=== PATIENT | female | born 1950 | race Caucasian/White ===

== ENCOUNTER → 2018-03-17 15:16 | Outpatient (CLI) | payer MEDICARE, OTHER, SELFPAY ==
--- NOTE | 2018-03-17 15:25 | CT_ITS ---
STUDY: CT BRAIN WITHOUT CONTRAST REASON FOR EXAM: Female, 67 years old. Headache. RADIATION DOSAGE (If Supplied By Facility): CTDIvol = ( 44.99 ) mGy, DLP = ( 762.36 ) mGycm TECHNIQUE: Transaxial CT imaging of the brain was performed without administration of intravenous contrast material. Individualized dose optimization techniques were used for this CT. COMPARISON: None. FINDINGS: Normal soft tissue structures. Normal calvarium. Normal size ventricles and extra-axial spaces for the patient's age. Normal white matter tracts of the cerebral hemispheres. Normal basal ganglia and thalami. Normal brainstem. Normal cerebellum. There is no intracranial hemorrhage. There are no findings of an acute ischemic infarction. Paranasal sinuses show complete opacification of the sphenoid sinuses. CT/Brain/Head without Contrast IMPRESSION: Normal unenhanced CT scan of the brain. Electronically Signed: Lex Royal MD at 15:46 EST , Service support ,
--- OUTSIDE RECORDS SUMMARY | 2018-05-03 21:48 | XMS RPT_ITS ---
:1950 Author Organization OHIP Care Team Providers Name Role Phone HARRIS LÓPEZ () Referring Unavailable HARRIS LÓPEZ) Attending Unavailable HARRIS LÓPEZ) Referring Unavailable PODLOGARMINERVA) Attending Unavailable PODLOGAR, MINERVA (AVTAR) Referring Unavailable OLDER, MARLINE (AVTAR) Attending Unavailable OLDER, MARLINE (FELT HANGER) Referring Unavailable Older, Marline FELT HANGER Attending Unavailable Older, Marline FELT HANGER Referring Unavailable Primay Care Physicia, No Primary Care Unavailable Janett Lowe YOUTH COUNSELOR-C Consulting Unavailable Rohith Vela Attending Unavailable Rohith Vela Referring Unavailable Primay Care Physicia, No Primary Care Unavailable PROBLEMS PROBLEMS DATE TYPE CONDITION / CODE ATTENDING STATUS SOURCE 03/17/2018 Active Ocular pain, right NA Active [facility] eye / H57.11(ICD-10) [facility] [place] Rep[facility] 03/17/2018 Active Unspecified ptosis NA Active [facility] of right eyelid / [facility] [place] H02.401(ICD-10) Repository 03/17/2018 Active Headache / NA Active [facility] R51(ICD-10) [facility] [place] [facility] 02/07/2018 Active Encounter for NA Active [facility] screening mammogram [facility] [place] for malignant Repository neoplasm of breast / Z12.31(ICD-10) 10/07/2015 Active Iron deficiency NA Active [facility] anemia, unspecified [facility] [place] / D50.9(ICD-10) Repository 08/08/2005 Active Postprocedural NA Active [facility] hypothyroidism / [facility] [place] E89.0(ICD-10) Repository 01/15/2018 Active Other halfway NA Active [facility] (current) drug [facility] [place] therapy / Repository Z79.899(ICD-10) 08/08/2005 Active Essential (primary) NA Active [facility] hypertension / [facility] I10(ICD-10) Repository 06/08/2017 Active Other abnormal NA Active [facility] findings in urine / [facility] [place] R82.99(ICD-10) Repository 06/08/2017 Active Unspecified abnormal NA Active [facility] findings in urine / [facility] [place] R82.90(ICD-10) Repository PROCEDURES PROCEDURES No Procedure Records FoundRESULTS RESULTS OPERATIVE REPORT Observed: 04/29/2018 Status: F Source: [place] 2:01 PM [facility] REPOSITORY [facility] Medical Records Department [address] [place] [address] Operative Report 04/29/18 0827 MR#: [id number] Acct: [id number] Name: LINSEY BOBO Rep #: [id number] : 1950 67 From: Rohith Vela MD PCP: Care Physician, No Primary Status: REG [facility] [place] Location: [place] [address] Problem List (1) Chronic pansinusitis Status: Chronic Report of Operation Date of Procedure: 04/29/18 Pre-Operative Diagnosis: 1. chronic pansinusitis Post-Operative Diagnosis: 1. chronic pansinusitis Surgery/Procedure Performed:: 1. endoscopic maxillary antrostomy with tissue removal, right and left. 2. endoscopic total ethmoidectomy with sphenoidotomy and tissue removal, right and left Type of Anesthesia:: General Description of Procedure: on the day of the procedure, after appropriate informed consent was obtained, the patient was brought to the operating room and placed in supine position on the operating table. she was placed under general endotracheal anesthesia; the endotracheal tube was secured, the eyes were lubricated. the image guidance system was set up, registered and accuracy confirmed. the bilateral nasal cavities were decongested with oxymetazoline soaked pledgets. the superior attachment of the middle turbinate and uncinate process were injected with lidocaine/epinephrine. the left nasal cavity was examined with the endoscope. a maxillary antrostomy and uncinectomy were performed with a gavin elevator and blakesley. contents were evacuated. a back biter was used to widen the antrostomy. the ethmoid bulla was entered bluntly using the suction and a combination of a curette and an upgoing blakesley were used to perform a total ethmoidectomy. this was taken superiorly to the skull base and laterally to the lamina. a stankewicz maneuver was performed and no laminar defect was noted. the natural sphenoid os was located and widened using a jamila cut. contents were evacuated. the anterior/inferior portion of the middle turbinate was removed with turbinate scizzors and cauterized. the area was irrigated, pledgets were replaced, and hemostasis was achieved. the right nasal cavity was examined with the endoscope. a maxillary antrostomy and uncinectomy were performed with a gavin elevator and blakesley. contents were evacuated. a back biter was used to widen the antrostomy. the ethmoid bulla was entered bluntly using the suction and a combination of a curette and an upgoing blakesley were used to perform a total ethmoidectomy. this was taken superiorly to the skull base and laterally to the lamina. a stankewicz maneuver was performed and no laminar defect was noted. the natural sphenoid os was located and widened using a jamila cut. polyps were noted in this area and a large amount of fungal elements were filling the sphenoid cavity; contents were evacuated. the anterior/inferior portion of the middle turbinate was removed with turbinate scizzors and cauterized. the area was irrigated, pledgets were replaced, and hemostasis was achieved. the patient was extubated uneventfully and transferred to the PACU in stable condition. 04/29/18 1401 <Electronically signed by Rohith Vela MD> Date Rohith Vela MD CC: No Primary Care Physician; Harris Vela MD Signed CBC-COMPLETE BLOOD CNT Collected: 04/29/2018 Status: F Source: [place] NO DIFF 1:50 PM [facility] REPOSITORY Order Comment: Reason for Laboratory Test PRE-OP TYPE CODE TESTS RESULT OUT OF RANGE REFERENCE UNITS LAB L100.1000 4.4-11.0 K/mm3 Normal WBC 6.6 LAB L100.1200 4.2-5.4 M/mm3 Normal RBC 4.31 LAB L100.1300 12.0-15.0 g/dl Normal HGB 13.1 LAB L100.1400 37-47 % Normal HCT 40.8 LAB L100.1500 81-99 fL Normal MCV 94.7 LAB L100.1600 27.0-32.0 pg Normal MCH 30.4 LAB L100.1700 32-36 g/gl Normal MCHC 32.1 LAB L100.1810 11.6-14.6 % Normal RDW CV 14.5 LAB L100.1820 35.1-43.9 fl High RDW SD 48.5 LAB L100.1900 150-450 K/mm3 Normal PLT 255 LAB L100.2000 6.2-12.0 fl Normal MPV 10.1 Performed By: #### L100.0500 #### [facility] [address] [place], [place], [address] PROTHROMBIN TIME W/INR Collected: 04/29/2018 Status: F Source: [place] 1:50 PM [facility] REPOSITORY Order Comment: Reason for Laboratory Test PRE-OP TYPE CODE TESTS RESULT OUT OF RANGE REFERENCE UNITS LAB L300.4150 11.7-14.9 SECONDS Normal PROTIME 13.0 LAB L300.4200 Normal INR 1.0 Performed By: #### L300.3900, L300.4310 #### [facility] [address] [place], [place], [address] PARTIAL THROMBOPLAST Collected: 04/29/2018 Status: F Source: [place] TIME 1:50 PM [facility] REPOSITORY Order Comment: Reason for Laboratory Test PRE-OP TYPE CODE TESTS RESULT OUT OF RANGE REFERENCE UNITS LAB L300.4310 24.1-36.2 Seconds Normal PTT 32.0 Performed By: #### L300.3900, L300.4310 #### [facility] [address] [place], [place], [address] BASIC METABOLIC Collected: 04/29/2018 Status: F Source: [place] PROFILE (BMP) 1:50 PM [facility] REPOSITORY Order Comment: Send Results To: PRE-OP Reason for Laboratory Test PRE-OP TYPE CODE TESTS RESULT OUT OF RANGE REFERENCE UNITS LAB L501.0100 74-106 mg/dL Normal GLU 85 Result Comment: Please note revised GLUCOSE reference range effective 2017. LAB L501.1000 7-18 mg/dL High BUN 20 LAB L501.1100 0.55-1.02 mg/dL Normal CREAT,SERUM 0.78 Result Comment: The validity of the calculated GFR AND GFRAA in patients over 70 years has not been determined. Clinical correlation is essential. LAB L501.1110 >60 mL/min Normal EST GFR 78 Result Comment: Non- GFR Calc LAB L501.1115 >60 mL/min Normal EST GFR - AA 94 Result Comment: GFR Calc LAB L501.1300 10-20 RATIO High BUN/CRE 25.6 LAB L501.2200 8.5-10.1 mg/dL CA Normal 9.4 LAB L501.5300 136-145 mmol/L NA Normal 140 LAB L501.5600 3.5-5.1 mmol/L K Normal 4.1 LAB L501.5900 98-107 mmol/L CL Normal 104 LAB L501.6100 21.0-32.0 mmol/L Normal CO2 29.0 LAB L501.6200 5-15 Normal GAP 7 Performed By: #### L500.2500, L501.9520 #### [facility] [address] [place], [address] THYROID STIM HORMONE Collected: 04/29/2018 Status: F Source: [place] (TSH) 1:50 PM [facility] REPOSITORY Order Comment: Send Results To: PRE-OP Reason for Laboratory Test PRE-OP TYPE CODE TESTS RESULT OUT OF RANGE REFERENCE UNITS LAB L501.9520 0.358-3.74 uIU/mL Normal TSH 1.59 Performed By: #### L500.2500, L501.9520 #### [facility] [address] [place], [place], [address] DISCHARGE INSTRUCTION Observed: 04/29/2018 Status: F Source: [place] 8:27 AM [facility] REPOSITORY [facility] Medical Records Department [address] [place] [address] Instructions for Home/Discharge Instructions 04/29/18825 MR#: [id number] Acct: [id number] Name: LINSEY BOBO Rep #: [id number] : 1950 67 From: Rohith Vela MD PCP: Care Physician, No Primary Status: [place] [facility] You will use the following diet at home:: No restrictions Your food should be the consistency of: Regular Discharge Activity: Return to Normal Activity Call your doctor if your incision/area has: Increased Pain/ Swelling Additional Dressing/Incision Instructions:: irrigate nose with saline 5 times/day until seen in clinic Allergies/Adverse Reactions: Allergies No Known Allergies Allergy (Verified 04/22/18 09:07) Medications to take at Discharge Esomeprazole Mag Trihydrate [Nexium] 40 mg PO QODAY 11/10/15 Ferrous Sulfate 325 mg PO DAILY@0800 11/10/15 Levothyroxine Sodium [Levoxyl] 88 mcg PO DAILY 11/10/15 Lisinopril [Zestril] 10 mg PO DAILY 04/22/18 Naproxen [Naprosyn] 500 mg PO BID 04/22/18 Simvastatin [Zocor] 40 mg PO QHS 04/22/18 Acetaminophen/Codeine #3 [Tylenol#3] 1 tab PO Q6H PRN PRN #15 tab 04/29/18 The following prescriptions were given: Acetaminophen/Codeine #3 [Tylenol#3] 1 tab PO Q6H PRN PRN #15 tab PRN Reason: Pain Orders to be completed after discharge: 12 Lead EKG [CVS] Time Frame: 04/23/18, Facility: [facility], Location: Cardiovascular Services Primary Care Physician: Care Physician,No Primary [Primary Care Provider] - Test Results: Test results from this visit will be discussed in further detail at your follow-up appointment, if applicable. Please Follow Up With: Rohith Vela MD When: 1 week 04/29/18826 <Electronically signed by Rohith Vela MD> Date Rohith Vela MD CC: No Primary Care Physician Signed 12 LEAD ELECTROCARDIOGRAM Observed: 04/24/2018 Status: F Source: [place] 4:02 PM [facility] REPOSITORY [facility] Cardiovascular Services [address] [place] [address] 12 Lead EKG 04/23/18 1214 MR#: [id number] Acct: [id number] Name: TAD BOBOBETH Enoch Rep #: [id number] : 1950 67 From: Bart Iverson MD Attending Dr: Harris Vela MD Status: PRE SDC Ordering Dr: Rohith Vela MD Date: 04/23/18 Location: [facility] Sex: F C Admitted: Test Reason : PRE-OP Blood Pressure : / mmHG Vent. Rate : 076 BPM Atrial Rate : 076 BPM P-R Int : 150 ms QRS Dur : 080 ms QT Int : 390 ms P-R-T Axes : 049 032 047 degrees QTc Int : 438 ms Normal sinus rhythm Normal ECG Confirmed by ZAYRA PAEZ, BART ([id number]), acquisitions editor KRISSY ANTHONY ([id number]) on 04/24/2018 4:02:06 PM Referred By: John Vela Confirmed By:BART IVERSON MD 04/24/18 1602 Date Bart Iverson MD CC: No Primary Care Physician; Harris Vela MD Signed BRAIN/HEAD WITHOUT Observed: 03/17/2018 Status: F Source: [place] CONTRAST 3:25 PM [facility] REPOSITORY [facility] Imaging Services [address] [place] [address] Brain/Head without Contrast MR#: [id number] Acct: [id number] Name: LINSEY BOBO Rep #: [id number] : 1950 F 67 From: Lex Royal MD PCP: Care Physician, No Primary Status: REG CLI Study: Brain/Head without Contrast Date of Exam: 03/17/18 Exam# [id number] Ordering Dr: Marline Pena ADDENDUM by Preston Elam MD on 03/18/18 at 1048 ADDENDUM This is an addendum report. 03/18/18 1048 Date cc: No Primary Care Physician; Mathew Lemos MD; Marline Pena * Signed ADDENDUM by Preston Elam MD on 03/18/[address]/Brain/Head without Contrast IMPRESSION: Opacification of the right sphenoid sinus. Electronically Signed: Preston Elam MD at 10:48 EST Tel [phone], Service support , 03/18/18 1055 Date cc: No Primary Care Physician; Mathew Lemos MD; Marline Pena * Signed STUDY: CT BRAIN WITHOUT CONTRAST REASON FOR EXAM: Female, 67 years old. Headache. RADIATION DOSAGE (If Supplied By Facility): CTDIvol = ( 44.99 ) mGy, DLP = ( 762.36 ) mGycm TECHNIQUE: Transaxial CT imaging of the brain was performed without administration of intravenous contrast material. Individualized dose optimization techniques were used for this CT. COMPARISON: None. FINDINGS: Normal soft tissue structures. Normal calvarium. Normal size ventricles and extra-axial spaces for the patient's age. Normal white matter tracts of the cerebral hemispheres. Normal basal ganglia and thalami. Normal brainstem. Normal cerebellum. There is no intracranial hemorrhage. There are no findings of an acute ischemic infarction. Paranasal sinuses show complete opacification of the sphenoid sinuses. CT/Brain/Head without Contrast IMPRESSION: Normal unenhanced CT scan of the brain. Electronically Signed: Lex Royal MD at 15:46 EST , Service support , CC: No Primary Care Physician; Mathew Lemos MD; Marline Pnea Currency Machine Operator: Signed CBC AND DIFFERENTIAL Collected: 03/17/2018 Status: F Source: [place] 2:47 PM [facility] REPOSITORY TYPE CODE TESTS RESULT OUT OF REFERENCE UNITS RANGE LAB WBC 3.70-11.00 k/uL WBC 8.13 LAB RBC 3.90-5.20 m/uL RBC 4.44 LAB HGB 11.5-15.5 g/dL Hemoglobin 13.0 LAB HCT 36.0-46.0 % Hematocrit 41.9 LAB MCV 80.0-100.0 fL MCV 94.4 LAB MCH 26.0-34.0 pG MCH 29.3 LAB MCHC 30.5-36.0 g/dL MCHC 31.0 LAB RDWCV 11.5-15.0 % RDW-CV 14.4 LAB PLTCT 150-400 k/uL Platelet Count 259 LAB MPV 9.0-12.7 fL MPV 10.8 LAB ANEUT % Neut% 71.3 LAB AANEUT 1.45-7.50 k/uL Abs Neut 5.77 LAB ALYMP % Lymph% 17.2 LAB AALYMP 1.00-4.00 k/uL Abs Lymph 1.40 LAB AMONO % Craig% 8.0 LAB AAMONO <0.87 k/uL Abs Craig 0.65 LAB AEOS % Eosin% 2.3 LAB AAEOS <0.46 k/uL Abs Eosin 0.19 LAB ABASO % Baso% 1.2 LAB AABASO <0.11 k/uL Abs Baso 0.10 LAB AUNRBC 0 /100 WBC NRBCs 0.0 LAB ABNRBC <0.01 k/uL Absolute nRBC <0.01 LAB DTYP DTYPE Auto Diff Performed By: #### CBCDIF, WSR, CRP #### [facility] [address] [place] [id number] SED RATE WESTERGREN Collected: 03/17/2018 Status: F Source: [place] 2:47 PM [facility] REPOSITORY TYPE CODE TESTS RESULT OUT OF REFERENCE UNITS RANGE LAB WSR 0-20 mm/hr Sed Rate Westergren 12 Performed By: #### CBCDIF, WSR, CRP #### [facility] [address] [place] [address] C-REACTIVE PROTEIN Collected: 03/17/2018 Status: F Source: [place] 2:47 PM [facility] REPOSITORY TYPE CODE TESTS RESULT OUT OF REFERENCE UNITS RANGE LAB CRP <0.9 mg/dL C-Reactive 0.1 Protein Performed By: #### CBCDIF, WSR, CRP #### [facility] [address] [place], [place] [address] PROGRESS Observed: 03/17/2018 Status: COMPLETED Source: [place] 2:02 PM [facility] REPOSITORY HNO ID: [id number] Author: Marline (Avtar) Older Service: (none) Author Type: Nurse Practitioner Type: Progress Notes Filed: 03/17/2018 2:42 PM Note Text: CC Patient presents with: Headache: (right) temporal headaches x 1 month HPI Linsey Bobo is a 67 year old year old female who presents with complaint of headache(s) for 1 month. Intensity: 6/10 on 0-10 scale, Location: right muslim and right eye, Frequency: daily, occurring only in the late afternoon/evening, Character: aching, Duration: usually last a few hours Triggers: The patient is not aware of any specific triggers. Recent history of head injury or trauma, migraines, significant caffeine intake or excessive alcohol intake: No Associated symptoms: since headache have started she has had foggy thinking, worsening of chronic ptosis of the right eyelid and red eyes. Denies: nausea, vomiting, photophobia, phonophobia, neck stiffness, inability to move head freely or touch chin to neck, sinus congestion, toothache or other dental problem, tongue or jaw pain, facial pain when leaning over and scalp pain with combing hair. No recent URI's or illnesses No headache history History of hypertension, does not check blood pressures at home Denies: numbness, weakness, slurred speech, visual changes, dizziness, clumsiness, difficulty with gait and change in level of consciousness. Treatments: resting in quiet dark room, minor analgesics- Tylenol and warn compress with no relief. REVIEW OF SYSTEMS Respiratory: no cough, no wheezing, no shortness of breath Cardiovascular: no chest pain, no chest pressure, no palpitations and no swelling Neurologic: no syncope, no seizures, no numbness or tingling of hands, no numbness or tingling of feet, no muscle weakness, no tremor, no falling, no difficulty walking, no slurred speech PAST MEDICAL HISTORY Diagnosis Date - Acute gastritis without mention of hemorrhage - Diverticulosis of colon (without mention of hemorrhage) - Dysphagia, unspecified(787.20) - Esophagitis, unspecified - Essential hypertension, benign - Goiter, unspecified thyroidectomy - Hypothyroidism - Lesion of plantar nerve 'sullivans toe' - Malaise and fatigue - Meniscus tear right - Osteoarthrosis, unspecified whether generalized or localized, other specified sites - Other and unspecified hyperlipidemia - Other B-complex deficiencies - Other emphysema (HCC) - Sciatica seeing Dr. Babb, pain mgmt PAST SURGICAL HISTORY Procedure Laterality Date - COLONOSCOP W/ OR W/O [facility] SPEC 09/07/05 Diverticulosis - COLONOSCOP W/ OR W/O [facility] SPEC 10/07/09 Sigmoid diverticulosis/extensive - COLONOSCOP W/ OR W/O [facility] SPEC 11-10-15 repeat in 10 years - DANDC, DIAG AND/OR THERAPEUTIC Dilation AND curettage - EGD W/O [facility] SPECIMEN W/BX 01/19/09 - EGD W/O [facility] SPECIMEN W/BX 11-10-15 - LIGATE FALLOPIAN TUBE Tubal ligation - PAST SURGICAL HISTORY OF bone spur removal from left foot - THYROIDECTOMY 1998 - TMJ ARTHROSCOPY DISCECTOMY ALLERGIES Epinephrine; James [Other]; Perfumes MEDICATIONS levothyroxine (SYNTHROID) 88 mcg tablet Take 1 tablet by mouth once daily. simvastatin (ZOCOR) 40 mg tablet Take 1 tablet by mouth daily at bedtime. lisinopril (ZESTRIL, PRINIVIL) 10 mg tablet Take 1 tablet by mouth once daily. naproxen (NAPROSYN) 500 mg tablet Take 1 tablet by mouth twice daily. ferrous sulfate 325 mg (65 mg iron) tablet Take 1 tablet by mouth daily with breakfast. esomeprazole (NEXIUM) 40 mg capsule Take 1 capsule by mouth every other day acetaminophen(TYLENOL EXTRA STRENGTH 500 MG TAB) as necessary FAMILY HISTORY Problem Relation Age of Onset - Coronary Artery Disease Mother - Coronary Artery Disease Father - Hypertension Mother - Osteoporosis Sister Social History Substance Use Topics - Smoking status: Never Smoker - Smokeless tobacco: Never Used - Alcohol use No PHYSICAL EXAM BP 132/68 Pulse 89 Temp 37.1 ?C (98.8 ?F) (Temporal Artery) Resp 16 Wt 88.2 kg (194 lb 6.4 oz) SpO2 96% BMI 31.86 kg/m? General Appearance: well appearing, in no acute distress, alert Pysch: affect is anxious Skin: Skin color, texture, turgor normal for age; No rashes or lesions Head: Normocephalic, atraumatic. No temporal artery tenderness, pulsations or bruits Eyes: PERRLA, EOM's intact and painless, sclera white, non-injected, conjunctival erythema bilateral eyes, right eyelid ptosis Neck: No bruits, Neck supple, No adenopathy, cervical or paraspinal tenderness Oropharynx: lips normal without lesions, tongue midline and normal, soft palate, uvula, and tonsils normal Lungs: lungs clear to auscultation. No wheezing, rhonchi, rales Heart: RRR without murmur, gallop, or rubs. No ectopy Neurological: Negative findings: speech normal, mental status intact, cranial nerves 2-12 intact, gait, including heel, toe, and tandem walking normal, muscle strength normal, reflexes normal and symmetric ASSESSMENT/PLAN: 1. Right sided temporal headache - ICD9: 784.0, ICD10: R51 (primary diagnosis) New onset headache in age >50, right eye ptosis and pain; imaging indicated: - CT BRAIN WO IVCON Lab work-up with: - SED RATE WESTERGREN - C-REACTIVE PROTEIN (CRP) - CBC + DIFF Needs ophthalmology evaluation [place]. Called [facility] and scheduled patient for 03/18 at 8:30 AM Discussed above with PCP, he is agreeable Follow-up and further treatment pending results of work-up 2. Acute pain in right eye - ICD9: 379.91, ICD10: H57.11 As above - CT BRAIN WO IVCON - SED RATE WESTERGREN - C-REACTIVE PROTEIN (CRP) - CBC + DIFF 3. Ptosis of right eyelid - ICD9: 374.30, ICD10: H02.401 As above - CT BRAIN WO IVCON - SED RATE WESTERGREN - C-REACTIVE PROTEIN (CRP) - CBC + DIFF Prescription instructions reviewed with patient as applicable. Potential red flag symptoms discussed with the patient. Reviewed appropriate action plan to take if red flag symptoms occur. Patient agreeable to treatment plan. Marline Pena APRN.CNP CNOV Observed: 03/17/2018 Status: COMPLETED Source: [place] 2:00 PM [facility] REPOSITORY Office Visit (INTMWS) LINSEY BOBO ([id number]) 1950 F Date Time Provider Department 03/17/18 2:00 PM MARLINE PENA (AVTAR) INTMWS During your visit today, we recorded the following information about you: Temperature Pulse Respiration Blood pressure 98.8 degrees 89/minute 16/minute 132/68 Weight 88.2 kg Marline Pena APRN.CNP 03/17/2018 2:42 PM Signed CC Patient presents with: Headache: (right) temporal headaches x 1 month HPI Linsey Bobo is a 67 year old year old female who presents with complaint of headache(s) for 1 month. Intensity: 6/10 on 0-10 scale, Location: right muslim and right eye, Frequency: daily, occurring only in the late afternoon/evening, Character: aching, Duration: usually last a few hours Triggers: The patient is not aware of any specific triggers. Recent history of head injury or trauma, migraines, significant caffeine intake or excessive alcohol intake: No Associated symptoms: since headache have started she has had foggy thinking, worsening of chronic ptosis of the right eyelid and red eyes. Denies: nausea, vomiting, photophobia, phonophobia, neck stiffness, inability to move head freely or touch chin to neck, sinus congestion, toothache or other dental problem, tongue or jaw pain, facial pain when leaning over and scalp pain with combing hair. No recent URI's or illnesses No headache history History of hypertension, does not check blood pressures at home Denies: numbness, weakness, slurred speech, visual changes, dizziness, clumsiness, difficulty with gait and change in level of consciousness. Treatments: resting in quiet dark room, minor analgesics- Tylenol and warn compress with no relief. REVIEW OF SYSTEMS Respiratory: no cough, no wheezing, no shortness of breath Cardiovascular: no chest pain, no chest pressure, no palpitations and no swelling Neurologic: no syncope, no seizures, no numbness or tingling of hands, no numbness or tingling of feet, no muscle weakness, no tremor, no falling, no difficulty walking, no slurred speech PAST MEDICAL HISTORY Diagnosis Date - Acute gastritis without mention of hemorrhage - Diverticulosis of colon (without mention of hemorrhage) - Dysphagia, unspecified(787.20) - Esophagitis, unspecified - Essential hypertension, benign - Goiter, unspecified thyroidectomy - Hypothyroidism - Lesion of plantar nerve 'sullivans toe' - Malaise and fatigue - Meniscus tear right - Osteoarthrosis, unspecified whether generalized or localized, other specified sites - Other and unspecified hyperlipidemia - Other B-complex deficiencies - Other emphysema (HCC) - Sciatica seeing Dr. Babb, pain mgmt PAST SURGICAL HISTORY Procedure Laterality Date - COLONOSCOP W/ OR W/O [facility] SPEC 09/07/05 Diverticulosis - COLONOSCOP W/ OR W/O [facility]RS SPEC 10/07/09 Sigmoid diverticulosis/extensive - COLONOSCOP W/ OR W/O [facility] SPEC 11-10-15 repeat in 10 years - DANDC, DIAG AND/OR THERAPEUTIC Dilation AND curettage - EGD W/O [facility] SPECIMEN W/BX 01/19/09 - EGD W/O [facility] SPECIMEN W/BX 11-10-15 - LIGATE FALLOPIAN TUBE Tubal ligation - PAST SURGICAL HISTORY OF bone spur removal from left foot - THYROIDECTOMY 1998 - TMJ ARTHROSCOPY DISCECTOMY ALLERGIES Epinephrine; James [Other]; Perfumes MEDICATIONS levothyroxine (SYNTHROID) 88 mcg tablet Take 1 tablet by mouth once daily. simvastatin (ZOCOR) 40 mg tablet Take 1 tablet by mouth daily at bedtime. lisinopril (ZESTRIL, PRINIVIL) 10 mg tablet Take 1 tablet by mouth once daily. naproxen (NAPROSYN) 500 mg tablet Take 1 tablet by mouth twice daily. ferrous sulfate 325 mg (65 mg iron) tablet Take 1 tablet by mouth daily with breakfast. esomeprazole (NEXIUM) 40 mg capsule Take 1 capsule by mouth every other day acetaminophen(TYLENOL EXTRA STRENGTH 500 MG TAB) as necessary FAMILY HISTORY Problem Relation Age of Onset - Coronary Artery Disease Mother - Coronary Artery Disease Father - Hypertension Mother - Osteoporosis Sister Social History Substance Use Topics - Smoking status: Never Smoker - Smokeless tobacco: Never Used - Alcohol use No PHYSICAL EXAM BP 132/68 Pulse 89 Temp 37.1 ?C (98.8 ?F) (Temporal Artery) Resp 16 Wt 88.2 kg (194 lb 6.4 oz) SpO2 96% BMI 31.86 kg/m? General Appearance: well appearing, in no acute distress, alert Pysch: affect is anxious Skin: Skin color, texture, turgor normal for age; No rashes or lesions Head: Normocephalic, atraumatic. No temporal artery tenderness, pulsations or bruits Eyes: PERRLA, EOM's intact and painless, sclera white, non-injected, conjunctival erythema bilateral eyes, right eyelid ptosis Neck: No bruits, Neck supple, No adenopathy, cervical or paraspinal tenderness Oropharynx: lips normal without lesions, tongue midline and normal, soft palate, uvula, and tonsils normal Lungs: lungs clear to auscultation. No wheezing, rhonchi, rales Heart: RRR without murmur, gallop, or rubs. No ectopy Neurological: Negative findings: speech normal, mental status intact, cranial nerves 2-12 intact, gait, including heel, toe, and tandem walking normal, muscle strength normal, reflexes normal and symmetric ASSESSMENT/PLAN: 1. Right sided temporal headache - ICD9: 784.0, ICD10: R51 (primary diagnosis) New onset headache in age >50, right eye ptosis and pain; imaging indicated: - CT BRAIN WO IVCON Lab work-up with: - SED RATE WESTERGREN - C-REACTIVE PROTEIN (CRP) - CBC + DIFF Needs ophthalmology evaluation [place]. Called [facility] and scheduled patient for 03/18 at 8:30 AM Discussed above with PCP, he is agreeable Follow-up and further treatment pending results of work-up 2. Acute pain in right eye - ICD9: 379.91, ICD10: H57.11 As above - CT BRAIN WO IVCON - SED RATE WESTERGREN - C-REACTIVE PROTEIN (CRP) - CBC + DIFF 3. Ptosis of right eyelid - ICD9: 374.30, ICD10: H02.401 As above - CT BRAIN WO IVCON - SED RATE WESTERGREN - C-REACTIVE PROTEIN (CRP) - CBC + DIFF Prescription instructions reviewed with patient as applicable. Potential red flag symptoms discussed with the patient. Reviewed appropriate action plan to take if red flag symptoms occur. Patient agreeable to treatment plan. TRAVIS Ramirez APRN.CNP 03/17/2018 2:29 PM Addendum Appointment at [facility] 03/18 at 8:30 AM Referring Provider: SELF [[id number]] Allergies As of Date: 03/17/2018 Noted Allergy Reaction EPINEPHRINE 12/31/2007 Comments: rapid heartbeat james [Other] 08/08/2005 PERFUMES 08/08/2005 Comments: floral perfumes Date Reviewed: 03/17/2018 Reviewed by: Shaniqua Espinoza Technical Services Coordinator - Fully Assessed Reason for Visit: Headache [52] Cmt: (right) temporal headaches x 1 month Primary Visit Diagnosis:Right sided temporal headache [R51] Other Visit Diagnoses:Acute pain in right eye [H57.11] Ptosis of right eyelid [H02.401] Order(s):CT BRAIN WO IVCON [6504235] Order #: [id number] FUTURE SED RATE WESTERGREN [SQWSR] Order #: [id number] FUTURE C-REACTIVE PROTEIN (CRP) [SQCRP] Order #: [id number] FUTURE CBC + DIFF [SQCBCDIF] Order #: [id number] FUTURE Prescriptions as of 03/17/2018 Sig: LEVOTHYROXINE 88 MCG TABLET Take 1 tablet by mouth once d* SIMVASTATIN 40 MG TABLET Take 1 tablet by mouth daily * LISINOPRIL 10 MG TABLET Take 1 tablet by mouth once d* NAPROXEN 500 MG TABLET Take 1 tablet by mouth twice * FERROUS SULFATE 325 MG (65 MG* Take 1 tablet by mouth daily * ESOMEPRAZOLE MAGNESIUM 40 MG * Take 1 capsule by mouth every* TYLENOL EXTRA STRENGTH 500 MG* as necessary Problem List As Of Date 03/17/2018 Noted Resolved HYPERTENSION BENIGN [I10] INVALID FOR* HYPOTHYROIDISM POST SURGICAL [E89.0] INVALID FOR* Other hyperlipidemia [E78.49] INVALID FOR* OSTEOARTHRITIS GENERALIZED( Multiple Sites) [M1*INVALID FOR* PLANTAR NERVE LESION [G57.60] INVALID FOR* SCREEN (SEE ALSO ADMISSION) CANCER - COLON [Z*INVALID FOR* DIVERTICULOSIS COLON - NO HEMORRHAGE [K57.30] INVALID FOR* GOITER NOS [E04.9] More... Dysphagia, Unspecified [R13.10] INVALID FOR* Rectal Bleeding [K62.5] INVALID FOR* Diverticulitis of Colon [K57.32] INVALID FOR* Exostosis of unspecified site [M89.8X9] INVALID FOR* Iron deficiency anemia [D50.9] INVALID FOR* Other instructions from your clinician: Appointment at [facility] 03/18 at 8:30 AM Encounter Status:Closed by MARLINE PENA CNP on 03/17/18 CNCO Observed: 02/07/2018 Status: COMPLETED Source: [place] 2:51 PM [facility] REPOSITORY HNO ID: [id number] Author: Mammography Coordinator Service: (none) Author Type: Physician Type: Letter Filed: 02/10/2018 11:33 PM Note Text: February 07, 2018 PID: [id number] Linsey Bobo [address] [place] [address] Dear Ms. Bobo, We are pleased to inform you that the results of your recent breast imaging exam on 02/07/2018 are normal. Your mammogram demonstrates that you have dense breast tissue, which could hide abnormalities. Dense breast tissue, in and of itself, is a relatively common condition. Therefore, this information is not provided to cause undue concern; rather, it is to raise your awareness and promote discussion with your health care provider regarding the presence of dense breast tissue in addition to other risk factors. Early detection of cancer is very important. We also understand recommendations regarding breast cancer screening are controversial. Please discuss with your primary care provider which strategy is best for you and whether a mammogram is right for you. Your imaging studies and report will be kept on file at [facility] as part of your permanent medical record and are available for your continuing care. Thank you for allowing us to help in meeting your health care needs. Sincerely, Dr. Lao Interpreting Radiologist [facility] (Normal over 40) [facility] SCREENING Observed: 02/07/2018 Status: F Source: [place] 2:25 PM [facility] REPOSITORY * * *Final Report* * * DATE OF EXAM: Feb 07 2018 2:25PM WRW [id number] - [facility] SCREENING / PROCEDURE REASON: Screening for breast cancer * * * * Physician Interpretation * * * * RESULT: #[id number] - [facility] SCREENING BILATERAL DIGITAL SCREENING MAMMOGRAM WITH CAD: 02/07/2018 HISTORY: Screening Mammogram - patient reports NO breast symptoms /priors available for comparison. RESULT: TECHNIQUE: The study was acquired using full field digital technology and interpreted from soft copy. Current study was also evaluated with a Computer Aided Detection (CAD). Comparison is made to exams dated: 11/16/2016 mammogram - [facility], 09/16/2015 mammogram - [facility], 05/30/2012 mammogram, 06/26/2013 mammogram, and 08/26/2014 mammogram - [facility]. The tissue of both breasts is heterogeneously dense. This may lower the sensitivity of mammography. No significant masses, calcifications, or other findings are seen in either breast. There has been no significant interval change. IMPRESSION: NEGATIVE There is no mammographic evidence of malignancy. A 1 year screening mammogram is recommended. aH Lao M.D. pt/penrad:02/07/2018 14:51:34 Supervisor Photocomposition: Kanika BEJARANO(Hermann)(Monica), [facility] letter sent: Normal over 40 Mammogram BI-RADS: 1 Negative Multiple national specialty organizations have released breast cancer screening guidelines for women at average risk for developing breast cancer - guidelines that are based on both evidence and opinion, yet differ on when to start and how often to screen for breast cancer. With representation from Breast Imaging, Internal Medicine, Women's Health, Family Medicine, and Medical/Surgical Oncology, the [facility] has carefully reviewed the data and reached the following consensus: 1) All women should engage in shared decision-making with their providers to decide when to start and how often to screen; 2) All women should have the opportunity to start screening mammography at age 40; 3) For women ages 45-55, we recommend annual screening mammograms; 4) For women ages 55 and over, we support both the transition from an annual to a biennial interval if this aligns more with patient's values and preferences, or continuation with annual screening; 5) All women should discuss with their providers when to stop screening mammograms. Currency Machine Operator: Sherman Transcribe Date/Time: Feb 07 2018 1:48P Dictated by: HA LAO MD This examination was interpreted and the report reviewed and electronically signed by: HA LAO MD on Feb 07 2018 2:51PM EST [id number] PROGRESS Observed: 02/07/2018 Status: COMPLETED Source: [place] 1:47 PM [facility] [place] REPOSITORY HNO ID: [id number] Author: Shaniqua Bejarano Service: (none) Author Type: (none) Type: Progress Notes Filed: 02/07/2018 1:47 PM Note Text: Radiology Service Progress Note PATIENT NAME: Linsey Bobo DATE OF SERVICE: February 07, 2018 TIME: 1:47 PM PATIENT IDENTITY VERIFICATION COMPLETED USING TWO (2) METHODS: Patient confirmed name verbally and Date of . PATIENT GENDER DATA: Female. status: : No status: NO. PATIENT RELEVANT IMPLANT DATA REVIEWED: Not Applicable RADIOLOGY DEPARTMENT: [facility] DATA: Not applicable SIGNED BY: Shaniqua Bejarano February 07, 2018 1:47 PM PROGRESS Observed: 01/20/2018 Status: COMPLETED Source: [place] 1:01 PM [facility] [place] REPOSITORY HNO ID: [id number] Author: Minreva Frausto) Podlogar Service: (none) Author Type: Nurse Practitioner Type: Progress Notes Filed: 01/20/2018 3:16 PM Note Text: 01/20/2018 Patient presents with: Refill Request Imm/Inj: Flu Vaccine SUBJECTIVE: This is a 67 year old that is here today for Above Complaints. No concerns today. HTN: Patient is compliant with meds Yes Monitors bp at home: No. Denies side effects: Yes. Chest pain: No. Dyspnea: No. Edema: No. Palpitations: No. Syncope: No. Headache: No. Dizziness: No. HYPERLIPIDEMIA: Patient is taking medications: Yes. Patient is watching diet: Yes. Patient denies myalgias: Yes. Patient denies gi upset: Yes HYPOTHRYROIDISM: Taking daily as prescribed. GERD: buys Nexium OTC- takes every other day which helps control symptoms. Anemia: stopped taking iron a while back. Denies hematochezia, melena, and hematuria. PAST MEDICAL HISTORY Diagnosis Date - Acute gastritis without mention of hemorrhage - Diverticulosis of colon (without mention of hemorrhage) - Dysphagia, unspecified(787.20) - Esophagitis, unspecified - Essential hypertension, benign - Goiter, unspecified thyroidectomy - Hypothyroidism - Lesion of plantar nerve 'sullivans toe' - Malaise and fatigue - Meniscus tear right - Osteoarthrosis, unspecified whether generalized or localized, other specified sites - Other and unspecified hyperlipidemia - Other B-complex deficiencies - Other emphysema (HCC) - Sciatica seeing Dr. Babb, pain mgmt ALLERGIES Epinephrine; James [Other]; Perfumes MEDICATIONS Current Outpatient Prescriptions: levothyroxine (SYNTHROID) 88 mcg tablet Take 1 tablet by mouth once daily. simvastatin (ZOCOR) 40 mg tablet TAKE ONE TABLET BY MOUTH AT BEDTIME lisinopril (ZESTRIL, PRINIVIL) 10 mg tablet Take 1 tablet by mouth once daily. naproxen (NAPROSYN) 500 mg tablet TAKE ONE TABLET BY MOUTH TWICE DAILY ferrous sulfate 325 mg (65 mg iron) tablet Take 1 tablet by mouth daily with breakfast. acetaminophen(TYLENOL EXTRA STRENGTH 500 MG TAB) as necessary esomeprazole (NEXIUM) 40 mg capsule Take 1 capsule by mouth every other day No current facility-administered medications for this visit. Medications and allergies reviewed by this provider. 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 OBJECTIVE: BP 124/62 (BP Site: Left Arm, BP Position: Sitting, BP Cuff Size: Large Adult) Pulse 68 Temp 36.6 ?C (97.9 ?F) Resp 18 Wt 86.7 kg (191 lb 1.9 oz) BMI 31.32 kg/m? . Vital signs reviewed by this provider. APPEARANCE Well appearing, alert, in no acute distress, well-hydrated, well nourished. NECK Supple, no adenopathy; ,no bruits HEART RRR with normal S1 and S2, no murmurs, no gallops, no JVD appreciated LUNG clear to auscultation. No wheezes, rhonchi, or rales ABDOMEN bowel sounds normoactive, no bruits, soft, non-tender, non-distended, no tenderness to palpation EXTREMITIES Extremities normal, No deformities, No skin discoloration, No edema and Normal pulses bilaterally. SKIN Skin color, texture, turgor normal, no suspicious rashes or lesions to exposed skin Component Latest Ref Rng AND Units 01/15/2018 Protein, Total 6.3 - 8.0 g/dL 6.6 Albumin 3.9 - 4.9 g/dL 4.2 Calcium 8.5 - 10.2 mg/dL 9.5 Bilirubin, Total 0.2 - 1.3 mg/dL 0.4 Alkaline Phosphatase 34 - 123 U/L 77 AST 13 - 35 U/L 23 Glucose 74 - 99 mg/dL 80 BUN 7 - 21 mg/dL 24 (H) Creatinine 0.58 - 0.96 mg/dL 0.79 Sodium 136 - 144 mmol/L 142 Potassium 3.7 - 5.1 mmol/L 4.0 Chloride 97 - 105 mmol/L 103 CO2 22 - 30 mmol/L 26 Anion Gap 9 - 18 mmol/L 13 ALT 7 - 38 U/L 10 eGFR- >60 eGFR-All Other Races . >60 Cholesterol, Total <200 mg/dL 188 Triglyceride <150 mg/dL 67 HDL Cholesterol >39 mg/dL 56 LDL Cholesterol <100 mg/dL 119 (H) Non HDL Cholesterol <130 mg/dL 132 (H) Fasting Time hrs 12 VLDL Cholesterol <30 mg/dL 13 TC:HDL Ratio <5.10 3.36 LDL:HDL Ratio <2.54 2.13 Iron 41 - 186 ug/dL 57 TIBC 232 - 386 ug/dL 399 (H) Transferrin Saturation 15 - 57 % 14 (L) TSH 0.400 - 5.500 uU/mL 1.370 Ferritin 14.7 - 205.1 ng/mL 24.9 ASSESSMENT/PLAN: 1. HYPERTENSION BENIGN - ICD9: 401.1, ICD10: I10 (primary diagnosis) - good control - Continue current medication(s) - Encouraged dietary sodium restriction/DASH diet - Recommended regular aerobic exercise. - Recommend home blood pressure monitoring, to bring results in on next visit - Recheck in 1 year, sooner should new symptoms or problems arise. - Goal of BP <130/80 - Recommended no refined sugar, low refined starch, healthy oil intake (olive oil), healthy protein (fish) along the lines of the Mediterranean diet. - LISINOPRIL 10 MG TABLET 2. History of anemia - ICD9: V12.3, ICD10: Z86.2 - recent blood work reviewed with patient - discussed restarting medication- patient agreeable - FERROUS SULFATE 325 MG (65 MG IRON) TABLET 3. Other hyperlipidemia - ICD9: 272.4, ICD10: E78.49 - good control - Continue current medication. - Encouraged following a low fat, low cholesterol diet. - Follow up in 1 year. - Encouraged following a low carbohydrate, healthy oil intake diet. - SIMVASTATIN 40 MG TABLET 4. HYPOTHYROIDISM POST SURGICAL - ICD9: 244.0, ICD10: E89.0 - Instructed patient on importance of taking on an empty stomach either first thing in the morning or at bedtime. - continue current dose of Synthroid 0.088 mg - LEVOTHYROXINE 88 MCG TABLET 5. Need for vaccination - ICD9: V05.9, ICD10: Z23 - INFLUENZA SEASONAL HIGH DOSE AGE 65+ 6. Screening for breast cancer - ICD9: V76.10, ICD10: Z12.31 - CROW SCREENING 7. Screening for cervical cancer - ICD9: V76.2, ICD10: Z12.4 - referral to Women's health Minerva Irwin APRN.FELT HANGER Prescription instructions reviewed with patient as applicable. Patient advised if symptoms do not improve or if symptoms worsen sooner, to contact their primary care physician. Potential red flag symptoms discussed with the patient. Reviewed appropriate action plan to take if red flag symptoms occur. Patient agreeable to treatment plan. CNOV Observed: 01/20/2018 Status: COMPLETED Source: [place] 1:00 PM [facility] REPOSITORY Office Visit (FAMPWS) LINSEY BOBO ([id number]) 1950 F Date Time Provider Department 01/20/18 1:00 PM MINERVA IRWIN ([facility] During your visit today, we recorded the following information about you: Temperature Pulse Respiration Blood pressure 97.9 degrees 68/minute 18/minute 124/62 Weight 86.7 kg Jeanette Muñoz LPN, [place] 01/20/2018 3:16 PM Signed 67 year old female here for INACTIVATED INFLUENZA VACCINE. 5538-5394 Season Patient is identified by name and date of : Yes [] CONTRAINDICATIONS color enhanced section Age less than 6 months? No Allergy to eggs, chicken, chicken feathers, or chicken dander? No Allergy to thimerosal (a preservative) or formaldehyde, gelatin? No History of severe reaction to any vaccine component or a previous dose of influenza vaccination? No History of Guillain-[place] Syndrome within 6 weeks after a previous influenza vaccine? No Patient is not moderately or severely ill? No Current temperature greater or equal to 100.4F? No History of Bone Marrow Transplant prior 6 months or solid organ transplant in the past 3 months ? No History of fainting after a prior injection or medical procedure? No- ? If patient has fainted in the past, the CDC recommends sitting or lying down for 15 minutes after the vaccination. [] VERIFICATION color enhanced section Was the answer Yes for any of the above contraindications? No contraindications present. Acceptable to proceed with vaccine. Patient/guardian agrees the above answers are true to the best of their knowledge? Yes Flu vaccine information sheet given? Yes See immunization activity in [facility] for details of immunizations adminstered today. Patient age: [age] year old For The 3421-5223 Flu Season 6-35 months old: Fluzone 0.25 ml - IM (Preservative Free) 3 years of age: Fluzone 0.5 ml - IM (Preservative Free) 3 years and older: Fluzone 0.5 ml- IM-(with Preservatives) 65+ years old: 2-49 years old Fluzone High-Dose 0.5 ml - IM (Preservative Free) FLUMIST- intranasal REMEMBER: If patient is less than 9 years of age and this is the first vaccine of Influenza to be received in any flu season, they should receive a second dose in one months time. Minerva Irwin APRN.FELT HANGER 01/20/2018 3:16 PM Signed 01/20/2018 Patient presents with: Refill Request Imm/Inj: Flu Vaccine SUBJECTIVE: This is a 67 year old that is here today for Above Complaints. No concerns today. HTN: Patient is compliant with meds Yes Monitors bp at home: No. Denies side effects: Yes. Chest pain: No. Dyspnea: No. Edema: No. Palpitations: No. Syncope: No. Headache: No. Dizziness: No. HYPERLIPIDEMIA: Patient is taking medications: Yes. Patient is watching diet: Yes. Patient denies myalgias: Yes. Patient denies gi upset: Yes HYPOTHRYROIDISM: Taking daily as prescribed. GERD: buys Nexium OTC- takes every other day which helps control symptoms. Anemia: stopped taking iron a while back. Denies hematochezia, melena, and hematuria. PAST MEDICAL HISTORY Diagnosis Date - Acute gastritis without mention of hemorrhage - Diverticulosis of colon (without mention of hemorrhage) - Dysphagia, unspecified(787.20) - Esophagitis, unspecified - Essential hypertension, benign - Goiter, unspecified thyroidectomy - Hypothyroidism - Lesion of plantar nerve 'sullivans toe' - Malaise and fatigue - Meniscus tear right - Osteoarthrosis, unspecified whether generalized or localized, other specified sites - Other and unspecified hyperlipidemia - Other B-complex deficiencies - Other emphysema (HCC) - Sciatica seeing Dr. Babb, pain mgmt ALLERGIES Epinephrine; James [Other]; Perfumes MEDICATIONS Current Outpatient Prescriptions: levothyroxine (SYNTHROID) 88 mcg tablet Take 1 tablet by mouth once daily. simvastatin (ZOCOR) 40 mg tablet TAKE ONE TABLET BY MOUTH AT BEDTIME lisinopril (ZESTRIL, PRINIVIL) 10 mg tablet Take 1 tablet by mouth once daily. naproxen (NAPROSYN) 500 mg tablet TAKE ONE TABLET BY MOUTH TWICE DAILY ferrous sulfate 325 mg (65 mg iron) tablet Take 1 tablet by mouth daily with breakfast. acetaminophen(TYLENOL EXTRA STRENGTH 500 MG TAB) as necessary esomeprazole (NEXIUM) 40 mg capsule Take 1 capsule by mouth every other day No current facility-administered medications for this visit. Medications and allergies reviewed by this provider. 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 OBJECTIVE: BP 124/62 (BP Site: Left Arm, BP Position: Sitting, BP Cuff Size: Large Adult) Pulse 68 Temp 36.6 ?C (97.9 ?F) Resp 18 Wt 86.7 kg (191 lb 1.9 oz) BMI 31.32 kg/m? . Vital signs reviewed by this provider. APPEARANCE Well appearing, alert, in no acute distress, well- hydrated, well nourished. NECK Supple, no adenopathy; ,no bruits HEART RRR with normal S1 and S2, no murmurs, no gallops, no JVD appreciated LUNG clear to auscultation. No wheezes, rhonchi, or rales ABDOMEN bowel sounds normoactive, no bruits, soft, non-tender, non-distended, no tenderness to palpation EXTREMITIES Extremities normal, No deformities, No skin discoloration, No edema and Normal pulses bilaterally. SKIN Skin color, texture, turgor normal, no suspicious rashes or lesions to exposed skin Component Latest Ref Rng AND Units 01/15/2018 Protein, Total 6.3 - 8.0 g/dL 6.6 Albumin 3.9 - 4.9 g/dL 4.2 Calcium 8.5 - 10.2 mg/dL 9.5 Bilirubin, Total 0.2 - 1.3 mg/dL 0.4 Alkaline Phosphatase 34 - 123 U/L 77 AST 13 - 35 U/L 23 Glucose 74 - 99 mg/dL 80 BUN 7 - 21 mg/dL 24 (H) Creatinine 0.58 - 0.96 mg/dL 0.79 Sodium 136 - 144 mmol/L 142 Potassium 3.7 - 5.1 mmol/L 4.0 Chloride 97 - 105 mmol/L 103 CO2 22 - 30 mmol/L 26 Anion Gap 9 - 18 mmol/L 13 ALT 7 - 38 U/L 10 eGFR- >60 eGFR-All Other Races . >60 Cholesterol, Total <200 mg/dL 188 Triglyceride <150 mg/dL 67 HDL Cholesterol >39 mg/dL 56 LDL Cholesterol <100 mg/dL 119 (H) Non HDL Cholesterol <130 mg/dL 132 (H) Fasting Time hrs 12 VLDL Cholesterol <30 mg/dL 13 TC:HDL Ratio <5.10 3.36 LDL:HDL Ratio <2.54 2.13 Iron 41 - 186 ug/dL 57 TIBC 232 - 386 ug/dL 399 (H) Transferrin Saturation 15 - 57 % 14 (L) TSH 0.400 - 5.500 uU/mL 1.370 Ferritin 14.7 - 205.1 ng/mL 24.9 ASSESSMENT/PLAN: 1. HYPERTENSION BENIGN - ICD9: 401.1, ICD10: I10 (primary diagnosis) - good control - Continue current medication(s) - Encouraged dietary sodium restriction/DASH diet - Recommended regular aerobic exercise. - Recommend home blood pressure monitoring, to bring results in on next visit - Recheck in 1 year, sooner should new symptoms or problems arise. - Goal of BP <130/80 - Recommended no refined sugar, low refined starch, healthy oil intake (olive oil), healthy protein (fish) along the lines of the Mediterranean diet. - LISINOPRIL 10 MG TABLET 2. History of anemia - ICD9: V12.3, ICD10: Z86.2 - recent blood work reviewed with patient - discussed restarting medication- patient agreeable - FERROUS SULFATE 325 MG (65 MG IRON) TABLET 3. Other hyperlipidemia - ICD9: 272.4, ICD10: E78.49 - good control - Continue current medication. - Encouraged following a low fat, low cholesterol diet. - Follow up in 1 year. - Encouraged following a low carbohydrate, healthy oil intake diet. - SIMVASTATIN 40 MG TABLET 4. HYPOTHYROIDISM POST SURGICAL - ICD9: 244.0, ICD10: E89.0 - Instructed patient on importance of taking on an empty stomach either first thing in the morning or at bedtime. - continue current dose of Synthroid 0.088 mg - LEVOTHYROXINE 88 MCG TABLET 5. Need for vaccination - ICD9: V05.9, ICD10: Z23 - INFLUENZA SEASONAL HIGH DOSE AGE 65+ 6. Screening for breast cancer - ICD9: V76.10, ICD10: Z12.31 - CROW SCREENING 7. Screening for cervical cancer - ICD9: V76.2, ICD10: Z12.4 - referral to [facility], [facility] Prescription instructions reviewed with patient as applicable. Patient advised if symptoms do not improve or if symptoms worsen sooner, to contact their primary care physician. Potential red flag symptoms discussed with the patient. Reviewed appropriate action plan to take if red flag symptoms occur. Patient agreeable to treatment plan. Referring Provider: SELF [200] Allergies As of Date: 01/20/2018 Noted Allergy Reaction EPINEPHRINE 12/31/2007 Comments: rapid heartbeat james [Other] 08/08/2005 PERFUMES 08/08/2005 Comments: floral perfumes Date Reviewed: 01/20/2018 Reviewed by: Jeanette Anderson (Sales Route Driver Helper) HANNAH Muñoz - Fully Assessed Reason for Visit: Refill Request [94] Imm/Inj [58] Cmt: Flu Vaccine Reason For Visit History Recorded Primary Visit Diagnosis:HYPERTENSION BENIGN [I10] Other Visit Diagnoses:History of anemia [Z86.2] Other hyperlipidemia [E78.49] HYPOTHYROIDISM POST SURGICAL [E89.0] Need for vaccination [Z23] Screening for breast cancer [Z12.31] Screening for cervical cancer [Z12.4] Order(s):INFLUENZA SEASONAL HIGH DOSE AGE 65+ [[id number]] Order #: [id number] CROW SCREENING [[id number]] Order #: [id number] FUTURE levothyroxine (SYNTHROID) 88 mcg tabletTake 1 tablet by mouth once daily.Disp: 90 tabletRfl: 1 simvastatin (ZOCOR) 40 mg tabletTake 1 tablet by mouth daily at bedtime.Disp: 90 tabletRfl: 1 lisinopril (ZESTRIL, PRINIVIL) 10 mg tabletTake 1 tablet by mouth once daily.Disp: 90 tabletRfl: 1 naproxen (NAPROSYN) 500 mg tabletTake 1 tablet by mouth twice daily.Disp: 180 tabletRfl: 1 ferrous sulfate 325 mg (65 mg iron) tabletTake 1 tablet by mouth daily with breakfast.Disp: 30 tabletRfl: 5 CONSULT TO [facility] [[id number]] Order #: [id number]: 1 Prescriptions as of 01/20/2018 Sig: LEVOTHYROXINE 88 MCG TABLET Take 1 tablet by mouth once d* SIMVASTATIN 40 MG TABLET Take 1 tablet by mouth daily * LISINOPRIL 10 MG TABLET Take 1 tablet by mouth once d* NAPROXEN 500 MG TABLET Take 1 tablet by mouth twice * FERROUS SULFATE 325 MG (65 MG* Take 1 tablet by mouth daily * TYLENOL EXTRA STRENGTH 500 MG* as necessary ESOMEPRAZOLE MAGNESIUM 40 MG * Take 1 capsule by mouth every* Problem List As Of Date 01/20/2018 Noted Resolved HYPERTENSION BENIGN [I10] INVALID FOR* HYPOTHYROIDISM POST SURGICAL [E89.0] INVALID FOR* Other hyperlipidemia [E78.49] INVALID FOR* OSTEOARTHRITIS GENERALIZED( Multiple Sites) [M1*INVALID FOR* PLANTAR NERVE LESION [G57.60] INVALID FOR* SCREEN (SEE ALSO ADMISSION) CANCER - COLON [Z*INVALID FOR* DIVERTICULOSIS COLON - NO HEMORRHAGE [K57.30] INVALID FOR* GOITER NOS [E04.9] More... Dysphagia, Unspecified [R13.10] INVALID FOR* Rectal Bleeding [K62.5] INVALID FOR* Diverticulitis of Colon [K57.32] INVALID FOR* Exostosis of unspecified site [M89.8X9] INVALID FOR* Iron deficiency anemia [D50.9] INVALID FOR* Prescriptions ordered this encounter Disp Refills Start End LEVOTHYROXINE 88 MCG TABLET 90 t* 1 01/20/2018 Route: ORAL Sig: Take 1 tablet by mouth once daily. SIMVASTATIN 40 MG TABLET 90 t* 1 01/20/2018 Route: ORAL Sig: Take 1 tablet by mouth daily at bedtime. LISINOPRIL 10 MG TABLET 90 t* 1 01/20/2018 Route: ORAL Sig: Take 1 tablet by mouth once daily. NAPROXEN 500 MG TABLET 180 * 1 01/20/2018 Route: ORAL Sig: Take 1 tablet by mouth twice daily. FERROUS SULFATE 325 MG (65 MG IRON) * 30 t* 5 01/20/2018 Route: ORAL Sig: Take 1 tablet by mouth daily with breakfast. Medications Discontinued During This Encounter levothyroxine (SYNTHROID) 88 mcg tab* 90 t* 1 10/22/2017 01/20/2018 Route: ORAL Sig: Take 1 tablet by mouth once daily. Disc: Reason for discontinue is not on file. simvastatin (ZOCOR) 40 mg tablet 90 t* 1 10/21/2017 01/20/2018 Cmt: This prescription was filled on 10/20/2017. Any refills authorized will be placed on file. Sig: TAKE ONE TABLET BY MOUTH AT BEDTIME Disc: Reason for discontinue is not on file. lisinopril (ZESTRIL, PRINIVIL) 10 mg* 90 t* 1 10/21/2017 01/20/2018 Cmt: This prescription was filled on 10/20/2017. Any refills authorized will be placed on file. Route: ORAL Sig: Take 1 tablet by mouth once daily. Disc: Reason for discontinue is not on file. naproxen (NAPROSYN) 500 mg tablet 180 * 1 10/21/2017 01/20/2018 Cmt: This prescription was filled on 10/20/2017. Any refills authorized will be placed on file. Sig: TAKE ONE TABLET BY MOUTH TWICE DAILY Disc: Reason for discontinue is not on file. ferrous sulfate 325 mg (65 mg iron) * 30 t* 5 02/24/2016 01/20/2018 Class: Med Update Route: ORAL Sig: Take 1 tablet by mouth daily with breakfast. Disc: Reason for discontinue is not on file. Follow-up and Disposition History Recorded Encounter Status:Closed by MINERVA IRWIN CNP on 01/20/18 PROGRESS Observed: 01/20/2018 Status: COMPLETED Source: [place] 12:56 PM [facility] [place] REPOSITORY HNO ID: [id number] Author: Jeanette Anderson (Hannah) HANNAH Muñoz Service: (none) Author Type: LICENSED NURSE Type: Progress Notes Filed: 01/20/2018 3:16 PM Note Text: 67 year old female here for INACTIVATED INFLUENZA VACCINE. [id number] Season Patient is identified by name and date of : Yes [] CONTRAINDICATIONS color enhanced section Age less than 6 months? No Allergy to eggs, chicken, chicken feathers, or chicken dander? No Allergy to thimerosal (a preservative) or formaldehyde, gelatin? No History of severe reaction to any vaccine component or a previous dose of influenza vaccination? No History of Guillain-[place] Syndrome within 6 weeks after a previous influenza vaccine? No Patient is not moderately or severely ill? No Current temperature greater or equal to 100.4F? No History of Bone Marrow Transplant prior 6 months or solid organ transplant in the past 3 months ? No History of fainting after a prior injection or medical procedure? No- ? If patient has fainted in the past, the CDC recommends sitting or lying down for 15 minutes after the vaccination. [] VERIFICATION color enhanced section Was the answer Yes for any of the above contraindications? No contraindications present. Acceptable to proceed with vaccine. Patient/guardian agrees the above answers are true to the best of their knowledge? Yes Flu vaccine information sheet given? Yes See immunization activity in [facility] for details of immunizations adminstered today. Patient age: [age] year old For The 6051-5661 Flu Season 6-35 months old: Fluzone 0.25 ml - IM (Preservative Free) 3 years of age: Fluzone 0.5 ml - IM (Preservative Free) 3 years and older: Fluzone 0.5 ml- IM-(with Preservatives) 65+ years old: 2-49 years old Fluzone High-Dose 0.5 ml - IM (Preservative Free) FLUMIST- intranasal REMEMBER: If patient is less than 9 years of age and this is the first vaccine of Influenza to be received in any flu season, they should receive a second dose in one months time. LIPID PANEL, BASIC Collected: 01/15/2018 Status: F Source: [place] 8:05 AM [facility] REPOS[facility]ORY TYPE CODE TESTS RESULT OUT OF REFERENCE UNITS RANGE LAB CHOL <200 mg/dL Cholesterol 188 Result Comment: <200 mg/dL, Desirable 200-239 mg/dL, Borderline high >239 mg/dL, High LAB TRIGLY <150 mg/dL Triglyceride 67 Result Comment: <150 mg/dL, Normal 150-199 mg/dL, Borderline high 200-499 mg/dL, High >499 mg/dL, Very high LAB HDL >39 mg/dL HDL-Cholesterol 56 Result Comment: 40-59 mg/dL, Acceptable >59 mg/dL, High: Negative risk factor for coronary heart disease <40 mg/dL, Low: Positive risk factor for coronary heart disease LAB LDL <100 mg/dL LDL-Cholesterol High 119 Result Comment: <100 mg/dL, Optimal 100-129 mg/dL, Near optimal/above optimal 130-159 mg/dL, Borderline high 160-189 mg/dL, High >189 mg/dL, Very high Secondary prevention optimal LDL Cholesterol levels are recommended to be < 70 mg/dL LAB NONHDL <130 mg/dL Non HDL High Cholesterol 132 Result Comment: <130 mg/dL, Optimal 130-159 mg/dL, Near optimal/above optimal 160-189 mg/dL, Borderline high 190-219 mg/dL, High >219 mg/dL, Very high Secondary prevention optimal non HDL Cholesterol levels are recommended to be < 100 mg/dL LAB FT hrs Fasting Time 12 LAB VLDL <30 mg/dL VLDL Cholesterol 13 LAB TCHDL <5.10 TC:HDL Ratio 3.36 LAB LDLHDL <2.54 LDL:HDL Ratio 2.13 Result Comment: Reference: 1. National Cholesterol Education Program ATP III Guideline At-A-Glance Quick Desk Reference: National Heart, Lung, and Blood [place]. National Institutes of Health. 2001: NIH Publication No. 01-3305. 2. An International Atherosclerosis Society position paper: global recommendations for the management of dyslipidemia: executive summary, Atherosclerosis. 2014: 232(2):410-413. Performed By: #### LIPB #### [facility] [address] [address] IRON AND TIBC Collected: 01/15/2018 Status: F Source: [place] 8:05 AM [facility] REPOSITORY TYPE CODE TESTS RESULT OUT OF REFERENCE UNITS RANGE LAB IRN 41-186 ug/dL Iron 57 LAB TIBC 232-386 ug/dL TIBC High 399 LAB SAT 15-57 % Low Transferrin Saturatn 14 Performed By: #### IRON, CMP, TSH, FERR #### [facility] [address] [id number] COMP METABOLIC PANEL Collected: 01/15/2018 Status: F Source: [place] 8:05 AM [facility] REPOSITORY TYPE CODE TESTS RESULT OUT OF REFERENCE UNITS RANGE LAB TP 6.3-8.0 g/dL Protein, Total 6.6 LAB ALB 3.9-4.9 g/dL Albumin 4.2 LAB CA 8.5-10.2 mg/dL Calcium, Total 9.5 LAB TBIL 0.2-1.3 mg/dL Bilirubin, Total 0.4 LAB ALKP 34-123 U/L Alkaline Phosphatase 77 LAB AST 13-35 U/L AST 23 LAB GLU 74-99 mg/dL Glucose 80 Result Comment: The British Diabetes Association (ADA) provides guidance for cutoff values for fasting glucose and random glucose. The ADA defines fasting as no caloric intake for at least 8 hours. Fas ting plasma glucose results between 100 to 125 mg/dL indicate increased risk for diabetes (prediabetes). Fasting plasma glucose results greater than or equal to 126 mg/dL meet the criteria for diagnosis of diabetes. In the absence of unequivocal hyperglycemia, results should be confirmed by repeat testing. In a patient with classic symptoms of hyperglycemia or hyperglycemic crisis, random plasma glucose results greater than or equal to 200 mg/dL meet the criteria for diagnosis of diabetes. Reference: Standards of Medical Care in Diabetes 2016, British Diabetes Association. Diabetes Care. 2016.39(Suppl 1). LAB BUN 7-21 mg/dL BUN High 24 LAB CRET 0.58-0.96 mg/dL Creatinine 0.79 LAB NA 136-144 mmol/L Sodium 142 LAB K 3.7-5.1 mmol/L Potassium 4.0 LAB CL 97-105 mmol/L Chloride 103 LAB CO2 22-30 mmol/L CO2 26 LAB AGAP 9-18 mmol/L Anion Gap 13 LAB ALT 7-38 U/L ALT 10 LAB GFRAA eGFR- Amer. >60 LAB GFRNAA . eGFR-All Other Races >60 Result Comment: eGFR (Estimated GFR) Units of measure: mL/min/1.73 meters squared eGFR is derived from the reexpressed MDRD Study equation using the following parameters: serum creatinine, age, gender and race. The creatinine assay has been calibrated to be traceable to IDMS. An eGFR <60 mL/min/1.73m2 for >3 months is consistent with chronic kidney disease. Refer to KDOQI guidelines for clinical interpretation. In patients with unstable renal function, e.g. those with acute kidney injury, the eGFR may not accurately reflect actual GFR. Performed By: #### IRON, CMP, TSH, FERR #### [facility] [address] [place], [place] [address] TSH Collected: 01/15/2018 Status: F Source: [place] 8:05 AM [facility] REPOSITORY TYPE CODE TESTS RESULT OUT OF RANGE REFERENCE UNITS LAB TSH 0.400-5.500 uU/mL TSH 1.370 Performed By: #### IRON, CMP, TSH, FERR #### [facility] [address] [place], [place] [address] FERRITIN Collected: 01/15/2018 Status: F Source: [place] 8:05 AM [facility] REPOSITORY TYPE CODE TESTS RESULT OUT OF REFERENCE UNITS RANGE LAB FERR 14.7-205.1 ng/mL Ferritin 24.9 Performed By: #### IRON, CMP, TSH, FERR #### [facility] [address] [place], [place] [address] CNOV Observed: 06/28/2017 Status: COMPLETED Source: [place] 1:20 PM [facility] REPOSITORY Office Visit (FAMPWS) LINSEY BOBO ([id number]) 1950 F Date Time Provider Department 06/28/17 1:20 PM HARRIS L[facility]PEZ) [facility] During your visit today, we recorded the following information about you: Pulse Respiration Blood pressure Weight 76/minute 12/minute 118/76 88.9 kg Harris López MD 06/28/2017 1:37 PM Signed Chief Complaint Patient presents with: medication check up HPI Linseylilibeth Bobo is a 66 year old female who presents here today for routine check up. Last non acute visit more than a year ago and needed refills on medications. Without complaint today. Taking medications for HTN, HLP, hypothyroidism as prescribed without side effects. Denies concerning symptoms. Needs refills today. Following up with Dr. Babb regarding history of sciatica and has received epidural injection in the last couple of months. Doing well without pain today. Up to date on HM. Reviewed recent blood work which was benign. Past medical history, appointments, medications, allergies reviewed. Previous Medical History PAST MEDICAL HISTORY Diagnosis Date - Acute gastritis without mention of hemorrhage - Diverticulosis of colon (without mention of hemorrhage) - Dysphagia, unspecified(787.20) - Esophagitis, unspecified - Essential hypertension, benign - Goiter, unspecified thyroidectomy - Hypothyroidism - Lesion of plantar nerve 'sullivans toe' - Malaise and fatigue - Meniscus tear right - Osteoarthrosis, unspecified whether generalized or localized, other specified sites - Other and unspecified hyperlipidemia - Other B-complex deficiencies - Other emphysema (HCC) - Sciatica seeing Dr. Babb, pain mgmt Previous Surgical History PAST SURGICAL HISTORY Procedure Laterality Date - COLONOSCOP W/ OR W/O [facility] SPEC 09/07/05 Diverticulosis - COLONOSCOP W/ OR W/O [facility] SPEC 10/07/09 Sigmoid diverticulosis/extensive - COLONOSCOP W/ OR W/O [facility] SPEC 11-10-15 repeat in 10 years - DANDamp;C, DIAG AND/OR THERAPEUTIC Dilation ANDamp; curettage - EGD W/O [facility] SPECIMEN W/BX 01/19/09 - EGD W/O [facility] SPECIMEN W/BX 11-10-15 - LIGATE FALLOPIAN TUBE Tubal ligation - PAST SURGICAL HISTORY OF bone spur removal from left foot - THYROIDECTOMY 1998 - TMJ ARTHROSCOPY DISCECTOMY Family History FAMILY HISTORY Problem Relation Age of Onset - Coronary Artery Disease Mother - Coronary Artery Disease Father - Hypertension Mother - Osteoporosis Sister Patient Allergies ALLERGIES Allergen Reactions - Epinephrine rapid heartbeat - Perfumes floral perfumes - James [Other] Current Medications Current Outpatient Prescriptions on File Prior to Visit: simvastatin (ZOCOR) 40 mg tablet Take 1 tablet by mouth daily at bedtime. lisinopril (ZESTRIL, PRINIVIL) 10 mg tablet Take 1 tablet by mouth once daily. naproxen (NAPROSYN) 500 mg tablet Take 1 tablet by mouth twice daily. levothyroxine (SYNTHROID) 88 mcg tablet Take 1 tablet by mouth once daily. ferrous sulfate 325 mg (65 mg iron) tablet Take 1 tablet by mouth daily with breakfast. esomeprazole (NEXIUM) 40 mg capsule Take 1 capsule by mouth every other day acetaminophen(TYLENOL EXTRA STRENGTH 500 MG TAB) as necessary No current facility-administered medications on file prior to visit. 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 Skin: Skin color, texture, turgor normal, no suspicious rashes or lesions. Ears: External ears normal, canals clear. Lungs: Lungs clear to auscultation. No wheezing, rhonchi, rales. Heart: RRR without murmur, gallop, or rubs. No ectopy. Abdomen: Normal abdominal exam, Abdomen soft, non-tender. Bowel sounds normal. No masses, organomegaly. Extremities: No deformities, edema, skin discoloration, clubbing or cyanosis. Good capillary refill. . Health Maintenance List INFLUENZA(1) due on 12/07/2016 MAMMOGRAM due on 11/16/2017 DIABETES SCREEN due on 06/08/2020 LIPID SCREEN due on 09/16/2020 TETANUS due on 04/12/2021 COLORECTAL CANCER SCREENING,SEE MODIFIER due on 11/09/2025 BONE DENSITY Completed ADULT PREVNAR-13 Completed HEPATITIS C SCREENING Completed PNEUMOVAX AGE 65 AND OVER WITH 5YR LOOKBACK Completed Data reviewed Component Latest Ref Rng ANDamp; Units 01/26/2017 06/08/2017 Protein, Total 6.3 - 8.0 g/dL 6.9 7.3 Albumin 3.9 - 4.9 g/dL 4.0 4.1 Calcium 8.5 - 10.2 mg/dL 9.1 9.2 Bilirubin, Total 0.2 - 1.3 mg/dL 0.4 0.5 Alkaline Phosphatase 32 - 117 U/L 69 77 AST 13 - 35 U/L 18 17 Glucose 74 - 99 mg/dL 92 77 BUN 7 - 21 mg/dL 25 (H) 24 (H) Creatinine 0.58 - 0.96 mg/dL 0.74 0.79 Sodium 136 - 144 mmol/L 142 141 Potassium 3.7 - 5.1 mmol/L 4.2 3.9 Chloride 97 - 105 mmol/L 105 101 CO2 22 - 30 mmol/L 26 26 Anion Gap 9 - 18 mmol/L 11 14 ALT 7 - 38 U/L 17 12 eGFR- ANDgt;60 ANDgt;60 eGFR-All Other Races . ANDgt;60 ANDgt;60 WBC 3.70 - 11.00 k/uL 6.58 RBC 3.90 - 5.20 m/uL 4.32 Hemoglobin 11.5 - 15.5 g/dL 13.1 Hematocrit 36.0 - 46.0 % 42.8 MCV 80.0 - 100.0 fL 99.1 MCH 26.0 - 34.0 pG 30.3 MCHC 30.5 - 36.0 g/dL 30.6 RDW-CV 11.5 - 15.0 % 13.2 Platelet Count 150 - 400 k/uL 242 MPV 9.0 - 12.7 fL 10.8 Absolute nRBC ANDlt;0.01 k/uL ANDlt;0.01 TSH 0.400 - 5.500 uU/mL 1.010 ASSESSMENT/PLAN: 1. HYPERTENSION BENIGN - ICD9: 401.1, ICD10: I10 (primary diagnosis) - good control - Continue current medication(s) - Encouraged dietary sodium restriction/DASH diet - Recommended regular aerobic exercise. - Reviewed risks of HTN and principles of treatment - Goal of BP ANDlt;140/90 - COMP METABOLIC PANEL 2. HYPOTHYROIDISM POST SURGICAL - ICD9: 244.0, ICD10: E89.0 - Instructed patient on importance of taking on an empty stomach either first thing in the morning or at bedtime. - continue current dose of Synthroid 0.088 mg - LEVOTHYROXINE 88 MCG TABLET - TSH BLD 3. Other hyperlipidemia - ICD9: 272.4, ICD10: E78.4 - to be determined upon return of lab results - Continue current medication. - Encouraged following a low fat, low cholesterol diet. - Discussed the benefits of regular aerobic exercise and weight loss. 4. Iron deficiency anemia, unspecified iron deficiency anemia type - ICD9: 280.9, ICD10: D50.9 Normal CBC. Will recheck Iron studies in 6 months. 5. OSTEOARTHRITIS GENERALIZED( Multiple Sites) - ICD9: 715.09, ICD10: M15.9 Controlled. Continue NSAIDs and follow up with pain management for sciatica. Harris López MD Referring Provider: SELF [200] Allergies As of Date: 06/28/2017 Noted Allergy Reaction EPINEPHRINE 12/31/2007 Comments: rapid heartbeat PERFUMES 08/08/2005 Comments: floral perfumes james [Other] 08/08/2005 Date Reviewed: 06/28/2017 Reviewed by: Royal Jean Ma - Fully Assessed Reason for Visit: medication check up [Other] Primary Visit Diagnosis:HYPERTENSION BENIGN [I10] Other Visit Diagnoses:HYPOTHYROIDISM POST SURGICAL [E89.0] Other hyperlipidemia [E78.4] Iron deficiency anemia, unspecified iron deficiency anemia type [D50.9] OSTEOARTHRITIS GENERALIZED( Multiple Sites) [M15.9] Order(s):levothyroxine (SYNTHROID) 88 mcg tabletTake 1 tablet by mouth once daily.Disp: 90 tabletRfl: 1 COMP METABOLIC PANEL [SQCMP] Order #: [id number] FUTURE TSH BLD [SQTSH] Order #: [id number] FUTURE simvastatin (ZOCOR) 40 mg tabletTake 1 tablet by mouth daily at bedtime.Disp: 90 tabletRfl: 1 lisinopril (ZESTRIL, PRINIVIL) 10 mg tabletTake 1 tablet by mouth once daily.Disp: 90 tabletRfl: 1 naproxen (NAPROSYN) 500 mg tabletTake 1 tablet by mouth twice daily.Disp: 180 tabletRfl: 1 IRON + TIBC [SQIRON] Order #: [id number] FUTURE FERRITIN BLD [SQFERR] Order #: [id number] FUTURE Prescriptions as of 06/28/2017 Sig: LEVOTHYROXINE 88 MCG TABLET Take 1 tablet by mouth once d* SIMVASTATIN 40 MG TABLET Take 1 tablet by mouth daily * LISINOPRIL 10 MG TABLET Take 1 tablet by mouth once d* NAPROXEN 500 MG TABLET Take 1 tablet by mouth twice * FERROUS SULFATE 325 MG (65 MG* Take 1 tablet by mouth daily * ESOMEPRAZOLE MAGNESIUM 40 MG * Take 1 capsule by mouth every* TYLENOL EXTRA STRENGTH 500 MG* as necessary Problem List As Of Date 06/28/2017 Noted Resolved HYPERTENSION BENIGN [I10] INVALID FOR* HYPOTHYROIDISM POST SURGICAL [E89.0] INVALID FOR* Other hyperlipidemia [E78.4] INVALID FOR* OSTEOARTHRITIS GENERALIZED( Multiple Sites) [M1*INVALID FOR* PLANTAR NERVE LESION [G57.60] INVALID FOR* SCREEN (SEE ALSO ADMISSION) CANCER - COLON [Z*INVALID FOR* DIVERTICULOSIS COLON - NO HEMORRHAGE [K57.30] INVALID FOR* GOITER NOS [E04.9] More... Dysphagia, Unspecified [R13.10] INVALID FOR* Rectal Bleeding [K62.5] INVALID FOR* Diverticulitis of Colon [K57.32] INVALID FOR* Exostosis of unspecified site [M89.8X9] INVALID FOR* Iron deficiency anemia [D50.9] INVALID FOR* Prescriptions ordered this encounter Disp Refills Start End SIMVASTATIN 40 MG TABLET 30 t* 5 06/28/2017 06/28/2017 Route: ORAL Sig: Take 1 tablet by mouth daily at bedtime. LISINOPRIL 10 MG TABLET 30 t* 5 06/28/2017 06/28/2017 Route: ORAL Sig: Take 1 tablet by mouth once daily. NAPROXEN 500 MG TABLET 60 t* 5 06/28/2017 06/28/2017 Route: ORAL Sig: Take 1 tablet by mouth twice daily. LEVOTHYROXINE 88 MCG TABLET 90 t* 1 06/28/2017 Route: ORAL Sig: Take 1 tablet by mouth once daily. SIMVASTATIN 40 MG TABLET 90 t* 1 06/28/2017 Route: ORAL Sig: Take 1 tablet by mouth daily at bedtime. LISINOPRIL 10 MG TABLET 90 t* 06/28/2017 Route: ORAL Sig: Take 1 tablet by mouth once daily. NAPROXEN 500 MG TABLET 180 * 1 06/28/2017 Route: ORAL Sig: Take 1 tablet by mouth twice daily. Medications Discontinued During This Encounter simvastatin (ZOCOR) 40 mg tablet 30 t* 0 04/24/2017 06/28/2017 Cmt: This prescription was filled on 04/24/2017. Any refills authorized will be placed on file. Sig: Take 1 tablet by mouth daily at bedtime. Disc: Reason for discontinue is not on file. lisinopril (ZESTRIL, PRINIVIL) 10 mg* 30 t* 0 04/24/2017 06/28/2017 Cmt: This prescription was filled on 04/24/2017. Any refills authorized will be placed on file. Sig: Take 1 tablet by mouth once daily. Disc: Reason for discontinue is not on file. naproxen (NAPROSYN) 500 mg tablet 60 t* 0 04/24/2017 06/28/2017 Cmt: This prescription was filled on 04/24/2017. Any refills authorized will be placed on file. Sig: Take 1 tablet by mouth twice daily. Disc: Reason for discontinue is not on file. levothyroxine (SYNTHROID) 88 mcg tab* 90 t* 1 04/24/2017 06/28/2017 Cmt: This prescription was filled on 01/23/2017. Any refills authorized will be placed on file. Route: ORAL Sig: Take 1 tablet by mouth once daily. Disc: Reason for discontinue is not on file. simvastatin (ZOCOR) 40 mg tablet 30 t* 5 06/28/2017 06/28/2017 Route: ORAL Sig: Take 1 tablet by mouth daily at bedtime. Disc: Reason for discontinue is not on file. lisinopril (ZESTRIL, PRINIVIL) 10 mg* 30 t* 5 06/28/2017 06/28/2017 Route: ORAL Sig: Take 1 tablet by mouth once daily. Disc: Reason for discontinue is not on file. naproxen (NAPROSYN) 500 mg tablet 60 t* 5 06/28/2017 06/28/2017 Route: ORAL Sig: Take 1 tablet by mouth twice daily. Disc: Reason for discontinue is not on file. Disposition: Return in about 1 year (around 06/28/2018). Follow-up and Disposition History Recorded Encounter Status:Closed by HARRIS LÓPEZ MD on 06/28/17 PROGRESS Observed: 06/28/2017 Status: COMPLETED Source: [place] 1:11 PM [facility] REPOSITORY HNO ID: [id number] Author: Harris Haywood) Rene Service: (none) Author Type: Physician Type: Progress Notes Filed: 06/28/2017 1:37 PM Note Text: Chief Complaint Patient presents with: medication check up HPI Linsey Bobo is a 66 year old female who presents here today for routine check up. Last non acute visit more than a year ago and needed refills on medications. Without complaint today. Taking medications for HTN, HLP, hypothyroidism as prescribed without side effects. Denies concerning symptoms. Needs refills today. Following up with Dr. Babb regarding history of sciatica and has received epidural injection in the last couple of months. Doing well without pain today. Up to date on . Reviewed recent blood work which was benign. Past medical history, appointments, medications, allergies reviewed. Previous Medical History PAST MEDICAL HISTORY Diagnosis Date - Acute gastritis without mention of hemorrhage - Diverticulosis of colon (without mention of hemorrhage) - Dysphagia, unspecified(787.20) - Esophagitis, unspecified - Essential hypertension, benign - Goiter, unspecified thyroidectomy - Hypothyroidism - Lesion of plantar nerve 'sullivans toe' - Malaise and fatigue - Meniscus tear right - Osteoarthrosis, unspecified whether generalized or localized, other specified sites - Other and unspecified hyperlipidemia - Other B-complex deficiencies - Other emphysema (HCC) - Sciatica seeing Dr. Babb, pain mgmt Previous Surgical History PAST SURGICAL HISTORY Procedure Laterality Date - COLONOSCOP W/ OR W/O [facility] SPEC 09/07/05 Diverticulosis - COLONOSCOP W/ OR W/O [facility] SPEC 10/07/09 Sigmoid diverticulosis/extensive - COLONOSCOP W/ OR W/O [facility] SPEC 11-10-15 repeat in 10 years - DANDC, DIAG AND/OR THERAPEUTIC Dilation AND curettage - EGD W/O [facility] SPECIMEN W/BX 01/19/09 - EGD W/O [facility] SPECIMEN W/BX 11-10-15 - LIGATE FALLOPIAN TUBE Tubal ligation - PAST SURGICAL HISTORY OF bone spur removal from left foot - THYROIDECTOMY 1998 - TMJ ARTHROSCOPY DISCECTOMY Family History FAMILY HISTORY Problem Relation Age of Onset - Coronary Artery Disease Mother - Coronary Artery Disease Father - Hypertension Mother - Osteoporosis Sister Patient Allergies ALLERGIES Allergen Reactions - Epinephrine rapid heartbeat - Perfumes floral perfumes - James [Other] Current Medications Current Outpatient Prescriptions on File Prior to Visit: simvastatin (ZOCOR) 40 mg tablet Take 1 tablet by mouth daily at bedtime. lisinopril (ZESTRIL, PRINIVIL) 10 mg tablet Take 1 tablet by mouth once daily. naproxen (NAPROSYN) 500 mg tablet Take 1 tablet by mouth twice daily. levothyroxine (SYNTHROID) 88 mcg tablet Take 1 tablet by mouth once daily. ferrous sulfate 325 mg (65 mg iron) tablet Take 1 tablet by mouth daily with breakfast. esomeprazole (NEXIUM) 40 mg capsule Take 1 capsule by mouth every other day acetaminophen(TYLENOL EXTRA STRENGTH 500 MG TAB) as necessary No current facility-administered medications on file prior to visit. 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 Skin: Skin color, texture, turgor normal, no suspicious rashes or lesions. Ears: External ears normal, canals clear. Lungs: Lungs clear to auscultation. No wheezing, rhonchi, rales. Heart: RRR without murmur, gallop, or rubs. No ectopy. Abdomen: Normal abdominal exam, Abdomen soft, non-tender. Bowel sounds normal. No masses, organomegaly. Extremities: No deformities, edema, skin discoloration, clubbing or cyanosis. Good capillary refill. . Health Maintenance List INFLUENZA(1) due on 12/07/2016 MAMMOGRAM due on 11/16/2017 DIABETES SCREEN due on 06/08/2020 LIPID SCREEN due on 09/16/2020 TETANUS due on 04/12/2021 COLORECTAL CANCER SCREENING,SEE MODIFIER due on 11/09/2025 BONE DENSITY Completed ADULT PREVNAR-13 Completed HEPATITIS C SCREENING Completed PNEUMOVAX AGE 65 AND OVER WITH 5YR LOOKBACK Completed Data reviewed Component Latest Ref Rng AND Units 01/26/2017 06/08/2017 Protein, Total 6.3 - 8.0 g/dL 6.9 7.3 Albumin 3.9 - 4.9 g/dL 4.0 4.1 Calcium 8.5 - 10.2 mg/dL 9.1 9.2 Bilirubin, Total 0.2 - 1.3 mg/dL 0.4 0.5 Alkaline Phosphatase 32 - 117 U/L 69 77 AST 13 - 35 U/L 18 17 Glucose 74 - 99 mg/dL 92 77 BUN 7 - 21 mg/dL 25 (H) 24 (H) Creatinine 0.58 - 0.96 mg/dL 0.74 0.79 Sodium 136 - 144 mmol/L 142 141 Potassium 3.7 - 5.1 mmol/L 4.2 3.9 Chloride 97 - 105 mmol/L 105 101 CO2 22 - 30 mmol/L 26 26 Anion Gap 9 - 18 mmol/L 11 14 ALT 7 - 38 U/L 17 12 eGFR- >60 >60 eGFR-All Other Races . >60 >60 WBC 3.70 - 11.00 k/uL 6.58 RBC 3.90 - 5.20 m/uL 4.32 Hemoglobin 11.5 - 15.5 g/dL 13.1 Hematocrit 36.0 - 46.0 % 42.8 MCV 80.0 - 100.0 fL 99.1 MCH 26.0 - 34.0 pG 30.3 MCHC 30.5 - 36.0 g/dL 30.6 RDW-CV 11.5 - 15.0 % 13.2 Platelet Count 150 - 400 k/uL 242 MPV 9.0 - 12.7 fL 10.8 Absolute nRBC <0.01 k/uL <0.01 TSH 0.400 - 5.500 uU/mL 1.010 ASSESSMENT/PLAN: 1. HYPERTENSION BENIGN - ICD9: 401.1, ICD10: I10 (primary diagnosis) - good control - Continue current medication(s) - Encouraged dietary sodium restriction/DASH diet - Recommended regular aerobic exercise. - Reviewed risks of HTN and principles of treatment - Goal of BP <140/90 - COMP METABOLIC PANEL 2. HYPOTHYROIDISM POST SURGICAL - ICD9: 244.0, ICD10: E89.0 - Instructed patient on importance of taking on an empty stomach either first thing in the morning or at bedtime. - continue current dose of Synthroid 0.088 mg - LEVOTHYROXINE 88 MCG TABLET - TSH BLD 3. Other hyperlipidemia - ICD9: 272.4, ICD10: E78.4 - to be determined upon return of lab results - Continue current medication. - Encouraged following a low fat, low cholesterol diet. - Discussed the benefits of regular aerobic exercise and weight loss. 4. Iron deficiency anemia, unspecified iron deficiency anemia type - ICD9: 280.9, ICD10: D50.9 Normal CBC. Will recheck Iron studies in 6 months. 5. OSTEOARTHRITIS GENERALIZED( Multiple Sites) - ICD9: 715.09, ICD10: M15.9 Controlled. Continue NSAIDs and follow up with pain management for sciatica. Harris López MD [facility] Observed: 06/11/2017 Status: COMPLETED Source: [place] 12:00 AM [facility] REPOSITORY Patient Outreach (FAMPST) LINSEY BOBO ([id number]) 1950 F Date Time Provider Department 06/11/17 HARRIS LÓPEZ) GAGE During your visit today, we recorded the following information about you: Allergies As of Date: 06/11/2017 Noted Allergy Reaction EPINEPHRINE 12/31/2007 Comments: rapid heartbeat james [Other] 08/08/2005 PERFUMES 08/08/2005 Comments: floral perfumes Date Reviewed: 11/01/2016 Reviewed by: Harris López - Fully Assessed Visit Diagnosis:Medication management [Z79.899] Order(s):LIPID PANEL BASIC [SQLIPB] Order #: [id number] FUTURE Prescriptions as of 06/11/2017 Sig: X SIMVASTATIN 40 MG TABLET Take 1 tablet by mouth daily * X LISINOPRIL 10 MG TABLET Take 1 tablet by mouth once d* X NAPROXEN 500 MG TABLET Take 1 tablet by mouth twice * X LEVOTHYROXINE 88 MCG TABLET Take 1 tablet by mouth once d* FERROUS SULFATE 325 MG (65 MG* Take 1 tablet by mouth daily * ESOMEPRAZOLE MAGNESIUM 40 MG * Take 1 capsule by mouth every* TYLENOL EXTRA STRENGTH 500 MG* as necessary Problem List As Of Date 06/11/2017 Noted Resolved HYPERTENSION BENIGN [I10] INVALID FOR* HYPOTHYROIDISM POST SURGICAL [E89.0] INVALID FOR* HYPERLIPIDEMIA [E78.5] INVALID FOR* OSTEOARTHRITIS GENERALIZED( Multiple Sites) [M1*INVALID FOR* PLANTAR NERVE LESION [G57.60] INVALID FOR* SCREEN (SEE ALSO ADMISSION) CANCER - COLON [Z*INVALID FOR* DIVERTICULOSIS COLON - NO HEMORRHAGE [K57.30] INVALID FOR* GOITER NOS [E04.9] More... Dysphagia, Unspecified [R13.10] INVALID FOR* Rectal Bleeding [K62.5] INVALID FOR* Diverticulitis of Colon [K57.32] INVALID FOR* Exostosis of unspecified site [M89.8X9] INVALID FOR* Iron deficiency anemia [D50.9] INVALID FOR* Encounter Status:Closed by TURN8, PRODUSER on 01/17/18 Observed: 06/08/2017 Status: F Source: [place] URINE CULTURE 10:33 AM [facility] REPOSITORY Sp. Request/Comment: - Specimen received in preservative Culture Result - No growth (<1,000 CFU/ml) Performed By: #### URCUL #### [facility] [address] [place], [place] [address] URINALYSIS WITH Collected: 06/08/2017 Status: F Source: [place] MICROSCOPIC 10:32 AM [facility] REPOSITORY TYPE CODE TESTS RESULT OUT OF RANGE REFERENCE UNITS LAB UCOL Yellow Color Yellow LAB [facility] Clear Clarity Abnormal Cloudy Alert LAB UGLUC Negative mg/dL Glucose, Urine Negative LAB UBIL Negative Bilirubin, Urine Negative LAB UKET Negative Ketones, Urine Negative LAB USPG 1.005-1.030 Specific [place], Ur 1.016 LAB UHGB Negative Hemoglobin/Blood, Negative Ur LAB UPH 4.5-8.0 pH 5.0 LAB UPROT Negative mg/dL Protein, Urine Negative LAB UUROB Normal Urobilinogen Normal LAB UNITR Negative Nitrites Negative LAB ULKEST Negative Leukest Negative LAB UCOM Comments SEE COMMENT Result Comment: N/A LAB UMCOM Urine SEE Nik Comment COMMENT Result Comment: N/A LAB UWBC 0-5 /HPF WBC 0-5 LAB URBC 0-3 /HPF RBC 0-3 LAB UEPI /HPF Epithelial SEE Cells COMMENT Result Comment: Few Squamous Epithelial Cells Performed By: #### UAWMIC #### [facility] [address] [place], [place] [address] CBC Collected: 06/08/2017 Status: F Source: [place] 9:56 AM [facility] REPOSITORY TYPE CODE TESTS RESULT OUT OF REFERENCE UNITS RANGE LAB WBC 3.70-11.00 k/uL WBC 6.58 LAB RBC 3.90-5.20 m/uL RBC 4.32 LAB HGB 11.5-15.5 g/dL Hemoglobin 13.1 LAB HCT 36.0-46.0 % Hematocrit 42.8 LAB MCV 80.0-100.0 fL MCV 99.1 LAB MCH 26.0-34.0 pG MCH 30.3 LAB MCHC 30.5-36.0 g/dL MCHC 30.6 LAB RDWCV 11.5-15.0 % RDW-CV 13.2 LAB PLTCT 150-400 k/uL Platelet Count 242 LAB MPV 9.0-12.7 fL MPV 10.8 LAB ABSNUC <0.01 k/uL Absolute nRBC <0.01 Performed By: #### CBC, CMP #### [address] [place], [place] [address] COMP METABOLIC PANEL Collected: 06/08/2017 Status: F Source: [place] 9:56 AM [facility] REPOSITORY TYPE CODE TESTS RESULT OUT OF REFERENCE UNITS RANGE LAB TP 6.3-8.0 g/dL Protein, Total 7.3 LAB ALB 3.9-4.9 g/dL Albumin 4.1 LAB CA 8.5-10.2 mg/dL Calcium, Total 9.2 LAB TBIL 0.2-1.3 mg/dL Bilirubin, Total 0.5 LAB ALKP 32-117 U/L Alkaline Phosphatase 77 LAB AST 13-35 U/L AST 17 LAB GLU 74-99 mg/dL Glucose 77 Result Comment: The [place] Diabetes Association (ADA) provides guidance for cutoff values for fasting glucose and random glucose. The ADA defines fasting as no caloric intake for at least 8 hours. Fas ting plasma glucose results between 100 to 125 mg/dL indicate increased risk for diabetes (prediabetes). Fasting plasma glucose results greater than or equal to 126 mg/dL meet the criteria for diagnosis of diabetes. In the absence of unequivocal hyperglycemia, results should be confirmed by repeat testing. In a patient with classic symptoms of hyperglycemia or hyperglycemic crisis, random plasma glucose results greater than or equal to 200 mg/dL meet the criteria for diagnosis of diabetes. Reference: Standards of Medical Care in Diabetes 2016, British Diabetes Association. Diabetes Care. 2016.39(Suppl 1). LAB BUN 7-21 mg/dL BUN High 24 LAB CRET 0.58-0.96 mg/dL Creatinine 0.79 LAB NA 136-144 mmol/L Sodium 141 LAB K 3.7-5.1 mmol/L Potassium 3.9 LAB CL 97-105 mmol/L Chloride 101 LAB CO2 22-30 mmol/L CO2 26 LAB AGAP 9-18 mmol/L Anion Gap 14 LAB ALT 7-38 U/L ALT 12 LAB GFRAA eGFR- Amer. >60 LAB GFRNAA . eGFR-All Other Races >60 Result Comment: eGFR (Estimated GFR) Units of measure: mL/min/1.73 meters squared eGFR is derived from the reexpressed MDRD Study equation using the following parameters: serum creatinine, age, gender and race. The creatinine assay has been calibrated to be traceable to IDMS. An eGFR <60 mL/min/1.73m2 for >3 months is consistent with chronic kidney disease. Refer to KDOQI guidelines for clinical interpretation. In patients with unstable renal function, e.g. those with acute kidney injury, the eGFR may not accurately reflect actual GFR. Performed By: #### CBC, CMP #### [facility] [address] [phone] ALLERGIES ALLERGIES DATE TYPE / CODE NAME / CODE REACTION SEVERITY SOURCE 04/22/2018 Drug No Known Unknown [place] Allergy/[id number]( Allergies/M36348 [facility] 0388(RXNORM) Hospital Repository 12/31/2007 DRUG EPINEPHRINE [place] INGREDI/303089737( [facility] SNOM[facility]) [place] Repository 08/08/2005 Environ/536682030( PERFUMES [place] SN[facility]) [facility] [place] Repository 08/08/2005 Miscellaneous OTHER [place] Allergy/079667161( [facility] SNOMED [facility]) [place] Repository ENCOUNTERS ENCOUNTERS ADMIT/DISCHARGE ACCOUNT ADMITTING ENCOUNTER LOCATION SOURCE NUMBER CLASS 04/29/2018/04/29/[id number] ing:SDCRoom: Repository AC01 03/17/2018 [id number] [facility] ing:CT Repository 03/17/2018/03/17/20 [id number] Ambulatory [address] Repository 03/17/2018/03/18/20 [id number] Ambulatory [address] Repository 02/07/2018/02/08/20 [id number] Ambulatory [address] Repository 01/20/2018/01/22/20 [id number] Ambulatory [address] Repository 01/15/2018/01/16/20 [id number] Ambulatory [address] Repository 06/28/2017/07/02/19 [id number] Ambulatory [address] Repository 06/08/2017/06/09/19 [id number] Ambulatory [address] Repository PAYERS PAYERS ENCOUNTER GUARANTOR PAYER SUBSCRIBER SOURCE 04/29/2018 LINSEY A Primary LINSEY [id number] JAYESH Insurance:MEDICARE SMITHDOB: [facility] [place] [place] PART A [facility] [id number] [address]Wrt: (330) Number: Repository [phone] (HP) [id number] Date:2018-03-19 04/29/2018 Secondary LINSEY A Hiro [facility] Number: [id number] [id number] Repository Date:6168-21-[address], [place] [address]QZ: 04/29/2018 Tertiary NOT GIVENUNK [place] Insurance:SELF PAY [facility] Number: Effective Repository Date:2018-03-19 03/17/2018 LINSEY A Primary LINSEY A Hiro [id number] JAYESH Insurance:MEDICARE [facility]ITHDOB[facility] [place] [facility] [id number] [address]Yha: (330) Number: Repository [phone] () [id number] Date:2018-03-17 03/17/2018 Secondary LINSEY A [place] Insurance:AARPPolicy SMITHDOB: [facility] Number: [id number] [id number] Repository Date:2830-24-11[address], [place] [address]TH: 03/17/2018 Tertiary NOT GIVENUNK Hiro Insurance:SELF PAY [facility] Number: Effective Repository Date:2018-03-17
== END ==
PROVIDERS: Referring Provider Nurse Practitioner; Visit Provider Nurse Practitioner
DX: H02.401 Unspecified ptosis of right eyelid (principal); H57.11 Ocular pain, right eye; R51 Headache
CPT/HCPCS: 70450

== ENCOUNTER 2018-04-29 07:09 | Day surgery (SDC) | payer MEDICARE, OTHER, SELFPAY ==
--- NOTE | 2018-04-23 12:06 | EKG12_ITS ---
Test Reason : PRE-OP Blood Pressure : / mmHG Vent. Rate : 076 BPM Atrial Rate : 076 BPM P-R Int : 150 ms QRS Dur : 080 ms QT Int : 390 ms P-R-T Axes : 049 032 047 degrees QTc Int : 438 ms Normal sinus rhythm Normal ECG Confirmed by ZAYRA PAEZ, GAIL ([id number]), editor magazine KRISSY ANTHONY ([id number]) on 04/24/2018 4:02:06 PM Referred By: John Vela Confirmed By:GAIL IVERSON MD
[2018-04-23 12:34] LABS: Hematocrit 40.8 % (37-47); Hemoglobin 13.1 g/dl (12.0-15.0); Mean Corp Hgb Conc 32.1 g/gl (32-36); Mean Corpuscular Hgb 30.4 pg (27.0-32.0); Mean Corpuscular Volume 94.7 fL (81-99); Mean Platelet Vol. 10.1 fl (6.2-12.0); Platelet Count 255 K/mm3 (150-450); RBC Distribution Width CV 14.5 % (11.6-14.6); RBC Distribution Width SD 48.5 fl (35.1-43.9); Red Blood Count 4.31 M/mm3 (4.2-5.4); White Blood Count 6.6 K/mm3 (4.4-11.0)
[2018-04-23 12:37] LABS: Scan Indicated on CBC? Y/N NO
[2018-04-23 13:05] LABS: Anion Gap 7 (5-15); BUN 20 mg/dL (7-18); BUN/Creat Ratio 25.6 RATIO (10-20); Calcium,Total 9.4 mg/dL (8.5-10.1); Chloride 104 mmol/L (98-107); Creatinine, Serum 0.78 mg/dL (0.55-1.02); EST Glomerular Filtration Rate 78 mL/min (>60); Est Glom Filt Rate - Afr Amer 94 mL/min (>60); Glucose 85 mg/dL (74-106); Potassium 4.1 mmol/L (3.5-5.1); Sodium Level 140 mmol/L (136-145); Thyroid Stim Hormone (TSH) 1.59 uIU/mL (0.358-3.74)
[2018-04-29] VITALS (14 sets, daily range): BP systolic 107–125; BP diastolic 54–77; PULSE 55–89; RESP 14–18; TEMP 36.2–37.2; O2SAT 92–100; BMI 31.8
--- NOTE | 2018-04-29 | ETH_PTH ---
PATIENT: MOISÉS MCKEON LOC: [facility] [place] U#:[id number] AGE/SX: 67/F ROOM: RE04/29/[address]: Dr. Nick Vela MD : [id number] BED: DIS: 04/29/2018 SPEC #: [id number] RECD: 04/29/18 14:36 STATUS: LAURA REMignon #: [id number] ERICKA: 04/29/18 00:[address]: Nick Vela DEPT: SURGICAL PATHOLOGY RECD BY: Alexandro Mcdonald ENTERED: 04/29/18 14:36 SP TYPE: ETH TISS OTHR DR: Erika Primary Care Phys Tissues: A - Ethmoid sinus, NOS B - Ethmoid sinus, NOS Procedures: Decalcification bone/plaque Surgery Specimen Level III HEADER OPERATION: Functional endoscopic sinus surgery, Navigation PRE-OP DIAGNOSIS: Chronic sinusitis TISSUE SUBMITTED: A - Contents right ethmoid and maxillary sinus, B - Contents left ethmoid and maxillary sinus MICROSCOPIC DIAGNOSIS A. Right ethmoid and maxillary sinus contents, excision: Consistent with chronic sinusitis. Fragments of bone with no pathologic change. B. Left ethmoid and maxillary sinus contents, excision: Consistent with chronic sinusitis. Fragments of bone with no pathologic change. AM:madisyn 05/02/18 MICROSCOPIC DESCRIPTION Slides are reviewed. GROSS DESCRIPTION A - Received in fixative is one container labeled with the patient's name and designated contents right ethmoid and maxillary sinus. The specimen consists of multiple irregular and foamy fragments of red-slater soft tissue that in aggregate measure 8 x 4.5 x 2 cm. Also present in the specimen is a portion of what appears to be a turbinate measuring 3.5 x 2 x 1 cm. Metal Pourer portions are submitted in one cassette after decalcification. B - Received in fixative is one container labeled with the patient's name and designated contents left ethmoid and maxillary sinus. The specimen consists of multiple irregular fragments of pink-slater soft tissue with portions of grossly presumed turbinates that in aggregate measure 2.5 x 2 x 0.2 cm. The specimen is totally submitted in one cassette after decalcification. / AM:madisyn 04/29/18 TC:3 CPT: 26623 x2, 28090 x2
--- NOTE | 2018-04-29 08:27 | DCINST_ITS ---
You will use the following diet at home:: No restrictions Your food should be the consistency of: Regular Discharge Activity: Return to Normal Activity Call your doctor if your incision/area has: Increased Pain/ Swelling Additional Dressing/Incision Instructions:: irrigate nose with saline 5 times/day until seen in clinic Allergies/Adverse Reactions: Allergies No Known Allergies Allergy (Verified 04/22/18 09:07) Medications to take at Discharge Esomeprazole Mag Trihydrate [Nexium] 40 mg PO QODAY 11/10/15 Ferrous Sulfate 325 mg PO DAILY@0800 11/10/15 Levothyroxine Sodium [Levoxyl] 88 mcg PO DAILY 11/10/15 Lisinopril [Zestril] 10 mg PO DAILY 04/22/18 Naproxen [Naprosyn] 500 mg PO BID 04/22/18 Simvastatin [Zocor] 40 mg PO QHS 04/22/18 Acetaminophen/Codeine #3 [Tylenol#3] 1 tab PO Q6H PRN PRN #15 tab 04/29/18 The following prescriptions were given: Acetaminophen/Codeine #3 [Tylenol#3] 1 tab PO Q6H PRN PRN #15 tab PRN Reason: Pain Orders to be completed after discharge: 12 Lead EKG [CVS] Time Frame: 04/23/18, Facility: [facility], Location: Cardiovascular Services Primary Care Physician: Care Physician,No Primary [Primary Care Provider] - Test Results: Test results from this visit will be discussed in further detail at your follow- up appointment, if applicable. Please Follow Up With: Rohith Vela MD When: 1 week
--- NOTE | 2018-04-29 08:27 | PCM.OPRPT ---
Problem List (1) Chronic pansinusitis Status: Chronic Report of Operation Date of Procedure: 04/29/18 Pre-Operative Diagnosis: 1. chronic pansinusitis Post-Operative Diagnosis: 1. chronic pansinusitis Surgery/Procedure Performed:: 1. endoscopic maxillary antrostomy with tissue removal, right and left. 2. endoscopic total ethmoidectomy with sphenoidotomy and tissue removal, right and left Type of Anesthesia:: General Description of Procedure: on the day of the procedure, after appropriate informed consent was obtained, the patient was brought to the operating room and placed in supine position on the operating table. she was placed under general endotracheal anesthesia; the endotracheal tube was secured, the eyes were lubricated. the image guidance system was set up, registered and accuracy confirmed. the bilateral nasal cavities were decongested with oxymetazoline soaked pledgets. the superior attachment of the middle turbinate and uncinate process were injected with lidocaine/epinephrine. the left nasal cavity was examined with the endoscope. a maxillary antrostomy and uncinectomy were performed with a gavin elevator and blakesley. contents were evacuated. a back biter was used to widen the antrostomy. the ethmoid bulla was entered bluntly using the suction and a combination of a curette and an upgoing blakesley were used to perform a total ethmoidectomy. this was taken superiorly to the skull base and laterally to the lamina. a stankewicz maneuver was performed and no laminar defect was noted. the natural sphenoid os was located and widened using a jamila cut. contents were evacuated. the anterior/inferior portion of the middle turbinate was removed with turbinate scizzors and cauterized. the area was irrigated, pledgets were replaced, and hemostasis was achieved. the right nasal cavity was examined with the endoscope. a maxillary antrostomy and uncinectomy were performed with a gavin elevator and blakesley. contents were evacuated. a back biter was used to widen the antrostomy. the ethmoid bulla was entered bluntly using the suction and a combination of a curette and an upgoing blakesley were used to perform a total ethmoidectomy. this was taken superiorly to the skull base and laterally to the lamina. a stankewicz maneuver was performed and no laminar defect was noted. the natural sphenoid os was located and widened using a jmaila cut. polyps were noted in this area and a large amount of fungal elements were filling the sphenoid cavity; contents were evacuated. the anterior/inferior portion of the middle turbinate was removed with turbinate scizzors and cauterized. the area was irrigated, pledgets were replaced, and hemostasis was achieved. the patient was extubated uneventfully and transferred to the PACU in stable condition.
--- NOTE | 2018-04-29 08:39 | OP.PCM_ITS ---
Problem List (1) Chronic pansinusitis Status: Chronic Report of Operation Date of Procedure: 04/29/18 Pre-Operative Diagnosis: 1. chronic pansinusitis Post-Operative Diagnosis: 1. chronic pansinusitis Surgery/Procedure Performed:: 1. endoscopic maxillary antrostomy with tissue removal, right and left. 2. endoscopic total ethmoidectomy with sphenoidotomy and tissue removal, right and left Type of Anesthesia:: General Description of Procedure: on the day of the procedure, after appropriate informed consent was obtained, the patient was brought to the operating room and placed in supine position on the operating table. she was placed under general endotracheal anesthesia; the endotracheal tube was secured, the eyes were lubricated. the image guidance sys tem was set up, registered and accuracy confirmed. the bilateral nasal cavities were decongested with oxymetazoline soaked pledgets. the superior attachment of the middle turbinate and uncinate process were injected with lidocaine/epinephrine. the left nasal cavity was examined with the endoscope. a maxillary antrostomy and uncinectomy were performed with a gavin elevator and blakesley. contents were evacuated. a back biter was used to widen the antrostomy. the ethmoid bulla was entered bluntly using the suction and a combination of a curette and an upgoing blakesley were used to perform a total ethmoidectomy. this was taken superiorly to the skull base and laterally to the lamina. a stankewicz maneuver was performed and no laminar defect was noted. the natural sphenoid os was located and widened using a jamila cut. contents were evacuated. the anterior/inferior portion of the middle turbinate was removed with turbinate scizzors and cauterized. the area was irrigated, pledgets were replaced, and hemostasis was achieved. the right nasal cavity was examined with the endoscope. a maxillary antrostomy and uncinectomy were performed with a gavin elevator and blakesley. contents were evacuated. a back biter was used to widen the antrostomy. the ethmoid bulla was entered bluntly using the suction and a combination of a curette and an upgoing blakesley were used to perform a total ethmoidectomy. this was taken superiorly to the skull base and laterally to the lamina. a stankewicz maneuver was performed and no laminar defect was noted. the natural sphenoid os was located and widened using a jamila cut. polyps were noted in this area and a large amount of fungal elements were filling the sphenoid cavity; contents were evacuated. the anterior/inferior portion of the middle turbinate was removed with turbinate scizzors and cauterized. the area was irrigated, pledgets were replaced, and hemostasis was achieved. the patient was extubated uneventfully and transferred to the PACU in stable condition.
[2018-04-29] MEDS: Oxymetazoline 0.05% 1 SPRAY SPRAY.BTL 15 SPRAY (10:18)
[2018-04-29] MEDS: Ipratropium/Albuterol Sulfate 3 ML AMPUL.NEB INHALATION (12:01)
--- OUTSIDE RECORDS SUMMARY | 2018-07-01 07:24 | XMS RPT_ITS ---
:1950 Author Organization OHIP Care Team Providers Name Role Phone MARLINE PENA (AVTAR) Referring Unavailable MARLINE PENA (AVTAR) Attending Unavailable PODLOGARMINERVA) Referring Unavailable PODLOGARMINERVA) Attending Unavailable HARRIS LÓPEZ) Referring Unavailable HARRIS LÓPEZ) Attending Unavailable HARRIS LÓPEZ) Referring Unavailable Marline Pena CNP Attending Unavailable Marline Pena CNP Referring Unavailable Primay Care Physicia, No Primary Care Unavailable Janett Lowe OIL PIPE INSPECTOR HELPER-C Consulting Unavailable Rohith Vela Attending Unavailable Rohith Vela Referring Unavailable Primay Care Physicia, No Primary Care Unavailable PROBLEMS PROBLEMS DATE TYPE CONDITION / CODE ATTENDING STATUS SOURCE 03/17/2018 Active Ocular pain, right NA Active [facility] eye / H57.11(ICD-10) [facility] [place] Repository 03/17/2018 Active Unspecified ptosis NA Active [facility] of right eyelid / [facility] [place] H02.401(ICD-10) Repository 03/17/2018 Active Headache / NA Active [facility] R51(ICD-10) [facility] [place] Rep[facility] 02/07/2018 Active Encounter for NA Active [facility] screening mammogram [facility] [place] for malignant Repository neoplasm of breast / Z12.31(ICD-10) 10/07/2015 Active Iron deficiency NA Active [facility] anemia, unspecified [facility] [place] / D50.9(ICD-10) Repository 08/08/2005 Active Essential (primary) NA Active [facility] hypertension / [facility] I10(ICD-10) Repository 08/08/2005 Active Postprocedural NA Active [facility] hypothyroidism / [facility] E89.0(ICD-10) Repository 01/15/2018 Active 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 [facility] (current) drug [facility] [place] therapy / Repository Z79.899(ICD-10) 06/08/2017 Active Other abnormal NA Active [facility] findings in urine / [facility] [place] R82.99(ICD-10) Repository 06/08/2017 Active Unspecified abnormal NA Active [facility] findings in urine / [facility] [place] R82.90(ICD-10) Repository PROCEDURES PROCEDURES No Procedure Records FoundRESULTS RESULTS OPERATIVE REPORT Observed: 04/29/2018 Status: F Source: [place] 2:01 PM [facility] Medical Records Department [address] [place] [address] Operative Report 04/29/18 0827 MR#: [id number] Acct: [id number] Name: LINSEY BOBO Rep #: [id number] : 1950 67 From: Rohith Vela MD PCP: Care Physician, No Primary Status: REG [facility] Y Location: [place] [address] Problem List (1) Chronic pansinusitis Status: Chronic [...] F Source: H[place] NO DIFF 1:50 PM [facility] Order Comment: Reason for Laboratory Test [...] MPV 10.1 Performed By: #### L100.0500 #### [facility] [address] [place], [place], [address] PROTHROMBIN TIME W/INR Collected: 04/29/2018 Status: F Source: HIR[place] 1:50 PM [facility] Order Comment: Reason for Laboratory Test PRE-OP TYPE CODE TESTS RESULT OUT OF RANGE REFERENCE UNITS LAB L300.4150 11.7-14.9 SECONDS Normal PROTIME 13.0 LAB L300.4200 Normal INR 1.0 Performed By: #### L300.3900, L300.4310 #### [facility] [address] [place], [place], [address] PARTIAL THROMBOPLAST Collected: 04/29/2018 Status: F Source: HIRO TIME 1:50 PM [facility] Order Comment: Reason for Laboratory Test PRE-OP TYPE CODE TESTS RESULT OUT OF RANGE REFERENCE UNITS LAB L300.4310 24.1-36.2 Seconds Normal PTT 32.0 Performed By: #### L300.3900, L300.4310 #### [facility] [address] [place], [place], [address] BASIC METABOLIC Collected: 04/29/2018 Status: F Source: [place] PROFILE (BMP) 1:50 PM [facility] Order Comment: Send Results To: PRE-OP [...] 7 Performed By: #### L500.2500, L501.9520 #### [facility] [address] [place], [address] THYROID STIM HORMONE Collected: 04/29/2018 Status: F Source: HIRO (TSH) 1:50 PM [facility] Order Comment: Send Results To: PRE-OP Reason for Laboratory Test PRE-OP TYPE CODE TESTS RESULT OUT OF RANGE REFERENCE UNITS LAB L501.9520 0.358-3.74 uIU/mL Normal TSH 1.59 Performed By: #### L500.2500, L501.9520 #### [facility] [address] [place], [place], [address] DISCHARGE INSTRUCTION Observed: 04/29/2018 Status: F Source: [place] 8:27 AM [facility] Medical Records Department [address] [place] [address] Instructions for Home/Discharge Instructions 04/29/18825 MR#: [id number] Acct: [id number] Name: LINSEY BOBO Rep #: [id number] : 1950 67 From: Rohith Vela MD PCP: Care Physician, No Primary Status: REG [facility] You will use the following diet at [...] Lead EKG [CVS] Time Frame: 04/23/18, Facility: [facility], Location: Cardiovascular Services Primary Care Physician: Care Physician,No Primary [Primary Care Provider] - Test Results: Test results from this visit will be discussed in further detail at your follow-up appointment, if applicable. Please Follow Up With: Rohith Vela MD When: 1 week 04/29/18826 <Electronically signed by Rohith Vela MD> Date Rohith Vela MD CC: No Primary Care Physician Signed ETHMOID TISSUE Observed: 04/29/2018 Status: F Source: HIRO 12:00 AM [facility] Patient: LINSEY BOBO : 1950 (67/F) Acct Num: [id number] Phys: Dane PAEZ,Harris Unit Num: [id number] Loc: [facility] Specimen: [id number] Received: 04/29/186 Spec Type: ETH TISS TISSUES 1 TISSUES: A. Ethmoid sinus, NOS B. Ethmoid sinus, NOS GROSS DESCRIPTION A - Received in fixative is one container labeled with the patient's name and designated contents right ethmoid and maxillary sinus. The specimen consists of multiple irregular and foamy fragments of red-slater soft tissue that in aggregate measure 8 x 4.5 x 2 cm. Also present in the specimen is a portion of what appears to be a turbinate measuring 3.5 x 2 x 1 cm. Winemaker portions are submitted in one cassette after decalcification. B - Received in fixative is one container labeled with the patient's name and designated contents left ethmoid and maxillary sinus. The specimen consists of multiple irregular fragments of pink-slater soft tissue with portions of grossly presumed turbinates that in aggregate measure 2.5 x 2 x 0.2 cm. The specimen is totally submitted in one cassette after decalcification. / AM:madisyn 04/29/18 TC:3 CPT: 07874 x2, 10798 x2 HEADER OPERATION: Functional endoscopic sinus surgery, Navigation PRE-OP DIAGNOSIS: Chronic sinusitis TISSUE SUBMITTED: A - Contents right ethmoid and maxillary sinus, B - Contents left ethmoid and maxillary sinus MICROSCOPIC DESCRIPTION Slides are reviewed. MICROSCOPIC DIAGNOSIS A. Right ethmoid and maxillary sinus contents, excision: Consistent with chronic sinusitis. Fragments of bone with no pathologic change. B. Left ethmoid and maxillary sinus contents, excision: Consistent with chronic sinusitis. Fragments of bone with no pathologic change. AM:madisyn 05/02/18 Signed Joe England, DO 05/02/18 <signature on file> Performed By: #### PETH #### [facility] [address] [place], [address] 12 LEAD ELECTROCARDIOGRAM Observed: 04/24/2018 Status: F Source: HIRO 4:02 PM [facility] Cardiovascular Services [address] [address] 12 Lead EKG 04/23/18 1214 MR#: [id number] Acct: [id number] Name: LINSEY BOBO Rep #: [id number] : 1950 67 From: Bart Iverson MD Attending Dr: Harris Vela MD Status: PRE SDC Ordering Dr: Rohith Vela MD Date: 04/23/18 Location: [facility] Sex: F C Admitted: Test Reason : PRE-OP Blood Pressure : / mmHG Vent. Rate : 076 BPM Atrial Rate : 076 BPM P-R Int : 150 ms QRS Dur : 080 ms QT Int : 390 ms P-R-T Axes : 049 032 047 degrees QTc Int : 438 ms Normal sinus rhythm Normal ECG Confirmed by ZAYRA PAEZ, BART ([id number]), editor book KRISSY ANTHONY ([id number]) on 04/24/2018 4:02:06 PM Referred By: John Vela Confirmed By:BART IVERSON MD 04/24/18 1602 Date Bart Iverson MD CC: No Primary Care Physician; Harris Vela MD Signed BRAIN/HEAD WITHOUT Observed: 03/17/2018 Status: F Source: HIRO CONTRAST 3:25 PM [facility] Imaging Services [address] [place] [address] Brain/Head without Contrast MR#: [id number] Acct: [id number] Name: LINSEY BOBO Rep #: [id number] : 1950 F 67 From: Lex Royal MD PCP: Care Physician, No Primary Status: REG CLI Study: Brain/Head without Contrast Date of Exam: 03/17/18 Exam# [id number] Ordering Dr: Marline Pena OIL PIPE INSPECTOR HELPER-C ADDENDUM by Preston Elam MD on 03/18/18 at 1048 ADDENDUM This is an addendum report. 03/18/18 1048 Date cc: No Primary Care Physician; Mathew Lemos MD; Marline Pena * Signed ADDENDUM by Preston Elam MD on 03/18/[address]/Brain/Head without Contrast IMPRESSION: Opacification of the right sphenoid sinus. Electronically Signed: Preston Elam MD at 10:48 EST Tel [phone], Service support , 03/18/18 1055 Date cc: [...] Primary Care Physician; Mathew Lemos MD; Marline NOVA Older Copper Plater: Signed CBC AND DIFFERENTIAL Collected: 03/17/2018 Status: F Source: [place] 2:47 PM [facility] REPOSITORY TYPE CODE TESTS [...] k/uL Abs Lymph 1.40 LAB AMONO % Kane% 8.0 LAB AAMONO <0.87 k/uL Abs Kane 0.65 LAB AEOS % Eosin% 2.3 LAB AAEOS <0.46 k/uL Abs Eosin 0.19 LAB ABASO % Baso% 1.2 LAB AABASO <0.11 k/uL Abs Baso 0.10 LAB AUNRBC 0 /100 WBC NRBCs 0.0 LAB ABNRBC <0.01 k/uL Absolute nRBC <0.01 LAB DTYP DTYPE Auto Diff Performed By: #### CBCDIF, WSR, CRP #### [facility] [address] [place] [address] SED RATE WESTERGREN Collected: 03/17/2018 Status: F Source: [place] 2:47 PM [facility] REPOSITORY TYPE CODE TESTS RESULT OUT OF REFERENCE UNITS RANGE LAB WSR 0-20 mm/hr Sed Rate Westergren 12 Performed By: #### CBCDIF, WSR, CRP #### [place] [address] C-REACTIVE PROTEIN Collected: 03/17/2018 Status: F Source: [place] 2:47 PM [facility] REPOSITORY TYPE CODE TESTS RESULT OUT OF REFERENCE UNITS RANGE LAB CRP <0.9 mg/dL C-Reactive 0.1 Protein Performed By: #### CBCDIF, WSR, CRP #### [place] [address] PROGRESS Observed: 03/17/2018 Status: COMPLETED Source: [place] 2:02 PM [facility] REPOSITORY HNO ID: [id number] Author: Marline (Avtar) Older Service: (none) Author Type: Nurse Practitioner Type: Progress Notes Filed: 03/17/2018 2:42 PM Note Text: CC Patient presents with: Headache: (right) temporal headaches x 1 month HPI Linsey Bobo is a 67 year old year old female who presents with complaint of headache(s) for 1 month. Intensity: 6/10 on 0-10 scale, Location: right worship and right eye, Frequency: daily, occurring only [...] Laterality Date - COLONOSCOP W/ OR W/O [facility] SPEC 09/07/05 Diverticulosis - COLONOSCOP W/ OR W/O [facility] SPEC 10/07/09 Sigmoid diverticulosis/extensive - COLONOSCOP W/ OR W/O [facility] SPEC 11-10-15 repeat in 10 years - DANDC, DIAG AND/OR THERAPEUTIC Dilation AND curettage - EGD W/O [facility] SPECIMEN W/BX 01/19/09 - EGD W/O [facility] SPECIMEN W/BX 11-10-15 - LIGATE FALLOPIAN TUBE [...] + DIFF Needs ophthalmology evaluation [place]. Called [facility] and scheduled patient for 03/18 at 8:30 [...] APRN.CNP CNOV Observed: 03/17/2018 Status: COMPLETED Source: [place] 2:00 PM [facility] REPOSITORY Office Visit (INTMWS) LINSEY BOBO ([id number]) 1950 F Date Time Provider Department 03/17/18 [...] Intensity: 6/10 on 0-10 scale, Location: right worship and right eye, Frequency: daily, occurring only [...] Laterality Date - COLONOSCOP W/ OR W/O [facility] SPEC 09/07/05 Diverticulosis - COLONOSCOP W/ OR W/O [facility] SPEC 10/07/09 Sigmoid diverticulosis/extensive - COLONOSCOP W/ OR W/O [facility] SPEC 11-10-15 repeat in 10 years - DANDC, DIAG AND/OR THERAPEUTIC Dilation AND curettage - EGD W/O [facility] SPECIMEN W/BX 01/19/09 - EGD W/O [facility] SPECIMEN W/BX 11-10-15 - LIGATE FALLOPIAN TUBE [...] + DIFF Needs ophthalmology evaluation [place]. Called [facility] and scheduled patient for 03/18 at 8:30 [...] 03/17/2018 2:29 PM Addendum Appointment at [facility] 03/18 at 8:30 AM Referring Provider: SELF [200] Allergies As of Date: 03/17/2018 Noted Allergy Reaction EPINEPHRINE 12/31/2007 Comments: rapid heartbeat james [Other] 08/08/2005 PERFUMES 08/08/2005 Comments: floral perfumes Date Reviewed: 03/17/2018 Reviewed by: Shaniqua Espinoza Cma - Fully Assessed Reason for Visit: Headache [52] Cmt: (right) temporal headaches x 1 month Primary Visit Diagnosis:Right sided temporal headache [R51] Other Visit Diagnoses:Acute pain in right eye [H57.11] Ptosis of right eyelid [H02.401] Order(s):CT BRAIN WO IVCON [[id number]] Order #: [id number] FUTURE SED RATE WESTERGREN [SQWSR] Order #: [id number] FUTURE C-REACTIVE PROTEIN (CRP) [SQCRP] Order #: [id number] FUTURE CBC + DIFF [SQCBCDIF] Order #: [id number] FUTURE Prescriptions as of 03/17/2018 Sig: LEVOTHYROXINE [...] instructions from your clinician: Appointment at [facility] 03/18 at 8:30 AM Encounter Status:Closed by MARLINE PENA CNP on 03/17/18 CNCO Observed: 02/07/2018 Status: COMPLETED Source: [place] 2:51 PM [facility] REPOSITORY HN ID: [id number] Author: Mammography Coordinator Service: (none) Author Type: Physician Type: Letter Filed: 02/10/2018 11:33 PM Note Text: February 07, 2018 PID: [id number] Linsey Bobo [address] [place] [address] Dear Ms. Bobo, We are pleased to [...] report will be kept on file at [facility] as part of your permanent medical record and are available for your continuing care. Thank you for allowing us to help in meeting your health care needs. Sincerely, Dr. Lao Interpreting Radiologist [facility] (Normal over 40) [facility] SCREENING Observed: 02/07/2018 Status: F Source: [place] 2:25 PM [facility] REPOSITORY * * *Final Report* * * DATE OF EXAM: Feb 07 2018 2:25PM WRW 0581 - [facility] SCREENING / PROCEDURE REASON: Screening for breast cancer * * * * Physician Interpretation * * * * RESULT: #[id number] - [facility] SCREENING BILATERAL DIGITAL SCREENING MAMMOGRAM WITH CAD: 02/07/2018 HISTORY: Screening Mammogram - patient reports NO breast symptoms /priors available for comparison. RESULT: TECHNIQUE: The study was acquired using full field digital technology and interpreted from soft copy. Current study was also evaluated with a Computer Aided Detection (CAD). Comparison is made to exams dated: 11/16/2016 mammogram - [facility], 09/16/2015 mammogram - [facility], 05/30/2012 mammogram, 06/26/2013 mammogram, and 08/26/2014 mammogram - [facility]. The tissue of both breasts is heterogeneously dense. This may lower the sensitivity of mammography. No significant masses, calcifications, or other findings are seen in either breast. There has been no significant interval change. IMPRESSION: NEGATIVE There is no mammographic evidence of malignancy. A 1 year screening mammogram is recommended. Ha Lao M.D. pt/penrad:02/07/2018 14:51:34 Insurance Manager: Kanika BEJARANO(Hermann)(Monica), [facility] letter sent: Normal over 40 Mammogram BI-RADS: [...] Health, Family Medicine, and Medical/Surgical Oncology, the [facility] has carefully reviewed the data and [...] their providers when to stop screening mammograms. Copper Plater: Sherman Transcribe Date/Time: Feb 07 2018 1:48P Dictated by: HA LAO MD This examination was interpreted and the report reviewed and electronically signed by: HA LAO MD on Feb 07 2018 2:51PM EST [id number] PROGRESS Observed: 02/07/2018 Status: COMPLETED Source: [place] 1:47 PM [facility] REPOSITORY HNO ID: [id number] Author: Shaniqua Bejarano Service: (none) Author Type: [...] IMPLANT DATA REVIEWED: Not Applicable RADIOLOGY DEPARTMENT: [facility] PERIPHERAL IV DATA: Not applicable SIGNED BY: Shaniqua Bejarano February 07, 2018 1:47 PM PROGRESS Observed: 01/20/2018 Status: COMPLETED Source: [place] 1:01 PM [facility] RE[facility]ITORY HNO ID: [id number] Author: Minerva Frausto) Podlogar Service: (none) Author Type: Nurse [...] children: 2 Occupational History Occupation Employer Comment [email or web address]* Social History Main Topics Smoking status: Never [...] SELF EXAMS Yes 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 Patient advised if symptoms do not improve or if symptoms worsen sooner, to contact their primary care physician. Potential red flag symptoms discussed with the patient. Reviewed appropriate action plan to take if red flag symptoms occur. Patient agreeable to treatment plan. CNOV Observed: 01/20/2018 Status: COMPLETED Source: [place] 1:00 PM [facility] REPOSITORY Office Visit (FAMPWS) LINSEY BOBO ([id number]) 1950 F Date Time Provider Department 01/20/18 1:00 PM MINERVA IRWIN (INFORMATION LEAD) [facility] During your visit today, we recorded the following information about you: Temperature Pulse Respiration Blood pressure 97.9 degrees 68/minute 18/minute 124/62 Weight 86.7 kg Jeanette Muñoz LPN, HANNAH 01/20/2018 3:16 PM Signed 67 year old female here for INACTIVATED INFLUENZA VACCINE. 1443-9012 Season Patient is identified by name and date of : Yes [] CONTRAINDICATIONS color enhanced section Age less than 6 months? No Allergy to eggs, chicken, chicken feathers, or chicken dander? No Allergy to thimerosal (a preservative) or formaldehyde, gelatin? No History of severe reaction to any vaccine component or a previous dose of influenza vaccination? No History of Guillain-Keew[place] Syndrome within 6 weeks after a previous [...] sheet given? Yes See immunization activity in [facility] for details of immunizations adminstered today. Patient age: [age] year old For The 1418-9754 Flu Season 6-35 months old: Fluzone 0.25 [...] dose in one months time. 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] Need for vaccination [Z23] Screening for breast cancer [Z12.31] Screening for cervical cancer [Z12.4] Order(s):INFLUENZA SEASONAL HIGH DOSE AGE 65+ [09740DCS] Order #: [id number] [facility] SCREENING [[id number]] Order #: [id number] FUTURE levothyroxine (SYNTHROID) 88 mcg tabletTake 1 [...] breakfast.Disp: 30 tabletRfl: 5 [facility]SULT TO [facility] [[id number]] Order #: [id number]: 1 Prescriptions as of 01/20/2018 Sig: LEVOTHYROXINE [...] 01/20/18 PROGRESS Observed: 01/20/2018 Status: COMPLETED Source: [place] 12:56 PM [facility] REPOSITORY O ID: [id number] Author: Jeanette Anderson (Hannah) HANNAH Muñoz Service: (none) Author Type: LICENSED NURSE Type: Progress Notes Filed: 01/20/2018 3:16 PM Note Text: 67 year old female here for INACTIVATED INFLUENZA VACCINE. 8516-7884 Season Patient is identified by name and date of : Yes [] CONTRAINDICATIONS color enhanced section Age less than 6 months? No Allergy to eggs, chicken, chicken feathers, or chicken dander? No Allergy to thimerosal (a preservative) or formaldehyde, gelatin? No History of severe reaction to any vaccine component or a previous dose of influenza vaccination? No History of Guillain-Keewatin Syndrome within 6 weeks after a previous [...] sheet given? Yes See immunization activity in [facility] for details of immunizations adminstered today. Patient age: [age] year old For The 0635-7690 Flu Season 6-35 months old: Fluzone 0.25 [...] PANEL, BASIC Collected: 01/15/2018 Status: F Source: [place] 8:05 AM [facility] REPOSITORY TYPE CODE TESTS [...] Desk Reference: National Heart, Lung, and Blood [place]. National Institutes of Health. 2001: NIH Publication No. 01-3305. 2. An International Atherosclerosis Society position paper: global recommendations for the management of dyslipidemia: executive summary, Atherosclerosis. 2014: 232(2):410-413. Performed By: #### LIPB #### [facility] [address] [place] [address] IRON AND TIBC Collected: 01/15/2018 Status: F Source: [place] 8:05 AM [facility] REPOSITORY TYPE CODE TESTS RESULT OUT OF REFERENCE UNITS RANGE LAB IRN 41-186 ug/dL Iron 57 LAB TIBC 232-386 ug/dL TIBC High 399 LAB SAT 15-57 % Low Transferrin Saturatn 14 Performed By: #### IRON, CMP, TSH, FERR #### [facility] [address] [place], [place] [address] COMP METABOLIC PANEL Collected: 01/15/2018 Status: F Source: [place] 8:05 AM [facility] REPOSITORY TYPE CODE TESTS RESULT OUT OF REFERENCE UNITS RANGE LAB TP 6.3-8.0 g/dL Protein, Total 6.6 LAB ALB 3.9-4.9 g/dL Albumin 4.2 LAB CA 8.5-10.2 mg/dL Calcium, Total 9.5 LAB TBIL 0.2-1.3 mg/dL Bilirubin, Total 0.4 LAB ALKP 34-123 U/L Alkaline Phosphatase 77 LAB AST 13-35 U/L AST 23 LAB GLU 74-99 mg/dL Glucose 80 Result Comment: The [place] Diabetes Association (ADA) provides guidance for cutoff [...] of Medical Care in Diabetes 2016, [place] [employer] Association. Diabetes Care. 2016.39(Suppl 1). LAB [...] By: #### IRON, CMP, TSH, FERR #### [facility] [address] [place], [place] [address] TSH Collected: 01/15/2018 Status: F Source: E[place] 8:05 AM [facility] REPOSITORY TYPE CODE TESTS RESULT OUT OF RANGE REFERENCE UNITS LAB TSH 0.400-5.500 uU/mL TSH 1.370 Performed By: #### IRON, CMP, TSH, FERR #### [facility] [address] [id number] FERRITIN Collected: 01/15/2018 Status: F Source: [place] 8:05 AM [facility] REPOSITORY TYPE CODE TESTS RESULT OUT OF REFERENCE UNITS RANGE LAB FERR 14.7-205.1 ng/mL Ferritin 24.9 Performed By: #### IRON, CMP, TSH, FERR #### [facility] [address] [address] CNOV Observed: 06/28/2017 Status: COMPLETED Source: [place] 1:20 PM [facility] REPOSITORY Office Visit (FAMPWS) LINSEY BOBO ([id number]) 1950 F Date Time Provider Department 06/28/17 1:20 PM HARRIS LÓPEZ) FAIZAWS During your visit today, we recorded the [...] Laterality Date - COLONOSCOP W/ OR W/O [facility] SPEC 09/07/05 Diverticulosis - COLONOSCOP W/ OR W/O [facility] SPEC 10/07/09 Sigmoid diverticulosis/extensive - COLONOSCOP W/ OR W/O [facility] SPEC 11-10-15 repeat in 10 years - DANDamp;C, DIAG AND/OR THERAPEUTIC Dilation ANDamp; curettage - EGD W/O [facility] [facility] SPE[facility] W/BX 01/19/09 - EGD W/O [facility] SPECIMEN W/BX 11-10-15 - LIGATE [place] TUBE [...] children: 2 Occupational History 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* Social History Main Topics Smoking status: [...] SELF EXAMS Yes 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[email or web address], 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 SIMVASTATIN 40 MG TABLET 90 t* 06/28/2017 Route: ORAL Sig: Take 1 tablet by mouth daily at bedtime. LISINOPRIL 10 MG TABLET 90 t* 1 06/28/2017 Route: [...] 06/28/17 PROGRESS Observed: 06/28/2017 Status: COMPLETED Source: [place] [address]:11 PM [facility] REPOSITORY HNO ID: [id number] Author: Harris Haywood) Rene Service: (none) Author [...] Laterality Date - COLONOSCOP W/ OR W/O [facility] SPEC 09/07/05 Diverticulosis - COLONOSCOP W/ OR W/O [facility] SPEC 10/07/09 Sigmoid diverticulosis/extensive - COLONOSCOP W/ OR W/O [facility] SPEC 11-10-15 repeat in 10 years - DANDC, DIAG AND/OR THERAPEUTIC Dilation AND curettage - EGD W/O [facility] SPECIMEN W/BX 01/19/09 - EGD W/O [facility] SPECIMEN W/BX 11-10-15 - LIGATE [place] TUBE [...] children: 2 Occupational History Occupation Employer Comment [email or web address]* Social History Main Topics Smoking status: Never [...] SELF EXAMS Yes 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 Harris L[facility]pez MD [facility] Observed: 06/11/2017 Status: COMPLETED Source: [place] 12:00 AM [facility] REPOSITORY Patient Outreach (FAMPST) LINSEY BOBO ([id number]) 1950 F Date Time Provider Department 06/11/17 HARRIS LÓPEZ) FAMPST During your visit today, we recorded the following information about you: Allergies As of Date: 06/11/2017 Noted Allergy Reaction EPINEPHRINE 12/31/2007 Comments: rapid heartbeat james [Other] 08/08/2005 PERFUMES 08/08/2005 Comments: floral perfumes Date Reviewed: 11/01/2016 Reviewed by: Harris Haywood) Rene - Fully Assessed Visit Diagnosis:Medication management [Z79.899] Order(s):LIPID PANEL BASIC [SQLIPB] Order #: [id number] FUTURE Prescriptions as of 06/11/2017 Sig: X [...] anemia [D50.9] INVALID FOR* Encounter Status:Closed by MeetDoctor, PRODUSER on 01/17/18 Observed: 06/08/2017 Status: F Source: [place] URINE CULTURE 10:33 AM [facility] REPOSITORY Sp. Request/Comment: - Specimen received in preservative Culture Result - No growth (<1,000 CFU/ml) Performed By: #### URCUL #### [facility] [address] [place], [place] [address] URINALYSIS WITH Collected: 06/08/2017 Status: F Source: [place] MICROSCOPIC 10:32 AM [facility] REPOSITORY TYPE CODE TESTS RESULT OUT OF RANGE REFERENCE UNITS LAB UCOL Yellow Color Yellow LAB [facility] Clear Clarity Abnormal Cloudy Alert LAB UGLUC Negative mg/dL Glucose, Urine Negative LAB UBIL Negative Bilirubin, Urine Negative LAB UKET Negative Ketones, Urine Negative LAB [facility] 1.005-1.030 Specific [place], Ur 1.016 LAB UHGB Negative Hemoglobin/Blood, Negative [...] Epithelial Cells Performed By: #### UAWMIC #### [facility] [address], [place] [address] CBC Collected: 06/08/2017 Status: F Source: [place] 9:56 AM [facility] REPOSITORY TYPE CODE TESTS RESULT OUT [...] <0.01 Performed By: #### CBC, CMP #### [facility] [address], [place] [address] COMP METABOLIC PANEL Collected: 06/08/2017 Status: F Source: [place] 9:56 AM [facility] REPOSITORY TYPE CODE TESTS RESULT OUT OF REFERENCE UNITS RANGE LAB TP 6.3-8.0 g/dL Protein, Total 7.3 LAB ALB 3.9-4.9 g/dL Albumin 4.1 LAB CA 8.5-10.2 mg/dL Calcium, Total 9.2 LAB TBIL 0.2-1.3 mg/dL Bilirubin, Total 0.5 LAB ALKP 32-117 U/L Alkaline Phosphatase 77 LAB AST 13-35 U/L AST 17 LAB GLU 74-99 mg/dL Glucose 77 Result Comment: The [place] Diabetes [employer] (ADA) provides guidance for cutoff [...] of Medical Care in Diabetes 2016, [place] [employer]. Diabetes Care. 2016.39(Suppl 1). LAB [...] GFR. Performed By: #### CBC, CMP #### [facility] [address] [place] [address] ALLERGIES ALLERGIES DATE TYPE / CODE NAME / CODE REACTION SEVERITY SOURCE 04/22/2018 Drug No Known Unknown [place] Allergy/[id number]( Allergies/[id number] [facility] 0388(RXNORM) Hospital Repository 12/31/2007 DRUG EPINEPHRINE [place] INGREDI/[id number]( [facility] SNOMED [facility]) [place] Repository 08/08/2005 Miscellaneous OTHER [place] Allergy/[id number]( [facility] SNOM[facility]) [place] Repository 08/08/2005 Environ/[id number]( PERFUMES [place] SNOMED CT) [facility] Repository ENCOUNTERS ENCOUNTERS ADMIT/DISCHARGE ACCOUNT ADMITTING ENCOUNTER LOCATION SOURCE NUMBER CLASS 04/29/2018/04/29/[id number] ing:SDCRoom: Repository AC01 03/17/2018 [id number] [facility] ing:CT Repository 03/17/2018/03/17/20 [id number] Ambulatory [address] [place] Repository 03/17/2018/03/18/20 [id number] Ambulatory [address] Repository 02/07/2018/02/08/20 [id number] Ambulatory [address] Repository 01/20/2018/01/22/20 [id number] Ambulatory [address] [place] Repository 01/15/2018/01/16/20 [id number] Ambulatory [address] Repository 06/28/2017/07/02/19 [id number] Ambulatory [address] [place] Repository 06/08/2017/06/09/19 [id number] Ambulatory [address] Repository PAYERS PAYERS ENCOUNTER GUARANTOR PAYER SUBSCRIBER SOURCE 04/29/2018 LISNEY Kend[place] Primary LINSEY [id number] Insurance:[place]ICARE [place] PART A [facility] [id number] [address]Nox: (330) Number: Repository [phone] () [id number] Date:2018-03-19 04/29/2018 Secondary LINSEY A [place] Insurance:[facility] [place]: Community Number: [id number] [id number] Repository Date:[id number], [place] [address]KN: 04/29/2018 Tertiary NOT GIVENUNK [place] Insurance:SELF PAY [facility] Number: Effective Repository Date:2018-03-19 03/17/2018 LINSEY A Primary LINSEY A [place] [id number] JAYESH Insurance:MEDICARE SMITHDOB: [facility] [place] [place] PART A [facility] [id number] [facility] [address]Nyt: [phone]) Number: Repository [phone] () [id number] Date:2018-03-17 03/17/2018 Secondary LINSEY A [place] [facility] [place]: Community Number: [id number] Hospital [id number] Repository Date:[id number], [place] [address]JH: 03/17/2018 Tertiary NOT GIVENUNK Hiro Insurance:SELF PAY [facility] Number: Effective Repository Date:2018-03-17
== END 2018-04-29 14:35 | disposition home or self-care (01) ==
LOC: SDC 07:10 → AC 07:10
PROVIDERS: Anesthesiology; Referring Provider Otolaryngology; Visit Provider Otolaryngology
PROC: (CPT 31259; principal; 2018-04-29 08:45)
DX: J32.4 Chronic pansinusitis (principal); K21.9 Gastro-esophageal reflux disease without esophagitis; I10 Essential (primary) hypertension; Z79.899 Other long term (current) drug therapy; R23.3 Spontaneous ecchymoses; M79.605 Pain in left leg; M79.604 Pain in right leg
CPT/HCPCS: 00160; 31259; 31267; 36415; 80048; 84443; 85027; 85610; 85730; 88304; 88305; 88311; 93005; 94640; J7120; A4216; J2405

== ENCOUNTER → 2018-08-27 | Outpatient (CLI) | payer MEDICARE, OTHER, SELFPAY ==
[2018-04-29 07:46] VITALS: BMI 31.8
== END | disposition home or self-care (01) ==
LOC: LABSPEC 15:40
PROVIDERS: Referring Provider Otolaryngology; Visit Provider Otolaryngology
DX: J32.9 Chronic sinusitis, unspecified (principal)
CPT/HCPCS: 87070; 87205

== ENCOUNTER 2018-10-24 08:52 | Emergency (ER) | payer MEDICARE, OTHER, SELFPAY ==
[2018-04-29 07:46] VITALS: BMI 31.8
[2018-10-24 08:53] VITALS: BP 138/80; PULSE 101; RESP 18; TEMP 36.8; O2SAT 96; BMI 30.2
--- NOTE | 2018-10-24 09:09 | CT_ITS ---
STUDY: CT ABDOMEN AND PELVIS WITH CONTRAST REASON FOR EXAM: Female, 67 years old. Blood in the stool. Lower abdominal pain. Hypertension. RADIATION DOSAGE (If Supplied By Facility): CTDIvol = ( 15.70 ) mGy, DLP = ( 954.72 ) mGycm TECHNIQUE: Transaxial images were obtained from the dome of the diaphragm to the symphysis pubis with oral contrast. 100mL IV/Oral Isovue 300 was administered. Sagittal and coronal images were reconstructed. Individualized dose optimization techniques were used for this CT. COMPARISON: None. FINDINGS: Linear scar in the posterior medial segment of the The visualized portions of the heart are within normal limits. There is decreased attenuation of the liver consistent with steatosis. Scattered small cysts within the liver. Normal gallbladder and extrahepatic biliary system. Normal spleen. Normal pancreas. Normal bilateral adrenal glands. Bilateral multiple nonobstructive intrarenal calculi the largest measuring approximately 3 mm. Bilateral parapelvic cysts more prominent in the left kidney. Incidental note is made of a retroaortic left renal vein. There is a moderate-sized hiatal hernia. Normal small intestine. There is evidence of bowel wall thickening and mild increased markings in the surrounding peritoneal fat from the distal half of the transverse colon down to the rectum. There is also evidence of diffuse sigmoid diverticulosis. The appendix is visualized and appears normal. There is diffuse atherosclerotic calcification of the abdominal aorta, without a demonstrated aneurysm. Normal inferior vena cava. Normal retroperitoneum. Normal urinary bladder. Normal abdominal wall. There are diffuse degenerative changes of the visualized lumbar spine. CT/Abdomen/Pelvis WITH Contrast IMPRESSION: Colitis as described. Multiple small hepatic cysts. Moderate sized hiatal hernia. Sigmoid diverticulosis. Multiple nonobstructive intrarenal calculi and bilateral parapelvic cysts more prominent on the left side. Electronically Signed: Preston Elam, at 11:09 EDT , Service support ,
--- NOTE | 2018-10-24 09:10 | ED.DCSUM_ITS ---
History of Present Illness Chief Complaint: GI Bleed Detail of Chief Complaint: Blood in stool Informant: Patient Onset: Yesterday Context: Gradual Onset Current Severity: Mild Maximum Severity: Mild Narrative: Patient reports frequent bowel movements last evening this started a solid stool and went to diarrhea. She was having lower abdominal cramping, sweating. Pat ient states last night before bed she noted a small amount of blood in her stool. She had one episode last night that was similar and some blood this morning. Today she reports only mild pain in the suprapubic region. Patient has had diverticulitis in the past with frequent presentation. She does not remember when her last colonoscopy was performed. She denies fever or chills. She denies any prior abdominal surgeries. - Past Medical History (1) Diverticulosis Status: Chronic (2) Hypothyroid Status: Chronic (3) Hypertension Status: Chronic (4) High cholesterol Status: Chronic (5) GERD (gastroesophageal reflux disease) Status: Chronic Past Medical History - Allergies and Home Meds Allergies/Adverse Reactions: Allergies No Known Allergies Allergy (Verified 10/24/18 08:55) Primary Care Physician: Rohith López MD [Primary Care Provider] - Prior records reviewed: Yes Past Medical History: - - Reviewed Smoking Status: Never smoker Review of Systems All systems negative except as indicated General: Denies: Chills, Fever Eyes: Denies: Visual changes - left, Visual changes - right ENT: Denies: Bilateral ear pain Cardiovascular: Denies: Chest pain, Palpitations Respiratory: Denies: Dyspnea, Cough Gastrointestinal: Reports: Abdominal pain, Hematochezia. Denies: Nausea, Vomiting, Diarrhea, Constipation Genitourinary: Denies: Dysuria, Hematuria Musculoskeletal: Denies: Myalgias, Arthralgias Neurological: Denies: Headache Endocrine: Denies: Polyuria, Polydipsia Hematologic: Denies: Easy bruising, Easy bleeding Allergy: Denies: Uticaria Physical Exam Vital Signs/Narrative: Vital Signs Temp Pulse Resp BP Pulse Ox 10/24/18 08:53 98.2 F 101 H 18 138/80 H 96 General: Well nourished, Well developed Head: Normocephalic ENT: Moist mucous membranes Cardiovascular: Regular rate, Regular rhythm Respiratory: No distress, CTA bilaterally Abdomen: Soft, Tender - Animal tenderness in the suprapubic region.. Negative for: Guarding, Rebound tenderness Back: Nontender Extremities: Nontender, No edema Skin: Normal color, No rash Neurological: Alert, Oriented x3 Psychological: Normal affect Diagnostic/Tx/Re-eval Impressions Abdomen/Pelvis CT 10/24/18 09:09 IMPRESSION: Colitis as described. Multiple small hepatic cysts. Moderate sized hiatal hernia. Sigmoid diverticulosis. Multiple nonobstructive intrarenal calculi and bilateral parapelvic cysts more prominent on the left side. Electronically Signed: Preston Ramosfrida, at 11:09 EDT , Service support , 10/24/18 09:09 Abdomen/Pelvis WITH Contrast [CT] Stat Laboratory Results 10/24/18 10/24/18 10/24/18 09:20 09:20 09:20 WBC 9.8 RBC 4.81 Hgb 14.8 Hct 44.0 MCV 91.5 MCH 30.8 MCHC 33.6 RDW Std Deviation 44.0 H RDW Coeff of Keith 13.1 Plt Count 219 MPV 10.1 Immature Gran % (Auto) 0.300 Neut % (Auto) 76.1 H Lymph % (Auto) 14.1 L Surry % (Auto) 7.3 Eos % (Auto) 1.6 Baso % (Auto) 0.6 Absolute Neuts (auto) 7.5 Absolute Lymphs (auto) 1.38 Absolute Nucleated RBC 0.00 Nucleated RBC % 0 PT 13.3 INR 1.0 APTT 30.7 Sodium 139 Potassium 3.4 L Chloride 109 H Carbon Dioxide 25.0 Anion Gap 5 BUN 22 H Creatinine 0.79 Estim Creat Clear Calc 47.78 Est GFR (MDRD) Af Amer 92 Est GFR (MDRD) Non-Af 76 BUN/Creatinine Ratio 27.7 H Glucose 99 Calcium 9.1 Urine Color Urine Clarity Urine pH Ur Specific [place] Urine Protein Urine Glucose (UA) Urine Ketones Urine Occult Blood Urine Nitrite Urine Bilirubin Urine Urobilinogen Ur Leukocyte Esterase Urine RBC Urine WBC Ur Squamous Epith Cells Urine Bacteria Urine Mucus 10/24/18 10:20 WBC RBC Hgb Hct MCV MCH MCHC RDW Std Deviation RDW Coeff of Keith Plt Count MPV Immature Gran % (Auto) Neut % (Auto) Lymph % (Auto) Sur[place] % (Auto) Eos % (Auto) Baso % (Auto) Absolute Neuts (auto) Absolute Lymphs (auto) Absolute Nucleated RBC Nucleated RBC % PT INR APTT Sodium Potassium Chloride Carbon Dioxide Anion Gap BUN Creatinine Estim Creat Clear Calc Est GFR (MDRD) Af Amer Est GFR (MDRD) Non-Af BUN/Creatinine Ratio Glucose Calcium Urine Color Yellow Urine Clarity Sl. Cloudy Urine pH 6.0 Ur Specific [place] 1.015 Urine Protein 15 H Urine Glucose (UA) Normal Urine Ketones Negative Urine Occult Blood 250 H Urine Nitrite Negative Urine Bilirubin Negative Urine Urobilinogen Normal Ur Leukocyte Esterase 100 H Urine RBC 5-10 SEEN Urine WBC 5-10 SEEN Ur Squamous Epith Cells 5-10 SEEN Urine Bacteria 2+ Urine Mucus 1+ - Medical Decision Making Patient was given IV fluids in the emergency room. On repeat evaluation she is resting comfortably. Test results were discussed with her including CT findings of colitis as well as renal stones. She does have some hematuria as well. Patient be treated with a course of Cipro and Flagyl, first doses given here. If symptoms worsen she is to return to the emergency room immediately. She voices understanding and agreement. Disposition: Discharge ED Disposition - Plan for ED Patient: Disposition: Home or Assisted Living Diagnosis: Colitis Instructions: Bacterial Gastroenteritis Prescriptions: Ciprofloxacin [Cipro] 500 mg PO BID #14 tablet metroNIDAZOLE [Flagyl] 500 mg PO Q6H #40 tablet Referrals: Rohith López MD [Primary Care Provider] - 1 Week
[2018-10-24] MEDS: 0.9% Normal Saline 1,000 ML 150 ML IV (09:26)
[2018-10-24 09:29] LABS: Absolute Lymphocyte Count 1.38 X10^3/uL (0.83-4.51); Absolute Neutrophil Count 7.5 X10^3/uL (2.0-7.7); Basophil# 0.06 X10^3/uL; Basophil% 0.6 % (0-1); Eosinophil# 0.16 X10^3/uL; Eosinophils% 1.6 % (0-5); Hemoglobin 14.8 g/dL (12.0-15.0); Lymphocyte # 1.38 X10^3/ul (4.0); Lymphocyte % 14.1 % (19-41); Mean Corp Hgb Conc 33.6 g/dL (32-36); Mean Corpuscular Hgb 30.8 pg (27.0-32.0); Mean Corpuscular Volume 91.5 fL (81-99); Mean Platelet Vol. 10.1 fl (6.2-12.0); Monocyte# 0.72 X10^3/uL; Monocyte% 7.3 % (0-10); NRBC Flagged by Analyzer 0 % (0-5); Neutrophil # 7.45 X10^3/uL (2.7-7.7); Neutrophil % 76.1 % (47-70); Platelet Count 219 K/mm3 (150-450); RBC Distribution Width CV 13.1 % (11.6-14.6); Red Blood Count 4.81 M/mm3 (4.2-5.4); White Blood Count 9.8 K/mm3 (4.4-11.0)
[2018-10-24 09:39] LABS: Partial Thromboplast Time 30.7 Seconds (24.1-36.2); Prothrombin Time (Protime)PT. 13.3 SECONDS (11.7-14.9)
[2018-10-24 09:41] LABS: Anion Gap 5 (5-15); BUN 22 mg/dL (7-18); BUN/Creat Ratio 27.7 RATIO (10-20); Calcium,Total 9.1 mg/dL (8.5-10.1); Chloride 109 mmol/L (98-107); Creatinine, Serum 0.79 mg/dL (0.55-1.02); EST Glomerular Filtration Rate 76 mL/min (>60); Est Glom Filt Rate - Afr Amer 92 mL/min (>60); Estimated Creatinine Clearance 47.78 ml/min; Glucose 99 mg/dL (74-106); Potassium 3.4 mmol/L (3.5-5.1); Sodium Level 139 mmol/L (136-145)
[2018-10-24 10:00] VITALS: BP 151/70; PULSE 66; RESP 18; TEMP 36.5; O2SAT 100
[2018-10-24 10:32] LABS: Color, Urine Yellow (Yellow); Glucose, Dipstick Normal (Normal); Ketone-Dipstick Negative (Negative); Leukocyte Esterase-Dipstick 100 /ul (Negative); Nitrite-Dipstick Negative (Negative); Occult Blood-Urine 250 /ul (Negative); Protein-Dipstick 15 mg/dl (Negative); Specific Gravity, Urine 1.015 (1.002-1.030); Urine Bilirubin Dipstick Negative (Negative); Urine Clarity Sl. Cloudy (Clear); Urine Urobilinogen Normal (Normal)
[2018-10-24 10:38] LABS: Bacteria 2+ /hpf (None Seen); Mucous, Urine 1+ /hpf (<or=2+); Red Blood Cells-Urine 5-10 SEEN /hpf (0-5); Squamous Epithelial Cells - UA 5-10 SEEN /hpf (5-10); White Blood Cells 5-10 SEEN /hpf (0-5)
[2018-10-24 11:39] VITALS: BP 149/68; PULSE 71; RESP 16; TEMP 36.5; O2SAT 95
[2018-10-24] MEDS: Ciprofloxacin 500 MG Tablet PO (12:02)
[2018-10-24] MEDS: metroNIDAZOLE 500 MG Tablet PO (12:02)
== END 2018-10-24 12:13 | disposition home or self-care (01) ==
PROVIDERS: Emergency Provider Emergency Medicine; Family Provider Family Medicine; PCP Family Medicine
DX: K52.9 Noninfective gastroenteritis and colitis, unspecified (principal); K76.89 Other specified diseases of liver; K44.9 Diaphragmatic hernia without obstruction or gangrene; N20.0 Calculus of kidney; K57.30 Diverticulosis of large intestine without perforation or abscess without bleeding; E03.9 Hypothyroidism, unspecified; I10 Essential (primary) hypertension; E78.00 Pure hypercholesterolemia, unspecified; K21.9 Gastro-esophageal reflux disease without esophagitis; Z87.19 Personal history of other diseases of the digestive system; Z79.899 Other long term (current) drug therapy
CPT/HCPCS: 74177; 80048; 81001; 85025; 85610; 85730; 96360; 96361; 99284; J7030; Q9967; A4216

== ENCOUNTER 2018-11-10 11:57 | Inpatient (IN) | payer MEDICARE, OTHER, SELFPAY ==
[2018-11-10] VITALS (9 sets, daily range): BP systolic 119–144; BP diastolic 63–72; PULSE 91–128; RESP 16–18; TEMP 36.9–37.1; O2SAT 95–97; BMI 29.9; BMI 30.5; BMI 30.6
--- NOTE | 2018-11-10 13:20 | CT_ITS ---
STUDY: CT ABDOMEN AND PELVIS WITH CONTRAST REASON FOR EXAM: Female, 67 years old. History of colitis. Abdominal pain and elevated white cell count. RADIATION DOSAGE (If Supplied By Facility): CTDIvol = ( 14.15 ) mGy, DLP = ( 958.68 ) mGycm TECHNIQUE: Transaxial images were obtained from the dome of the diaphragm to the symphysis pubis with oral contrast. 100 IV/Oral Isovue 300 was administered. Sagittal and coronal images were reconstructed. Individualized dose optimization techniques were used for this CT. COMPARISON: Comparison is made with prior study dated October 24, 2018. FINDINGS: Once again, a linear scar is seen in the medial aspect of the left lower lobe. The visualized portions of the heart are within normal limits. Stable small hepatic cysts. Normal gallbladder and extrahepatic biliary system. Normal spleen. Normal pancreas. Normal bilateral adrenal glands. Stable bilateral nonobstructive intrarenal calculi. Bilateral parapelvic cysts worse on the left side. There is a moderate hiatal hernia. Normal small intestine. Mild degree of residual circumferential thickening of the left hemicolon is seen. The right hemicolon as improved as compared to prior study. Once again, there is evidence of diffuse sigmoid diverticular disease. The appendix is visualized and appears normal. There is diffuse atherosclerotic calcification of the abdominal aorta, without a demonstrated aneurysm. Normal inferior vena cava. Normal retroperitoneum. Normal urinary bladder. Normal abdominal wall. There are diffuse degenerative changes of the visualized lumbar spine. CT/Abdomen/Pelvis WITH Contrast IMPRESSION: Residual colitis of the left hemicolon. The right hemicolon has improved with the intimal residual changes present. The remainder of the examination is unchanged. Electronically Signed: Preston Elam, at 15:40 EDT , Service support ,
[2018-11-10 13:33] LABS: Absolute Lymphocyte Count 0.78 X10^3/uL (0.83-4.51); Basophil# 0.07 X10^3/uL; Basophil% 0.4 % (0-1); Eosinophil# 0.07 X10^3/uL; Eosinophils% 0.4 % (0-5); Hematocrit 44.1 % (37-47); Lymphocyte # 0.78 X10^3/ul (4.0); Mean Corpuscular Hgb 30.9 pg (27.0-32.0); Mean Corpuscular Volume 90.7 fL (81-99); Mean Platelet Vol. 10.8 fl (6.2-12.0); Monocyte# 1.24 X10^3/uL; Monocyte% 6.4 % (0-10); NRBC Flagged by Analyzer 0 % (0-5); Neutrophil # 17.01 X10^3/uL (2.7-7.7); Neutrophil % 88.1 % (47-70); POSITIVE MORPHOLOGY YES; Platelet Count 226 K/mm3 (150-450); RBC Distribution Width CV 13.9 % (11.6-14.6); RBC Distribution Width SD 46.3 fl (35.1-43.9); Red Blood Count 4.86 M/mm3 (4.2-5.4); White Blood Count 19.3 K/mm3 (4.4-11.0)
[2018-11-10 13:37] LABS: Differential Indicated SCAN CRITERIA MET
[2018-11-10 13:44] LABS: Mucous, Urine 0 SEEN /hpf (<or=2+); Red Blood Cells-Urine 0 SEEN /hpf (0-5)
[2018-11-10 13:51] LABS: Color, Urine Yellow (Yellow); Glucose, Dipstick Normal (Normal); Ketone-Dipstick 50 mg/dl (Negative); Leukocyte Esterase-Dipstick 500 /ul (Negative); Nitrite-Dipstick Negative (Negative); Occult Blood-Urine 10 /ul (Negative); Protein-Dipstick Negative (Negative); Urine Bilirubin Dipstick Negative (Negative); Urine Clarity Clear (Clear); Urine Urobilinogen Normal (Normal); Urine pH 6.5 (5.0 - 8.0)
[2018-11-10] MEDS: 0.9% Normal Saline 1,000 ML 1000 ML IV (13:51)
[2018-11-10 13:52] LABS: AST(SGOT) 15 U/L (15-37); Alanine Aminotransfer ALT/SGPT 18 U/L (13-56); Albumin, Serum 3.5 g/dL (3.2-5.0); Alkaline Phosphatase 87 U/L (45-117); Anion Gap 10 (5-15); BUN 13 mg/dL (7-18); BUN/Creat Ratio 17.7 RATIO (10-20); Calcium,Total 8.8 mg/dL (8.5-10.1); Chloride 105 mmol/L (98-107); Creatinine, Serum 0.73 mg/dL (0.55-1.02); EST Glomerular Filtration Rate 83 mL/min (>60); Est Glom Filt Rate - Afr Amer 101 mL/min (>60); Estimated Creatinine Clearance 47.78 ml/min; Globulin 3.8 g/dL (2.2-4.2); Glucose 125 mg/dL (74-106); Lipase 67 U/L (73-393); Potassium 3.5 mmol/L (3.5-5.1); Protein, Total 7.3 g/dL (6.4-8.2); Sodium Level 139 mmol/L (136-145)
[2018-11-10 13:53] LABS: Bacteria 1+ /hpf (None Seen); Squamous Epithelial Cells - UA 0-5 SEEN /hpf (5-10); White Blood Cells 0-5 SEEN /hpf (0-5)
[2018-11-10 14:05] LABS: Lactic Acid 0.9 mmol/L (0.4-2.0)
[2018-11-10 14:16] LABS: Differential Comment S
[2018-11-10 14:18] LABS: Platelet Estimate ADEQUATE (ADEQ)
[2018-11-10 14:19] LABS: Anisocytosis RARE; Red Cell Morphology N CHROM NORMAL (NORM C&C)
[2018-11-10] MEDS: 0.9% Normal Saline 1,000 ML 125 ML IV (14:59)
--- NOTE | 2018-11-10 15:09 | ED.VISSUMM ---
- ER Visit Summary Date of Service: 11/10/18 Chief Complaint: Diarrhea History of Present Illness: The patient is a 67 F resents emerged part with diarrhea. She was seen in emergency department on 719 and diagnosed with colitis. Reviewed that CT shows apparent transverse and descending colitis. She took Cipro and Flagyl for 10 days and her symptoms improved. She had a couple days a small formed stools but the diarrhea came back at the end of last week over the weekend. States her mouth feels dry. She denies any fevers. She notes continued pain. Last night she had 2 hours of shaking. Noted history of diverticulosis. Physical Examination: Afebrile vital signs are stable heart rate noted at 120 in triage she is in the 90s on my examination. Gen: Well-nourished well-developed Head: Normocephalic atraumatic Eyes: Perrl EOMI ENT: TMs clear no rhinorrhea moist mucous membranes Neck: Supple no lymphadenopathy no JVD nontender CVS: Regular rate rhythm no murmurs normal S1-S2 Respiratory: No distress clear to auscultation bilaterally chest nontender Abdomen: Soft patient's abdomen is diffusely tender to palpation except for the right upper quadrant. Region. Nondistended normal bowel sounds no masses Back: Nontender Extremity: Nontender no edema Skin: Normal color no rash Neuro: alert orientated ?3 CN II-XII intact normal strength sensation reflexes gait cerebellar Psych: Normal affect normal mood Test Results: Count elevated 19.3. Normal lactic acid. Normal chemistries. EKG demonstrated sinus rhythm at a rate of 90. This note was obtained. Enteric pathogen panel was ordered. C. difficile returned positive. CT the abdomen pelvis was obtained which shows some residual colitis of the left hemicolon. Emergency Department Course and Treatment: She received IV fluids. Plan will be admission for further hydration and antibiotic therapy. Impression: 1. C. difficile colitis 2. Sepsis This note was generated with [employer] dictation software. It may contain incorrect words, spelling, and punctuation that were not noted in review of the chart prior to signing ED Disposition - Plan for ED Patient: Referrals: Rohith López MD [Primary Care Provider] -
--- NOTE | 2018-11-10 15:25 | ED.RN ---
LAB CALL WITH POSITIVE C DIFF RESULT. VERBALLY REPORTED TO DR. ENGLISH AND SAMMY GAMEZ.
--- NOTE | 2018-11-10 16:09 | HP.PCM_ITS ---
Problem List (1) Chronic pansinusitis Status: Chronic (2) Diverticulosis Status: Chronic (3) Hypothyroid Status: Chronic (4) Hypertension Status: Chronic (5) High cholesterol Status: Chronic (6) GERD (gastroesophageal reflux disease) Status: Chronic History of Present Illness Date of Admission: 11/10/18 Chief Complaint: Diarrhea. The patient is a 67 year old F who presents to the emergency room due to intractable diarrhea x3 days. Patient was recently seen in the emergency room 10/24/2018 where she was treated for colitis and discharged on Cipro and Flagyl. She states her diarrhea improved with antibiotic treatment. However, 3 days ago she developed increased diarrhea, she reports episodes of diarrhea approximately every 45 minutes and associated abdominal cramping and chills. She denies nausea, vomiting. She denies history of C. difficile. Denies blood in stool. She has a past medical history of hypothyroidism status post thyroidectomy secondary to goiter, hypertension, hyperlipidemia, GERD. Past Medical History Past Medical History (Chronic Problems): Chronic Problems Chronic pansinusitis (Chronic) Diverticulosis (Chronic) Hypothyroid (Chronic) Hypertension (Chronic) High cholesterol (Chronic) GERD (gastroesophageal reflux disease) (Chronic) Allergies No Known Allergies Allergy (Verified 11/10/18 11:57) Home Medications: Ambulatory Orders Medication Instructions Recorded Ferrous Sulfate 325 mg PO DAILY@0800 11/10/15 Levothyroxine Sodium [Levoxyl] 88 mcg PO DAILY 11/10/15 Lisinopril [Zestril] 10 mg PO DAILY 04/22/18 Naproxen [Naprosyn] 500 mg PO BID 04/22/18 Simvastatin [Zocor] 40 mg PO QHS 04/22/18 Acetaminophen/Codeine #3 1 tab PO Q6H PRN PRN #15 tab 04/29/18 [Tylenol#3] Ciprofloxacin [Cipro] 500 mg PO BID #14 tab 10/24/18 Omeprazole 40 mg PO DAILY 10/24/18 metroNIDAZOLE [Flagyl] 500 mg PO Q6H #40 tab 10/24/18 Surgical History: - - Multiple sinus surgeries, eye surgery, foot surgery, thyroidectomy. 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 Paternal History Items: Heart Disease - secondary to [place]. Review of Systems Constitutional: Reports: Chills. Denies: Fever HEENT: Denies: Head Aches, Sinus Congestion, Sinus Drainage Cardiovascular: Denies: Chest Pain, Palpitations Respiratory: Denies: Cough, Shortness of breath at rest, Sputum production Gastrointestinal: Reports: Diarrhea, - - Abdominal tenderness, cramping. Denies: Nausea, Vomiting Genitourinary: Denies: Dysuria Musculoskeletal: Denies: Joint Pain, Joint Tenderness Skin: Denies: Rash, Wounds Neurological: Denies: Numbness, Tingling, Focal weakness Psychiatric: Denies: Anxiety, Depression, Homicidal Ideations, Suicidal Ideations Hematologic/ Lymphatic: Denies: Easy Bruising, Easy Bleeding VTE Information - Inpt Only VTE Present on Admission: No VTE Mechan Device Prophylaxis: None VTE Pharm Prophylaxis ordered?: Yes - Physical Exam General: Alert, Oriented x3, Cooperative HEENT: Atraumatic, PERRLA, EOMI, Normocephalic Neck: Supple, No JVD, Negative Carotid Bruits Lungs: Clear to auscultation, Normal air movement Cardiovascular: Regular rate, Regular Rhythm, Normal S1, Normal S2, No murmurs Abdomen: Bowel Sounds Present, Soft, Non-Distended, Tender - Left lower quadrant Extremities: No clubbing, No cyanosis, No edema, Capillary Refill Less than 3 Seconds Skin: No rashes, No breakdown Musculoskeletal: No Tenderness to Palpation of Joints or Extremities Neurological: Cranial nerves II-XII grossly intact, Neuro grossly intact Psych/Mental Status: Normal Affect, Appropriate Vital Signs Temp Pulse Resp BP Pulse Ox 98.7 F 91 18 129/71 H 97 11/10/18 12:07 11/10/18 16:08 11/10/18 16:08 11/10/18 16:08 11/10/18 16:08 Oxygen Delivery Method Room Air Weight: 180 lb Body Mass Index (BMI) 29.9 Microbiology Past 72 Hours 11/10/18 13:43 C. difficile DNA Amplification - Final Stool Toxigenic C. difficile DNA Laboratory Tests Past 24 Hrs 11/10/18 11/10/18 11/10/18 12:10 12:10 12:10 WBC 19.3 H RBC 4.86 Hgb 15.0 Hct 44.1 MCV 90.7 MCH 30.9 MCHC 34.0 RDW Std Deviation 46.3 H RDW Coeff of Keith 13.9 Plt Count 226 MPV 10.8 Immature Gran % (Auto) 0.700 Neut % (Auto) 88.1 H Lymph % (Auto) 4.0 L [place] % (Auto) 6.4 Eos % (Auto) 0.4 Baso % (Auto) 0.4 Absolute Neuts (auto) 17.0 H Absolute Lymphs (auto) 0.78 L Nucleated RBC % 0 Differential Comment S Platelet Estimate ADEQUATE RBC Morphology N CHROM Anisocytosis RARE Sodium 139 Potassium 3.5 Chloride 105 Carbon Dioxide 24.0 Anion Gap 10 BUN 13 Creatinine 0.73 Estim Creat Clear Calc 47.78 Est GFR (MDRD) Af Amer 101 Est GFR (MDRD) Non-Af 83 BUN/Creatinine Ratio 17.7 Glucose 125 H Lactic Acid 0.9 Calcium 8.8 Total Bilirubin 1.10 H Direct Bilirubin 0.20 AST 15 ALT 18 Alkaline Phosphatase 87 Total Protein 7.3 Albumin 3.5 Globulin 3.8 Lipase 67 L Urine Color Urine Clarity Urine pH Ur Specific [place] Urine Protein Urine Glucose (UA) Urine Ketones Urine Occult Blood Urine Nitrite Urine Bilirubin Urine Urobilinogen Ur Leukocyte Esterase Urine RBC Urine WBC Ur Squamous Epith Cells Urine Bacteria Urine Mucus 11/10/18 13:43 WBC RBC Hgb Hct MCV MCH MCHC RDW Std Deviation RDW Coeff of Keith Plt Count MPV Immature Gran % (Auto) Neut % (Auto) Lymph % (Auto) [place] % (Auto) Eos % (Auto) Baso % (Auto) Absolute Neuts (auto) Absolute Lymphs (auto) Nucleated RBC % Differential Comment Platelet Estimate RBC Morphology Anisocytosis Sodium Potassium Chloride Carbon Dioxide Anion Gap BUN Creatinine Estim Creat Clear Calc Est GFR (MDRD) Af Amer Est GFR (MDRD) Non-Af BUN/Creatinine Ratio Glucose Lactic Acid Calcium Total Bilirubin Direct Bilirubin AST ALT Alkaline Phosphatase Total Protein Albumin Globulin Lipase Urine Color Yellow Urine Clarity Clear Urine pH 6.5 Ur Specific [place] 1.010 Urine Protein Negative Urine Glucose (UA) Normal Urine Ketones 50 H Urine Occult Blood 10 H Urine Nitrite Negative Urine Bilirubin Negative Urine Urobilinogen Normal Ur Leukocyte Esterase 500 H Urine RBC 0 SEEN Urine WBC 0-5 SEEN Ur Squamous Epith Cells 0-5 SEEN Urine Bacteria 1+ Urine Mucus 0 SEEN Assessment/Plan 1. Acute sepsis secondary to acute C. difficile colitis-CT of abdomen on admission shows residual colitis of the left hemicolon. IV fluids. Oral vancomycin 125mg QID. Contact precautions. PRN pain regimen. PRN antiemetics. 2. Hypertension-stable, continue home lisinopril regimen. 3. Hyperlipidemia-continue statin regimen. 4. Hypothyroidism secondary to thyroidectomy as a result of goiter-continue home Synthroid regimen. 5. Obesity-encouraged diet lifestyle modifications. 6. History of chronic pansinusitis-recent sinus surgery with Dr. Patel. 7. GERD-continue PPI. DVT prophylaxis- Lovenox sc This patient was seen by FELISHA Pimentel under the supervision of Dr. Holguin.
[2018-11-10] MEDS: 0.9% Normal Saline 1,000 ML 175 ML IV ×2 (18:35→23:16)
[2018-11-10] MEDS: Menthol/Lanolin/Calamine/Znox 113 GM Tube 1 APPLIC TOPICAL (19:50)
[2018-11-10] MEDS: Acetaminophen 325 MG Tablet 650 MG PO (23:04)
[2018-11-11 03:00] VITALS: BP 118/54; PULSE 83; RESP 18; TEMP 36.8; O2SAT 94
[2018-11-11] MEDS: 0.9% Normal Saline 1,000 ML 175 ML IV ×3 (05:13→19:35)
[2018-11-11 05:52] LABS: Absolute Lymphocyte Count 1.07 X10^3/uL (0.83-4.51); Absolute Neutrophil Count 9.4 X10^3/uL (2.0-7.7); Basophil# 0.05 X10^3/uL; Basophil% 0.4 % (0-1); Eosinophil# 0.12 X10^3/uL; Hematocrit 39.6 % (37-47); Hemoglobin 12.9 g/dL (12.0-15.0); Lymphocyte # 1.07 X10^3/ul (4.0); Lymphocyte % 9.3 % (19-41); Mean Corp Hgb Conc 32.6 g/dL (32-36); Mean Corpuscular Hgb 30.7 pg (27.0-32.0); Mean Corpuscular Volume 94.3 fL (81-99); Mean Platelet Vol. 10.6 fl (6.2-12.0); Monocyte# 0.86 X10^3/uL; Monocyte% 7.5 % (0-10); NRBC Flagged by Analyzer 0 % (0-5); Neutrophil # 9.36 X10^3/uL (2.7-7.7); Neutrophil % 81.3 % (47-70); Platelet Count 182 K/mm3 (150-450); RBC Distribution Width CV 14.3 % (11.6-14.6); RBC Distribution Width SD 49.1 fl (35.1-43.9); White Blood Count 11.5 K/mm3 (4.4-11.0)
[2018-11-11 06:14] LABS: Anion Gap 7 (5-15); BUN 8 mg/dL (7-18); BUN/Creat Ratio 13.6 RATIO (10-20); Calcium,Total 8.2 mg/dL (8.5-10.1); Chloride 112 mmol/L (98-107); Creatinine, Serum 0.59 mg/dL (0.55-1.02); EST Glomerular Filtration Rate 108 mL/min (>60); Est Glom Filt Rate - Afr Amer 130 mL/min (>60); Estimated Creatinine Clearance 47.78 ml/min; Glucose 91 mg/dL (74-106); Potassium 2.9 mmol/L (3.5-5.1); Sodium Level 145 mmol/L (136-145)
[2018-11-11] MEDS: Levothyroxine 88 MCG Tablet PO (06:32)
--- NOTE | 2018-11-11 07:25 | PN_ITS ---
Vitals/I&O's: Vital Signs Temp Pulse Resp BP Pulse Ox 98.3 F 83 18 118/54 L 94 11/11/18 03:00 11/11/18 03:00 11/11/18 03:00 11/11/18 03:00 11/11/18 03:00 Oxygen Delivery Method Room Air Weight: 83.3 kg Body Mass Index (BMI) 30.5 Intake and Output for Last 24 Hours 11/09/18 11/10/18 11/11/18 23:59 23:59 23:59 Intake Total 1130 / 1130 326 / 326 Balance 1130 / 1130 326 / 326 Microbiology Past 72 Hours 11/10/18 13:43 Stool Enteric Bacteriology - Preliminary 11/10/18 13:43 Stool C. difficile DNA Amplification - Final Toxigenic C. difficile DNA Laboratory Results 11/10/18 12:10: WBC 19.3 H, RBC 4.86, Hgb 15.0, Hct 44.1, MCV 90.7, MCH 30.9, MCHC 34.0, RDW Std Deviation 46.3 H, RDW Coeff of Keith 13.9, Plt Count 226, MPV 10.8, Immature Gran % (Auto) 0.700, Neut % (Auto) 88.1 H, Lymph % (Auto) 4.0 L, [place] % (Auto) 6.4, Eos % (Auto) 0.4, Baso % (Auto) 0.4, Absolute Neuts (auto) 17.0 H, Absolute Lymphs (auto) 0.78 L, Nucleated RBC % 0, Differential Comment S, Platelet Estimate ADEQUATE, RBC Morphology N CHROM, Anisocytosis RARE 11/10/18 12:10: Sodium 139, Potassium 3.5, Chloride 105, Carbon Dioxide 24.0, Anion Gap 10, BUN 13, Creatinine 0.73, Estim Creat Clear Calc 47.78, Est GFR (MDRD) Af Amer 101, Est GFR (MDRD) Non-Af 83, BUN/Creatinine Ratio 17.7, Glucose 125 H, Calcium 8.8, Total Bilirubin 1.10 H, Direct Bilirubin 0.20, AST 15, ALT 18, Alkaline Phosphatase 87, Total Protein 7.3, Albumin 3.5, Globulin 3.8, Lipase 67 L 11/10/18 12:10: Lactic Acid 0.9 11/10/18 13:43: Urine Color Yellow, Urine Clarity Clear, Urine pH 6.5, Ur Specific [place] 1.010, Urine Protein Negative, Urine Glucose (UA) Normal, Urine Ketones 50 H, Urine Occult Blood 10 H, Urine Nitrite Negative, Urine Bilirubin Negative, Urine Urobilinogen Normal, Ur Leukocyte Esterase 500 H, Urine RBC 0 SEEN, Urine WBC 0-5 SEEN, Ur Squamous Epith Cells 0-5 SEEN, Urine Bacteria 1+, Urine Mucus 0 SEEN 11/11/18 05:22: Sodium 145, Potassium 2.9 L, Chloride 112 H, Carbon Dioxide 26.0, Anion Gap 7, BUN 8, Creatinine 0.59, Estim Creat Clear Calc 47.78, Est GFR (MDRD) Af Amer 130, Est GFR (MDRD) Non-Af 108, BUN/Creatinine Ratio 13.6, Glucose 91, Calcium 8.2 L 11/11/18 05:22: WBC 11.5 H, RBC 4.20, Hgb 12.9, Hct 39.6, MCV 94.3, MCH 30.7, MCHC 32.6, RDW Std Deviation 49.1 H, RDW Coeff of Keith 14.3, Plt Count 182, MPV 10.6, Immature Gran % (Auto) 0.500, Neut % (Auto) 81.3 H, Lymph % (Auto) 9.3 L, [place] % (Auto) 7.5, Eos % (Auto) 1.0, Baso % (Auto) 0.4, Absolute Neuts (auto) 9.4 H, Absolute Lymphs (auto) 1.07, Nucleated RBC % 0 Current Medications Acetaminophen (Tylenol) 650 mg PO Q6H PRN PRN PRN Reason: Mild Pain (1-3)/Temp > 100.7 F Last Admin: 11/10/18 23:04 Dose: 650 mg Documented by: Calamine/Phenol (Calmoseptine Ointment) 1 applic TOPICAL TID PRN; Protocol PRN Reason: Diaper Rash Last Admin: 11/10/18 19:50 Dose: 1 applicatio Documented by: Enoxaparin Sodium (Lovenox) 40 mg SC DAILY@1000 ANI Sodium Chloride () 1,000 mls @ 175 mls/hr IV .[id number] ANI Last Admin: 11/11/18 05:13 Dose: 175 mls/hr Documented by: Sodium Chloride () 250 mls @ 15 mls/hr IV .[id number] PRN PRN Reason: SALINE FLUSH Potassium Chloride () 10 meq in 100 mls @ 100 mls/hr IV BOLUS Q1H [facility] Stop: 11/11/18 11:29 Levothyroxine Sodium (Synthroid) 88 mcg PO DAILY@0600 [facility] Last Admin: 11/11/18 06:32 Dose: 88 mcg Documented by: Lisinopril (Zestril) 10 mg PO DAILY ANI Pantoprazole Sodium (Protonix) 40 mg PO DAILY ANI Potassium Chloride (K-Dur) 40 meq PO X1 ONE Stop: 11/11/18 07:24 Sodium Chloride () 10 - 40 ml IV UD PRN PRN Reason: SALINE FLUSH Vancomycin HCl () 125 mg PO Q6 [facility] Last Admin: 11/11/18 06:33 Dose: 125 mg Documented by: Medical Necessity - Tobacco Use Smoking Status: Never smoker Tobacco Use: Non-smoker
[2018-11-11 08:19] LABS: Magnesium 1.8 mg/dL (1.6-2.6)
[2018-11-11] MEDS: Pantoprazole Sodium 40 MG Tablet PO (08:26)
[2018-11-11] MEDS: Lisinopril 10 MG Tablet PO (08:26)
[2018-11-11 08:28] VITALS: BP 113/65; PULSE 73; RESP 18; TEMP 36.7; O2SAT 96
[2018-11-11] MEDS: Potassium Chloride 10mEq/100mL 10 MEQ/100 ML IV.SOLN. 100 MEQ IV BOLUS ×4 (08:42→11:53)
--- NOTE | 2018-11-11 10:35 | CASEMGMT ---
RN CM Face to Face with patient for initial transition planning/care coordination assessment. RN CM introduced self and role at [facility]. Patient lying in bed, alert and oriented. Patient willing to participate in assessment and is able to answer all questions appropriately. Care providers, pharmacy, and demographics verified. Patient wishes to discharge home, denies need for home health at this time. Patient states she has no further needs or concerns at this time. CM to follow for discharge planning needs that may arise. PCP: Rene Specialists: LIVAN Patel [facility] Benefit: yes Living Will/HPOA: Yes, Daughter Lizett Smith LNOK: daughter Living Arrangements: Patient lives alone in a first floor apartment with no steps to enter the home. Patient is independent at home. Transportation: self/daughter DME/HHC: Patient states that she has grab bars in the bathroom. Patient denies further DME or HHC. Disposition Plan: Patient to discharge home with family support and follow-up plans in place. Armida CHAVARRIA, RN, CM
--- NOTE | 2018-11-11 11:34 | PN_ITS ---
<Lois Hassan - Last Filed: 11/11/18 11:37> Subjective: Patient seen and examined. Continues to have frequent diarrhea. She reports diarrhea every 30 to 45 minutes. Denies other associated symptoms. - Physical Exam General: Alert, Oriented x3, Cooperative HEENT: Atraumatic, PERRLA, EOMI, Normocephalic Neck: Supple, No JVD, Negative Carotid Bruits Lungs: Clear to auscultation, Normal air movement Cardiovascular: Regular rate, Regular Rhythm, Normal S1, Normal S2, No murmurs Abdomen: Bowel Sounds Present, Soft, Non-Distended, Tender - Left lower quadrant Extremities: No clubbing, No cyanosis, No edema, Capillary Refill Less than 3 Seconds Skin: No rashes, No breakdown Musculoskeletal: No Tenderness to Palpation of Joints or Extremities Neurological: Cranial nerves II-XII grossly intact, Neuro grossly intact Psych/Mental Status: Normal Affect, Appropriate Vital Signs Temp Pulse Resp BP Pulse Ox 98.0 F 73 18 113/65 96 11/11/18 08:28 11/11/18 08:28 11/11/18 08:28 11/11/18 08:28 11/11/18 08:28 Oxygen Delivery Method Room Air Weight: 183 lb 10.321 oz Body Mass Index (BMI) 30.5 Intake and Output for Last 24 Hours 11/09/18 11/10/18 11/11/18 23:59 23:59 23:59 Intake Total 1130 / 1130 326 / 326 Balance 1130 / 1130 326 / 326 Microbiology Past 72 Hours 11/10/18 13:43 Enteric Bacteriology - Final Stool 11/10/18 13:43 C. difficile DNA Amplification - Final Stool Toxigenic C. difficile DNA Laboratory Tests Past 24 Hrs 11/10/18 11/10/18 11/10/18 12:10 12:10 12:10 WBC 19.3 H RBC 4.86 Hgb 15.0 Hct 44.1 MCV 90.7 MCH 30.9 MCHC 34.0 RDW Std Deviation 46.3 H RDW Coeff of Keith 13.9 Plt Count 226 MPV 10.8 Immature Gran % (Auto) 0.700 Neut % (Auto) 88.1 H Lymph % (Auto) 4.0 L [place] % (Auto) 6.4 Eos % (Auto) 0.4 Baso % (Auto) 0.4 Absolute Neuts (auto) 17.0 H Absolute Lymphs (auto) 0.78 L Nucleated RBC % 0 Differential Comment S Platelet Estimate ADEQUATE RBC Morphology N CHROM Anisocytosis RARE Sodium 139 Potassium 3.5 Chloride 105 Carbon Dioxide 24.0 Anion Gap 10 BUN 13 Creatinine 0.73 Estim Creat Clear Calc 47.78 Est GFR (MDRD) Af Amer 101 Est GFR (MDRD) Non-Af 83 BUN/Creatinine Ratio 17.7 Glucose 125 H Lactic Acid 0.9 Calcium 8.8 Magnesium Total Bilirubin 1.10 H Direct Bilirubin 0.20 AST 15 ALT 18 Alkaline Phosphatase 87 Total Protein 7.3 Albumin 3.5 Globulin 3.8 Lipase 67 L Urine Color Urine Clarity Urine pH Ur Specific [place] Urine Protein Urine Glucose (UA) Urine Ketones Urine Occult Blood Urine Nitrite Urine Bilirubin Urine Urobilinogen Ur Leukocyte Esterase Urine RBC Urine WBC Ur Squamous Epith Cells Urine Bacteria Urine Mucus 11/10/18 11/11/18 11/11/18 13:43 05:10 05:22 WBC RBC Hgb Hct MCV MCH MCHC RDW Std Deviation RDW Coeff of Keith Plt Count MPV Immature Gran % (Auto) Neut % (Auto) Lymph % (Auto) [place] % (Auto) Eos % (Auto) Baso % (Auto) Absolute Neuts (auto) Absolute Lymphs (auto) Nucleated RBC % Differential Comment Platelet Estimate RBC Morphology Anisocytosis Sodium 145 Potassium 2.9 L Chloride 112 H Carbon Dioxide 26.0 Anion Gap 7 BUN 8 Creatinine 0.59 Estim Creat Clear Calc 47.78 Est GFR (MDRD) Af Amer 130 Est GFR (MDRD) Non-Af 108 BUN/Creatinine Ratio 13.6 Glucose 91 Lactic Acid Calcium 8.2 L Magnesium 1.8 Total Bilirubin Direct Bilirubin AST ALT Alkaline Phosphatase Total Protein Albumin Globulin Lipase Urine Color Yellow Urine Clarity Clear Urine pH 6.5 Ur Specific [place] 1.010 Urine Protein Negative Urine Glucose (UA) Normal Urine Ketones 50 H Urine Occult Blood 10 H Urine Nitrite Negative Urine Bilirubin Negative Urine Urobilinogen Normal Ur Leukocyte Esterase 500 H Urine RBC 0 SEEN Urine WBC 0-5 SEEN Ur Squamous Epith Cells 0-5 SEEN Urine Bacteria 1+ Urine Mucus 0 SEEN 11/11/18 05:22 WBC 11.5 H RBC 4.20 Hgb 12.9 Hct 39.6 MCV 94.3 MCH 30.7 MCHC 32.6 RDW Std Deviation 49.1 H RDW Coeff of Keith 14.3 Plt Count 182 MPV 10.6 Immature Gran % (Auto) 0.500 Neut % (Auto) 81.3 H Lymph % (Auto) 9.3 L [place] % (Auto) 7.5 Eos % (Auto) 1.0 Baso % (Auto) 0.4 Absolute Neuts (auto) 9.4 H Absolute Lymphs (auto) 1.07 Nucleated RBC % 0 Differential Comment Platelet Estimate RBC Morphology Anisocytosis Sodium Potassium Chloride Carbon Dioxide Anion Gap BUN Creatinine Estim Creat Clear Calc Est GFR (MDRD) Af Amer Est GFR (MDRD) Non-Af BUN/Creatinine Ratio Glucose Lactic Acid Calcium Magnesium Total Bilirubin Direct Bilirubin AST ALT Alkaline Phosphatase Total Protein Albumin Globulin Lipase Urine Color Urine Clarity Urine pH Ur Specific [place] Urine Protein Urine Glucose (UA) Urine Ketones Urine Occult Blood Urine Nitrite Urine Bilirubin Urine Urobilinogen Ur Leukocyte Esterase Urine RBC Urine WBC Ur Squamous Epith Cells Urine Bacteria Urine Mucus Medical Necessity - Tobacco Use Smoking Status: Never smoker Tobacco Use: Non-smoker Assessment/Plan 1. Acute sepsis secondary to acute C. difficile colitis-CT of abdomen on admission shows residual colitis of the left hemicolon. IV fluids. Oral vancomycin 125mg QID. Contact precautions. PRN pain regimen. PRN antiemetics. 2. Hypertension-stable, continue home lisinopril regimen. 3. Hyperlipidemia-continue statin regimen. 4. Hypothyroidism secondary to thyroidectomy as a result of goiter-continue home Synthroid regimen. 5. Obesity-encouraged diet lifestyle modifications. 6. History of chronic pansinusitis-recent sinus surgery with Dr. Patel. 7. GERD-continue PPI. 8. Hypokalemia-secondary to diarrhea has resolved #1. Replace per protocol. Trend BMP. DVT prophylaxis- Lovenox sc This patient was seen by FELISHA Pimentel under the supervision of Dr. Kapoor. <Trina Kapoor - Last Filed: 11/11/18 13:49> - Physical Exam Vital Signs Temp Pulse Resp BP Pulse Ox 98.0 F 73 18 113/65 96 11/11/18 08:28 11/11/18 08:28 11/11/18 08:28 11/11/18 08:28 11/11/18 08:28 Oxygen Delivery Method Room Air Weight: 83.3 kg Body Mass Index (BMI) 30.5 Intake and Output for Last 24 Hours 11/09/18 11/10/18 11/11/18 23:59 23:59 23:59 Intake Total 1130 / 1130 1330 / 1330 Balance 1130 / 1130 1330 / 1330 Microbiology Past 72 Hours 11/10/18 13:43 Enteric Bacteriology - Final Stool 11/10/18 13:43 C. difficile DNA Amplification - Final Stool Toxigenic C. difficile DNA Laboratory Tests Past 24 Hrs 11/10/18 11/10/18 11/10/18 12:10 12:10 12:10 WBC RBC Hgb Hct MCV MCH MCHC RDW Std Deviation RDW Coeff of Keith Plt Count MPV Immature Gran % (Auto) Neut % (Auto) Lymph % (Auto) [place] % (Auto) Eos % (Auto) Baso % (Auto) Absolute Neuts (auto) Absolute Lymphs (auto) Nucleated RBC % Differential Comment S Platelet Estimate ADEQUATE RBC Morphology N CHROM Anisocytosis RARE Sodium 139 Potassium 3.5 Chloride 105 Carbon Dioxide 24.0 Anion Gap 10 BUN 13 Creatinine 0.73 Estim Creat Clear Calc 47.78 Est GFR (MDRD) Af Amer 101 Est GFR (MDRD) Non-Af 83 BUN/Creatinine Ratio 17.7 Glucose 125 H Lactic Acid 0.9 Calcium 8.8 Magnesium Total Bilirubin 1.10 H Direct Bilirubin 0.20 AST 15 ALT 18 Alkaline Phosphatase 87 Total Protein 7.3 Albumin 3.5 Globulin 3.8 Lipase 67 L Urine Color Urine Clarity Urine pH Ur Specific [place] Urine Protein Urine Glucose (UA) Urine Ketones Urine Occult Blood Urine Nitrite Urine Bilirubin Urine Urobilinogen Ur Leukocyte Esterase Urine RBC Urine WBC Ur Squamous Epith Cells Urine Bacteria Urine Mucus 11/10/18 11/11/18 11/11/18 13:43 05:10 05:22 WBC RBC Hgb Hct MCV MCH MCHC RDW Std Deviation RDW Coeff of Keith Plt Count MPV Immature Gran % (Auto) Neut % (Auto) Lymph % (Auto) [place] % (Auto) Eos % (Auto) Baso % (Auto) Absolute Neuts (auto) Absolute Lymphs (auto) Nucleated RBC % Differential Comment Platelet Estimate RBC Morphology Anisocytosis Sodium 145 Potassium 2.9 L Chloride 112 H Carbon Dioxide 26.0 Anion Gap 7 BUN 8 Creatinine 0.59 Estim Creat Clear Calc 47.78 Est GFR (MDRD) Af Amer 130 Est GFR (MDRD) Non-Af 108 BUN/Creatinine Ratio 13.6 Glucose 91 Lactic Acid Calcium 8.2 L Magnesium 1.8 Total Bilirubin Direct Bilirubin AST ALT Alkaline Phosphatase Total Protein Albumin Globulin Lipase Urine Color Yellow Urine Clarity Clear Urine pH 6.5 Ur Specific [place] 1.010 Urine Protein Negative Urine Glucose (UA) Normal Urine Ketones 50 H Urine Occult Blood 10 H Urine Nitrite Negative Urine Bilirubin Negative Urine Urobilinogen Normal Ur Leukocyte Esterase 500 H Urine RBC 0 SEEN Urine WBC 0-5 SEEN Ur Squamous Epith Cells 0-5 SEEN Urine Bacteria 1+ Urine Mucus 0 SEEN 11/11/18 05:22 WBC 11.5 H RBC 4.20 Hgb 12.9 Hct 39.6 MCV 94.3 MCH 30.7 MCHC 32.6 RDW Std Deviation 49.1 H RDW Coeff of Keith 14.3 Plt Count 182 MPV 10.6 Immature Gran % (Auto) 0.500 Neut % (Auto) 81.3 H Lymph % (Auto) 9.3 L [place] % (Auto) 7.5 Eos % (Auto) 1.0 Baso % (Auto) 0.4 Absolute Neuts (auto) 9.4 H Absolute Lymphs (auto) 1.07 Nucleated RBC % 0 Differential Comment Platelet Estimate RBC Morphology Anisocytosis Sodium Potassium Chloride Carbon Dioxide Anion Gap BUN Creatinine Estim Creat Clear Calc Est GFR (MDRD) Af Amer Est GFR (MDRD) Non-Af BUN/Creatinine Ratio Glucose Lactic Acid Calcium Magnesium Total Bilirubin Direct Bilirubin AST ALT Alkaline Phosphatase Total Protein Albumin Globulin Lipase Urine Color Urine Clarity Urine pH Ur Specific [place] Urine Protein Urine Glucose (UA) Urine Ketones Urine Occult Blood Urine Nitrite Urine Bilirubin Urine Urobilinogen Ur Leukocyte Esterase Urine RBC Urine WBC Ur Squamous Epith Cells Urine Bacteria Urine Mucus Assessment/Plan This patient was seen in conjunction with Lois Hassan NP. I have independently interviewed and examined the patient and reviewed pertinent historical, laboratory, and other data. Please refer to her note for patient's presentation, findings, and recommendations. Patient was seen and examined. She feels much improved. She has had about 6 bowel movements today. Denies any fever or chills or dizziness or palpitations No acute events overnight. Vitals were reviewed -stable Physical Exam: Gen: Comfortable, not pale, not jaundiced, alert oriented x3 CVS:HS I +II, regular, no murmurs RESP: CTA GI: BS present and normal, nontender, no palpable organs EXT:No edema ASSESSMENT: 1. Sepsis secondary to Acute C. diff 2. Severe hypokalemia, hypomagnesemia 3. Hypertension 4. Hyperlipidemia 5. Hypothyroidism 6. Obesity 7. GERD Meds reviewed Plan: Replace potassium, magnesium Recheck in am Continue vancomycin po Strict stool charting Code Visit Inpatient E&M: 29900 Subs Hosp L2
[2018-11-11 14:28] VITALS: BP 135/72; PULSE 87; RESP 18; TEMP 36.9; O2SAT 95
[2018-11-11 15:54] LABS: Anion Gap 3 (5-15); BUN 8 mg/dL (7-18); BUN/Creat Ratio 13.2 RATIO (10-20); Calcium,Total 8.1 mg/dL (8.5-10.1); Chloride 112 mmol/L (98-107); EST Glomerular Filtration Rate 104 mL/min (>60); Est Glom Filt Rate - Afr Amer 126 mL/min (>60); Estimated Creatinine Clearance 47.78 ml/min; Glucose 153 mg/dL (74-106); Potassium 3.4 mmol/L (3.5-5.1); Sodium Level 140 mmol/L (136-145)
--- NOTE | 2018-11-11 16:11 | CHAPLAIN ---
Type of Pastoral Visit _x__ Initial Visit ___ Follow-up Visit ___ On-call Visit ___ General Patient Visit ___ Spiritual Assessment ___ Family Conference ___ Bereavement ___ Rapid Response ___ Code Blue ___ Other (describe below) Pastoral Care Referral From _x__ Patient ___ Family ___ Nurse ___ Physician ___ Licensed Investment Sales Assistant ___ Seed Yeast Operator ___ Other (describe below) Sacrament/Intervention _x__ Active listening ___ Anointing ___ Yarsanism ___ Bereavement ___ Communion ___ Tracy exploration ___ _x__ Life review ___ Prayer ___ Reconciliation ___ Sacrament of Sick _x__ Supportive presence ___ Wedding ___ Other (describe below) Pastoral Comments
[2018-11-11 19:40] VITALS: BP 134/65; PULSE 84; RESP 17; TEMP 37.1; O2SAT 96
[2018-11-12] MEDS: 0.9% Normal Saline 1,000 ML 175 ML IV (01:46)
[2018-11-12 01:53] VITALS: BP 127/61; PULSE 77; RESP 18; TEMP 36.8; O2SAT 96
[2018-11-12] MEDS: Levothyroxine 88 MCG Tablet PO (05:51)
[2018-11-12 05:59] LABS: Absolute Lymphocyte Count 0.93 X10^3/uL (0.83-4.51); Absolute Neutrophil Count 6.1 X10^3/uL (2.0-7.7); Basophil# 0.04 X10^3/uL; Basophil% 0.5 % (0-1); Eosinophil# 0.14 X10^3/uL; Eosinophils% 1.7 % (0-5); Hematocrit 36.4 % (37-47); Hemoglobin 11.9 g/dL (12.0-15.0); Lymphocyte # 0.93 X10^3/ul (4.0); Lymphocyte % 11.4 % (19-41); Mean Corp Hgb Conc 32.7 g/dL (32-36); Mean Corpuscular Hgb 30.7 pg (27.0-32.0); Mean Corpuscular Volume 94.1 fL (81-99); Mean Platelet Vol. 10.8 fl (6.2-12.0); Monocyte# 0.93 X10^3/uL; Monocyte% 11.4 % (0-10); NRBC Flagged by Analyzer 0 % (0-5); Neutrophil # 6.06 X10^3/uL (2.7-7.7); Neutrophil % 74.3 % (47-70); Platelet Count 166 K/mm3 (150-450); RBC Distribution Width CV 14.3 % (11.6-14.6); RBC Distribution Width SD 48.9 fl (35.1-43.9); Red Blood Count 3.87 M/mm3 (4.2-5.4); White Blood Count 8.2 K/mm3 (4.4-11.0)
[2018-11-12 06:27] LABS: ALB/GLOB Ratio 0.7 RATIO (0.9-2.4); AST(SGOT) 27 U/L (15-37); Alanine Aminotransfer ALT/SGPT 28 U/L (13-56); Albumin, Serum 2.3 g/dL (3.2-5.0); Alkaline Phosphatase 66 U/L (45-117); Anion Gap 6 (5-15); BUN 5 mg/dL (7-18); BUN/Creat Ratio 9.8 RATIO (10-20); Calcium,Total 8.1 mg/dL (8.5-10.1); Chloride 114 mmol/L (98-107); Creatinine, Serum 0.51 mg/dL (0.55-1.02); EST Glomerular Filtration Rate 127 mL/min (>60); Est Glom Filt Rate - Afr Amer 154 mL/min (>60); Estimated Creatinine Clearance 47.78 ml/min; Globulin 3.1 g/dL (2.2-4.2); Glucose 80 mg/dL (74-106); Potassium 3.3 mmol/L (3.5-5.1); Protein, Total 5.4 g/dL (6.4-8.2); Sodium Level 145 mmol/L (136-145)
[2018-11-12 08:08] VITALS: BP 117/60; PULSE 70; RESP 18; TEMP 36.6; O2SAT 98
[2018-11-12] MEDS: 0.9% Normal Saline 1,000 ML 75 ML IV (08:10)
[2018-11-12] MEDS: Pantoprazole Sodium 40 MG Tablet PO (08:11)
[2018-11-12] MEDS: Lisinopril 10 MG Tablet PO (08:11)
--- NOTE | 2018-11-12 12:27 | PCM.PROGNOTE ---
<Lois Hassan - Last Filed: 11/12/18 12:29> Subjective: Patient seen and examined. Continues to have frequent diarrhea. Denies abdominal cramping, nausea or other associated symptoms. - Physical Exam General: Alert, Oriented x3, Cooperative HEENT: Atraumatic, PERRLA, EOMI, Normocephalic Neck: Supple, No JVD, Negative Carotid Bruits Lungs: Clear to auscultation, Normal air movement Cardiovascular: Regular rate, Regular Rhythm, Normal S1, Normal S2, No murmurs Abdomen: Bowel Sounds Present, Soft, Non Tender, Non-Distended Extremities: No clubbing, No cyanosis, No edema, Capillary Refill Less than 3 Seconds Skin: No rashes, No breakdown Musculoskeletal: No Tenderness to Palpation of Joints or Extremities Neurological: Cranial nerves II-XII grossly intact, Neuro grossly intact Psych/Mental Status: Normal Affect, Appropriate Vital Signs Temp Pulse Resp BP Pulse Ox 97.9 F 70 18 117/60 98 11/12/18 08:08 11/12/18 08:08 11/12/18 08:08 11/12/18 08:08 11/12/18 08:08 Oxygen Delivery Method Room Air Weight: 183 lb 10.321 oz Body Mass Index (BMI) 30.5 Intake and Output for Last 24 Hours 11/10/18 11/11/18 11/12/18 23:59 23:59 23:59 Intake Total 1130 / 1130 3802 / 3802 2655 / 2655 Balance 1130 / 1130 3802 / 3802 2655 / 2655 Microbiology Past 72 Hours 11/10/18 13:43 Enteric Bacteriology - Final Stool 11/10/18 13:43 C. difficile DNA Amplification - Final Stool Toxigenic C. difficile DNA Laboratory Tests Past 24 Hrs 11/11/18 11/12/18 11/12/18 15:00 05:14 05:14 WBC 8.2 RBC 3.87 L Hgb 11.9 L Hct 36.4 L MCV 94.1 MCH 30.7 MCHC 32.7 RDW Std Deviation 48.9 H RDW Coeff of Keith 14.3 Plt Count 166 MPV 10.8 Immature Gran % (Auto) 0.700 Neut % (Auto) 74.3 H Lymph % (Auto) 11.4 L Stanton % (Auto) 11.4 H Eos % (Auto) 1.7 Baso % (Auto) 0.5 Absolute Neuts (auto) 6.1 Absolute Lymphs (auto) 0.93 Nucleated RBC % 0 Sodium 140 145 Potassium 3.4 L 3.3 L Chloride 112 H 114 H Carbon Dioxide 25.0 25.0 Anion Gap 3 L 6 BUN 8 5 L Creatinine 0.60 0.51 L Estim Creat Clear Calc 47.78 47.78 Est GFR (MDRD) Af Amer 126 154 Est GFR (MDRD) Non-Af 104 127 BUN/Creatinine Ratio 13.2 9.8 L Glucose 153 H 80 Calcium 8.1 L 8.1 L Magnesium Total Bilirubin 0.50 AST 27 ALT 28 Alkaline Phosphatase 66 Total Protein 5.4 L Albumin 2.3 L Globulin 3.1 Albumin/Globulin Ratio 0.7 L 11/12/18 05:14 WBC RBC Hgb Hct MCV MCH MCHC RDW Std Deviation RDW Coeff of Keith Plt Count MPV Immature Gran % (Auto) Neut % (Auto) Lymph % (Auto) Stanton % (Auto) Eos % (Auto) Baso % (Auto) Absolute Neuts (auto) Absolute Lymphs (auto) Nucleated RBC % Sodium Potassium Chloride Carbon Dioxide Anion Gap BUN Creatinine Estim Creat Clear Calc Est GFR (MDRD) Af Amer Est GFR (MDRD) Non-Af BUN/Creatinine Ratio Glucose Calcium Magnesium 2.0 Total Bilirubin AST ALT Alkaline Phosphatase Total Protein Albumin Globulin Albumin/Globulin Ratio Medical Necessity - Tobacco Use Smoking Status: Never smoker Tobacco Use: Non-smoker Assessment/Plan 1. Acute sepsis secondary to acute C. difficile colitis-CT of abdomen on admission shows residual colitis of the left hemicolon. IV fluids. Oral vancomycin 125mg QID. Contact precautions. PRN pain regimen. PRN antiemetics. Plan DC home tomorrow if diarrhea slows overnight. 2. Hypertension-stable, continue home lisinopril regimen. 3. Hyperlipidemia-continue statin regimen. 4. Hypothyroidism secondary to thyroidectomy as a result of goiter-continue home Synthroid regimen. 5. Obesity-encouraged diet lifestyle modifications. 6. History of chronic pansinusitis-recent sinus surgery with Dr. Patel. 7. GERD-continue PPI. 8. Hypokalemia-secondary to diarrhea as a result of #1. Replace per protocol. Trend BMP. DVT prophylaxis- Lovenox sc This patient was seen by FELISHA Pimentel under the supervision of Dr. Kapoor. <Trina Kapoor - Last Filed: 11/12/18 14:01> - Physical Exam Vital Signs Temp Pulse Resp BP Pulse Ox 97.9 F 70 18 117/60 98 11/12/18 08:08 11/12/18 08:08 11/12/18 08:08 11/12/18 08:08 11/12/18 08:08 Oxygen Delivery Method Room Air Weight: 83.3 kg Body Mass Index (BMI) 30.5 Intake and Output for Last 24 Hours 11/10/18 11/11/18 11/12/18 23:59 23:59 23:59 Intake Total 1130 / 1130 3802 / 3802 2655 / 2655 Balance 1130 / 1130 3802 / 3802 2655 / 2655 Microbiology Past 72 Hours 11/10/18 13:43 Enteric Bacteriology - Final Stool 11/10/18 13:43 C. difficile DNA Amplification - Final Stool Toxigenic C. difficile DNA Laboratory Tests Past 24 Hrs 11/11/18 11/12/18 11/12/18 15:00 05:14 05:14 WBC 8.2 RBC 3.87 L Hgb 11.9 L Hct 36.4 L MCV 94.1 MCH 30.7 MCHC 32.7 RDW Std Deviation 48.9 H RDW Coeff of Keith 14.3 Plt Count 166 MPV 10.8 Immature Gran % (Auto) 0.700 Neut % (Auto) 74.3 H Lymph % (Auto) 11.4 L Stanton % (Auto) 11.4 H Eos % (Auto) 1.7 Baso % (Auto) 0.5 Absolute Neuts (auto) 6.1 Absolute Lymphs (auto) 0.93 Nucleated RBC % 0 Sodium 140 145 Potassium 3.4 L 3.3 L Chloride 112 H 114 H Carbon Dioxide 25.0 25.0 Anion Gap 3 L 6 BUN 8 5 L Creatinine 0.60 0.51 L Estim Creat Clear Calc 47.78 47.78 Est GFR (MDRD) Af Amer 126 154 Est GFR (MDRD) Non-Af 104 127 BUN/Creatinine Ratio 13.2 9.8 L Glucose 153 H 80 Calcium 8.1 L 8.1 L Magnesium Total Bilirubin 0.50 AST 27 ALT 28 Alkaline Phosphatase 66 Total Protein 5.4 L Albumin 2.3 L Globulin 3.1 Albumin/Globulin Ratio 0.7 L 11/12/18 05:14 WBC RBC Hgb Hct MCV MCH MCHC RDW Std Deviation RDW Coeff of Keith Plt Count MPV Immature Gran % (Auto) Neut % (Auto) Lymph % (Auto) Stanton % (Auto) Eos % (Auto) Baso % (Auto) Absolute Neuts (auto) Absolute Lymphs (auto) Nucleated RBC % Sodium Potassium Chloride Carbon Dioxide Anion Gap BUN Creatinine Estim Creat Clear Calc Est GFR (MDRD) Af Amer Est GFR (MDRD) Non-Af BUN/Creatinine Ratio Glucose Calcium Magnesium 2.0 Total Bilirubin AST ALT Alkaline Phosphatase Total Protein Albumin Globulin Albumin/Globulin Ratio Assessment/Plan This patient was seen in conjunction with Lois Hassan NP. I have independently interviewed and examined the patient and reviewed pertinent historical, laboratory, and other data. Please refer to her note for patient's presentation, findings, and recommendations. Patient was seen and examined. She feels much improved. Had 8 bowel movements overnight, stools were very liquid. No abdominal discomfort. Denies any fever or chills or dizziness or palpitations. No acute events overnight. Vitals were reviewed -stable Physical Exam: Gen: Comfortable, not pale, not jaundiced, alert oriented x3 CVS:HS I +II, regular, no murmurs RESP: CTA GI: BS present and normal, nontender, no palpable organs EXT:No edema ASSESSMENT: 1. Sepsis secondary to Acute C. diff 2. Severe hypokalemia 3. Hypertension 4. Hyperlipidemia 5. Hypothyroidism 6. Obesity 7. GERD Meds reviewed Plan: Replace potassium, recheck in am Stop IV fluids Continue vancomycin po Encourage patient to hydrate herself. Possible DC in a.m. if improved Code Visit Inpatient E&M: 90644 Subs Hosp L2
[2018-11-12 14:20] VITALS: BP 120/68; PULSE 73; RESP 18; TEMP 36.7; O2SAT 98
[2018-11-12 20:19] VITALS: BP 133/79; PULSE 69; RESP 16; TEMP 36.6; O2SAT 96
[2018-11-13 00:22] VITALS: BP 132/67; PULSE 69; RESP 14; TEMP 36.6; O2SAT 96
[2018-11-13 05:52] LABS: Anion Gap 6 (5-15); BUN 4 mg/dL (7-18); BUN/Creat Ratio 8.4 RATIO (10-20); Calcium,Total 8.3 mg/dL (8.5-10.1); Chloride 112 mmol/L (98-107); Creatinine, Serum 0.48 mg/dL (0.55-1.02); EST Glomerular Filtration Rate 138 mL/min (>60); Est Glom Filt Rate - Afr Amer 167 mL/min (>60); Estimated Creatinine Clearance 47.78 ml/min; Glucose 81 mg/dL (74-106); Potassium 3.4 mmol/L (3.5-5.1); Sodium Level 143 mmol/L (136-145)
[2018-11-13] MEDS: Levothyroxine 88 MCG Tablet PO (06:01)
[2018-11-13 06:04] VITALS: BP 116/65; PULSE 65; RESP 16; TEMP 36.6; O2SAT 97
--- NOTE | 2018-11-13 08:51 | DCINST_ITS ---
- Discharge Diagnoses Reason(s) for Visit for Discharge Instructions: Diarrhea You will use the following diet at home:: Cardiac Your food should be the consistency of: Regular - start gradually with liquid diet and build up consistency of food in the next couple of days. Your liquids should be the consistency of: Regular/Thin Discharge Activity: Return to Normal Activity Weight Bearing Status: Weight bearing as tolerated Additional Instructions: Take note of changes to your medications. Your omeprazole has been held until you are infection resolves. Your naproxen has also been held. Continue to hydrate yourself. You need to follow-up with your primary care doctor within 1 week for repeat blood work to check on your kidneys and potassium levels. Allergies/Adverse Reactions: Allergies No Known Allergies Allergy (Verified 11/10/18 11:57) Medications to take at Discharge Ferrous Sulfate 325 mg PO DAILY@0800 11/10/15 Lisinopril [Zestril] 10 mg PO DAILY 04/22/18 Simvastatin [Zocor] 40 mg PO QHS 04/22/18 Levothyroxine Sodium [Synthroid] 88 mcg PO DAILY 11/10/18 Lactobacillus Acidophilus [Acidophilus] 1 tab PO 4X/DAY #60 tab 11/13/18 Vancomcyin 125mg/5mL PO Liquid 125 mg PO Q6 #30 po.syringe 11/13/18 The following prescriptions were given: Lactobacillus Acidophilus [Acidophilus] 1 tab PO 4X/DAY #60 tab Transmission Status: Pending to [facility] Vancomcyin 125mg/5mL PO Liquid 125 mg PO Q6 #30 po.syringe Transmission Status: Pending to [facility]NA [facility] Primary Care Physician: Rohith López MD [Primary Care Provider] - Please follow up with your Primary Care Physician in: within 1 week Test Results: Test results from this visit will be discussed in further detail at your follow- up appointment, if applicable. Proposed Discharge Date: 11/13/18
--- NOTE | 2018-11-13 08:55 | DS.PCM_ITS ---
Discharge Date and Diagnosis Date of Admission: 11/10/18 Date of Discharge: 11/13/18 - Primary Discharge Diagnosis Sepsis secondary to Acute C. diff colitis Hypokalemia Hypomagnesemia - Secondary Discharge Diagnosis Chronic Problems Chronic pansinusitis (Chronic) Diverticulosis (Chronic) Hypothyroid (Chronic) Hypertension (Chronic) High cholesterol (Chronic) GERD (gastroesophageal reflux disease) (Chronic) Hospital Course and Treatment Imaging Results: Clinical Impression(s) from Imaging Studies Abdomen/Pelvis CT 11/10/18 13:20 IMPRESSION: Residual colitis of the left hemicolon. The right hemicolon has improved with the intimal residual changes present. The remainder of the examination is unchanged. Electronically Signed: Preston Elam, at 15:40 EDT , Service support , None Operations: None Procedures: None Summary of Care Provided: The patient is a 67 year old F who was recently diagnosed with colitis of the transverse and descending colon, completed 10 days of Cipro and Flagyl comes in with 3-day history of diarrhea. She denied any fevers or has abdominal discomfort with the diarrhea. Her stool testing was positive for acute C. difficile. Enteric panel was negative. She was managed on p.o. vancomycin, IV fluids. Her white cell count improved the next day. She had electrolyte imbalances during her stay with low potassium and magnesium and this was replaced patient. She continued to gradually improve and was eventually discharged. Lots of education was given to her regarding post discharge management of C. difficile at home. Subjective: On the day of discharge, patient was seen and examined. Objective: Physical Exam General: Alert, Oriented x3, Cooperative HEENT: Atraumatic, PERRLA, EOMI, Normocephalic Neck: Supple, No JVD, Negative Carotid Bruits Lungs: Clear to auscultation, Normal air movement Cardiovascular: Regular rate, Regular Rhythm, Normal S1, Normal S2, No murmurs Abdomen: Bowel Sounds Present, Soft, Non Tender, Non-Distended Extremities: No clubbing, No cyanosis, No edema, Capillary Refill Less than 3 Seconds Skin: No rashes, No breakdown Musculoskeletal: No Tenderness to Palpation of Joints or Extremities Neurological: Cranial nerves II-XII grossly intact, Neuro grossly intact Psych/Mental Status: Normal Affect, Appropriate - Physical Exam Vital Signs Temp Pulse Resp BP Pulse Ox 98 F 65 16 116/65 97 11/13/18 06:04 11/13/18 06:04 11/13/18 06:04 11/13/18 06:04 11/13/18 06:04 Oxygen Delivery Method Room Air Weight: 83.3 kg Body Mass Index (BMI) 30.5 Intake and Output for Last 24 Hours 11/11/18 11/12/18 11/13/18 23:59 23:59 23:59 Intake Total 3802 / 3802 3900 / 3900 200 / 200 Balance 3802 / 3802 3900 / 3900 200 / 200 Microbiology Past 72 Hours 11/10/18 13:43 Enteric Bacteriology - Final Stool 11/10/18 13:43 C. difficile DNA Amplification - Final Stool Toxigenic C. difficile DNA Laboratory Tests Past 24 Hrs 11/13/18 05:18 Sodium 143 Potassium 3.4 L Chloride 112 H Carbon Dioxide 25.0 Anion Gap 6 BUN 4 L Creatinine 0.48 L Estim Creat Clear Calc 47.78 Est GFR (MDRD) Af Amer 167 Est GFR (MDRD) Non-Af 138 BUN/Creatinine Ratio 8.4 L Glucose 81 Calcium 8.3 L Discharge Diet: Low fat/ Low Cholesterol, 2000 mg Sodium Diet Discharge Activity: Return to Normal Activity Weight Bearing Status: Weight bearing as tolerated Home Medications: Medications to take at Discharge Ferrous Sulfate 325 mg PO DAILY@0800 11/10/15 Lisinopril [Zestril] 10 mg PO DAILY 04/22/18 Simvastatin [Zocor] 40 mg PO QHS 04/22/18 Levothyroxine Sodium [Synthroid] 88 mcg PO DAILY 11/10/18 Lactobacillus Acidophilus [Acidophilus] 1 tab PO 4X/DAY #60 tab 11/13/18 Potassium Chloride [Klor-Con M20] 20 meq PO BID 7 Days #14 tab.er.prt 11/13/18 Vancomcyin 125mg/5mL PO Liquid 125 mg PO Q6 #30 po.syringe 11/13/18 Following Prescrptions Were Given to Patient: Lactobacillus Acidophilus [Acidophilus] 1 tab PO 4X/DAY #60 tab Transmission Status: Received by [facility] Potassium Chloride [Klor-Con M20] 20 meq PO BID 7 Days #14 tab.er.prt Transmission Status: Received by ANNA MARTINEZ RD Vancomcyin 125mg/5mL PO Liquid 125 mg PO Q6 #30 po.syringe Transmission Status: Received by ANNA MARTINEZ RD Primary Care Physician: Rohith López MD [Primary Care Provider] - Please follow up with your Primary Care Physician in: within 1 week Disposition: Home Minutes spent on discharge:: 40 Patient Condition:: Stable Medical Necessity - Tobacco Use Smoking Status: Never smoker Tobacco Use: Non-smoker Meaningful Use Info Meaningful Use Diagnoses (Choose all that apply): None applicable Code Visit Inpatient E&M: 68188 Disch Hosp
[2018-11-13 11:20] VITALS: BP 148/81; PULSE 74; RESP 18; TEMP 36.7; O2SAT 96
[2018-11-13] MEDS: Pantoprazole Sodium 40 MG Tablet PO (11:20)
[2018-11-13] MEDS: Lisinopril 10 MG Tablet PO (11:20)
== END 2018-11-13 11:43 | disposition home or self-care (01) | DRG 872 ==
LOC: ED 13:07 → MS3 17:21
PROVIDERS: Nurse Practitioner Family; Admitting Provider Internal Medicine; Emergency Provider Emergency Medicine; Family Provider Family Medicine; PCP Family Medicine; Visit Provider Internal Medicine
DX: A41.89 Other specified sepsis (principal); A04.72 Enterocolitis due to Clostridium difficile, not specified as recurrent; I10 Essential (primary) hypertension; E78.5 Hyperlipidemia, unspecified; E89.0 Postprocedural hypothyroidism; E66.9 Obesity, unspecified; K21.9 Gastro-esophageal reflux disease without esophagitis; Z68.30 Body mass index [BMI] 30.0-30.9, adult; E87.6 Hypokalemia; E83.42 Hypomagnesemia; K57.90 Diverticulosis of intestine, part unspecified, without perforation or abscess without bleeding
CPT/HCPCS: 36415; 74177; 80048; 80053; 80076; 81001; 83605; 83690; 83735; 85025; 87493; 87506; 97802; 99284; J7030; Q9967

== ENCOUNTER 2019-01-13 13:29 | Day surgery (SDC) | payer MEDICARE, OTHER, SELFPAY ==
[2018-11-10 16:51] VITALS: BMI 30.5
[2018-12-31 11:30] LABS: Mean Corp Hgb Conc 31.8 g/dL (32-36); Mean Corpuscular Hgb 30.1 pg (27.0-32.0); Mean Corpuscular Volume 94.6 fL (81-99); Mean Platelet Vol. 9.8 fl (6.2-12.0); Platelet Count 284 K/mm3 (150-450); RBC Distribution Width CV 14.3 % (11.6-14.6); RBC Distribution Width SD 49.6 fl (35.1-43.9); Red Blood Count 4.65 M/mm3 (4.2-5.4); White Blood Count 6.8 K/mm3 (4.4-11.0)
[2018-12-31 11:59] LABS: Anion Gap 6 (5-15); BUN 16 mg/dL (7-18); BUN/Creat Ratio 21.1 RATIO (10-20); Calcium,Total 9.2 mg/dL (8.5-10.1); Chloride 106 mmol/L (98-107); Creatinine, Serum 0.76 mg/dL (0.55-1.02); EST Glomerular Filtration Rate 80 mL/min (>60); Est Glom Filt Rate - Afr Amer 97 mL/min (>60); Glucose 91 mg/dL (74-106); Potassium 3.9 mmol/L (3.5-5.1); Sodium Level 141 mmol/L (136-145)
[2019-01-01 05:06] LABS: Immunoglobulin A 228 mg/dL (87-352); Immunoglobulin G 1114 mg/dL (700-1600)
[2019-01-01 15:05] LABS: Immunoglobulin M 71 mg/dL (26-217)
[2019-01-13] VITALS (7 sets, daily range): BP systolic 128–143; BP diastolic 63–74; PULSE 64–91; RESP 14–16; TEMP 36.6–36.8; O2SAT 93–99; BMI 29.5
[2019-01-13] MEDS: Lactated Ringers 1,000 ML 100 ML IV (14:48)
--- NOTE | 2019-01-13 15:15 | ETH_PTH ---
PATIENT: MOISÉS MCKEON LOC: [facility] [place] U#:[id number] AGE/SX: 68/F ROOM: RE01/13/[address]: Dr. Nick Vela MD : 1950 BED: DIS: 01/13/2019 SPEC #: [id number] RECD: 01/14/19 08:07 STATUS: LAURA NITA #: [id number] ERICKA: 01/13/19 15:[address]: Nick Vela DEPT: SURGICAL PATHOLOGY RECD BY: Homer Vidal ENTERED: 01/14/19 09:28 SP TYPE: ETH TISS OTHR DR: Dr. Rohith López MD Tissues: A - Ethmoid sinus, NOS B - Ethmoid sinus, NOS Procedures: PAS Fungus (control) Special Stain Group I Surgery Specimen Level IV HEADER OPERATION: Functional endoscopic sinus surgery PRE-OP DIAGNOSIS: Recurrent sinusitis TISSUE SUBMITTED: A. Right sinus contents, B. Left sinus contents MICROSCOPIC DIAGNOSIS A. Right sinus contents: Scant fragments of benign respiratory mucosal tissue. Special stain for fungi is positive for a few fungal organisms (septate hyphae, consistent with aspergillus species); matched control is appropriate. B. Left sinus contents: Scant fragments of benign respiratory mucosal tissue. A few bacterial colonies including actinomyces. Special stain for fungi is positive for numerous fungal organisms (septate hyphae, consistent with aspergillus species ); matched control is appropriate. See comment. BRUCE:madisyn 01/15/19 COMMENT B. The specimen predominantly consists of blood clots and fungal organisms and scant fragments of mucosal tissue. Please make reference to previous specimen ([id number]) right ethmoid and maxillary sinus contents and left ethmoid and maxillary sinus contents with diagnosis of consistent with chronic sinusitis. Case has been reviewed in consultation with Dr. England who concurs with the above diagnosis. IDC:AM MICROSCOPIC DESCRIPTION Slides are reviewed. GROSS DESCRIPTION A - Received in fixative is one container labeled with the patient's name and designated right sinus contents. The specimen consists of a scant amount of soft tissue. The entire specimen is submitted for cell block preparation. B - Received in fixative is one container labeled with the patient's name and designated left sinus contents. The specimen consists of multiple fragments of hemorrhagic soft tissue mixed with mucoid tissue that in aggregate measure 5 x 2.5 x 0.2 cm. The entire specimen is submitted in two cassettes. / SJ:rg 01/14/19 TC:3 CPT: 39843 x2, 01020 x2
--- NOTE | 2019-01-13 15:37 | DCINST_ITS ---
You will use the following diet at home:: No restrictions Your food should be the consistency of: Regular Discharge Activity: Return to Normal Activity Call your doctor if your incision/area has: Increased Pain/ Swelling Allergies/Adverse Reactions: Allergies No Known Allergies Allergy (Verified 01/13/19 14:04) Medications to take at Discharge Ferrous Sulfate 325 mg PO DAILY@0800 11/10/15 Lisinopril [Zestril] 10 mg PO DAILY 04/22/18 Simvastatin [Zocor] 40 mg PO QHS 04/22/18 Levothyroxine Sodium [Synthroid] 88 mcg PO DAILY 11/10/18 Omeprazole 40 mg PO DAILY 01/08/19 Vancomycin [Vancocin] 125 mg PO DAILY 01/08/19 Primary Care Physician: Rohith López MD [Primary Care Provider] - Test Results: Test results from this visit will be discussed in further detail at your follow- up appointment, if applicable. Please Follow Up With: Rohith Vela MD When: 1 week
--- NOTE | 2019-01-13 16:00 | PCM.OPRPT ---
Problem List (1) Other chronic sinusitis Status: Chronic Report of Operation Date of Procedure: 01/13/19 Pre-Operative Diagnosis: 1. other chronic sinusitis Post-Operative Diagnosis: 1. other chronic sinusitis Surgery/Procedure Performed:: 1. endoscopic total ethmoidectomy with sphenoidotomy with removal of contents, right and left. 2. endoscopic frontal sinus exploration with removal of contents, right and left. 3. CT guided image navigation Type of Anesthesia:: General Description of Procedure: on the day of the procedure, after appropriate informed consent was obtained, the patient was brought to the operating room and placed in supine position on the operating table. she was placed under general endotracheal anesthesia. the endotracheal tube was secured, the eyes were lubricated. the bilateral nasal cavities were decongested with oxymetazoline soaked pledgets. the CT image guidance navigation was set up using facial recognition. a zero degree endoscope was used to evaluate the left nasal cavity. this had been previously operated on. the acclarent balloon sinuplasty system was advanced lateral to the middle turbinate superior attachment and frontal transillumination was seen. the balloon was advanced and inflated to 12 mandi. a frontal sinus seeker was used and contents were evacuated. a total ethmoidectomy was performed with a combination of a blakesley and the microdebrider. this was taken superiorly to the skull base and laterally to the lamina. a stankewicz maneuver was performed and no laminar defect was noted. the natural sphenoid os was widened and contents were evacuated. a zero degree endoscope was used to evaluate the left nasal cavity. this had been previously operated on. the acclarent balloon sinuplasty system was advanced lateral to the middle turbinate superior attachment and frontal transillumination was seen. the balloon was advanced and inflated to 12 mandi. a frontal sinus seeker was used and contents were evacuated. a total ethmoidectomy was performed with a combination of a blakesley and the microdebrider. this was taken superiorly to the skull base and laterally to the lamina. a stankewicz maneuver was performed and no laminar defect was noted. the previously operated on sphenoid os was significantly widedned to >1cm. significant time was spent clearing her fungal elements out of her sphenoid with the suction and gently with a freer. after a large amount of fungal elements were removed, the sphenoid cavity had copious mucopus, and her sphenoid disease had expanded into her clivus. this was suctioned with an olive tip and a 30 degree scope. however, care was taken not to violate the posterior wall of the sphenoid. hemostasis was achieved with suction cautery. kathleen powder was used bilaterally the patient was awoken from anesthesia and transported to the PACU in stable condition.
[2019-01-13] MEDS: Oxymetazoline 0.05% 1 SPRAY SPRAY.BTL 15 SPRAY (16:17)
[2019-01-13] MEDS: Acetaminophen 325 MG Tablet 650 MG PO (18:24)
[2019-01-13 18:50] LABS: M R Staph aureus DNA By PCR Negative (Negative); Probe Check PASS; Staph aureus DNA By PCR NEGATIVE (Negative)
== END 2019-01-13 19:20 | disposition home or self-care (01) ==
LOC: SDC 13:30 → AC 13:30
PROVIDERS: Anesthesiology; Family Provider Family Medicine; PCP Family Medicine; Referring Provider Otolaryngology; Visit Provider Otolaryngology
PROC: (CPT 31253; principal; 2019-01-13 15:00)
DX: J32.8 Other chronic sinusitis (principal); J32.4 Chronic pansinusitis; I10 Essential (primary) hypertension; K44.9 Diaphragmatic hernia without obstruction or gangrene; K21.9 Gastro-esophageal reflux disease without esophagitis; D64.9 Anemia, unspecified; E06.9 Thyroiditis, unspecified; E78.00 Pure hypercholesterolemia, unspecified; Z78.0 Asymptomatic menopausal state; Z87.19 Personal history of other diseases of the digestive system; Z79.899 Other long term (current) drug therapy
CPT/HCPCS: 31253; 31259; 36415; 80048; 82784; 84443; 85027; 87070; 87075; 87076; 87077; 87186; 87205; 87640; 88305; 88312; 93005; J7120; J2405

== ENCOUNTER → 2019-11-18 06:21 | Outpatient (CLI) | payer MEDICARE, OTHER, SELFPAY ==
[2019-01-13 14:06] VITALS: BMI 29.5
--- NOTE | 2019-11-18 13:08 | STRESSREP_ITS ---
Stress Test Report Date: 11-18-2019 Procedure: Exercise tolerance test/imaging study Indications: Chest pain Consent: Per the patient Procedure: The patient exercised on a Ronald protocol for 4 minutes and 45 seconds completing Stage I and 1 minute and 45 seconds of Stage II achieving a peak heart rate of 155 bpm (103 % predicted maximal heart rate) with a peak blood pressure 158/64 mmHg and a peak MET capacity of 6 METs. The baseline ECG demonstrated sinus rhythm. The peak exercise ECG demonstrated no obvious ECG changes. There was a rare PVC during exercise and recovery. The functional capacity was considered decreased. There was no complaint of chest discomfort during exercise or recovery. The examination was discontinued secondary to dyspnea and leg discomfort. Impression: 1. Technically adequate (percent predicted maximal heart rate greater than 85%) exercise tolerance test 2. Peak exercise ECG with no obvious ECG changes 3. There was a rare PVC during exercise and recovery 4. Nuclear images pending Myocardial perfusion imaging study: Technique: The patient was injected with 11.1 mCi of technetium 99m Cardiolite and s ubsequently rest SPECT Cardiolite nuclear imaging was obtained in the horizontal long, vertical long, and short axis views. The patient exercised on a Ronald protocol for 4 minutes and 45 seconds completing Stage I and 1 minute and 45 seconds of Stage II achieving a peak heart rate of 155 bpm (103 % predicted maximal heart rate) with a peak blood pressure 158/64 mmHg and a peak MET capacity of 6 METs. The patient was injected with 33.5 mCi of technetium 99m Cardiolite and subsequently stress SPECT Cardiolite nuclear imaging was obtained in the horizontal long, vertical long, and short axis views. A gated Cardiolite study at peak stress was obtained. Interpretation: Rest and stress SPECT Cardiolite nuclear imaging status post realignment, normalization, and attenuation correction, demonstrates a small area of subtle diminished tracer uptake near the apical segments at both rest and stress without significant change. There is end systolic thickening and brightening. The gated Cardiolite study demonstrates myocardial thickening and inward wall motion. The reported LVEF is 71 %. Impression: 1. Rest and stress SPECT Cardiolite nuclear imaging demonstrate card perfusion changes appearing compatible defects of physiologic apical thinning with no myocardial perfusion changes considered diagnostic for associated stress-induced myocardial ischemia. 2. The gated Cardiolite study reports an LVEF of 71 %. This note was generated with [employer] software. It may contain incorrect words, spelling, and punctuation that were not noted in checking the note before signing.
== END ==
PROVIDERS: PCP Family Medicine; Referring Provider Family Medicine; Visit Provider Family Medicine
DX: R07.89 Other chest pain (principal)
CPT/HCPCS: 78452; 93017; A9500; A4216

== ENCOUNTER → 2020-01-18 08:21 | Outpatient (CLI) | payer MEDICARE, OTHER, SELFPAY ==
[2019-01-13 14:06] VITALS: BMI 29.5
--- NOTE | 2020-01-18 08:33 | RAD_ITS ---
STUDY: X-RAY - ESOPHAGUS (BARIUM SWALLOW) WITH FLUOROSCOPY REASON FOR EXAM: Female, 69 years old. Difficulty swallowing, has trouble with big meals, hx of thyroidectomy TECHNIQUE: 45 view(s) of the esophagus were obtained following swallowing of barium. FLUOROSCOPY TIME (if supplied): (0:48) minutes/seconds COMPARISON: None. FINDINGS: There is no demonstrated esophageal foreign body. There is evidence of tertiary contractions of the distal esophagus. There is a large sliding hiatal hernia without gastroesophageal reflux. The patient ingested a 12 mm tablet of barium. The tablet is trapped at the gastroesophageal junction. Incidental note is made of a small diverticulum along the medial aspect of the second portion of the duodenum. There is atherosclerotic calcification of the aortic arch with tortuosity of the descending aorta. Evidence of prior thyroidectomy There are diffuse degenerative changes of the visualized thoracic spine. RAD/Esophagus Dual Contrast IMPRESSION: Large sliding hiatal hernia without gastroesophageal reflux. The ingested 12 mm tablet of barium is trapped at the gastroesophageal junction. Electronically Signed: Preston Elam, at 8:39 EDT , Service support ,
== END ==
PROVIDERS: PCP Family Medicine; Referring Provider Otolaryngology; Visit Provider Otolaryngology
DX: R13.10 Dysphagia, unspecified (principal)
CPT/HCPCS: 74221

== ENCOUNTER 2020-03-08 06:46 | Day surgery (SDC) | payer MEDICARE, OTHER, SELFPAY ==
[2020-02-05 14:40] VITALS: BMI 29.9
[2020-03-08 07:10] VITALS: BP 120/70; PULSE 84; RESP 18; TEMP 36.7; O2SAT 99; BMI 28.9
[2020-03-08] MEDS: Lactated Ringers 1,000 ML 70 ML IV (07:17)
--- NOTE | 2020-03-08 07:34 | PCM.HP.BLA ---
Problem List (1) Hiatal hernia Status: Acute (2) GERD (gastroesophageal reflux disease) Status: Chronic Qualifiers: History and Physical Date of Admission: 03/08/20 Intake Visit Reasons: LARGE HIATAL HERNIA Chief Complaint: Large Hiatal Hernia Cinder Snapper Required: No Is patient in pain?: No Allergies No Known Allergies Allergy (Verified 02/05/20 14:41) Medications Ferrous Sulfate 325 mg PO DAILY@0800 11/10/15 [History Confirmed 02/05/20] Lisinopril [Zestril] 10 mg PO DAILY 04/22/18 [History Confirmed 02/05/20] Simvastatin [Zocor] 40 mg PO QHS 04/22/18 [History Confirmed 02/05/20] levothyroxine 88 mcg tablet 75 mcg PO DAILY tab 02/05/20 [History Confirmed 02/05/20] naproxen 500 mg tablet 500 mg PO BID 02/05/20 [History Confirmed 02/05/20] [facility] Medical History (Updated 02/05/20 @ 15:[address] Chang La MD) Hiatal hernia (Acute) Chronic pansinusitis (Chronic) Diverticulosis (Chronic) Hypothyroid (Chronic) Hypertension (Chronic) High cholesterol (Chronic) GERD (gastroesophageal reflux disease) (Chronic) Other chronic sinusitis (Chronic) Anemia (Acute) Arthritis (Acute) Hiatal hernia (Acute) History of back problems (Acute) Surgical History (Updated 02/05/20 @ 14:40 by Lilia Crowell) History of back surgery (Acute) History of foot surgery (Acute) History of sinus surgery (Acute) History of thyroidectomy (Acute) Social History (Updated 02/05/20 @ 15:[address] Chang La MD) Smoking Status: Never smoker alcohol intake: never substance use type: does not use HPI HPI HPI: MOISÉS MCKEON, is a 69 F who presents to the office today for surgical consultation regarding difficulties with swallowing and intermittent chest discomfort and a large hiatal hernia. The patient is referred by Dr. Nick Vela and a written copy of my surgical consult and recommendations will return to him. Her primary care physician is Dr. Nick López. This is a 69-year-old female. I have assisted her with a combined upper and lower endoscopy November 11, 2015. At that time she had a moderately large hiatal hernia. There is no evidence for any upper or lower gastrointestinal blood loss. She was being evaluated for anemia at that time. She had extensive descending and sigmoid colon diverticulosis. No polyps. Next screening colonoscopy was recommended to be in 10 years. Because of her current symptoms and evaluation she had a barium swallow done at the [facility] on January 18, 2020. This now shows a large hiatal hernia with GE reflux and the barium tablet trapped at the GE junction. It is said to be a sliding hiatal hernia pending on my review I am questioning whether this is a paraesophageal hiatal hernia. Because of the chest discomfort she has had a cardiac stress test done on November 18, 2019. Ejection fraction at 71% with no ischemia. She also previously had a abdominal pelvic CT scan done November 10, 2018. At that time she had C. difficile colitis. The images showed residual colitis of the left hemicolon. The right hemicolon had improved. She also states that recently she has had 2 sinus procedures done by Dr. Gtz. She claims that she has had fungal involvement. She states that she will still require ongoing care. Her diet is changed. She states that she now changes to grazing eating much smaller meals. Some she has a sensation of something getting stuck at globus sensation. She occasionally will have chest discomfort where she tries to rub her chest to make it better. HPI HPI HPI: MOISÉS MCKEON, is a 69 F who presents to the office today for ROS General General: No weight change, appetite, fatigue, colon cancer, breast cancer or weakness HEENT HEENT: Yes difficulty swallowing; no eye injury, eye surgery, swollen glands or hoarseness Endo Endocrine: Yes thyroid disease; no diabetes mellitus, thyroid cancer, Hair loss, heat intolerance or cold intolerance Skin Skin: No rash or changing moles Breast Breast: No left breast lump, right breast lump, nipple discharge, breast pain, abnormal mammogram, abnormal US or breast enlargement Musc Musculoskeletal: Yes back problems and arthritis; no rheumatoid arthritis, gout or joint pain Cardio Cardiovascular: Yes high blood pressure; no murmur, pacemaker, heart disease, atrial fibrillation, heart attack, heart stent, palpitations, shortness of breat with exertion or chest pain Psych Psychiatric: Yes anxiety; no depression or hearing voices Resp Respiratory: No shortness of breath, No sleep apnea, No cough, No COPD, No asthma, No emphysema, No wheezing Gastro Gastrointestinal: Yes abdominal pain, Yes nausea or vomiting, Yes diarrhea, Yes constipation, No blood in stool, Yes acid reflux, Yes hemorrhoids, No ulcers, No gallbladder problem, Yes black,tarry stools [place] Hematologic: No blood thinners, No blood disorders, No bleeding, Yes anemia, No blood clots Neuro Neurologic: No system reviewed and no additional complaints, except as docu, No as per HPI, No abnormal walking, No abnormal hearing, No abnormal movements, No abnormal speech, No behavioral changes, No burning sensations, No confusion, No seizure-like activity, No unsteadiness, No dizziness, No localized weakness, No frequent falls, No headache(s), No lack of coordination, No loss of vision, No memory loss, No numbness, No other visual disturbances, No radiating pain, No restless legs, No sensory deficit, No fainting, No tingling, No tremor(s), No weakness, No other Exam Const General: cooperative, healthy appearing, comfortable, no acute distress Nutritional Appearance: overweight Orientation: awake [facility] Head: normal to inspection Chest Chest palpation & inspection: normal inspection of the chest Breast Palpation: No nipple discharge Resp Effort & Inspection: normal respiratory effort Auscultation: clear to auscultation bilaterally Cardio Rate: regular rate Rhythm: regular rhythm Heart Sounds: no murmurs GI Palpation: soft, no hepatosplenomegaly Auscultation: normal bowel sounds Musc Cervical Spine: normal cervical lordosis Neuro Cognition: normal cognition Extrem General: no calf tenderness Psych Affect: normal affect Assessment & Plan Problems 1. Gastroesophageal reflux disease, unspecified whether esophagitis present K21.9 2. Hiatal hernia K44.9 Plan Large symptomatic hiatal hernia. There is some suggestion that this is a sliding hiatal hernia however I suspect that this may be a paraesophageal hiatal hernia. She is now symptomatic. She is 1 year since her sinus surgery and appears to be stable although there was fungal infection at that time. She is stable from her previous episodes of C. difficile colitis. We have contacted Dr. Vela''s office and have been given approval to proceed with the esophageal manometry. He is aware that this is a nasogastric entry. We will also proceed with esophagogastroduodenoscopy with very careful inspection of the esophagus measuring length and taking biopsies of appropriate. We will then have the patient return to the office and discuss treatment options and possible laparoscopic repair. I very much appreciate the kind opportunity of continuing to be able to assist with her surgical care. Daughter is employed at [employer] Copy: Dr. Nick Vela and Dr. Nick La M.D., F.A.C.S. The patient returns today now for a planned upper endoscopy. I did a previous upper endoscopy on her November 2015 that was also associated with a colonoscopy. Her current problems are difficulty swallowing. On January 18, 2020 a barium swallow had a barium tablet get caught. She has known reflux. It is also anticipated that manometry will be obtained as well. She has had an opportunity to ask and have questions answered. We will proceed with monitored anesthesia care. Chang La M.D., F.A.C.S. Procedure Criteria Procedure Type: Elective COVID Risk Discussion: The surgeon/proceduralist and patient have discussed in detail the risk of exposure to and/or potential harm posed by the COVID-19 virus with having a surgery/procedure at this time versus the risk of delaying the surgery/procedure. It is not possible to know either the risk of delaying the surgery or procedure or chance of getting an infection with perfect accuracy, but a joint decision was made between the patient and the surgeon/proceduralist to proceed at this time with the scheduled surgery/procedure as indicated on the consent form.
--- NOTE | 2020-03-08 08:00 | EGD_PTH ---
PATIENT: MOISÉS MCKEON LOC: EN U#:[id number] AGE/SX: 69/F ROOM: RE03/08/[address]: Dr. Chang La MD : 1950 BED: DIS: 03/08/2020 SPEC #: [id number] RECD: 03/08/20 11:23 STATUS: LAURA NITA #: [id number] ERICKA: 03/08/20 08:[address]: Chang La DEPT: SURGICAL PATHOLOGY RECD BY: Kaitlin Antonio ENTERED: 03/08/20 12:10 SP TYPE: EGD BIOPSY OT DR: Dr. Rohith López MD Tissues: A - Gastric mucous membrane B - Gastric mucous membrane Procedures: Special Stain Group II Surgery Specimen Level IV Alcian Blue/PAS (control) HEADER OPERATION[place] [place] DIAGNOSIS: Hiatal hernia, GERD TISSUE SUBMITTED: A - Antral biopsy for H. pylori and pathology, B - EG junction biopsy MICROSCOPIC DIAGNOSIS A. Antral biopsy: Mild to moderate gastritis. See microscopic description and comment. B. EG junction, biopsy: Fragments of gastroesophageal mucosa with moderate chronic inflammation. Intestinal metaplasia (goblet cell metaplasia) is not identified. See comment. SJ:madisyn 03/09/20 COMMENT A. The results of immunohistochemistry for Helicobacter pylori will be reported separately ([id number]). B. Alcian blue/PAS stain with matched control is used in the evaluation of the specimen. MICROSCOPIC DESCRIPTION Slides are reviewed. A. The specimen shows fragments of gastric mucosa with chronic inflammatory cell infiltrates in the lamina propria consisting of lymphocytes and plasma cells, consistent with mild to moderate chronic gastritis. GROSS DESCRIPTION A - Received in fixative is one container labeled with the patient's name and designated antral biopsy. The specimen consists of one irregular fragment of light slater soft tissue that measures 0.6 x 0.2 x 0.1 cm. The specimen is totally submitted in one cassette. B - Received in fixative is one container labeled with the patient's name and designated EG junction. The specimen consists of two irregular fragments of light slater soft tissue that in aggregate measure 0.3 x 0.3 x 0.1 cm. The specimen is totally submitted in one cassette. / SJ:madisyn 03/08/20 TC:5 CPT: 99059 x2, 96611
--- NOTE | 2020-03-08 08:00 | IMM_PTH ---
PATIENT: MOISÉS MCKEON LOC: EN U#:[id number] AGE/SX: 69/F ROOM: RE03/08/[address]: Dr. Chang La MD : 1950 BED: DIS: 03/08/2020 SPEC #: [id number] RECD: 03/08/20 13:34 STATUS: LAURA MOYA #: [id number] ERICKA: 03/08/20 08:[address]: Chang La DEPT: IMMUNOHISTOCHEMISTRY RECD BY: Maria R Gifford ENTERED: 03/08/20 13:34 SP TYPE: IMMUNO OTHR DR: Dr. Rohith López MD Tissues: A - Stomach, NOS Procedures: H Pylori (initial) PHYSICIAN & INSTITUTION [place] [id number] SPECIMEN INFORMATION: Tissue Source: A - Antral biopsy Clinical Info: Hiatal hernia; GERD Specimen Number: [id number] CPT code: 80570 METHODOLOGY: Deparaffinized sections of prefer/formalin-fixed tissue or PAP/DQ stained slides are incubated with monoclonal/polyclonal antibodies/oligonucleotide probes. Localization is made via biotin free immunoperoxidase method. Appropriate controls are performed and reacted as expected. Results on target cell population are indicated in the following table: RESULTS: ANTIBODY / CLONE RESULT Block A H Pylori (polyclonal) negative These tests were developed and their performance characteristics determined by [facility]. They may not have been cleared or approved by the U.S. Food and Drug Administration. The FDA has determined that such clearance or approval is not necessary. INTERPRETATION: A. Antral biopsy: Negative for Helicobacter pylori organisms. SJ:madisyn 03/09/20
[2020-03-08 08:30] VITALS: BP 108/54; BP 120/80; PULSE 80; RESP 14; TEMP 36.9; O2SAT 96
--- NOTE | 2020-03-08 08:30 | OP.EGD_ITS ---
Patient Name: Linsey Bobo Procedure Date: 03/08/2020 8:10 AM Date of : 1950 Age: 69 Procedure: Upper GI endoscopy Indications: Dysphagia Providers: Chang La MD Referring MD: Rohith López Medicines: See the Anesthesia note for documentation of the administered medications Complications: No immediate complications. Procedure: Pre-Anesthesia Assessment: - Prior to the procedure, a History and Physical was performed, and patient medications and allergies were reviewed. The patient's tolerance of previous anesthesia was also reviewed. The risks and benefits of the procedure and the sedation options and risks were discussed with the patient. All questions were answered, and informed consent was obtained. Prior Anticoagulants: The patient has taken no previous anticoagulant or antiplatelet agents. ASA Grade Assessment: II - A patient with mild systemic disease. After reviewing the risks and benefits, the patient was deemed in satisfactory condition to undergo the procedure. After obtaining informed consent, the endoscope was passed under direct vision. Throughout the procedure, the patient's blood pressure, pulse, and oxygen saturations were monitored continuously. The Endoscope was introduced through the mouth, and advanced to the second part of duodenum. The upper GI endoscopy was accomplished without difficulty. The patient tolerated the procedure well. Scope In: 8:20:41 AM Scope Out: 8:24:05 AM Total Procedure Duration Time 0 hours 3 minutes 24 seconds Findings: Esophagitis with no bleeding was found 35 cm from the incisors. Biopsies were taken with a cold forceps for histology. The Z-line was variable and was found 35 cm from the incisors. A large hiatal hernia was present. Diffuse mildly erythematous mucosa without bleeding was found in the gastric antrum. Biopsies were taken with a cold forceps for histology. The examined duodenum was normal. Impression: - Reflux esophagitis. Biopsied. - Z-line variable, 35 cm from the incisors. - Large hiatal hernia. - Erythematous mucosa in the antrum. Biopsied. - Normal examined duodenum. Recommendation: - Await pathology results. - Discharge patient to home. - Resume previous diet. - Continue present medications. - Return to my office in 1 week. Large sliding hiatal hernia, no restriction seen. Mild reflux. Manometry pending Procedure Code(s): --- Professional --- 96162, Esophagogastroduodenoscopy, flexible, transoral; with biopsy, single or multiple Diagnosis Code(s): --- Professional --- K21.0, Gastro-esophageal reflux disease with esophagitis K22.8, Other specified diseases of esophagus K44.9, Diaphragmatic hernia without obstruction or gangrene K31.89, Other diseases of stomach and duodenum R13.10, Dysphagia, unspecified CPT copyright 2017 [employer]. All rights reserved. The codes documented in this report are preliminary and upon anatomic pathology manager review may be revised to meet current compliance requirements. Chang La MD 03/08/2020 8:29:52 AM This report has been signed electronically. Number of Addenda: 0 Note Initiated On: 03/08/2020 8:10 AM
--- NOTE | 2020-03-08 08:30 | OP.CCLET_ITS ---
03/08/2020 Rohith López Re : Upper GI endoscopy procedure for Linsey Bobo Yohanar Rene This procedure was performed on Sunday, March 08, 2020. My impressions and recommendations are as follows: Impressions : - Reflux esophagitis. Biopsied. - Z-line variable, 35 cm from the incisors. - Large hiatal hernia. - Erythematous mucosa in the antrum. Biopsied. - Normal examined duodenum. Recommendations : - Await pathology results. - Discharge patient to home. - Resume previous diet. - Continue present medications. - Return to my office in 1 week. Large sliding hiatal hernia, no restriction seen. Mild reflux. Manometry pending My findings are described in the full procedure note, which is enclosed. If I can be of further assistance, please feel free to contact me at Doctor phone number(s): Work: . Sincerely, Chang La MD 03/08/2020 8:29:52 AM This report has been signed electronically.
[2020-03-08 08:35] VITALS: BP 110/65; BP 120/80; PULSE 84; RESP 14; O2SAT 97
[2020-03-08 08:40] VITALS: BP 101/63; BP 120/80; PULSE 71; RESP 14; O2SAT 96
[2020-03-08 08:45] VITALS: BP 102/68; BP 120/80; PULSE 72; RESP 14; TEMP 36.4; O2SAT 98
[2020-03-08 09:33] VITALS: BP 120/80
== END 2020-03-08 09:34 | disposition home or self-care (01) ==
LOC: EN 06:47 → AC 07:54
PROVIDERS: PCP Family Medicine; Referring Provider Family Medicine; Visit Provider Surgery
PROC: 0DJ08ZZ Inspection of Upper Intestinal Tract, Via Natural or Artificial Opening Endoscopic (ICD-10-PCS; CPT 43235; principal; 2020-03-08 07:55)
DX: R13.10 Dysphagia, unspecified (principal); Z20.828 Contact with and (suspected) exposure to other viral communicable diseases; K44.9 Diaphragmatic hernia without obstruction or gangrene; K21.00 Gastro-esophageal reflux disease with esophagitis, without bleeding; E03.9 Hypothyroidism, unspecified; M19.90 Unspecified osteoarthritis, unspecified site; I10 Essential (primary) hypertension; E78.00 Pure hypercholesterolemia, unspecified; Z79.899 Other long term (current) drug therapy; K22.8 Other specified diseases of esophagus
CPT/HCPCS: 43239; 87426; 88305; 88313; 88342; C9803; J7120; J2405

== ENCOUNTER 2020-03-10 07:17 | Day surgery (SDC) | payer MEDICARE, OTHER, SELFPAY ==
[2020-02-05 14:40] VITALS: BMI 29.9
[2020-03-10] MEDS: Lidocaine Jelly 2% 20 ML Syringe (URO-JET) 20 APPLIC (07:35)
[2020-03-10 07:42] VITALS: BP 133/73; PULSE 80; RESP 16; TEMP 36.8; O2SAT 100
== END 2020-03-10 08:00 | disposition home or self-care (01) ==
LOC: EN 07:18 → AC 07:18
PROVIDERS: Surgery; PCP Family Medicine; Referring Provider Family Medicine; Visit Provider Surgery
PROC: F00ZJWZ Instrumental Swallowing and Oral Function Assessment using Swallowing Equipment (ICD-10-PCS; CPT 43235; principal; 2020-03-10 07:25)
DX: K21.9 Gastro-esophageal reflux disease without esophagitis (principal)
CPT/HCPCS: 91010

== ENCOUNTER → 2020-07-25 15:36 | Outpatient (CLI) | payer MEDICARE, OTHER, SELFPAY ==
[2020-06-22 14:22] VITALS: BMI 28.8
[2020-07-25 17:20] LABS: Anion Gap 5 (5-15); BUN 25 mg/dL (7-18); Calcium,Total 9.3 mg/dL (8.5-10.1); Chloride 105 mmol/L (98-107); Creatinine, Serum 0.74 mg/dL (0.55-1.02); EST Glomerular Filtration Rate 83 mL/min (>60); Est Glom Filt Rate - Afr Amer 100 mL/min (>60); Glucose 92 mg/dL (74-106); Potassium 3.9 mmol/L (3.5-5.1); Sodium Level 139 mmol/L (136-145); Uric Acid 4.6 mg/dL (2.6-6.0)
[2020-07-25 17:58] LABS: Bacteria 0 SEEN /hpf (None Seen); Mucous, Urine 0 SEEN /hpf (<or=2+); Red Blood Cells-Urine 0 SEEN /hpf (0-5)
[2020-07-25 18:54] LABS: Color, Urine Yellow (Yellow); Glucose, Dipstick Normal (Normal); Ketone-Dipstick Negative (Negative); Leukocyte Esterase-Dipstick 25 /ul (Negative); Nitrite-Dipstick Negative (Negative); Occult Blood-Urine 25 /ul (Negative); Protein-Dipstick Negative (Negative); Urine Bilirubin Dipstick Negative (Negative); Urine Clarity Sl. Cloudy (Clear); Urine Urobilinogen Normal (Normal)
[2020-07-25 19:52] LABS: Squamous Epithelial Cells - UA 5-10 SEEN /hpf (5-10); White Blood Cells 0-5 SEEN /hpf (0-5)
[2020-07-26 08:28] LABS: PTHIN 62.5 pg/mL (18.4-80.1)
== END ==
PROVIDERS: PCP Family Medicine; Referring Provider Nurse Practitioner Adult Health; Visit Provider Nurse Practitioner Adult Health
DX: N20.0 Calculus of kidney (principal); R31.9 Hematuria, unspecified
CPT/HCPCS: 36415; 80048; 81001; 83970; 84550

== ENCOUNTER 2020-08-01 10:15 | Observation (INO) | payer MEDICARE, OTHER, SELFPAY ==
[2020-06-22 14:22] VITALS: BMI 28.8
--- NOTE | 2020-07-27 13:37 | EKG12_ITS ---
Test Reason : PRE OP Blood Pressure : / mmHG Vent. Rate : 083 BPM Atrial Rate : 083 BPM P-R Int : 158 ms QRS Dur : 082 ms QT Int : 384 ms P-R-T Axes : 015 -03 043 degrees QTc Int : 451 ms Normal sinus rhythm Poor R- wave progression Confirmed by ZAYRA PAEZ, GAIL ([id number]), market editor KYLEE CHAMPION ([id number]) on 07/28/2020 9:27:10 AM Referred By: Chang La Confirmed By:GAIL IVERSON MD
[2020-07-27 14:44] LABS: Hematocrit 38.9 % (37-47); Hemoglobin 12.2 g/dL (12.0-15.0); Mean Corp Hgb Conc 31.4 g/dL (32-36); Mean Corpuscular Hgb 30.4 pg (27.0-32.0); Mean Platelet Vol. 10.1 fl (6.2-12.0); Platelet Count 252 K/mm3 (150-450); RBC Distribution Width CV 14.3 % (11.6-14.6); RBC Distribution Width SD 51.5 fl (35.1-43.9); Red Blood Count 4.01 M/mm3 (4.2-5.4); White Blood Count 6.6 K/mm3 (4.4-11.0)
[2020-07-27 14:53] LABS: Prothrombin Time (Protime)PT. 12.9 SECONDS (11.7-14.9)
[2020-07-27 14:54] LABS: Partial Thromboplast Time 30.9 Seconds (24.1-36.2)
[2020-07-27 15:12] LABS: Thyroid Stim Hormone (TSH) 1.61 uIU/mL (0.358-3.74)
[2020-08-01] VITALS (12 sets, daily range): BP systolic 97–139; BP diastolic 56–79; PULSE 66–89; RESP 16–20; TEMP 36.1–37.1; O2SAT 94–100; BMI 29.9
--- NOTE | 2020-08-01 | HERN_PTH ---
PATIENT: MOISÉS MCKEON LOC: MS3 U#:[id number] AGE/SX: 69/F ROOM: MS314 RE08/01/[address]: Dr. Chang La MD : 1950 BED: 1 DIS: 08/02/2020 SPEC #: [id number] RECD: 08/01/20 10:44 STATUS: LAURA MOYA #: [id number] ERICKA: 08/01/20 00:[address]: Chang La DEPT: SURGICAL PATHOLOGY RECD BY: Alexandro Mcdonald ENTERED: 08/01/20 10:44 SP TYPE: Hernia OTHR DR: Dr. Rohith López MD Tissues: HERNIA Procedures: Surgery Specimen Level II HEADER OPERATION: Laparoscopic repair of hiatal hernia with laparoscopic [place] PRE-OP DIAGNOSIS: Hiatal hernia, GERD, esophagitis TISSUE SUBMITTED: Hiatal hernia sac MICROSCOPIC DIAGNOSIS Hiatal hernia sac: A piece of adipose tissue, clinically hiatal hernia sac. Two benign lymph nodes with reactive changes. BRUCE:madisyn 08/02/2020 MICROSCOPIC DESCRIPTION Slides are reviewed. GROSS DESCRIPTION Received in fixative is one container labeled with the patient's name and designated hiatal hernia. The specimen consists of an irregular piece of adipose tissue measuring 12 x 4 x 1 cm. Hand Cutter Apprentice sections are submitted in one cassette. / BRUCE:madisyn 08/01/20 TC:5 [facility]: [id number]
--- NOTE | 2020-08-01 06:11 | HP.PCM_ITS ---
Problem List (1) Hiatal hernia Status: Acute (2) GERD (gastroesophageal reflux disease) Status: Chronic Qualifiers: History and Physical Date of Admission: 08/01/20 Intake Visit Reasons: Re-discuss hiatal hernia surgery Chief Complaint: discuss lap efrain Online Marketing Director Required: No Is patient in pain?: No Allergies No Known Allergies Allergy (Verified 06/22/20 14:29) Medications Ferrous Sulfate 325 mg PO DAILY@0800 11/10/15 [History Confirmed 06/22/20] Lisinopril [Zestril] 10 mg PO DAILY 04/22/18 [History Confirmed 06/22/20] Simvastatin [Zocor] 40 mg PO QHS 04/22/18 [History Confirmed 06/22/20] levothyroxine 88 mcg tablet 75 mcg PO DAILY tab 02/05/20 [History Confirmed 06/22/20] naproxen 500 mg tablet 500 mg PO BID 02/05/20 [History Confirmed 06/22/20] famotidine 20 mg tablet 20 mg PO BID 03/17/20 [History Confirmed 06/22/20] Is last menstrual period known: No Post menopausal: Yes Patient : No [facility] Medical History Hiatal hernia (Acute) Chronic pansinusitis (Chronic) Diverticulosis (Chronic) Hypothyroid (Chronic) Hypertension (Chronic) High cholesterol (Chronic) GERD (gastroesophageal reflux disease) (Chronic) Other chronic sinusitis (Chronic) Anemia (Acute) Arthritis (Acute) Hiatal hernia (Acute) History of back problems (Acute) Surgical History (Updated 06/22/20 @ 14:29 by Mariaelena Jimenez) History of back surgery (Acute) History of esophagogastroduodenoscopy (EGD) (Acute ~2020) History of extraction of renal calculus (Acute ~03/2020) History of foot surgery (Acute) History of sinus surgery (Acute) History of thyroidectomy (Acute) Social History (Updated 06/22/20 @ 15:[address] Chang La MD) Smoking Status: Never smoker alcohol intake: never substance use type: does not use HPI HPI: MOISÉS MCKEON, is a 69 F who presents to the office today for surgical consultation regarding difficulties with swallowing and intermittent chest disco mfort and a large hiatal hernia. The patient is referred by Dr. Nick Vela and a written copy of my surgical consult and recommendations will return to him. Her primary care physician is Dr. Nick López. This is a 69-year-old female. I have assisted her with a combined upper and lower endoscopy November 11, 2015. At that time she had a moderately large hiatal hernia. There is no evidence for any upper or lower gastrointestinal blood loss. She was being evaluated for anemia at that time. She had extensive descending and sigmoid colon diverticulosis. No polyps. Next screening colonoscopy was recommended to be in 10 years. Because of her current symptoms and evaluation she had a barium swallow done at the [facility] on January 18, 2020. This now shows a large hiatal hernia with GE reflux and the barium tablet trapped at the GE junction. It is said to be a sliding hiatal hernia pending on my review I am questioning whether this is a paraesophageal hiatal hernia. Because of the chest discomfort she has had a cardiac stress test done on November 18, 2019. Ejection fraction at 71% with no ischemia. She also previously had a abdominal pelvic CT scan done November 10, 2018. At that time she had C. difficile colitis. The images showed residual colitis of the left hemicolon. The right hemicolon had improved. She also states that recently she has had 2 sinus procedures done by Dr. Gtz. She claims that she has had fungal involvement. She states that she will still require ongoing care. Her diet is changed. She states that she now changes to grazing eating much smaller meals. Some she has a sensation of something getting stuck at globus sensation. She occasionally will have chest discomfort where she tries to rub her chest to make it better. My previous notes reflect the following symptoms. She has problems swallowing meat particularly beef and pork. She feels like it gets hung up in her proximal esophagus and she has to wiggle and move to get it to go 1. She also separately has retrosternal discomfort. Since her manometry from her midsternum distally to the xiphoid is been uncomfortable for her. It is of note that she has previously been on Nexium and then more recently omeprazole but she stopped both those medications. She states that incidentally her abdominal discomfort and abnormal softer stools have resolved for the most part. She states that she eats mostly by grazing very small meals. Since her previous office visit she was placed on famotidine. Interestingly this has helped her significantly. She has been able to eat slightly more food. She still notes intermittent discomfort and swallowing problems. On March 08, 2020 we did a esophagogastroduodenoscopy with biopsy showing a large hiatal hernia and reflux esophagitis. Z-line was at 35 cm. We went over the results of the upper endoscopy demonstrating the gastritis H. pylori negative and the reflux esophagitis. The manometric study essentially normal. She had had a barium swallow as well. [facility] Imaging Services [address] [place] [address] Esophagus Dual Contrast MR#: [id number] Name: MOISÉS MCKEON ANNRep #:[id number] : [id number] From: Preston Elam MD PCP:Dr. Rohith López MD Status:REG CLI Study:Esophagus Dual Contrast Date of Exam:01/18/20 Exam#[id number] Ordering Dr: Rohith Vela MD STUDY: X-RAY - ESOPHAGUS (BARIUM SWALLOW) WITH FLUOROSCOPY REASON FOR EXAM: Female, 69 years old. Difficulty swallowing, has trouble with big meals, hx of thyroidectomy TECHNIQUE: 45 view(s) of the esophagus were obtained following swallowing of barium. FLUOROSCOPY TIME (if supplied): (0:48) minutes/seconds COMPARISON: None. FINDINGS: There is no demonstrated esophageal foreign body. There is evidence of tertiary contractions of the distal esophagus. There is a large sliding hiatal hernia without gastroesophageal reflux. The patient ingested a 12 mm tablet of barium. The tablet is trapped at the gastroesophageal junction. Incidental note is made of a small diverticulum along the medial aspect of the second portion of the duodenum. There is atherosclerotic calcification of the aortic arch with tortuosity of the descending aorta. Evidence of prior thyroidectomy There are diffuse degenerative changes of the visualized thoracic spine. RAD/Esophagus Dual Contrast IMPRESSION: Large sliding hiatal hernia without gastroesophageal reflux. The ingested 12 mm tablet of barium is trapped at the gastroesophageal junction. Electronically Signed: Preston Elam, at 8:39 EDT , Service support , HPI HPI HPI: MOISÉS MCKEON, is a 69 F who presents to the office today for ROS General General: No weight change, appetite, fatigue, colon cancer, breast cancer or weakness HEENT HEENT: Yes difficulty swallowing; no eye injury, eye surgery, swollen glands or hoarseness Endo Endocrine: Yes thyroid disease; no diabetes mellitus, thyroid cancer, Hair loss, heat intolerance or cold intolerance Skin Skin: No rash or changing moles Breast Breast: No left breast lump, right breast lump, nipple discharge, breast pain, abnormal mammogram, abnormal US or breast enlargement Musc Musculoskeletal: Yes back problems and arthritis; no rheumatoid arthritis, gout or joint pain Cardio Cardiovascular: Yes high blood pressure; no murmur, pacemaker, heart disease, atrial fibrillation, heart attack, heart stent, palpitations, shortness of breat with exertion or chest pain Psych Psychiatric: Yes anxiety; no depression or hearing voices Resp Respiratory: No shortness of breath, No sleep apnea, No cough, No COPD, No asthma, No emphysema, No wheezing Gastro Gastrointestinal: Yes abdominal pain, Yes nausea or vomiting, Yes diarrhea, Yes constipation, No blood in stool, Yes acid reflux, Yes hemorrhoids, No ulcers, No gallbladder problem, Yes black,tarry stools [place]man Hematologic: No blood thinners, No blood disorders, No bleeding, Yes anemia, No blood clots Neuro Neurologic: No system reviewed and no additional complaints, except as docu, No as per HPI, No abnormal walking, No abnormal hearing, No abnormal movements, No abnormal speech, No behavioral changes, No burning sensations, No confusion, No seizure-like activity, No unsteadiness, No dizziness, No localized weakness, No frequent falls, No headache(s), No lack of coordination, No loss of vision, No memory loss, No numbness, No other visual disturbances, No radiating pain, No restless legs, No sensory deficit, No fainting, No tingling, No tremor(s), No weakness, No other Exam Const General: cooperative, healthy appearing, comfortable, no acute distress Nutritional Appearance: average body habitus Orientation: alert, awake HENNH Head: normal to inspection Eyes General: appearance normal, both eyes and all related structures Neck Neck: normal visual inspection Chest Breast Palpation: No nipple discharge Resp Effort & Inspection: normal respiratory effort Auscultation: clear to auscultation bilaterally Cardio Rate: regular rate Rhythm: regular rhythm Heart Sounds: no murmurs GI Palpation: soft, no hepatosplenomegaly Musc Cervical Spine: normal cervical lordosis Neuro General: alert, awake Extrem General: no calf tenderness Psych Affect: normal affect Assessment & Plan Problems 1. Hiatal hernia K44.9 2. Gastroesophageal reflux disease with esophagitis without hemorrhage K21.00 Plan 69-year-old female. She has been worked up for a sizable hiatal hernia with reflux esophagitis. Esophageal manometry suggests adequate esophageal motility. I did recommend to her consideration for laparoscopic repair. Due to the COVID-19 pandemic this has been postponed. She presents back now interesting enough improved with famotidine apparently more so than previous proton pump inhibitors. She has had a previous cardiac stress test on November 18, 2019 with an ejection fraction of 71% with no ischemia. She had a previous abdominal pelvic CT scan done November 10, 2018 at which time she had C. difficile colitis of the left hemicolon. The right hemicolon had improved at that time. She has had 2 sinus operations performed by Dr. Patel but that was now over a year ago. Within the past month or so she had kidney stone surgery done at [facility]. Apparently she has multiple residual stones but does not require intervention at this time according to the patient. I propose for her a laparoscopic repair of hiatal hernia. I do propose for her consideration of a laparoscopic toupee. Based upon her essentially normal manometry I would anticipate at least a 270 degree wrap. She has had an opportunity to ask and have questions answered. No guarantees of success have been offered. She is aware of the technique, benefit, risk, alternatives. We will schedule and proceed at her discretion. She is having the second COVID- 19 vaccination next week. We will delay that until mid July to proceed. Copy: Dr. Nick La M.D., F.A.C.S. Coding Level of Care Code Off vis,est,level 2 Diagnoses Hiatal hernia K44.9 Gastroesophageal reflux disease with esophagitis without hemorrhage K21.00 ??Esophagitis presence: with esophagitis ??Esophagitis bleeding: without hemorrhage I have re-examined the patient. There are no clinical changes since date of exam. Procedure Criteria Procedure Type: Elective COVID Risk Discussion: The surgeon/proceduralist and patient have discussed in detail the risk of exposure to and/or potential harm posed by the COVID-19 virus with having a surgery/procedure at this time versus the risk of delaying the surgery/procedure. It is not possible to know either the risk of delaying the surgery or procedure or chance of getting an infection with perfect accuracy, but a joint decision was made between the patient and the surgeon/proceduralist to proceed at this time with the scheduled surgery/procedure as indicated on the consent form.
--- NOTE | 2020-08-01 06:14 | DCINST_ITS ---
Discharge Diet: - - See specific dietary instructions provided with [facility] surgical postoperative instructions Discharge Activity: May Shower Lifting Restrictions: 10 pounds Allergies/Adverse Reactions: Allergies No Known Allergies Allergy (Verified 07/26/20 15:30) Medications to take at Discharge Ferrous Sulfate 325 mg PO DAILY@0800 11/10/15 Lisinopril [Zestril] 10 mg PO DAILY 04/22/18 Simvastatin [Zocor] 40 mg PO QHS 04/22/18 levothyroxine 88 mcg tablet 75 mcg PO DAILY tab 02/05/20 naproxen 500 mg tablet 500 mg PO BID 02/05/20 famotidine 20 mg tablet 20 mg PO BID 03/17/20 Primary Care Physician: Rohith López MD [Primary Care Provider] - Test Results: Test results from this visit will be discussed in further detail at your follow- up appointment, if applicable. Please Follow Up With: Chang La MD - [phone] When: Call to make an appointment to be seen in about 10 days.
[2020-08-01] MEDS: Lactated Ringers 1,000 ML 100 ML IV ×4 (06:57→10:45)
[2020-08-01] MEDS: Cefazolin 2 GM in 0.9% Normal Saline 100 ML IV (07:17)
[2020-08-01] MEDS: Bupivacaine Mpf 0.5% 30 ML VIAL (07:40)
--- NOTE | 2020-08-01 10:04 | OP.PCM_ITS ---
Problem List (1) Hiatal hernia Status: Acute (2) GERD (gastroesophageal reflux disease) Status: Chronic Qualifiers: Report of Operation Date of Procedure: 08/01/20 Pre-Operative Diagnosis: Large hiatal hernia with gastroesophageal reflux disease Post-Operative Diagnosis: Same Surgery/Procedure Performed:: Laparoscopic paraesophageal hiatal herniorrhaphy with laparoscopic toupet procedure. Esophagogastroduodenoscopy Description of Surgical Findings:: Timeout and informed consent was obtained. 69-year-old female was taken the operating place upon the table underwent general endotracheal intubation and anesthesia. Ancef 2 g were given intravenously preoperatively. The patient was then placed in a low lithotomy position. The abdomen was sterilely prepped and draped. Ioban draping was used. Careful buttock roll with rolled blanket was performed. The patient was placed in a slight reverse Trendelenburg position. Superior right mid abdomen above the umbilical area 5 mm Visiport technology was used to gain access to the abdomen. This was done cleanly. The abdomen was insufflated with CO2 to a pressure of 10 mmHg pressure. 10 mm trocar was placed in the left upper quadrant and 2 more 5 mm ports in the lateral left upper quadrant. A Ruth retractor was placed in the epigastric area and help s ecure the left lobe of the liver. A very large hiatal hernia encountered with the fundus of the stomach rotated in position. The stomach was rotated back down into the abdomen and the epiphrenic ligament and hernia sac identified. The hernia sac was incised to allow for the combo dioxide to assist with the dissection. The entire anterior portion of the hernia sac was released from the diaphragmatic crura. I then transected the short gastrics with harmonic scalpel. Was able to cleanly see flattened out and adherent stomach on the left and this was carefully freed. Then tediously I was able to dissect well into the mediastinum at the least 8 cm circumferentially. The vagus nerve was identified and protected with the esophagus. 1/2 inch Carlos drain was eventually placed around the esophagus to assist with positioning and dissection. Absolutely wonderful mobilization of the esophagus was achieved. This allowed for the EG junction of the well below the diaphragmatic level. Cru ra were nicely visualized. Using pledgeted 0 Ethibond sutures in a simple fashion I approximated the crura. 5 sutures were required. 45 mm bougie was inserted demonstrating good sizing of the diaphragmatic repair. The fundus of the stomach was then wrapped around posteriorly and was secured to the diaphragm with a 0 Ethibond suture. Now a toupet seizure was performed suturing the wrap portion of the stomach to the 10 o'clock position of the esophagus into the epiphrenic ligament and the wrap portion of the stomach: One 2-0 Ethibond suture. In a running fashion I then approximated the wrap portion of the stomach to the 10 o'clock position of the anterior lateral wall of the esophagus. 2 cm in length was performed. In a similar fashion that I tested the fundus portion of the stomach and then again secured that to the esophagus and to the epiphrenic ligament. Excellent positioning was achieved. The stomach was then secured to the 2 o'clock position of the esophagus using a running 2-0 Ethibond. This was performed for 2 cm in length. I was very pleased with the good release of the esophagus and good positioning of the wrap. It is of note that the hernia sac was resected Performing the partial wrap. I released that from the anterior wall of the stomach/esophagus using harmonic scalpel. Great care was taken not to injure either of those 2 hollow structures. The hernia sac and and placed in a retrieval bag was exited through the 10 mm port site. Hemostasis was nicely intact. Now I placed a flexible gastroscope inserted in the esophageal inlet advanced it back down to about 38 cm at the EG junction. I was able to advance it through without undue tension advanced through the pylorus reinspected the duodenum not remarkable the antrum of the stomach also was unremarkable there was some mucosal irritation in the fundus and cardia of the stomach stomach now in correct position. The graft portion of the fundoplication could be identified internally. Photographs were obtained. Now the extra fluid was aspirated free there was no air leak. The 10 mm port site was closed with a [id number] needle of 0 Vicryl using a GraNee needle. The Ruth retractor was removed. Pneumoperitoneum was deflated through an antiviral port. Trochars removed. Skin edges approximated with 4 Monocryl subdermal stitches. Steri-Strips Telfa OpSite dressings applied. Throughout the procedure 0.5% Marcaine was used as a local anesthetic and skin sites were preanesthetized. I performed a mini tap block left subcostal with the Marcaine under laparoscopic visualization. Sponge and instrument and needle counts reported the surgery were correct. Blood loss minimal. Specimens hernia sac. Drains none. The patient was taken to the recovery area in satisfactory edition without apparent complication Chang La M.D., F.A.C.S. Type of Anesthesia:: General Anesthesiologist: Hector Huerta
[2020-08-01] MEDS: Lactated Ringers 1,000 ML 30 ML IV (10:47)
[2020-08-01] MEDS: Acetaminophen 325 MG Tablet 650 MG PO (14:40)
--- NOTE | 2020-08-01 14:58 | OP.EGD_ITS ---
Patient Name: Linsey Bobo Procedure Date: 08/01/2020 9:30 AM Date of : 1950 Age: 69 Procedure: Upper GI endoscopy Indications: Reflux esophagitis Providers: Chang La MD Medicines: See the Anesthesia note for documentation of the administered medications Complications: No immediate complications. Procedure: Pre-Anesthesia Assessment: - Prior to the procedure, a History and Physical was performed, and patient medications and allergies were reviewed. The patient's tolerance of previous anesthesia was also reviewed. The risks and benefits of the procedure and the sedation options and risks were discussed with the patient. All questions were answered, and informed consent was obtained. Prior Anticoagulants: The patient has taken no previous anticoagulant or antiplatelet agents. ASA Grade Assessment: II - A patient with mild systemic disease. After reviewing the risks and benefits, the patient was deemed in satisfactory condition to undergo the procedure. After obtaining informed consent, the endoscope was passed under direct vision. Throughout the procedure, the patient's blood pressure, pulse, and oxygen saturations were monitored continuously. The Endoscope was introduced through the mouth, and advanced to the second part of duodenum. The upper GI endoscopy was accomplished without difficulty. The patient tolerated the procedure well. Scope In: 9:48:54 AM Scope Out: 9:54:26 AM Total Procedure Duration Time 0 hours 5 minutes 32 seconds Findings: The examined esophagus was normal. Evidence of a Toupet fundoplication was found in the gastric fundus. The wrap appeared intact. The examined duodenum was normal. Impression: - Normal esophagus. - A Toupet fundoplication was found. The wrap appears intact. - Normal examined duodenum. - No specimens collected. Recommendation: - Observe patient in same day observation unit for ongoing care. - Clear liquid diet. - Return to my office in 10 days. - Continue present medications. Procedure Code(s): --- Professional --- 16157, Esophagogastroduodenoscopy, flexible, transoral; diagnostic, including collection of specimen(s) by brushing or washing, when performed (separate procedure) Diagnosis Code(s): --- Professional --- Z98.890, Other specified postprocedural states K21.0, Gastro-esophageal reflux disease with esophagitis CPT copyright 2017 [employer]. All rights reserved. The codes documented in this report are preliminary and upon salesperson wigs review may be revised to meet current compliance requirements. Chang La MD 08/01/2020 10:15:18 AM This report has been signed electronically. Number of Addenda: 0 Note Initiated On: 08/01/2020 9:30 AM
[2020-08-01] MEDS: Atorvastatin Calcium 20 MG Tablet PO (21:09)
[2020-08-01] MEDS: Naproxen 500 MG Tablet PO (21:09)
[2020-08-01] MEDS: Famotidine 20 MG Tablet PO (21:09)
[2020-08-02 00:13] VITALS: BP 136/61; PULSE 72; RESP 18; TEMP 36.9; O2SAT 97
[2020-08-02] MEDS: Acetaminophen 325 MG Tablet 650 MG PO (00:23)
[2020-08-02] MEDS: HYDROcodone Bitartrate/Apap 5/325 Tablet PO ×2 (00:33→05:10)
[2020-08-02] MEDS: Enoxaparin 40 MG/0.4 ML Syringe SC (05:10)
[2020-08-02] MEDS: Levothyroxine 75 MCG Tablet PO (05:10)
[2020-08-02 08:05] VITALS: BP 121/60; PULSE 72; RESP 18; TEMP 36.4; O2SAT 96
--- NOTE | 2020-08-02 09:18 | PN.SURG_ITS ---
Subjective Subjective: Patient evaluated resting comfortably in bed. She noted shoulder pain earlier this morning, however she did take a narcotic medication which helped take away her shoulder pain. She denies nausea, vomiting. She has to lerated a clear liquid diet. She notes LUQ discomfort with exertion. She is urinating well. Objective Data Objective Data Vital Signs: Vital Signs Temp Pulse Resp BP Pulse Ox 97.6 F L 72 18 121/60 H 96 08/02/20 08:05 08/02/20 08:05 08/02/20 08:05 08/02/20 08:05 08/02/20 08:05 Oxygen Delivery Method Room Air Weight: 180 lb 5.41 oz Body Mass Index (BMI) 29.9 Intake & Output: Intake and Output for Last 24 Hours 07/31/20 08/01/20 08/02/20 23:59 23:59 23:59 Intake Total 1881.67 / 1881.67 Output Total 350 / 350 Balance 1531.67 / 1531.67 Lab / Micro Data Result Diagrams: 07/27/20 14:17 Physical Exam GI Inspection: abdominal distention Auscultation: hypoactive bowel sounds Palpation: tender LUQ Assessment & Plan Assessment/Plan (1) Hiatal hernia: Status: Acute Code(s): K44.9 - Diaphragmatic hernia without obstruction or gangrene Plan: Discussed patient with Dr. La Increase diet to full liquids with foods that melt at room temperature Post-operative discharge instructions have been reviewed Patient has resumed all home medications Inpatient E&M: 41556 Init Hosp L1 (post-op no charge)
--- NOTE | 2020-08-02 10:30 | CASEMGMT ---
VERA BORGES in to discuss CHILD Form with patient. RN KATERINA explained CHILD Form to patient, patient voiced understanding. Patient signed CHILD Form and filed in chart. RN KATERINA provided copy of signed form to patient. Patient had no further questions or concerns at this time.
[2020-08-02] MEDS: Naproxen 500 MG Tablet PO (10:55)
[2020-08-02] MEDS: Lisinopril 10 MG Tablet PO (10:55)
[2020-08-02] MEDS: Famotidine 20 MG Tablet PO (10:55)
[2020-08-02] MEDS: 0.9% Saline Lock 10 ML Syringe IV (12:12)
[2020-08-02 13:29] VITALS: BP 130/56; PULSE 73; RESP 18; TEMP 36.7; O2SAT 96
== END 2020-08-02 14:00 | disposition home or self-care (01) ==
LOC: SDC 11:35 → MS3 11:35
PROVIDERS: Anesthesiology; Admitting Provider Surgery; PCP Family Medicine; Referring Provider Surgery; Visit Provider Surgery
PROC: (CPT 43325; principal; 2020-08-01 07:10)
DX: K44.9 Diaphragmatic hernia without obstruction or gangrene (principal); K21.00 Gastro-esophageal reflux disease with esophagitis, without bleeding; I10 Essential (primary) hypertension; E78.00 Pure hypercholesterolemia, unspecified; M19.90 Unspecified osteoarthritis, unspecified site; D64.9 Anemia, unspecified; R13.10 Dysphagia, unspecified; Z79.899 Other long term (current) drug therapy; Z87.19 Personal history of other diseases of the digestive system; G25.81 Restless legs syndrome; Z79.1 Long term (current) use of non-steroidal anti-inflammatories (NSAID); E03.9 Hypothyroidism, unspecified
CPT/HCPCS: 00790; 43235; 43281; 36415; 84443; 85027; 85610; 85730; 88302; 93005; 96360; 96372; 99218; 99251; J7120; A4216; G0378; G0379; G0463; J2405

== ENCOUNTER 2020-08-12 09:16 | Day surgery (SDC) | payer MEDICARE, OTHER, SELFPAY ==
[2020-08-01 12:16] VITALS: BMI 29.9
[2020-08-12] VITALS (8 sets, daily range): BP systolic 106–152; BP diastolic 55–91; PULSE 65–88; RESP 14–16; TEMP 36.8–37.1; O2SAT 95–100; BMI 29.0
[2020-08-12] MEDS: Lactated Ringers 1,000 ML 100 ML IV (10:08)
--- NOTE | 2020-08-12 10:12 | HP.PCM_ITS ---
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 tab 02/05/20 [History Confirmed 08/01/20] naproxen 500 mg tablet 500 mg PO BID 02/05/20 [History Confirmed 07/26/20] famotidine 20 mg tablet 20 mg PO BID 03/17/20 [History Confirmed 07/26/20] hydrocodone-acetaminophen 1 tab PO Q6H PRN PRN 3 Days #9 tab 08/02/20 [Rx] PFSH Medical History? Anemia Arthritis Chronic pansinusitis Diverticulosis GERD (gastroesophageal reflux disease) Hiatal hernia Hiatal hernia High cholesterol History of back problems Hypertension Hypothyroid Other chronic sinusitis Surgical History? History of back surgery History of esophagogastroduodenoscopy (EGD) (~2020) History of extraction of renal calculus (~03/2020) History of foot surgery History of repair of hiatal hernia History of sinus surgery History of thyroidectomy Social History? Smoking Status:? Never smoker? alcohol intake:? never? substance use type:? does not use? HPI HPI HPI: MOISÉS MCKEON, is a 69 F who presents to the office today for s/p laparoscopic toupet repair. Dr. La performed a laparoscopic toupet procedure on 08/01/20. Patient tolerated the procedure well. She notes in follow-up today that she has had difficulty with swallowing of pudding, thin oatmeal, mac n cheese. She has also noted last night she had mac n cheese which felt heavy. She noted this morning difficulty with medication going down, water. She noted difficulty swallowing yogurt an applesauce. She notes having to sit straight up in order for food to slowly go down. She notes having a feeling of wanting to belch however can not. She denies nausea, vomiting. She denies incisional pain/discomfort. She denies discomfort with swallowing. ?? ROS General General: No weight change, appetite, fatigue, colon cancer, breast cancer or weakness HEENT HEENT: Yes difficulty swallowing;? No eye injury, eye surgery, swollen glands or hoarseness Endo Endocrine: Yes thyroid disease;? No diabetes mellitus, thyroid cancer, Hair loss, heat intolerance or cold intolerance Skin Skin: No rash or changing moles Breast Breast: No left breast lump, right breast lump, nipple discharge, breast pain, a bnormal mammogram, abnormal US or breast enlargement Musc Musculoskeletal: Yes back problems and arthritis;? No rheumatoid arthritis, gout or joint pain Cardio Cardiovascular: Yes high blood pressure;? No murmur, pacemaker, heart disease, atrial fibrillation, heart attack, heart stent, palpitations, shortness of breat with exertion or chest pain Psych Psychiatric: Yes anxiety;? No depression or hearing voices Resp Respiratory: No shortness of breath, No sleep apnea, No cough, No COPD, No asthma, No emphysema and No wheezing Gastro Gastrointestinal: Yes abdominal pain, Yes nausea or vomiting, Yes diarrhea, Yes constipation, No blood in stool, No acid reflux, Yes hemorrhoids, No ulcers, No gallbladder problem and No black,tarry stools [place] Hematologic: No blood thinners, No blood disorders, No bleeding, No anemia and No blood clots Neuro Neurologic: No system reviewed and no additional complaints, except as documented, No as per HPI, No abnormal gait, No abnormal hearing, No abnormal movements, No abnormal speech, No behavioral changes, No burning sensations, No confusion, No convulsions, No disequilibrium, No dizziness, No localized weakness, No frequent falls, No headache(s), No lack of coordination, No loss of vision, No memory loss, No numbness, No other visual disturbances, No radicular pain, No restless legs, No sensory deficit, No syncope, No tingling, No tremor(s), No weakness and No other Exam Const General: cooperative, healthy appearing, comfortable and no acute distress [facility] Head: normal to inspection Eyes General: appearance normal, both eyes and all related structures Neck Neck: normal visual inspection Resp Effort & Inspection: normal respiratory effort Auscultation: clear to auscultation bilaterally Cardio Rate: regular rate Rhythm: regular rhythm GI Inspection: normal to inspection Auscultation: normal bowel sounds Other: Abdomen- incisions c/d/i. No erythema or infection noted Skin General: no rashes or lesions noted Neuro General: no focal motor deficits and CN's II-XI intact bilaterally Extrem General: normal to inspection Psych Appearance: grossly normal Affect: normal affect Assessment and Plan Assessment and Plan (1) History of repair of hiatal hernia:?Status:?Acute ?Comment: Lap toupet- 08/01/2020 ?Plan - Janett EVANS PA-C:? Patient's symptoms were discussed with Dr. Kothari. Dr. La will plan to perform an upper scope with possible dilatation. Procedure details, risks and benefits have been explained to the patient. Patient has had the opportunity to ask and have questions answered. Patient will remain on clear liquids for the remaining of today. NPO after midnight. Call in the morning to give process report. Patient verbally understands and agrees with the plan.? Coding Level of Care Code Global Post Op Exam Problem Focused Diagnoses History of repair of hiatal hernia? Z98.890; Z87.19 I concur with the above findings. The patient contacted the office today and is still symptomatic. She is aware of the technique, benefit, risk and alternatives. We will proceed with her discretion. Chang La M.D., F.A.C.S.
[2020-08-12] MEDS: Midazolam 5 MG/ML Syringe (10:30)
--- NOTE | 2020-08-12 10:47 | OP.EGD_ITS ---
Patient Name: Linsey Bobo Procedure Date: 08/12/2020 9:56 AM Date of : 1950 Age: 69 Procedure: Upper GI endoscopy Indications: Dysphagia Providers: Chang La MD Medicines: Meperidine 100 mg IV, Midazolam 3 mg IV Complications: No immediate complications. Procedure: Pre-Anesthesia Assessment: - Prior to the procedure, a History and Physical was performed, and patient medications and allergies were reviewed. The patient's tolerance of previous anesthesia was also reviewed. The risks and benefits of the procedure and the sedation options and risks were discussed with the patient. All questions were answered, and informed consent was obtained. Prior Anticoagulants: The patient has taken no previous anticoagulant or antiplatelet agents. ASA Grade Assessment: II - A patient with mild systemic disease. After reviewing the risks and benefits, the patient was deemed in satisfactory condition to undergo the procedure. After obtaining informed consent, the endoscope was passed under direct vision. Throughout the procedure, the patient's blood pressure, pulse, and oxygen saturations were monitored continuously. The gastroscope was introduced through the mouth, and advanced to the second part of duodenum. The upper GI endoscopy was accomplished without difficulty. The patient tolerated the procedure well. Moderate Sedation: Moderate (conscious) sedation was personally administered by the endoscopist. The following parameters were monitored: oxygen saturation, heart rate, blood pressure, and response to care. Total physician intraservice time was 13 minutes. Scope In: 10:33:29 AM Scope Out: 10:40:29 AM Total Procedure Duration Time 0 hours 7 minutes 0 seconds Findings: A prior Toupet fundoplication was found at the gastroesophageal junction. A TTS dilator was passed through the scope. Dilation with an 18-19-20 mm balloon dilator was performed to 19 mm. The dilation site was examined following endoscope reinsertion and showed mild improvement in luminal narrowing. Estimated blood loss was minimal. The entire examined stomach was normal. The examined duodenum was normal. Impression: - A Toupet fundoplication was found. Dilated. - Normal stomach. - Normal examined duodenum. - No specimens collected. Recommendation: - Discharge patient to home. - Resume previous diet. - Continue present medications. - Await pathology results. - Telephone my office in 3 days. Procedure Code(s): --- Professional --- 30894, Esophagogastroduodenoscopy, flexible, transoral; with transendoscopic balloon dilation of esophagus (less than 30 mm diameter) 42213, 59, Moderate sedation services provided by the same physician or other qualified health healthcare financial analyst performing the diagnostic or therapeutic service that the sedation supports, requiring the presence of an independent trained observer to assist in the monitoring of the patient's level of consciousness and physiological status; initial 15 minutes of intraservice time, patient age 5 years or older Diagnosis Code(s): --- Professional --- Z98.890, Other specified postprocedural states R13.10, Dysphagia, unspecified CPT copyright 2017 [employer]. All rights reserved. The codes documented in this report are preliminary and upon cutter apprentice hand review may be revised to meet current compliance requirements. Chang La MD 08/12/2020 10:47:04 AM This report has been signed electronically. Number of Addenda: 0 Note Initiated On: 08/12/2020 9:56 AM
--- NOTE | 2020-08-12 10:47 | OP.CCLET_ITS ---
08/12/2020 Rohith López Re : Upper GI endoscopy procedure for Linsey Bobo Dear Rene This procedure was performed on Wednesday, August 12, 2020. My impressions and recommendations are as follows: Impressions : - A Toupet fundoplication was found. Dilated. - Normal stomach. - Normal examined duodenum. - No specimens collected. Recommendations : - Discharge patient to home. - Resume previous diet. - Continue present medications. - Await pathology results. - Telephone my office in 3 days. My findings are described in the full procedure note, which is enclosed. If I can be of further assistance, please feel free to contact me at Doctor phone number(s): Work: . Sincerely, Chang La MD 08/12/2020 10:47:04 AM This report has been signed electronically.
== END 2020-08-12 11:43 ==
LOC: EN 09:17 → AC 09:18
PROVIDERS: PCP Family Medicine; Referring Provider Family Medicine; Visit Provider Surgery
PROC: (CPT 43249; principal; 2020-08-12 10:25)
DX: R13.10 Dysphagia, unspecified (principal); D64.9 Anemia, unspecified; I10 Essential (primary) hypertension; E78.00 Pure hypercholesterolemia, unspecified; E03.9 Hypothyroidism, unspecified; M19.90 Unspecified osteoarthritis, unspecified site; K21.9 Gastro-esophageal reflux disease without esophagitis; Z79.1 Long term (current) use of non-steroidal anti-inflammatories (NSAID); Z79.890 Hormone replacement therapy; Z79.899 Other long term (current) drug therapy; Z98.890 Other specified postprocedural states
CPT/HCPCS: 43249; 99152; 99153; J7120

== ENCOUNTER 2021-10-23 23:10 | Emergency (ER) | payer MEDICARE, OTHER, SELFPAY ==
[2021-10-23 23:11] VITALS: BP 128/73; PULSE 94; RESP 18; TEMP 38.3; O2SAT 94; BMI 29.2
[2021-10-23 23:14] VITALS: BP 152/70; PULSE 94; RESP 17; TEMP 38.3; O2SAT 94
--- NOTE | 2021-10-23 23:38 | EKG12_ITS ---
Test Reason : dizziness Blood Pressure : / mmHG Vent. Rate : 100 BPM Atrial Rate : 100 BPM P-R Int : 164 ms QRS Dur : 078 ms QT Int : 328 ms P-R-T Axes : 053 028 067 degrees QTc Int : 423 ms Normal sinus rhythm Nonspecific ST and T wave abnormality Abnormal ECG Confirmed by ZAYRA PAEZ, GAIL ([id number]), multimedia editor SHANE TINAJERO ([id number]) on 10/30/2021 2:10:47 PM Referred By: Confirmed By:GAIL IVERSON MD
[2021-10-23 23:59] LABS: Mucous, Urine 0 SEEN /hpf (<or=2+); Squamous Epithelial Cells - UA 0 SEEN /hpf (5-10)
[2021-10-24] MEDS: Acetaminophen 325 MG Tablet 650 MG PO (00:02)
[2021-10-24] MEDS: Ondansetron ODT 4 MG Tablet PO (00:03)
[2021-10-24 00:05] LABS: Color, Urine Yellow (Yellow); Glucose, Dipstick Normal (Normal); Ketone-Dipstick Negative (Negative); Leukocyte Esterase-Dipstick 500 /ul (Negative); Nitrite-Dipstick Positive (Negative); Occult Blood-Urine 250 /ul (Negative); Protein-Dipstick 100 mg/dl (Negative); Specific Gravity, Urine 1.015 (1.002-1.030); Urine Bilirubin Dipstick Negative (Negative); Urine Clarity Cloudy (Clear); Urine Urobilinogen Normal (Normal)
[2021-10-24 00:13] LABS: Bacteria 2+ /hpf (None Seen); Red Blood Cells-Urine 25-50 SEEN /hpf (0-5); White Blood Cells >100 SEEN /hpf (0-5)
--- NOTE | 2021-10-24 00:40 | EDS_ITS ---
HPI History of Present Illness Chief Complaint: General Illness Informant: patient Narrative Narrative: Patient presents with dysuria frequency urgency and cloudy urine. This has been going on for about a week. She states she might have a little soreness in her back. She has a history of kidney stones but this does not present the same. She has not seen blood. She did not have sudden onset of pain. Today she had some fevers and chills so she came in. She did give a urine sample at his office earlier today but does not have the results. They did not start antibiotics. She has some very slight nausea but has been eating and drinking just fine. No real abdominal pain. Nothing really makes this better or worse. She has been trying to increase p.o. intake of fluids. [facility] AT [facility] Medical History Anemia Arthritis Chronic pansinusitis Diverticulosis GERD (gastroesophageal reflux disease) Hiatal hernia Hiatal hernia High cholesterol History of back problems Hypertension Hypothyroid Other chronic sinusitis Home Medications ferrous sulfate 325 mg (65 mg iron) tablet 325 mg PO DAILY@0800 supplement 11/10/15 [History Last Taken 07/31/20 22:00] lisinopril 10 mg tablet 10 mg PO DAILY bp 04/22/18 [History Last Taken 08/12/20 07:00 10 MG] simvastatin 40 mg tablet 40 mg PO QHS cholesterol 04/22/18 [History Last Taken 07/31/20 22:00] levothyroxine 88 mcg tablet 75 mcg PO DAILY thyroid 02/05/20 [History Last Taken 08/12/20 07:00 75 MCG] naproxen 500 mg tablet 500 mg PO BID 02/05/20 [History Last Taken 07/31/20 22:00] famotidine 20 mg tablet (Pepcid) 20 mg PO BID 03/17/20 [History Last Taken 08/01/20 04:30] hydrocodone-acetaminophen 5-325mg 5mg-325mg 1 tab PO Q6H PRN PRN PAIN 1-10 3 days #9 tabs 08/02/20 [Rx Last Taken Unknown] cephalexin 250 mg capsule 250 mg PO Q6 #40 caps 10/24/21 [Rx Last Taken Unknown] ondansetron 4 mg disintegrating tablet 4 mg PO Q8H PRN nausea and vomiting #10 tabs 10/24/21 [Rx Last Taken Unknown] Allergy/AdvReac Type Severity Reaction Status Date / Time tamsulosin [From Flomax] Allergy Other Verified 10/23/21 23:15 Surgical History History of back surgery History of esophagogastroduodenoscopy (EGD) (~2020) History of extraction of renal calculus (~03/2020) History of foot surgery History of repair of hiatal hernia History of sinus surgery History of thyroidectomy Social History Smoking Status: Never smoker alcohol intake: never substance use type: does not use ROS ROS ED Constitutional Constitutional ED: Reports chills, fever(s) and subjective ENT ENT ED: Denies rhinorrhea or sore throat Cardiovascular Cardiovascular: Denies chest pain or palpitations Respiratory/Chest Respiratory/Chest: Denies cough or dyspnea Gastrointestinal Gastrointestinal: Reports nausea; Denies abdominal pain or vomiting Genitourinary Genitourinary ED: Reports dysuria and urinary frequency; Denies hematuria Musculoskeletal Musculoskeletal: Reports back pain and other Details: Patient has some soreness in her back. But she is not sure if this is her typical back pain that she has. Its not that bad. Its not isolated to one side. Neurologic Neurologic: Denies paresthesias Endocrine Endocrinology: Reports polyuria; Denies polydipsia Hematologic/Lymphatic Hematologic/Lymphatic: Denies easy bleeding or easy bruising Allergic/Immunologic Allergic/Immunologic ED: Denies urticaria EXAM Physical Exam Const Vital Signs: 10/23/21 23:11 10/23/21 23:14 10/23/21 23:28 Temperature 101 F H 101.0 F H Temperature Source Temporal Temporal Pulse Rate 94 94 Respiratory Rate 18 17 Respiratory Effort Normal Blood Pressure 128/73 H 152/70 H Blood Pressure Mean 91 97 Pulse Ox 94 94 Oxygen Delivery Method Room Air Room Air Positive well nourished and well developed General Appearance ED: well developed and NAD HEENT Reports moist mucous membranes Eyes General Eye ED: Negative for pale conjunctiva or scleral icterus Neck no JVD Chest Wall inspection of chest normal and palpation of chest normal Resp normal respiratory effort and clear to auscultation bilaterally Auscultation: Negative for rales, rhonchi or wheezes Cardio regular rate and regular rhythm GI normal to inspection, nondistended, normoactive bowel sounds and non-tender GI Narrative: No tenderness. No suprapubic tenderness. Auscultation: normoactive bowel sounds Palpation: soft Back/Spine Back/Spine Narrative: No notable CVA tenderness. Extremity normal to inspection Neuro oriented x3 Sensorium / Orientation: alert; Negative for orientation impaired, lethargic or stuporous Psych mental status grossly normal Skin no rashes or lesions noted and no wounds MDM MDM MDM Narrative Medical decision making narrative: I discussed with the patient some options. I stated she does have symptoms of UTI. We could check the urine and treat if this is found. If not I think we need to look further. We certainly could do blood work and CT but she feels that this is not her kidney stone. She is eating and drinking. She has mild nausea only but no vomiting. She would prefer to just check the urine. That was her plan today but she just did not get the results. She has had C. difficile. I do not use fluoroquinolones. Any antibiotic is risk. We will try cephalexin. I explained that she can follow-up with her physician. They may be able to stop her antibiotics at 3 or 7 days if her urine is clean and she is asymptomatic. I will give her a 10-day supply though. Lab Data Attestation: I reviewed the patient's lab results. Labs: Laboratory Results - last 24 hr 10/23/21 23:29 Urine Color Yellow Urine Clarity Cloudy Urine pH 6.0 Ur Specific [place] 1.015 Urine Protein 100 H Urine Glucose (UA) Normal Urine Ketones Negative Urine Occult Blood 250 H Urine Nitrite Positive H Urine Bilirubin Negative Urine Urobilinogen Normal Ur Leukocyte Esterase 500 H Urine RBC 25-50 SEEN Urine WBC >100 SEEN Ur Squamous Epith Cells 0 SEEN Urine Bacteria 2+ Urine Mucus 0 SEEN Discharge Plan Triage Chief Complaint: General Illness ED Provider: Luis Gurrola Dx/Rx/DC Orders Clinical Impression: Urinary tract infection, Nausea Instructions: ED CYSTITIS Female Adult Prescriptions: New cephalexin [cephalexin] 250 mg capsule 250 mg PO Q6 Qty: 40 0RF ondansetron 4 mg tablet,disintegrating 4 mg PO Q8H PRN (Reason: nausea and vomiting) Qty: 10 0RF No Action naproxen 500 mg tablet 500 mg PO BID Label Comments: ask about stopping famotidine [Pepcid] 20 mg tablet 20 mg PO BID ferrous sulfate 325 MG tablet 325 mg PO DAILY@0800 Label Comments: on hold for procedure simvastatin 40 MG tablet 40 mg PO QHS lisinopril 10 MG tablet 10 mg PO DAILY levothyroxine 88 mcg tablet 75 mcg PO DAILY hydrocodone-acetaminophen 5-325 mg tablet 1 tab PO Q6H PRN PRN (Reason: PAIN 1-10) 3 Days Qty: 9 0RF Primary Care Provider: Rohith López Referrals: Rohith López MD [Primary Care Provider] - 1-2 Days if not improving (May recheck at 3 or 7 days. They may be able to stop your antibiotics early if your symptoms are gone and urine is clean.) Disposition Disposition: Home, Self Care
--- NOTE | 2021-10-24 00:49 | EDS_ITS ---
HPI History of Present Illness Chief Complaint: General Illness [facility] Medical History Anemia Arthritis Chronic pansinusitis Diverticulosis GERD (gastroesophageal reflux disease) Hiatal hernia Hiatal hernia High cholesterol History of back problems Hypertension Hypothyroid Other chronic sinusitis Home Medications ferrous sulfate 325 mg (65 mg iron) tablet 325 mg PO DAILY@0800 supplement 11/10/15 [History Last Taken 07/31/20 22:00] lisinopril 10 mg tablet 10 mg PO DAILY bp 04/22/18 [History Last Taken 08/12/20 07:00 10 MG] simvastatin 40 mg tablet 40 mg PO QHS cholesterol 04/22/18 [History Last Taken 07/31/20 22:00] levothyroxine 88 mcg tablet 75 mcg PO DAILY thyroid 02/05/20 [History Last Taken 08/12/20 07:00 75 MCG] naproxen 500 mg tablet 500 mg PO BID 02/05/20 [History Last Taken 07/31/20 22:00] famotidine 20 mg tablet (Pepcid) 20 mg PO BID 03/17/20 [History Last Taken 08/01/20 04:30] hydrocodone-acetaminophen 5-325mg 5mg-325mg 1 tab PO Q6H PRN PRN PAIN 1-10 3 days #9 tabs 08/02/20 [Rx Last Taken Unknown] cephalexin 250 mg capsule 250 mg PO Q6 #40 caps 10/24/21 [Rx Last Taken Unknown] ondansetron 4 mg disintegrating tablet 4 mg PO Q8H PRN nausea and vomiting #10 tabs 10/24/21 [Rx Last Taken Unknown] Allergy/AdvReac Type Severity Reaction Status Date / Time tamsulosin [From Flomax] Allergy Other Verified 10/23/21 23:15 Surgical History History of back surgery History of esophagogastroduodenoscopy (EGD) (~2020) History of extraction of renal calculus (~03/2020) History of foot surgery History of repair of hiatal hernia History of sinus surgery History of thyroidectomy Social History Smoking Status: Never smoker alcohol intake: never substance use type: does not use EXAM Physical Exam Const Vital Signs: 10/23/21 23:11 10/23/21 23:14 10/23/21 23:28 Temperature 101 F H 101.0 F H Temperature Source Temporal Temporal Pulse Rate 94 94 Respiratory Rate 18 17 Respiratory Effort Normal Blood Pressure 128/73 H 152/70 H Blood Pressure Mean 91 97 Pulse Ox 94 94 Oxygen Delivery Method Room Air Room Air [facility] Lab Data Attestation: I reviewed the patient's lab results. Labs: Laboratory Results - last 24 hr 10/23/21 23:29 Urine Color Yellow Urine Clarity Cloudy Urine pH 6.0 Ur Specific [place] 1.015 Urine Protein 100 H Urine Glucose (UA) Normal Urine Ketones Negative Urine Occult Blood 250 H Urine Nitrite Positive H Urine Bilirubin Negative Urine Urobilinogen Normal Ur Leukocyte Esterase 500 H Urine RBC 25-50 SEEN Urine WBC >100 SEEN Ur Squamous Epith Cells 0 SEEN Urine Bacteria 2+ Urine Mucus 0 SEEN EKG Initial EKG: Comments: EKG was done per protocol. EKG read by me showed a normal sinus rhythm with overall rate of 100. No ventricular ectopy. There are some nonspecific ST change but no sign of infarct. [place] interval, QRS duration and QTc normal. Discharge Plan Triage Chief Complaint: General Illness ED Provider: Luis Grurola Dx/Rx/DC Orders Clinical Impression: Urinary tract infection, Nausea Instructions: ED CYSTITIS Female Adult Prescriptions: New cephalexin [cephalexin] 250 mg capsule 250 mg PO Q6 Qty: 40 0RF ondansetron 4 mg tablet,disintegrating 4 mg PO Q8H PRN (Reason: nausea and vomiting) Qty: 10 0RF No Action naproxen 500 mg tablet 500 mg PO BID Label Comments: ask about stopping famotidine [Pepcid] 20 mg tablet 20 mg PO BID ferrous sulfate 325 MG tablet 325 mg PO DAILY@0800 Label Comments: on hold for procedure simvastatin 40 MG tablet 40 mg PO QHS lisinopril 10 MG tablet 10 mg PO DAILY levothyroxine 88 mcg tablet 75 mcg PO DAILY hydrocodone-acetaminophen 5-325 mg tablet 1 tab PO Q6H PRN PRN (Reason: PAIN 1-10) 3 Days Qty: 9 0RF Primary Care Provider: Rohith López Referrals: Rohith López MD [Primary Care Provider] - 1-2 Days if not improving (May recheck at 3 or 7 days. They may be able to stop your antibiotics early if your symptoms are gone and urine is clean.) Disposition Disposition: Home, Self Care
[2021-10-24] MEDS: Cephalexin 250 MG Capsule 500 MG PO (00:57)
== END 2021-10-24 01:38 | disposition home or self-care (01) ==
PROVIDERS: Emergency Provider Emergency Medicine; PCP Family Medicine; Visit Provider Emergency Medicine
DX: N39.0 Urinary tract infection, site not specified (principal); I10 Essential (primary) hypertension; E78.00 Pure hypercholesterolemia, unspecified; R30.0 Dysuria; R35.0 Frequency of micturition; R82.90 Unspecified abnormal findings in urine; M19.90 Unspecified osteoarthritis, unspecified site; D64.9 Anemia, unspecified; N20.0 Calculus of kidney; Z79.899 Other long term (current) drug therapy
CPT/HCPCS: 81001; 87077; 87086; 87088; 87186; 93005; 99285

== ENCOUNTER → 2021-10-23 | Outpatient (CLI) | payer MEDICARE, OTHER, SELFPAY | END | disposition home or self-care (01) | LOC: LAB 14:03 | PROVIDERS: PCP Family Medicine; Visit Provider Urology | DX: N20.0 Calculus of kidney (principal) | CPT/HCPCS: 87086 ==

== ENCOUNTER → 2021-11-13 | Outpatient (CLI) | payer MEDICARE, OTHER, SELFPAY | END | disposition home or self-care (01) | LOC: LAB 10:52 | PROVIDERS: PCP Family Medicine; Referring Provider Urology; Visit Provider Urology | DX: R30.0 Dysuria (principal) | CPT/HCPCS: 87086; 87088; 87186 ==

== ENCOUNTER → 2021-11-16 | Outpatient (CLI) | payer MEDICARE, OTHER, SELFPAY ==
--- NOTE | 2021-11-16 16:26 | CT_ITS ---
STUDY: CT ABDOMEN AND PELVIS WITHOUT CONTRAST REASON FOR EXAM: Female, 70 years old. OTHER HYDRONEPHROSIS RADIATION DOSAGE (If Supplied By Facility): CTDIvol = ( 8.13 ) mGy, DLP = ( 408.35 ) mGycm TECHNIQUE: Transaxial images were obtained from the dome of the diaphragm to the symphysis pubis without oral contrast, and without intravenous contrast. Sagittal and coronal images were reconstructed. Individualized dose optimization techniques were used for this CT. COMPARISON: 11/10/2018 FINDINGS: The visualized lung bases are unremarkable. The visualized portions of the heart are within normal limits. Normal liver. Normal gallbladder and extrahepatic biliary system. Normal spleen. Normal pancreas. Normal bilateral adrenal glands. Multiple bilateral nonobstructing renal stones. Multiple stones or stone fragments in the distal right ureter and at the right ureteral vesicle junction (Steinstrasse) produces moderate ureteral dilatation and hydronephrosis. Another 5 mm stone is seen in the mid right ureter as it crosses the iliac vessels. 5 mm obstructing stone at the left ureteropelvic junction with moderate hydronephrosis. No left ureteral stone or ureteral dilatation. Normal visualized stomach. Normal small intestine. There are multiple colonic diverticula consistent with diverticulosis. There is non-visualization of the appendix. Normal abdominal aorta. Normal inferior vena cava. Normal retroperitoneum. Normal urinary bladder. Normal abdominal wall. Normal osseous structures. CT/Abdomen/Pelvis without Cont IMPRESSION: 1. Steinstrasse in the distal right ureter with moderate ureteral dilatation and hydronephrosis. Another 5 mm obstructing stone in the mid right ureter. 2. 5 mm obstructing stone at the left ureteropelvic junction with moderate hydronephrosis. Electronically Signed: Yash Zamora MD at 17:27 EDT ,
== END | disposition home or self-care (01) ==
LOC: CT 16:24
PROVIDERS: PCP Family Medicine; Visit Provider Urology
DX: N13.39 Other hydronephrosis (principal)
CPT/HCPCS: 74176

== ENCOUNTER 2021-11-17 13:26 | Day surgery (SDC) | payer MEDICARE, OTHER, SELFPAY ==
[2021-11-17] VITALS (8 sets, daily range): BP systolic 93–120; BP diastolic 61–69; PULSE 68–88; RESP 16–18; TEMP 36.5–37.2; O2SAT 95–98; BMI 29.2
[2021-11-17] MEDS: Lactated Ringers 1,000 ML 15 ML IV (14:01)
--- NOTE | 2021-11-17 15:14 | DCINST_ITS ---
Discharge Instructions Diet Discharge Diet: No restrictions and Light diet - advance as tolerated Activity Discharge Activity: Return to Normal Activity and No Restrictions Follow Up Care Please Follow Up With: Burak Richmond MD When: call my office to get set up for Surgery next week for stones Test Results: Test results from this visit will be discussed in further detail at your follow- up appointment, if applicable. Discharge Plan Admission Primary Reason for Your Visit: stent placment Attending Provider: Burak Richmond Primary Care Provider: Rohith López Discharge Orders/Prescriptions Prescriptions: New amoxicillin 500 mg capsule 500 mg PO TID Qty: 21 0RF ibuprofen 600 mg tablet 600 mg PO Q6H PRN (Reason: fever or pain) Qty: 20 0RF Continued naproxen 500 mg tablet 500 mg PO BID Label Comments: ask about stopping ferrous sulfate 325 MG tablet 325 mg PO DAILY@0800 Label Comments: on hold for procedure simvastatin 40 MG tablet 40 mg PO QHS lisinopril 10 MG tablet 10 mg PO DAILY levothyroxine 88 mcg tablet 75 mcg PO DAILY amoxicillin 500 mg Capsule 500 mg PO TID Referrals / Follow Up: Rohith López MD [Primary Care Provider] - Burak Richmond MD [Med Staff - Active Staff] - Disposition Disposition (needs filled in before D/C Order can be placed): Home, Self Care
--- NOTE | 2021-11-17 15:14 | PCM.HP.STD ---
HPI - General General Date of Service: 11/17/21 HPI Narrative MOISÉS MCKEON, is a 70 F who presents with obstruction of the distal right ureter from multiple stones and also obstruction of the proximal left ureter from a stone plan the put a stent bilaterally she is currently being treated for an infection. [facility] Medical History (Updated 11/17/21 @ 09:31 by Nataly Nicholson) Anemia Anemia Arthritis Bladder disease Chronic pansinusitis Diverticulosis GERD (gastroesophageal reflux disease) Hiatal hernia High cholesterol History of back problems History of stress test Hypertension Hypertension Hypothyroid Low iron Non-smoker Other chronic sinusitis Restless legs Wears glasses Home Medications ferrous sulfate 325 mg (65 mg iron) tablet 325 mg PO DAILY@0800 supplement 11/10/15 [History Last Taken 07/31/20 22:00] lisinopril 10 mg tablet 10 mg PO DAILY bp 04/22/18 [History Last Taken 08/12/20 07:00 10 MG] simvastatin 40 mg tablet 40 mg PO QHS cholesterol 04/22/18 [History Last Taken 07/31/20 22:00] levothyroxine 88 mcg tablet 75 mcg PO DAILY thyroid 02/05/20 [History Last Taken 08/12/20 07:00 75 MCG] naproxen 500 mg tablet 500 mg PO BID 02/05/20 [History Last Taken 07/31/20 22:00] amoxicillin 500 mg capsule 500 mg PO TID 11/17/21 [History Last Taken Unknown] amoxicillin 500 mg capsule 500 mg PO TID #21 caps 11/17/21 [Rx Last Taken Unknown] ibuprofen 600 mg tablet 600 mg PO Q6H PRN fever or pain #20 tabs 11/17/21 [Rx Last Taken Unknown] Allergy/AdvReac Type Severity Reaction Status Date / Time epinephrine Allergy PT UNSURE Verified 11/17/21 13:55 OF REACTION tamsulosin [From Flomax] Allergy Other Verified 11/17/21 13:55 Surgical History (Updated 11/17/21 @ 09:31 by Nataly Nicholson) History of back surgery History of esophagogastroduodenoscopy (EGD) (~2020) History of extraction of renal calculus (~03/2020) History of foot surgery History of repair of hiatal hernia History of sinus surgery History of thyroidectomy Hx of left cataract extraction Hx of oral surgery Hx of right cataract extraction Social History Smoking Status: Never smoker alcohol intake: never substance use type: does not use Vital Signs Vital Signs Vital Signs: 11/17/21 13:56 11/17/21 13:56 Temperature 99 F Temperature Source Temporal Pulse Rate 78 Respiratory Rate 18 Respiratory Pattern Normal Blood Pressure 115/63 Blood Pressure Mean 80 Blood Pressure Source Monitor Blood Pressure Position Semi-Fowlers Blood Pressure Location Right Arm Pulse Ox 98 Oxygen Delivery Method Room Air Weight Weight: 79.832 kg Body Mass Index (BMI) 29.2
--- NOTE | 2021-11-17 15:38 | OP.PCM_ITS ---
Report of Operation Date of Procedure: 11/17/21 Pre-Operative Diagnosis: Left obstructing ureteral calculi, right obstructing m ultiple ureteral calculi, right pyelonephritis and bilateral hydronephrosis Post-Operative Diagnosis: The same Surgery/Procedure Performed:: Cystoscopy left retrograde pyelogram left stent placement interpretation fluoroscopic images, laser lithotripsy of a stone in the right ureteral orifice, right retrograde pyelogram right stent placement Description of Surgical Findings:: Indication 70-year-old female so I saw in the office yesterday with a recurrent urinary tract infection she had some mild pain bilaterally ultrasound the office demonstrated bilateral hydronephrosis we sent her for CAT scan and confirmed obstructing stones on both sides. So I added on a schedule for bilateral stent placement she has been on antibiotics we will continue with amoxicillin. Patient was taken back to the operating room at the smooth induction of general anesthesia she was placed dorsolithotomy position the urethra vaginal area prepped and draped in usual sterile fashion when the bladder with a 21 Dominican rigid cystourethroscope we went to the left side first cannulated the left ureteral orifice with a Glidewire 0.038 Bentson up to the kidney performed a retrograde pyelogram he see contrast going up to the kidney obstructing stone in the proximal UPJ area I then advanced a wire past this and then placed a stent it was a 6 Dominican by 26 cm stent the left side. Once this was coiled properly then I went to the right side and the right side he can see a stone obstructing the ureteral orifice right in the in the way so I used a 600 ?m laser fiber and lasered the stone free from the ureteral orifice after the stone was then lasered free within the bladder I then was able to cannulate the ureteral orifice advanced a wire up once a wire was in good position and advanced stent immediately I got a significant amount of purulent pus coming from the right kidney. After the stent was in good position then I reposition the stent to make sure it coiled nicely in kidney and bladder patient anesthetic was versed bladder was drained and should be kept on antibiotics and then we will plan for interval follow-up for laser lithotripsy of the stones on both sides. Surgeon: Burak Richmond Type of Anesthesia: General Drains: stent bilateral
--- NOTE | 2021-11-17 15:45 | CALC_PTH ---
PATIENT: MOISÉS MCKEON LOC: [facility] [place] U#:[id number] AGE/SX: 70/F ROOM: RE11/17/[address]: Dr. Burak Richmond MD : 1950 BED: DIS: 11/17/2021 SPEC #: [id number] RECD: 11/17/21 15:59 STATUS: LAURA MOYA #: [id number] ERICKA: 11/17/21 15:[address]: Burak Richmond DEPT: SURGICAL PATHOLOGY RECD BY: Homer Vidal ENTERED: 11/20/21 08:35 SP TYPE: Calculi OTHR DR: Dr. Rohith López MD Tissues: CALCULI Procedures: Surgery Specimen Level I HEADER OPERATION: Cystoscopy, bilateral insertion of stent, laser of stone PRE-OP DIAGNOSIS: Bilateral ureteral calculi with obstruction TISSUE SUBMITTED: Calculi, urinary with photo GROSS DIAGNOSIS A fragment of stone, clinically ureteral calculus, submitted for analysis. COMMENT The calculus is submitted in its entirety for chemical stone analysis. The results from this study will be reported separately. GROSS DESCRIPTION Received without fixative labeled with the patient's name and designated bilateral ureteral calculi. The specimen consists of a fragment of brown-black stone measuring 0.3 x 0.2 x 0.1 cm. The entire specimen is submitted for stone analysis. BRUCE:juan ramon 11/20/21 CPT: 45611
== END 2021-11-17 17:08 | disposition home or self-care (01) ==
LOC: SDC 13:28 → AC 13:30
PROVIDERS: PCP Family Medicine; Referring Provider Urology; Visit Provider Urology
PROC: (CPT 52356; principal; 2021-11-17 15:35)
DX: N13.6 Pyonephrosis (principal); N13.2 Hydronephrosis with renal and ureteral calculous obstruction; I10 Essential (primary) hypertension; E78.00 Pure hypercholesterolemia, unspecified; E89.0 Postprocedural hypothyroidism; D64.9 Anemia, unspecified; K21.9 Gastro-esophageal reflux disease without esophagitis; Z79.1 Long term (current) use of non-steroidal anti-inflammatories (NSAID); Z79.890 Hormone replacement therapy; Z79.899 Other long term (current) drug therapy
CPT/HCPCS: 52356; 52332; 76000; 82360; 88300; J7120; C1769; C2617; J2405

== ENCOUNTER → 2021-11-21 | Outpatient (CLI) | payer MEDICARE, OTHER, SELFPAY ==
--- NOTE | 2021-11-21 10:45 | EKG12_ITS ---
Test Reason : PREOP Blood Pressure : / mmHG Vent. Rate : 089 BPM Atrial Rate : 089 BPM P-R Int : 150 ms QRS Dur : 070 ms QT Int : 358 ms P-R-T Axes : 014 007 027 degrees QTc Int : 435 ms Normal sinus rhythm Normal ECG Confirmed by ZAYRA PAEZ, GAIL ([id number]), publication editor SHANE TINAJERO ([id number]) on 11/22/2021 9:46:39 AM Referred By: ADRIA Confirmed By:GAIL IVERSON MD
[2021-11-21 11:25] LABS: Hematocrit 41.4 % (37-47); Hemoglobin 13.3 g/dL (12.0-15.0); Mean Corp Hgb Conc 32.1 g/dL (32-36); Mean Corpuscular Hgb 30.4 pg (27.0-32.0); Mean Corpuscular Volume 94.5 fL (81-99); Mean Platelet Vol. 9.3 fl (6.2-12.0); Platelet Count 310 K/mm3 (150-450); RBC Distribution Width CV 13.2 % (11.6-14.6); RBC Distribution Width SD 45.4 fl (35.1-43.9); Red Blood Count 4.38 M/mm3 (4.2-5.4); White Blood Count 8.5 K/mm3 (4.4-11.0)
[2021-11-21 11:48] LABS: Anion Gap 5 (5-15); BUN 20 mg/dL (7-18); BUN/Creat Ratio 26.2 RATIO (10-20); Calcium,Total 9.4 mg/dL (8.5-10.1); Chloride 104 mmol/L (98-107); Creatinine, Serum 0.76 mg/dL (0.55-1.02); EST Glomerular Filtration Rate 79 mL/min (>60); Est Glom Filt Rate - Afr Amer 96 mL/min (>60); Glucose 92 mg/dL (74-106); Potassium 3.7 mmol/L (3.5-5.1); Sodium Level 139 mmol/L (136-145)
== END | disposition home or self-care (01) ==
PROVIDERS: PCP Family Medicine; Visit Provider Urology
DX: Z01.810 Encounter for preprocedural cardiovascular examination (principal)
CPT/HCPCS: 36415; 80048; 85027; 93005

== ENCOUNTER → 2021-11-27 | Outpatient (CLI) | payer MEDICARE, OTHER, SELFPAY ==
[2021-11-27 11:14] LABS: Hemoglobin 12.9 g/dL (12.0-15.0); Mean Corp Hgb Conc 33.1 g/dL (32-36); Mean Corpuscular Hgb 31.2 pg (27.0-32.0); Mean Corpuscular Volume 94.2 fL (81-99); Mean Platelet Vol. 9.6 fl (6.2-12.0); Platelet Count 308 K/mm3 (150-450); RBC Distribution Width SD 47.8 fl (35.1-43.9); Red Blood Count 4.14 M/mm3 (4.2-5.4); White Blood Count 17.5 K/mm3 (4.4-11.0)
[2021-11-27 12:00] LABS: Anion Gap 7 (5-15); BUN 22 mg/dL (7-18); BUN/Creat Ratio 20.8 RATIO (10-20); Chloride 102 mmol/L (98-107); Creatinine, Serum 1.06 mg/dL (0.55-1.02); EST Glomerular Filtration Rate 54 mL/min (>60); Est Glom Filt Rate - Afr Amer 65 mL/min (>60); Glucose 124 mg/dL (74-106); Potassium 3.1 mmol/L (3.5-5.1); Sodium Level 136 mmol/L (136-145)
== END | disposition home or self-care (01) ==
PROVIDERS: PCP Family Medicine; Referring Provider Urology; Visit Provider Urology
DX: N20.0 Calculus of kidney (principal)
CPT/HCPCS: 36415; 80048; 85027; 87077; 87086; 87088; 87186

== ENCOUNTER → 2022-01-02 | Outpatient (CLI) | payer MEDICARE, OTHER, SELFPAY | END | disposition home or self-care (01) | LOC: LABSPEC 16:05 | PROVIDERS: PCP Family Medicine; Visit Provider Urology | DX: N30.00 Acute cystitis without hematuria (principal) | CPT/HCPCS: 87086; 87088 ==

== ENCOUNTER → 2022-04-10 | Outpatient (CLI) | payer MEDICARE, OTHER, SELFPAY ==
--- NOTE | 2022-04-10 09:22 | RAD_ITS ---
STUDY: X-RAY - ABDOMEN/PELVIS REASON FOR EXAM: Female, 71 years old. Abdominal pain. TECHNIQUE: Single AP view of the abdomen / pelvis on 2 images. COMPARISON: CT of the abdomen and pelvis dated November 16, 2021. FINDINGS: Normal visualized lung bases. Normal bowel gas pattern with air seen to the rectum. There is no demonstrated free abdominal air. The visualized liver, spleen and kidneys are grossly normal in size and morphology. Multiple calcifications projected over both kidneys, similar to the CT findings. Normal visualized osseous structures. RAD/Abdomen Single View IMPRESSION: Bilateral diffuse nephrocalcinosis without an acute finding. Electronically Signed: Yusuf Gonsalves, at 10:00 EST ,
== END | disposition home or self-care (01) ==
LOC: RAD.FUTURE 09:20 → RAD 09:21
PROVIDERS: PCP Family Medicine; Visit Provider Urology
DX: N20.0 Calculus of kidney (principal)
CPT/HCPCS: 74018

== ENCOUNTER → 2022-07-09 | Outpatient (CLI) | payer MEDICARE, OTHER, SELFPAY ==
--- NOTE | 2022-07-09 11:08 | CT_ITS ---
STUDY: CT MAXILLOFACIAL SINUSES REASON FOR EXAM: Female, 71 years old. SINUSITIS RADIATION DOSAGE (If Supplied By Facility): CTDIvol = ( 28.14 ) mGy, DLP = ( 630.11 ) mGycm TECHNIQUE: The patient was scanned in a multi detector CT scanner. High resolution axial imaging was performed without the administration of intravenous contrast material. Sagittal and coronal images were reconstructed. Individualized dose optimization techniques were used for this CT. COMPARISON: None. FINDINGS: FRONTAL SINUSES: Normal aeration, without mucosal inflammatory disease. ETHMOIDAL SINUSES: Normal aeration, without mucosal inflammatory disease. MAXILLARY SINUSES: The patient is status post resection of the medial bolden of both maxillary sinuses. SPHENOIDAL SINUSES: Opacification of the left sphenoid sinus. There is a 7.8 mm polyp or retention cyst along the posterior right sphenoid sinus. There is patency of the bilateral maxillary infundibuli with normal uncinate processes, ethmoid bullae, and hiatus semilunaris. There is been resection of the middle turbinates bilaterally. Normal bilateral inferior turbinates. There is a left sided nasal septal deviation, but without a nasal septal spur. There is patency of the bilateral nasal airways. The visualized osseous structures are normal. The visualized bilateral orbital contents are normal. CT/Sinus/Facial Bone IMPRESSION: Opacification of the left sphenoid sinus. 7.8 mm polyp or retention cyst along the posterior right sphenoid sinus. Nasal septal deviation to the left side of the midline. Electronically Signed: Preston Elam MD at 12:34 EDT ,
== END | disposition home or self-care (01) ==
LOC: CT 11:07
PROVIDERS: PCP Family Medicine; Visit Provider Otolaryngology
DX: J32.9 Chronic sinusitis, unspecified (principal)
CPT/HCPCS: 70486

== ENCOUNTER → 2022-10-03 | Outpatient (CLI) | payer MEDICARE, OTHER, SELFPAY ==
[2022-10-03 11:47] LABS: Erythrocyte Sedimentation Rate 11 mm/hr (0-30)
[2022-10-03 12:13] LABS: CRP < 2.90 mg/L (0.0-3.0); LDH 189 U/L (84-246)
[2022-10-04 16:09] LABS: Albumin 3.8 g/dL (2.9-4.4); Alpha-1-Globulins 0.2 g/dL (0.0-0.4); Alpha-2-Globulins 0.8 g/dL (0.4-1.0); Cytoplasmic Ab (C-ANCA) <1:20 titer (Neg:<1:20); Gamma Globulin 1.2 g/dL (0.4-1.8); Immunoglobulin A 258 mg/dL (64-422); Immunoglobulin G 1184 mg/dL (586-1602); Immunoglobulin M 76 mg/dL (26-217); PROEL- TOTAL PROTEIN 7.2 g/dL (6.0-8.5); Perinuclear Ab (P-ANCA) <1:20 titer (Neg:<1:20)
[2022-10-06 13:07] LABS: Anti-Centromere B Ab <0.2 AI (0.0-0.9); Anti-Chromatin <0.2 AI (0.0-0.9); Anti-Jo <0.2 AI (0.0-0.9); Anti-Scleroderma-70 AB <0.2 AI (0.0-0.9); Anti-dsDNA Ab <1 IU/mL (0-9); Beef <0.10 kU/L (Class 0); Chocolate <0.10 kU/L (Class 0); Clam <0.10 kU/L (Class 0); Codfish <0.10 kU/L (Class 0); Corn <0.10 kU/L (Class 0); Egg, White 0.13 kU/L (Class 0/I); Egg, Whole <0.10 kU/L (Class 0); Milk (Cow) <0.10 kU/L (Class 0); Peanut <0.10 kU/L (Class 0); Pork <0.10 kU/L (Class 0); RNP Ab 0.3 AI (0.0-0.9); SCALLOP <0.10 kU/L (Class 0); SESAME SEED <0.10 kU/L (Class 0); SJOGREN'S Anti-SS-A test < 0.2 AI (0.0-0.9); SJOGREN'S Anti-SS-B test < 0.2 AI (0.0-0.9); Shrimp <0.10 kU/L (Class 0); Smith Ab <0.2 AI (0.0-0.9); Soybean <0.10 kU/L (Class 0); Walnut, (Food) <0.10 kU/L (Class 0); Wheat 0.11 kU/L (Class 0/I)
== END | disposition home or self-care (01) ==
LOC: LAB 11:16
PROVIDERS: PCP Family Medicine; Referring Provider Internal Medicine Gastroenterology; Visit Provider Internal Medicine Gastroenterology
DX: K57.90 Diverticulosis of intestine, part unspecified, without perforation or abscess without bleeding (principal); J32.4 Chronic pansinusitis
CPT/HCPCS: 36415; 82784; 83615; 84165; 85652; 86003; 86005; 86140; 86225; 86235; 86256; 86334

== ENCOUNTER → 2022-10-18 | Outpatient (CLI) | payer MEDICARE, OTHER, SELFPAY ==
--- NOTE | 2022-10-18 09:20 | RAD_ITS ---
EXAM: XR ABDOMEN, 1 VIEW CLINICAL INDICATION: KIDNEY STONE FOLLOW UP TECHNIQUE: Frontal supine view of the abdomen/pelvis. COMPARISON: No relevant prior studies available. FINDINGS: LOWER THORAX: No acute pathology. GASTROINTESTINAL TRACT: Unremarkable. Non-obstructive. No bowel or stomach distention. ORGANS: Multiple small stones overlying the kidneys bilaterally. No organomegaly. BONES/JOINTS: Degenerative changes in the lumbar spine. Small calcification overlying the right side of the sacrum probably vascular in nature. SOFT TISSUES: No acute pathology. RAD/Abdomen Single View IMPRESSION: 1. Multiple small stones overlying the kidneys bilaterally. 2. Degenerative changes in the lumbar spine. 3. Small calcification overlying the right side of the sacrum probably vascular in nature. Electronically Signed: Tommie Salcedo MD at 1:27 EDT ,
== END | disposition home or self-care (01) ==
LOC: RAD 09:19
PROVIDERS: PCP Family Medicine; Referring Provider Urology; Visit Provider Urology
DX: N20.0 Calculus of kidney (principal)
CPT/HCPCS: 74018

== ENCOUNTER 2022-12-12 06:03 | Day surgery (SDC) | payer MEDICARE, OTHER, SELFPAY ==
--- NOTE | 2022-12-12 | COLBX_PTH ---
PATIENT: MOISÉS MCKEON LOC: [facility] U#:[id number] AGE/SX: 71/F ROOM: RE12/12/[address]: Dr. Chris Gomez DO : 1950 BED: DIS: 12/12/2022 SPEC #: [id number] RECD: 12/12/22 13:03 STATUS: LAURA NITA #: [id number] ERICKA: 12/12/22 00:[address]: Chris Gomez DEPT: SURGICAL PATHOLOGY RECD BY: Homer Vidal ENTERED: 12/12/22 13:05 SP TYPE: COLON BX OTHR DR: Dr. Rohith López MD Tissues: A - Cecum, NOS B - COLON BIOPSY C - COLON BIOPSY Procedures: Surgery Specimen Level IV HEADER OPERATION: Colonoscopy (MAC) with polypectomy and biopsies PRE-OP DIAGNOSIS: Blood in stool TISSUE SUBMITTED: A - Cecum polyp, B - Ileocecal valve biopsy, C - Random colon biopsies MICROSCOPIC DIAGNOSIS A. Cecal polyp, biopsy: Fragments of hyperplastic polyp. Fragments of tubular adenoma. B. Ileocecal valve, biopsy: Hyperplastic change. C. Colon, random biopsy: Melanosis coli. AM:madisyn 12/13/2022 COMMENT B. An inflammatory polyp cannot be ruled out. MICROSCOPIC DESCRIPTION Slides are reviewed. GROSS DESCRIPTION A - Received in fixative is one container labeled with the patient's name and designated cecal polyp. The specimen consists of multiple irregular fragments of light slater soft tissue that in aggregate measure 1.5 x 1.0 x 0.1 cm. The specimen is totally submitted in one cassette. B - Received in fixative is one container labeled with the patient's name and designated ileocecal valve biopsy. The specimen consists of two irregular fragments of light slater soft tissue that in aggregate measure 0.6 x 0.5 x 0.1 cm. The specimen is totally submitted in one cassette. C - Received in fixative is one container labeled with the patient's name and designated colon random biopsy. The specimen consists of multiple irregular fragments of light slater soft tissue that in aggregate measure 1.0 x 1.0 x 0.1 cm. The specimen is totally submitted in one cassette. / AM:madisyn 12/12/2022 TC:5 CPT: 48186 x3
[2022-12-12 06:20] VITALS: BP 110/70; PULSE 101; RESP 18; TEMP 37.2; O2SAT 96; BMI 29.0
[2022-12-12] MEDS: Lactated Ringers 1,000 ML 15 ML IV (06:30)
--- NOTE | 2022-12-12 06:32 | HP.PCM_ITS ---
History and Physical Date of Admission: 12/12/22 Chief Complaint: Abdominal pain, bloating, hematochezia and intermittent loose stools Details: MOISÉS MCKEON, is a 71 F who presents to the office today for blood in her stool and loose stools. Patient says she has frequent blood in her stool with crampy abdominal pain with no associated nausea, vomiting, chest pain or shortness of breath. She does take ibuprofen as needed and has been on iron supplement for the last several months due to history of iron deficiency anemia. She also has a history of B12 deficiency. ?CT abd/pel 11.16.21?renal calculi; diverticulosis.? ? ROS Const Constitutional: Positive for headache(s); No fatigue ENT ENT: Positive for headache(s); No difficulty swallowing Gastro GI: Positive for abdominal pain, bloating, constipation, diarrhea, excessive flatus and Blood in stool; No belching, change in bowel habits, change in stool character, coffee ground emesis, cramping, heartburn, difficulty swallowing, feeling full early, inco ntinent of stools, Vomiting blood/hematemesis, loose stools, Black,tarry stools, nausea/dyspepsia, pain with swallowing, vomiting or other Musc Musculoskeletal: Positive for numbness and tingling; No joint pain Skin Skin: No yellowing of the eye or itchy eyes Neuro Neurology: Positive for headache(s), numbness and tingling Psych Psychiatric: No anxiety and No depression Endo Endocrine: No fatigue Aller/Imm Allergy/Immunologic: No itchy eyes Suleman/Lymp Hematologic/Lymphatic: No easy bleeding or easy bruising Quality Reporting Tobacco Screening ([facility] 138) Smoking Status: Never smoker Assessment and Plan Assessment and Plan (1) Blood in stool: Status: Acute Plan: Her lower GI bleeding really sounds as if she has ischemic colitis. She does not have any history of vascular issues. She typically Goes in between diarrhea and constipation. However she leads more to the diarrhea component. We will get stool analysis along with iron, ferritin, TIBC, transferrin. She will undergo colonoscopy. She was explained alternatives, risk, benefits including outstanding bleeding, infection, sepsis, perforation, need for emergent surgery . She will of an ASA of 3. Orders: Orders Allergen, Food Profile Today K57.90 - Diverticulosis of intestine, part unspecified, without perforation or abscess without bleeding Allergen, Rast Food Profile Today K57.90 - Diverticulosis of intestine, part unspecified, without perforation or abscess without bleeding LDH Today K57.90 - Diverticulosis of intestine, part unspecified, without perforation or abscess without bleeding MAURO + Protein Elect, Serum Today K57.90 - Diverticulosis of intestine, part unspecified, without perforation or abscess without bleeding ROSCOE Comprehensive Panel Today K57.90 - Diverticulosis of intestine, part unspecified, without perforation or abscess without bleeding CRP Today K57.90 - Diverticulosis of intestine, part unspecified, without perforation or abscess without bleeding Erythrocyte Sed Rate Today K57.90 - Diverticulosis of intestine, part unspecified, without perforation or abscess without bleeding ANCA Today J32.4 - Chronic pansinusitis I have examined the patient and the H&P has been reviewed. There are no clinical changes since date of exam.
[2022-12-12 07:44] VITALS: BP 110/70; BP 133/115; PULSE 84; RESP 18; TEMP 37.2; O2SAT 96
--- NOTE | 2022-12-12 07:48 | OP.CCLET_ITS ---
12/12/2022 Rohith López Re : Colonoscopy procedure for Linsey Bobo Yohanar Rene This procedure was performed on Monday, December 12, 2022. My impressions and recommendations are as follows: Impressions : - Diverticulosis in the recto-sigmoid colon, in the sigmoid colon and in the descending colon. - Congested mucosa in the recto-sigmoid colon, in the sigmoid colon, in the descending colon, at the splenic flexure and in the transverse colon. Biopsied. - One 13 mm polyp in the cecum, removed using injection-lift and a hot snare. Resected and retrieved. - One 5 mm polyp at the ileocecal valve, removed with a cold snare. Resected and retrieved. Recommendations : - Repeat colonoscopy in 1 year for surveillance based on pathology results. - Continue present medications. My findings are described in the full procedure note, which is enclosed. If I can be of further assistance, please feel free to contact me at . Sincerely, Chris Gomez DO 12/12/2022 7:48:33 AM This report has been signed electronically.
--- NOTE | 2022-12-12 07:48 | OP.COLON_ITS ---
Patient Name: Linsey Bobo Procedure Date: 12/12/2022 6:58 AM Date of : 1950 Age: 71 Procedure: Colonoscopy Indications: Generalized abdominal pain, Clinically significant diarrhea of unexplained origin, Hematochezia Providers: Chris Gomez DO Medicines: Monitored Anesthesia Care Patient Profile: This is a 71 year old female. Refer to note in patient chart for documentation of history and physical. Last Colonoscopy: date unknown. Unable to locate last colonoscopy report. Complications: No immediate complications. Procedure: Pre-Anesthesia Assessment: - Prior to the procedure, a History and Physical was performed, and patient medications and allergies were reviewed. The patient is competent. The risks and benefits of the procedure and the sedation options and risks were discussed with the patient. All questions were answered and informed consent was obtained. Patient identification and proposed procedure were verified by the physician. Mental Status Examination: normal. Prophylactic Antibiotics: The patient does not require prophylactic antibiotics. Prior Anticoagulants: The patient has taken no anticoagulant or antiplatelet agents. After reviewing the risks and benefits, the patient was deemed in satisfactory condition to undergo the procedure. The anesthesia plan was to use monitored anesthesia care (MAC). Immediately prior to administration of medications, the patient was re-assessed for adequacy to receive sedatives. The heart rate, respiratory rate, oxygen saturations, blood pressure, adequacy of pulmonary ventilation, and response to care were monitored throughout the procedure. The physical status of the patient was re-assessed after the procedure. After I obtained informed consent, the scope was passed under direct vision. Throughout the procedure, the patient's blood pressure, pulse, and oxygen saturations were monitored continuously. The Colonoscope was introduced through the anus and advanced to the terminal ileum. The colonoscopy was performed without difficulty. The patient tolerated the procedure well. The quality of the bowel preparation was adequate. Scope In: 7:11:41 AM Scope Withdrawal Time 0 hours 23 minutes 9 seconds Scope Out: 7:40:08 AM Total Procedure Duration Time 0 hours 28 minutes 27 seconds Findings: Multiple small and large-mouthed diverticula were found in the recto-sigmoid colon, sigmoid colon and descending colon. An area of mildly congested mucosa was found in the recto-sigmoid colon, in the sigmoid colon, in the descending colon, at the splenic flexure and in the transverse colon. Biopsies were taken with a cold forceps for histology. Verification of patient identification for the specimen was done. Estimated blood loss was minimal. A 13 mm polyp was found in the cecum. The polyp was sessile. The polyp was removed with a saline injection-lift technique using a hot snare. Resection and retrieval were complete. Verification of patient identification for the specimen was done. Estimated blood loss was minimal. A 5 mm polyp was found in the ileocecal valve. The polyp was sessile. The polyp was removed with a cold snare. Resection and retrieval were complete. Verification of patient identification for the specimen was done. Estimated blood loss was minimal. Impression: - Diverticulosis in the recto-sigmoid colon, in the sigmoid colon and in the descending colon. - Congested mucosa in the recto-sigmoid colon, in the sigmoid colon, in the descending colon, at the splenic flexure and in the transverse colon. Biopsied. - One 13 mm polyp in the cecum, removed using injection-lift and a hot snare. Resected and retrieved. - One 5 mm polyp at the ileocecal valve, removed with a cold snare. Resected and retrieved. Recommendation: - Repeat colonoscopy in 1 year for surveillance based on pathology results. - Continue present medications. Procedure Code(s): --- Professional --- 54950, Colonoscopy, flexible; with removal of tumor(s), polyp(s), or other lesion(s) by snare technique 80518, 59, Colonoscopy, flexible; with biopsy, single or multiple 46574, Colonoscopy, flexible; with directed submucosal injection(s), any substance CPT copyright 2021 [employer]. All rights reserved. The codes documented in this report are preliminary and upon pocket maker review may be revised to meet current compliance requirements. Chris Gomez DO 12/12/2022 7:48:33 AM This report has been signed electronically. Number of Addenda: 0 Note Initiated On: 12/12/2022 6:58 AM
[2022-12-12 07:50] VITALS: BP 110/70; BP 85/60; PULSE 86; RESP 16; O2SAT 96
[2022-12-12 07:55] VITALS: BP 110/70; BP 91/64; PULSE 88; RESP 16; O2SAT 96
[2022-12-12 08:01] VITALS: BP 110/70; BP 92/61; PULSE 81; RESP 16; TEMP 36.7; O2SAT 96
[2022-12-12 08:11] VITALS: BP 110/70
== END 2022-12-12 08:26 | disposition home or self-care (01) ==
LOC: EN 06:04 → AC 06:10
PROVIDERS: PCP Family Medicine; Referring Provider Family Medicine; Visit Provider Internal Medicine Gastroenterology
PROC: 0DJD8ZZ Inspection of Lower Intestinal Tract, Via Natural or Artificial Opening Endoscopic (ICD-10-PCS; CPT 45378; principal; 2022-12-12 07:10)
DX: D12.0 Benign neoplasm of cecum (principal); K57.30 Diverticulosis of large intestine without perforation or abscess without bleeding; K63.89 Other specified diseases of intestine; D50.9 Iron deficiency anemia, unspecified; Z79.890 Hormone replacement therapy; Z79.899 Other long term (current) drug therapy
CPT/HCPCS: 45385; 45380; 88305; J7120; J2405

== ENCOUNTER → 2023-10-28 | Outpatient (CLI) | payer MEDICARE, OTHER, SELFPAY ==
--- NOTE | 2023-10-28 09:52 | RAD_ITS ---
INDICATION: KIDNEY STONE EXAMINATION/TECHNIQUE: X-RAY - XR Abdomen 1 View COMPARISON: October 18, [address] dated November 16, 2021 FINDINGS: BOWEL GAS PATTERN: Non-obstructive. No bowel or stomach distention. FREE AIR: Not assessed on a single supine view. CALCIFICATIONS: There are bilateral calcifications within the expected region of the kidneys measuring up to 4.7 mm on the right and 4.6 mm on the left. LOWER CHEST: No acute pathology. BONES AND SOFT TISSUES: There are degenerative changes of the lower lumbar spine. RAD/Abdomen Single View IMPRESSION: Bilateral renal calculi measuring up to 4.7 mm on the right. Electronically Signed: Heather Dugan MD at 15:52 EDT ,
== END | disposition home or self-care (01) ==
LOC: RAD 09:49
PROVIDERS: PCP Family Medicine; Visit Provider Urology
DX: N20.0 Calculus of kidney (principal)
CPT/HCPCS: 74018

== ENCOUNTER → 2023-11-18 | Outpatient (CLI) | payer MEDICARE, OTHER, SELFPAY ==
--- NOTE | 2023-11-18 16:15 | MRI_ITS ---
EXAM: MR LEFT LOWER EXTREMITY WITHOUT INTRAVENOUS CONTRAST, KNEE CLINICAL INDICATION: left knee pain, twisting injury in January TECHNIQUE: Multiplanar and multisequence MR images of the left knee without intravenous contrast. COMPARISON: No relevant prior studies available. FINDINGS: BONES/JOINTS: Edema anterior to the patellar tendon which is intact. Small right suprahilar joint fluid. EXTENSOR MECHANISM: See above. MEDIAL MENISCUS: Complex tear of the posterior horn medial meniscus. LATERAL MENISCUS: Unremarkable. MEDIAL CAPSULE/SUPPORTING STRUCTURES: Unremarkable. Intact. LATERAL CAPSULE/SUPPORTING STRUCTURES: Unremarkable. Lateral collateral ligamentous complex, inclusive of the popliteal tendon, are intact. ANTERIOR CRUCIATE LIGAMENT: Unremarkable. Intact. POSTERIOR CRUCIATE LIGAMENT: Unremarkable. Intact. MUSCLES: Unremarkable. CARTILAGE: Unremarkable. Intact. FLUID: 2.8 x 2.5 cm Ibarra''s cyst with evidence of inferior leakage/rupture. No joint effusion. MRI/Lower Ext Joint Only (Routine) IMPRESSION: 1. Complex tear of the posterior horn medial meniscus. 2. Evidence of a leakage/rupture Ibarra''s cyst. Electronically Signed: Jj Ward MD at 0:04 EDT ,
== END | disposition home or self-care (01) ==
LOC: MRI 15:32
PROVIDERS: PCP Family Medicine; Referring Provider Physician Assistant Surgical; Visit Provider Physician Assistant Surgical
DX: M17.12 Unilateral primary osteoarthritis, left knee (principal); M25.562 Pain in left knee
CPT/HCPCS: 73721

== ENCOUNTER 2024-01-02 14:40 | Inpatient (IN) | payer MEDICARE, OTHER, SELFPAY ==
[2024-01-02] VITALS (9 sets, daily range): BP systolic 121–151; BP diastolic 59–120; PULSE 75–96; RESP 15–28; TEMP 36.6–36.9; O2SAT 95–98; BMI 28.3; BMI 26.9
--- NOTE | 2024-01-02 14:50 | CT_ITS ---
STUDY: CT BRAIN WITHOUT CONTRAST REASON FOR EXAM: Female, 73 years old. Injury. Syncope. RADIATION DOSAGE (If Supplied By Facility): CTDIvol = ( 44.99 ) mGy, DLP = ( 812.98 ) mGycm TECHNIQUE: Transaxial CT imaging of the brain was performed without administration of intravenous contrast material. CT scan performed according to ALARA principles. Automated exposure control used during exam. COMPARISON: Prior study dated: 03/17/2018 FINDINGS: PARENCHYMA: There is no acute bleed or infarct. There are normal white matter tracts. VENTRICLES: There is no hydrocephalus. MASTOID AIR CELLS AND PARANASAL SINUSES: The visualized paranasal sinuses are clear. The mastoid air cells are clear. BONES: There is no skull fracture. SOFT TISSUES: The visualized soft tissues are within normal limits. CT/Brain/Head without Contrast IMPRESSION: No acute intracranial abnormality. No hydrocephalus Electronically Signed: Juan David Hartley MD at 15:56 EDT ,
--- NOTE | 2024-01-02 14:50 | CT_ITS ---
STUDY: CT ABDOMEN AND PELVIS WITH CONTRAST REASON FOR EXAM: Female, 73 years old. Lower abdominal pain. RADIATION DOSAGE (If Supplied By Facility): CTDIvol = ( 16.25 ) mGy, DLP = ( 996.48 ) mGycm TECHNIQUE: Transaxial images were obtained through the abdomen and pelvis without oral contrast. 100 ml of Isovue-300 contrast was administered. Sagittal and coronal images were reconstructed. CT scan performed according to ALARA principles. Automated exposure control used during exam. COMPARISON: No relevant prior comparison study available FINDINGS: The study is limited by patient motion. LOWER THORAX: The visualized lung bases are clear. The visualized portions of the heart and pericardium are within normal limits. GALLBLADDER / BILE DUCTS: There are no calcified gallstones present. There is no intrahepatic biliary duct dilatation. The common bile duct is normal in caliber. There are no calcified ductal stones. LIVER: There are subcentimeter hypodensities in the liver which are too small to characterize. However, these likely represent cysts. SPLEEN: The spleen is normal in size. PANCREAS: The pancreas is within normal limits. ADRENAL GLANDS: The adrenal glands are within normal limits. KIDNEYS / BLADDER: There are multiple bilateral subcentimeter nonobstructing renal collecting system stones, measuring up to 6 mm. There are no ureteral stones. There is no hydronephrosis. There are bilateral parapelvic renal cysts. The urinary bladder is partially distended and appears grossly unremarkable. STOMACH / BOWEL: There is a small hiatal hernia. There is no bowel obstruction. There is mild bowel wall thickening throughout the colon which is consistent with mild colitis. The appendix is visualized and appears normal. PERITONEUM/RETROPERITONEUM: There is no abdominal or pelvic free air, free fluid or fluid collection. There is no abnormal soft tissue mass identified. There is no abdominal or pelvic lymphadenopathy. VESSELS: The aorta is normal in caliber. The IVC is unremarkable. BONES: There are no destructive osseous lesions. SOFT TISSUES: The visualized soft tissues are within normal limits. CT/Abdomen/Pelvis W IV Cont ONLY IMPRESSION: Study limited by patient motion. Mild bowel wall thickening throughout the colon, consistent with mild colitis. No bowel obstruction. Normal appendix. Bilateral subcentimeter nonobstructing renal collecting system stones. No ureteral stones. No hydronephrosis. No free air, free fluid or fluid collection. Electronically Signed: Juan David Hartley MD at 16:16 EDT ,
[2024-01-02] MEDS: 0.9% Normal Saline (1000mL) 1,000 ML 1000 ML IV (15:00)
[2024-01-02 15:12] LABS: Absolute Lymphocyte Count 3.24 X10^3/uL (0.83-4.51); Absolute Neutrophil Count 5.5 X10^3/uL (2.0-7.7); Basophil# 0.08 X10^3/uL; Basophil% 0.8 % (0-1); Eosinophil# 0.09 X10^3/uL; Hematocrit 46.3 % (37-47); Hemoglobin 15.3 g/dL (12.0-15.0); Lymphocyte # 3.24 X10^3/ul (0.83-4.51); Lymphocyte % 34.3 % (19-41); Mean Corpuscular Hgb 31.2 pg (27.0-32.0); Mean Corpuscular Volume 94.5 fL (81-99); Monocyte# 0.54 X10^3/uL; Monocyte% 5.7 % (0-10); NRBC Flagged by Analyzer 0 % (0-5); Neutrophil # 5.47 X10^3/uL (2.7-7.7); Platelet Count 252 K/mm3 (150-450); RBC Distribution Width CV 13.9 % (11.6-14.6); White Blood Count 9.4 K/mm3 (4.4-11.0)
[2024-01-02 15:28] LABS: AST(SGOT) 28 U/L (15-37); Alanine Aminotransfer ALT/SGPT 22 U/L (13-56); Alkaline Phosphatase 107 U/L (45-117); Anion Gap 12 (5-15); BUN 26 mg/dL (7-18); BUN/Creat Ratio 21.5 RATIO (10-20); Calcium,Total 10.2 mg/dL (8.5-10.1); Chloride 108 mmol/L (98-107); Creatinine, Serum 1.21 mg/dL (0.55-1.02); EST Glomerular Filtration Rate 46 mL/min (>60); Est Glom Filt Rate - Afr Amer 56 mL/min (>60); Estimated Creatinine Clearance 41.32 ml/min; Globulin 3.9 g/dL (2.2-4.2); Glucose 141 mg/dL (74-106); Lipase 82 U/L (13-75); Magnesium 2.2 mg/dL (1.6-2.6); Potassium 3.1 mmol/L (3.5-5.1); Protein, Total 7.9 g/dL (6.4-8.2); Sodium Level 141 mmol/L (136-145); Troponin-I HS (w/2H Reflex) 5 pg/mL (3.0-54.0)
--- NOTE | 2024-01-02 15:37 | EX.ED.DYSGE1 ---
HPI History of Present Illness Chief Complaint: Alt LOC Informant: patient Narrative Narrative: Patient is a 73-year-old female with history of hypertension, hypothyroid, diverticulosis, diverticulitis, C. difficile colitis and GERD presenting for weakness and syncope. Patient states that she was in her normal state of health but then developed lower abdominal discomfort. She has had multiple episodes of diarrhea associated this. Does not report any black or blood in her stool. Had 2-3 episodes today of waking up on the ground. Reports feeling lightheaded. Thinks that she is passing out. Does not report any nausea or vomiting. EMS was called. Stroke alert was called and route because patient reported difficulty walking and had some slurred speech. [facility] Medical History History of Clostridium difficile infection History of steroid therapy Shortness of breath on exertion Headache History of echocardiogram Acute gastritis without hemorrhage Blood in stool IBS (irritable bowel syndrome) Wears glasses Low iron Anemia Non-smoker History of stress test Hypertension Hiatal hernia Anemia Arthritis Other chronic sinusitis GERD (gastroesophageal reflux disease) High cholesterol Hypertension Hypothyroid Diverticulosis Chronic pansinusitis Home Medications ?Medication ?Instructions ?Recorded ?Last Taken ?Type ferrous sulfate 325 mg (65 mg 325 mg PO DAILY@0800 supplement 11/10/15 12/06/22 History iron) tablet lisinopril 10 mg tablet 10 mg PO DAILY bp 04/22/18 12/12/22 History simvastatin 40 mg tablet 40 mg PO QHS cholesterol 04/22/18 12/11/22 History levothyroxine 88 mcg tablet 75 mcg PO DAILY thyroid 02/05/20 12/12/22 History acetaminophen 500 mg tablet 500 mg PO Q6H PRN pain 01/02/24 Unknown History (Tylenol Extra Strength) gabapentin 300 mg capsule 300 mg PO DAILY 01/02/24 Unknown History gabapentin 300 mg capsule 600 mg PO QHS 01/02/24 Unknown History mecobalamin (vitamin B12) 2,500 2,500 mcg PO DAILY 01/02/24 Unknown History mcg chewable tablet Allergy/AdvReac Type Severity Reaction Status Date / Time tamsulosin (From Flomax) Allergy Other Verified 12/07/22 10:38 epinephrine AdvReac Severe Panic Verified 12/12/22 06:40 Attack at Dentist Surgical History Hx of colonoscopy Hx of cystoscopy Hx of oral surgery Hx of right cataract extraction Hx of left cataract extraction History of repair of hiatal hernia History of extraction of renal calculus (~03/2020) History of esophagogastroduodenoscopy (EGD) (~2020) History of sinus surgery History of thyroidectomy History of back surgery History of foot surgery Social History Smoking Status: Never smoker alcohol intake: never substance use type: does not use ROS ROS ED Constitutional Constitutional ED: Reports other Details: Lightheaded, syncope ; Denies chills or fever(s) Eyes Eyes: Denies change in vision Cardiovascular Cardiovascular: Denies chest pain or palpitations Respiratory/Chest Respiratory/Chest: Denies cough or dyspnea Gastrointestinal Gastrointestinal: Reports abdominal pain and diarrhea; Denies melena or vomiting Genitourinary Genitourinary ED: Denies dysuria Musculoskeletal Musculoskeletal: Denies arthralgias or myalgias Integumentary Denies rash Neurologic Neurologic: Reports weakness; Denies headache(s) Hematologic/Lymphatic Hematologic/Lymphatic: Denies easy bleeding or easy bruising EXAM Physical Exam Const Vital Signs: 01/02/24 14:44 01/02/24 15:35 01/02/24 16:00 Temperature 97.8 F Temperature Source Oral Pulse Rate 96 91 92 Respiratory Rate 28 H 20 H 18 Blood Pressure 151/120 H 121/59 H 132/67 H Blood Pressure Mean 130 79 88 Pulse Ox 98 96 96 Oxygen Delivery Method Room Air Room Air Room Air 01/02/24 16:55 01/02/24 18:00 01/02/24 18:44 Temperature 98.2 F Temperature Source Pulse Rate 82 82 75 Respiratory Rate 18 16 17 Blood Pressure 137/62 H 141/83 H 139/69 H Blood Pressure Mean 87 102 92 Pulse Ox 98 95 97 Oxygen Delivery Method Room Air Room Air 01/02/24 18:54 Temperature Temperature Source Pulse Rate 78 Respiratory Rate 17 Blood Pressure 137/69 H Blood Pressure Mean 91 Pulse Ox 96 Oxygen Delivery Method Room Air Positive well nourished and well developed General Appearance ED: well developed and NAD HEENT Reports TM's clear and moist mucous membranes HEENT Narrative: Light bruising and erythema over the left cheek. There is excoriation down her left cheek from her fall. trauma Tympanic Membrane ED: Yes TM's clear Eyes PERRL and EOMs intact bilaterally Neck supple General: Negative for tenderness Chest Wall inspection of chest normal and palpation of chest normal Resp normal respiratory effort and clear to auscultation bilaterally Cardio regular rate and regular rhythm GI normal to inspection, nondistended, normoactive bowel sounds Palpation: tender suprapubic Extremity normal to inspection Extremity Narrative: Mild bruising and tenderness over the left wrist. No significant anatomical snuffbox tenderness. No deformity. She also has some mild diffuse tenderness of the left elbow but no pinpoint bony tenderness. Is worse with supination and pronation. General Extremety ED: Yes tenderness Neuro oriented x3, CN's II-XII intact bilaterally and no sensory deficits noted Neuro Narrative: NIH equals 0. No focal neurologic deficit appreciated Sensorium / Orientation: alert Motor Exam: strength 5/5 throughout and general weakness Psych mental status grossly normal Skin no rashes or lesions noted Skin Narrative: Superficial abrasion and bruising to the left side of the face/cheek. Localized bruising to the left distal radius/wrist area MDM MDM MDM Narrative Medical decision making narrative: Patient is evaluated for sounds like normal episodes of syncope. She was very weak. EMS initially called a stroke alert however on my evaluation patient is not have any slurred speech or focal weakness. I suspect this is more of a metabolic issue or syncope related. Stroke alert is canceled. Patient does have evidence of head trauma so we will obtain a CT of the brain looking for intracranial hemorrhage or skull fracture. In addition she is having profuse diarrhea the emergency room and does have a history of colitis. CT of the abdomen pelvis is ordered. Chest x-ray is obtained which is reviewed by myself as well as radiology does not show any acute process. Patient is given IV fluids in the emergency room initially. She continues to have diarrhea which is sent for studies but this does progress into maroon-colored stool. It is obviously bloody. Her abdomen is soft and she does not have tenderness out of proportion to exam. Differential includes ischemic colitis, infectious colitis, C. difficile (patient does have a history of this but denies any recent biotics) as well as embolic disease. Patient's D-dimer was checked because of her syncope and significantly elevated (greater than 20). Because of this CTA of the chest is added on which will rule out any main PE as a cause of her syncope as well as dissection. At this time she is receiving IV fluids and I feel like the benefit of a second contrast bolus outweighs the risk. Patient currently Hiro suggest that IV CT contrast does not actually any nephropathy. Patient is she does have an elevated lactate 3.5. Does improve with fluids. Her lipase is mildly elevated [address] does not show findings consistent with pancreatitis. Her CT of the abdomen pelvis does show findings since with a mild colitis. On repeat evaluation patient is not complaining of some pain of her left elbow and wrist. This is that she fell on. X-rays were obtained which did not show any acute fracture. X-rays reviewed by myself as well as radiology. CT of the chest does not show any large PE or signs of dissection. The bolus timing was not great for further PE evaluation however given she is not hypoxic or shortness of breath and I have another cause of her syncope (volume depletion/colitis) I do not think this needs to be repeated at a later date. Case discussed with GI, Dr. Gomez who is evaluate the patient. He agrees that likely this is ischemic colitis. I will admit her for further IV fluids and monitoring. Given her significant history of C. difficile will defer any antibiotics at this time. Case is discussed with my physician, Dr. Whittington. She will admitted to PCU for further treatment and monitoring. Patient agreeable with plan of care. Patient does look much improved on repeat evaluation after receiving IV fluids. Lab Data Attestation: I reviewed the patient's lab results. Labs: Laboratory Results - last 24 hr 01/02/24 01/02/24 01/02/24 15:00 15:01 17:13 WBC 9.4 RBC 4.90 Hgb 15.3 H Hct 46.3 MCV 94.5 MCH 31.2 MCHC 33.0 RDW Std Deviation 48.0 H RDW Coeff of Keith 13.9 Plt Count 252 MPV 11.0 Immature Gran % (Auto) 0.200 Neut % (Auto) 58.0 Lymph % (Auto) 34.3 [place] % (Auto) 5.7 Eos % (Auto) 1.0 Baso % (Auto) 0.8 Absolute Neuts (auto) 5.5 Absolute Lymphs (auto) 3.24 Nucleated RBC % 0 ESR 25 D-Dimer Quant (PE/DVT) > 20.00 H* Sodium 141 Potassium 3.1 L Chloride 108 H Carbon Dioxide 21.0 Anion Gap 12 BUN 26 H Creatinine 1.21 H Estim Creat Clear Calc 41.32 Est GFR (MDRD) Af Amer 56 L Est GFR (MDRD) Non-Af 46 L BUN/Creatinine Ratio 21.5 H Glucose 141 H Lactic Acid 3.5 H* Calcium 10.2 H Magnesium 2.2 Total Bilirubin 0.60 AST 28 ALT 22 Alkaline Phosphatase 107 Total Creatine Kinase 52 Troponin I High Sens 5 5 C-React Prot Ext Range < 2.90 Total Protein 7.9 Albumin 4.0 Globulin 3.9 Albumin/Globulin Ratio 1.0 Lipase 82 H TSH 1.110 Urine Color Urine Clarity Urine pH Ur Specific Holiday Urine Protein Urine Glucose (UA) Urine Ketones Urine Occult Blood Urine Nitrite Urine Bilirubin Urine Urobilinogen Ur Leukocyte Esterase Urine RBC Urine WBC Ur Squamous Epith Cells Urine Bacteria Urine Mucus Urine Yeast 01/02/24 01/02/24 17:39 19:25 WBC RBC Hgb Hct MCV MCH MCHC RDW Std Deviation RDW Coeff of Keith Plt Count MPV Immature Gran % (Auto) Neut % (Auto) Lymph % (Auto) [place] % (Auto) Eos % (Auto) Baso % (Auto) Absolute Neuts (auto) Absolute Lymphs (auto) Nucleated RBC % ESR D-Dimer Quant (PE/DVT) Sodium Potassium Chloride Carbon Dioxide Anion Gap BUN Creatinine Estim Creat Clear Calc Est GFR (MDRD) Af Amer Est GFR (MDRD) Non-Af BUN/Creatinine Ratio Glucose Lactic Acid 1.0 Calcium Magnesium Total Bilirubin AST ALT Alkaline Phosphatase Total Creatine Kinase Troponin I High Sens C-React Prot Ext Range Total Protein Albumin Globulin Albumin/Globulin Ratio Lipase TSH Urine Color Yellow Urine Clarity Clear Urine pH 5.0 Ur Specific Holiday 1.010 Urine Protein 30 H Urine Glucose (UA) Normal Urine Ketones Negative Urine Occult Blood 150 H Urine Nitrite Negative Urine Bilirubin Negative Urine Urobilinogen Normal Ur Leukocyte Esterase Negative Urine RBC 5-10 SEEN Urine WBC 0-5 SEEN Ur Squamous Epith Cells 0 SEEN Urine Bacteria RARE Urine Mucus 0 SEEN Urine Yeast RARE Radiography Chest X-Ray - ED: 1 View, Read by ED Physician, Read by Radiologist and No Acute Disease Diagnostic Testing: Clinical Impression(s) from Imaging Studies Abdomen/Pelvis CT 01/02/24 14:50 IMPRESSION: Study limited by patient motion. Mild bowel wall thickening throughout the colon, consistent with mild colitis. No bowel obstruction. Normal appendix. Bilateral subcentimeter nonobstructing renal collecting system stones. No ureteral stones. No hydronephrosis. No free air, free fluid or fluid collection. Electronically Signed: Juan David Hartley MD at 16:16 EDT , Brain CT 01/02/24 14:50 IMPRESSION: No acute intracranial abnormality. No hydrocephalus Electronically Signed: Juan David Hartley MD at 15:56 EDT , Chest X-Ray 01/02/24 15:40 IMPRESSION: No acute thoracic pathology. Electronically Signed: Juan David Hartley MD at 16:03 EDT , Chest CTA 01/02/24 16:23 IMPRESSION: Technically inadequate exam for confirming or excluding pulmonary emboli as indicated above. Improper bolus and timing. There are findings consistent with COPD. There is no evidence of acute chest disease. Electronically Signed: Lex Royal MD at 17:31 EDT , Elbow X-Ray 01/02/24 17:34 IMPRESSION: Normal x-ray examination of the elbow. Electronically Signed: Lex Royal MD at 18:07 EDT , Wrist X-Ray 01/02/24 17:34 IMPRESSION: Normal x-ray examination of the wrist. Electronically Signed: Lex Royal MD at 18:08 EDT , Rhythm Strip Rhythm Strip: Sinus Rhythm Rate: 91 Ectopy: None EKG Initial EKG: Attestation: I personally reviewed and interpreted this EKG as follows: Interpretation: Sinus Rhythm Comments: Normal sinus rhythm 91 bpm Normal axis Normal intervals Normal ST segments Discharge Plan Dx/Rx/DC Orders Clinical Impression: Syncope, Acute ischemic colitis, Elevated lactic acid level, Melena Disposition Disposition: Acute Care Hospital [facility] Discharge Date/Time: 01/02/24 20:05
--- NOTE | 2024-01-02 15:40 | RAD_ITS ---
STUDY: X-RAY CHEST REASON FOR EXAM: Female, 73 years old. Syncope TECHNIQUE: Frontal view of the chest COMPARISON: 05/29/2005 FINDINGS: The lungs are clear. There are no pleural effusions. There is no pneumothorax. The heart is normal in size. Again noted are surgical clips in the lower neck. The visualized osseous structures are within normal limits. RAD/Chest 1 View (Portable) IMPRESSION: No acute thoracic pathology. Electronically Signed: Juan David Hartley MD at 16:03 EDT ,
[2024-01-02 16:04] LABS: D-Dimer Quantitative (DVT/PE) > 20.00 FEU/ug/m (0.27-0.49)
[2024-01-02 16:10] LABS: Lactic Acid 3.5 mmol/L (0.4-1.9)
--- NOTE | 2024-01-02 16:23 | CT_ITS ---
STUDY: CTA CHEST REASON FOR EXAM: Female, 73 years old. syncope, elevated dimer RADIATION DOSAGE (If Supplied By Facility): CTDIvol = ( 8.54 ) mGy, DLP = ( 332.63 ) mGycm TECHNIQUE: The examination was performed with the intravenous administration of IV 100mL Isovue-370. Post-processing of the angiographic images was performed, with multiplanar reformation and 3D reconstruction. Individualized dose optimization techniques were used for this CT. COMPARISON: None. FINDINGS: Normal enhancement of the main pulmonary artery and right and left pulmonary arteries. Normal enhancement of the bilateral peripheral pulmonary arteries. Specifically, most of the contrast is seen in the left brachiocephalic vein and SVC, and the aorta is enhanced greater than the pulmonary arteries. This indicates a much too broad contrast bolus with improper timing. Pulmonary emboli cannot be excluded beyond the pulmonary trunk. Normal thoracic aorta and visualized great vessels. There is no demonstrated aortic dissection. Normal heart and pericardium. There are calcifications of the coronary arteries. Normal mediastinum. Normal hilar regions. Normal visualized trachea and bronchi. The lungs are hyper expanded, with flattening of the hemidiaphragms. Normal pulmonary parenchyma. No infiltrates. No nodules. Normal pleura. Normal chest wall structures. There are degenerative changes of thoracic spine. Exaggerated kyphosis and increased AP dimension of the chest No acute abnormalities seen in the visualized upper abdomen. CT/CTA Chest W/WO Contrast IMPRESSION: Technically inadequate exam for confirming or excluding pulmonary emboli as indicated above. Improper bolus and timing. There are findings consistent with COPD. There is no evidence of acute chest disease. Electronically Signed: Lex Royal MD at 17:31 EDT ,
[2024-01-02] MEDS: 0.9% Normal Saline (1000mL) 1,000 ML 125 ML IV ×2 (16:39→21:00)
[2024-01-02 17:02] LABS: Reflex Troponin-HS? (from REC) Y
--- NOTE | 2024-01-02 17:34 | RAD_ITS ---
STUDY: X-RAY - LEFT WRIST REASON FOR EXAM: Female, 73 years old. Injury/Pain TECHNIQUE: 3 view(s) of the wrist were obtained. COMPARISON: None. FINDINGS: Normal visualized distal radius and ulna. Normal radiocarpal articulation. Normal distal radioulnar articulation. Normal carpal bones. Normal carpal articulations. Normal carpometacarpal articulation of the thumb. Normal second through fifth carpometacarpal articulations. Normal visualized metacarpal bones. The soft tissue structures are unremarkable. There is no demonstrated acute fracture. RAD/Wrist min 3 Views IMPRESSION: Normal x-ray examination of the wrist. Electronically Signed: Lex Royal MD at 18:08 EDT ,
--- NOTE | 2024-01-02 17:34 | RAD_ITS ---
STUDY: X-RAY - LEFT ELBOW REASON FOR EXAM: Female, 73 years old. Injury/Pain TECHNIQUE: 3 view(s) of the elbow. COMPARISON: None. FINDINGS: Normal visualized humerus, radius and ulna. Normal radiocapitellar and ulnotrochlear articulations. The soft tissue structures are unremarkable. There is no demonstrated fracture. RAD/Elbow min 3 Views IMPRESSION: Normal x-ray examination of the elbow. Electronically Signed: Lex Royal MD at 18:07 EDT ,
[2024-01-02 17:37] LABS: Troponin-I HS 5 pg/mL (3.0-54.0)
[2024-01-02 17:40] LABS: Mucous, Urine 0 SEEN /hpf (<or=2+); Squamous Epithelial Cells - UA 0 SEEN /hpf (5-10)
[2024-01-02 17:55] LABS: Color, Urine Yellow (Yellow); Glucose, Dipstick Normal (Normal); Ketone-Dipstick Negative (Negative); Leukocyte Esterase-Dipstick Negative /ul (Negative); Nitrite-Dipstick Negative (Negative); Occult Blood-Urine 150 /ul (Negative); Protein-Dipstick 30 mg/dl (Negative); Urine Bilirubin Dipstick Negative (Negative); Urine Clarity Clear (Clear); Urine Urobilinogen Normal (Normal)
[2024-01-02 18:03] LABS: CPK Total, Creatine Kinase 52 U/L (26-192)
[2024-01-02 18:04] LABS: Bacteria RARE /hpf (None Seen); Red Blood Cells-Urine 5-10 SEEN /hpf (0-5); White Blood Cells 0-5 SEEN /hpf (0-5); Yeast-Urine RARE /hpf (None Seen)
[2024-01-02 19:14] LABS: Reflex Lactate? Y
[2024-01-02 19:15] LABS: CRP < 2.90 mg/L (0.0-3.0)
[2024-01-02 19:15] LABS: Erythrocyte Sedimentation Rate 25 mm/hr (0-30)
--- NOTE | 2024-01-02 19:45 | HP.PCM.HOS_ITS ---
HPI - General General Date of Admission: 01/02/24 Date of Service: 01/02/24 Chief Complaint: Syncopal episodes HPI Narrative MOISÉS MCKEON, is [id number] female history of GERD, C. difficile, hypothyroidism, hypertension presented [facility] ED 01/02/2024 with multiple syncopal episodes. In the ED patient had multiple bowel movements that became maroon and CT showed mild colitis, patient also had initial lactic acid of 3.5. C. difficile negative, enteric pathogens pending. GI contacted in the ED and there was concern there could be some ischemic colitis and it was recommended against starting empiric antibiotics and to make patient n.p.o. at midnight. In ED patient was vitally stable, did have D-dimer greater than [address] of the chest obtained but given timing of bolus could only exclude PE in pulmonary trunk however it was felt that there her lightheadedness and syncope was due to volume loss with her present GI problems and patient was not hypoxic, hypotensive, or tachycardic. Hospitalist contacted for admission for lightheadedness/syncope and diarrhea with maroon stools. Patient endorses she has been feeling little bit weak recently and went to physical therapy earlier today and did okay overall aside from a little bit of weakness and some pain, when she went home she ate some seafood salad and a little bit of cantaloupe, sometime later she had some lower abdominal pain and got lightheaded, sweaty, and nauseous and she fell and woke up on the floor, she believes she had a loss of consciousness and thinks she had 2 more episodes and relatively short period of time. She denies any fevers or chills, no shortness of breath or cough, abdominal pain minimal at this time and has been having multiple episodes of diarrhea in the ED that have become more maroon in color but she thinks may be slowing down now. Denies any new or acute urinary complaints. Has been a little bit fatigued and has a torn left meniscus for which she is going to physical therapy but otherwise reports being in her usual health. Feels she eats and drinks adequately usually. Does not think that something like this has happened to her before. Has a history of C. difficile colitis but said her last episode was years ago. At present not feeling lightheaded, no chest pain or shortness of breath. FORMERLY [facility], [facility] Medical History History of Clostridium difficile infection History of steroid therapy Shortness of breath on exertion Headache History of echocardiogram Acute gastritis without hemorrhage Blood in stool IBS (irritable bowel syndrome) Wears glasses Low iron Anemia Non-smoker History of stress test Hypertension Hiatal hernia Anemia Arthritis Other chronic sinusitis GERD (gastroesophageal reflux disease) High cholesterol Hypertension Hypothyroid Diverticulosis Chronic pansinusitis Home Medications ?Medication ?Instructions ?Recorded ?Last Taken ?Type ferrous sulfate 325 mg (65 mg 325 mg PO DAILY@0800 supplement 11/10/15 12/06/22 History iron) tablet lisinopril 10 mg tablet 10 mg PO DAILY bp 04/22/18 12/12/22 History simvastatin 40 mg tablet 40 mg PO QHS cholesterol 04/22/18 12/11/22 History levothyroxine 88 mcg tablet 75 mcg PO DAILY thyroid 02/05/20 12/12/22 History acetaminophen 500 mg tablet 500 mg PO Q6H PRN pain 01/02/24 Unknown History (Tylenol Extra Strength) gabapentin 300 mg capsule 300 mg PO DAILY 01/02/24 Unknown History gabapentin 300 mg capsule 600 mg PO QHS 01/02/24 Unknown History mecobalamin (vitamin B12) 2,500 2,500 mcg PO DAILY 01/02/24 Unknown History mcg chewable tablet Allergy/AdvReac Type Severity Reaction Status Date / Time tamsulosin (From Flomax) Allergy Other Verified 12/07/22 10:38 epinephrine AdvReac Severe Panic Verified 12/12/22 06:40 Attack at Dentist Surgical History Hx of colonoscopy Hx of cystoscopy Hx of oral surgery Hx of right cataract extraction Hx of left cataract extraction History of repair of hiatal hernia History of extraction of renal calculus (~03/2020) History of esophagogastroduodenoscopy (EGD) (~2020) History of sinus surgery History of thyroidectomy History of back surgery History of foot surgery Social History Smoking Status: Never smoker alcohol intake: never substance use type: does not use ROS ROS Narrative General: Denies fever/chills, earlier during the episode felt sweaty and clammy HENT: Denies headache, denies stuffy nose, denies sore throat EYES: Denies changes in vision Resp: Denies cough, denies shortness of breath Cardiac: Denies chest pain GI: Had an episode of nausea when she felt lightheaded before her syncopal episode earlier but that has resolved, had lower abdominal pain which has improved significantly, has been having loose stool that is progressively become more maroon but she thinks this may be slowing down : Denies changes in urination Extremity: Denies swelling MSK: Has felt a little bit generally weak, does have some back pain and has a torn meniscus in left knee Neuro: No acute neurologic changes Heme: Has some bruising on left side of face due to fall when she had syncopal episode Skin: Denies rashes Psychiatric: No complaints voiced Vital Signs Vital Signs Vital Signs: 01/02/24 14:44 01/02/24 15:35 01/02/24 16:00 Temperature 97.8 F Temperature Source Oral Pulse Rate 96 91 92 Respiratory Rate 28 H 20 H 18 Blood Pressure 151/120 H 121/59 H 132/67 H Blood Pressure Mean 130 79 88 Pulse Ox 98 96 96 Oxygen Delivery Method Room Air Room Air Room Air 01/02/24 16:55 01/02/24 18:00 01/02/24 18:44 Temperature 98.2 F Temperature Source Pulse Rate 82 82 75 Respiratory Rate 18 16 17 Blood Pressure 137/62 H 141/83 H 139/69 H Blood Pressure Mean 87 102 92 Pulse Ox 98 95 97 Oxygen Delivery Method Room Air Room Air 01/02/24 18:54 Temperature Temperature Source Pulse Rate 78 Respiratory Rate 17 Blood Pressure 137/69 H Blood Pressure Mean 91 Pulse Ox 96 Oxygen Delivery Method Room Air Weight Weight: 77.4 kg Body Mass Index (BMI) 28.3 Physical Exam Narrative General: Alert, oriented, no apparent distress HEENT: Bruising on left cheek, normocephalic Eyes: Anicteric, normal conjunctiva, extraocular movements grossly intact Neck: Supple Respiratory: Clear to auscultation bilaterally, normal respiratory effort Cardiovascular: Regular rate and rhythm GI: Soft, nontender, nondistended, no rebound, guarding, rigidity Extremities: No edema Musculoskeletal: Moving all extremities Neuro: No overt focal neurological deficits Skin: No rashes appreciated but has some bruising with left wrist Psych: Cooperative Results Lab / Micro Data 01/02/24 15:01 01/02/24 15:01 Labs: Laboratory Results - last 24 hr 01/02/24 15:00: Lactic Acid 3.5 H* 01/02/24 15:01: WBC 9.4, RBC 4.90, Hgb 15.3 H, Hct 46.3, MCV 94.5, MCH 31.2, MCHC 33.0, RDW Std Deviation 48.0 H, RDW Coeff of Keith 13.9, Plt Count 252, MPV 11.0, Immature Gran % (Auto) 0.200, Neut % (Auto) 58.0, Lymph % (Auto) 34.3, Wirt % (Auto) 5.7, Eos % (Auto) 1.0, Baso % (Auto) 0.8, Absolute Neuts (auto) 5.5, Absolute Lymphs (auto) 3.24, Nucleated RBC % 0, ESR 25, D-Dimer Quant (PE/DVT) > 20.00 H*, Sodium 141, Potassium 3.1 L, Chloride 108 H, Carbon Dioxide 21.0, Anion Gap 12, BUN 26 H, Creatinine 1.21 H, Estim Creat Clear Calc 41.32, E st GFR (MDRD) Af Amer 56 L, Est GFR (MDRD) Non-Af 46 L, BUN/Creatinine Ratio 21.5 H, Glucose 141 H, Calcium 10.2 H, Magnesium 2.2, Total Bilirubin 0.60, AST 28, ALT 22, Alkaline Phosphatase 107, Troponin I High Sens 5, Total Protein 7.9, Albumin 4.0, Globulin 3.9, Albumin/Globulin Ratio 1.0, Lipase 82 H 01/02/24 17:13: Total Creatine Kinase 52, Troponin I High Sens 5, C-React Prot Ext Range < 2.90, TSH 1.110 01/02/24 17:39: Urine Color Yellow, Urine Clarity Clear, Urine pH 5.0, Ur Specific [place] 1.010, Urine Protein 30 H, Urine Glucose (UA) Normal, Urine Ketones Negative, Urine Occult Blood 150 H, Urine Nitrite Negative, Urine Bilirubin Negative, Urine Urobilinogen Normal, Ur Leukocyte Esterase Negative, Urine RBC 5-10 SEEN, Urine WBC 0-5 SEEN, Ur Squamous Epith Cells 0 SEEN, Urine Bacteria RARE, Urine Mucus 0 SEEN, Urine Yeast RARE Micro: Microbiology 01/02/24 15:02 Stool Stool Lactoferrin - Final 01/02/24 15:02 Stool Clostridioides difficile (PCR) - Final Imaging Radiology Impression Abdomen/Pelvis CT 01/02/24 14:50 IMPRESSION: Study limited by patient motion. Mild bowel wall thickening throughout the colon, consistent with mild colitis. No bowel obstruction. Normal appendix. Bilateral subcentimeter nonobstructing renal collecting system stones. No ureteral stones. No hydronephrosis. No free air, free fluid or fluid collection. Electronically Signed: Juan David Hartley MD at 16:16 EDT , Brain CT 01/02/24 14:50 IMPRESSION: No acute intracranial abnormality. No hydrocephalus Electronically Signed: Juan David Hartley MD at 15:56 EDT , Chest X-Ray 01/02/24 15:40 IMPRESSION: No acute thoracic pathology. Electronically Signed: Juan David Hartley MD at 16:03 EDT , Chest CTA 01/02/24 16:23 IMPRESSION: Technically inadequate exam for confirming or excluding pulmonary emboli as indicated above. Improper bolus and timing. There are findings consistent with COPD. There is no evidence of acute chest disease. Electronically Signed: Lex Royal MD at 17:31 EDT , Elbow X-Ray 01/02/24 17:34 IMPRESSION: Normal x-ray examination of the elbow. Electronically Signed: Lex Royal MD at 18:07 EDT , Wrist X-Ray 01/02/24 17:34 IMPRESSION: Normal x-ray examination of the wrist. Electronically Signed: Lex Royal MD at 18:08 EDT , Assessment & Plan Assessment/Plan (1) Syncope: PLAN: Plan # Lightheadedness and syncope -Patient felt lightheaded, nauseous, sweaty and had abdominal pain earlier today and each of these episodes progressed to syncope for a total of 3 times -Patient with multiple bowel movements and elevated hemoglobin and elevated BUN/creatinine that would suggest a component of volume depletion -Lactic acid was initially elevated but that resolved with IV fluids -Patient has been vitally stable and has had no further lightheaded or syncopal episodes in the ED -Did have elevated D-dimer and CTA only able to exclude PE and pulmonary trunk with inability to completely exclude other clots due to contrast timing -Given patient completely hemodynamically stable and not having any symptoms and having rectal bleeding feel benefits of empirically starting full dose anticoagulation would not outweigh risks at this time -Will monitor on telemetry -EKG normal sinus rhythm with rate of 91 -CT head on arrival unremarkable -Will also obtain echocardiogram -Given patient's other potential reasons for syncope we will hold off on orthostats right now as this will likely not change acute management and would not want to cause another syncopal episode while awaiting GI evaluation and treatment # Diarrhea/maroon stool/mild colitis -CT abdomen pelvis with mild bowel wall thickening through colon consistent with mild colitis -Patient not having the significant pain any further, has been having episodes of diarrhea in the ED that a become more maroon-colored over time but no longer feeling any lightheadedness -GI contacted in ED and recommended no antibiotics but n.p.o. at midnight for possible flex sig tomorrow -GI c/s -C. difficile negative, enteric pathogen panel pending -Hemoglobin 15.3 on presentation, suspect slightly elevated due to hemoconcentration -Given she has had maroon stools and syncopal episode will trend H&H, if having further blood in stool or dropping significantly can type and cross but vitally stable at this time and she feels it is slowing down, abd pain improving and HGB elevated on admission, does not need emergently transfused #Elevated ddimer -No PE and pulmonary trunk cannot definitively exclude more distal PEs however -Patient currently with maroon stools and concern for GI bleed, given her clinical stability would want to avoid anticoagulation acutely if possible, no swelling in 1 leg greater than another, patient is mobile and ambulates and is fairly active, not hypotensive or tachycardic, not hypoxic or tachypneic. No shortness of breath -Will check lower extremity duplex and COVID-19 -Check echocardiogram # Elevated creatinine BUN 26 with creatinine of 1.21 -No values since 2021 so unclear if this is DARCY or CKD -Hydrating -Repeat in a.m. -Hold lisinopril #Hypothyroidism -Continue Synthroid -TSH 1.11 today #Hypertension -Given patient's syncopal episodes will hold lisinopril at this time #DVT ppx: SCDs Charline Whittington MD Time spent in the patient's overall evaluation,decision-making process, review of diagnostic data, adjustment of management, discussion with other providers, nursing nursing and ancillary staff involved in patient's care documentation, 76 minutes Charges/Coding Visit Charges Inpatient E&M: 17652 Init Hosp L3
--- NOTE | 2024-01-02 20:46 | VDLE_ITS ---
Reason For Study: Elevated D Dimer RIGHT LEFT GSV is normal. GSV is normal. CFV is compressible, spontaneous, phasic, CFV is compressible, spontaneous, phasic, competent and demonstrates normal competent, and demonstrates normal augmentation. augmentation. FV is compressible, spontaneous, phasic, FV is compressible, spontaneous, phasic, competent and demonstrates normal competent and demonstrates normal augmentation. augmentation. POP V is compressible, spontaneous, phasic, POP V is compressible, spontaneous, phasic, competent and demonstrates normal competent and demonstrates normal augmentation. augmentation. T/P Trunk is compressible. T/P Trunk is compressible. PTV is compressible. PTV is compressible. RT PerV is compressible. LT PerV is compressible. Procedure Hypoechoic, non vascular structure noted Lt This is a venous duplex using B-mode, color Pop Fossa measuring 2.04cm x 0.93cm. flow and spectral Doppler. Exam performed portable in patient room. A preliminary report was called and/or faxed to Nati GAMEZ. VL/Venous Duplex US - [place] Extrem Interpretation Summary Deep veins of the lower extremities are bilaterally patent and compressible seg mentally. There is no evidence of deep vein thrombosis on either side. Valvular competence appears in tact within the proximal deep venous systems bilaterally. The great saphenous veins appear bila terally patent and compressible segmentally. A non-vascular, hypoechoic structure is noted in the left popliteal space, measuring 2.04 cm x 0.93 cm. This probably represents a popliteal cyst. Clinica l correlation is advised. Ordering Physician: Charline Whittington Referring Physician: Nick López Performed By: Rajni Alcala RDCS, RVT
--- NOTE | 2024-01-02 20:46 | ECHOD_ITS ---
Reason For Study: SYNCOPE Procedure This was a 2D Doppler, Color Flow transthoracic echocardiogram. Exam performed portable in patient room. Left Ventricle Normal LV size. Left ventricular systolic function is normal. The estimated ejection fraction is 60 %. Stage 1 diastolic dysfunction. No regional wall motion abnormalities noted. Right Ventricle Normal RV size. Normal systolic function. Atria Normal left atrium. Normal right atrium. Mitral Valve The mitral valve is structurally normal. No prolapse or stenosis seen. Trivial mitral valve insufficiency. Tricuspid Valve Normal tricuspid valve. Mild (1+) tricuspid valve insufficiency. Pulmonary artery systolic pressure is 24 mmHg. Aortic Valve Trisinus/trileaflet aortic valve. Mild focal aortic valve calcification. There is no aortic stenosis. Pulmonic Valve Normal pulmonic valve. Great Vessels Normal aortic root. Pericardium/Pleural No pericardial effusion. MMode/2D Measurements & Calculations LVIDd: 4.3 cm IVSd: 1.1 cm LVOT diam: 2.0 cm LVIDs: 2.7 cm LVPWd: 0.97 cm LVOT area: 3.0 cm2 RVDd: 3.9 cm FS: 36.0 % asc Aorta Diam: 3.4 cm LAV(MOD-bp): 36.8 ml LVAd ap4: 20.8 cm2 LAV(MOD-bp) Indexed: 20.4 ml/m2 LVLd ap4: 6.8 cm LAV(MOD-sp2): 47.2 ml EDV(MOD-sp4): 52.2 ml LAV(MOD-sp4): 28.6 ml EDV(sp4-el): 53.8 ml LVAs ap4: 9.6 cm2 LVLs ap4: 5.5 cm ESV(MOD-sp4): 13.8 ml ESV(sp4-el): 14.2 ml EF(MOD-sp4): 73.5 % EF(sp4-el): 73.7 % LVAd ap2: 21.1 cm2 SV(MOD-sp4): 38.4 ml SV(MOD-sp2): 35.4 ml LVLd ap2: 7.0 cm EDV(MOD-sp2): 52.0 ml EDV(sp2-el): 54.1 ml LVAs ap2: 10.5 cm2 LVLs ap2: 5.5 cm ESV(MOD-sp2): 16.6 ml ESV(sp2-el): 17.0 ml EF(MOD-sp2): 68.0 % SV(sp4-el): 39.7 ml Ao sinus diam: 3.[address] Junction: 2.8 cm LA dimension(2D): 3.8 cm LA A4 area: 13.4 cm2 RA A4 area: 10.7 cm2 TAPSE: 2.1 cm Time Measurements MV dec time: 0.17 sec Doppler Measurements & Calculations MV E max robert: 87.5 cm/sec Lat Peak E' Robert: 11.2 cm/sec Med Peak E' Robert: 12.3 cm/sec MV A max robert: 113.7 cm/sec E/E' lat: 7.8 E/E' med: 7.1 MV E/A: 0.77 MV dec slope: 529.8 cm/sec2 Ao V2 max: 153.7 cm/sec LV V1 max: 134.8 cm/sec Ao max P.5 mmHg LV V1 max P.3 mmHg Ao V2 mean: 106.1 cm/sec LV V1 mean P.4 mmHg Ao mean P.9 mmHg LV V1 mean: 101.5 cm/sec Ao V2 VTI: 33.0 cm LV V1 VTI: 29.0 cm AV (velocity ratio): 0.88 LOLIS(I,D): 2.7 cm2 LOLIS(V,D): 2.7 cm2 SV(LVOT): 88.3 ml PA V2 max: 102.3 cm/sec TR max robert: 227.6 cm/sec PA max PG (full): 0.75 mmHg TR max P.7 mmHg ECHO/Echo Complete Interpretation Summary The estimated ejection fraction is 60 %. Stage 1 diastolic dysfunction. Mild (1+) tricuspid valve insufficiency. Mild focal aortic valve calcification. Ordering Physician: Charline Whittington Performed By: Merced Guthrie RDCS
[2024-01-02 21:49] LABS: Hemoglobin 14.2 g/dL (12.0-15.0)
[2024-01-02] MEDS: Potassium Chloride Oral Tablet 20 MEQ 40 MEQ PO (21:58)
[2024-01-03] VITALS (11 sets, daily range): BP systolic 113–137; BP diastolic 58–84; PULSE 74–92; RESP 16–18; TEMP 36.3–37.2; O2SAT 96–99
[2024-01-03] MEDS: oxyCODONE 5 MG Tablet 2.5 MG PO (03:28)
[2024-01-03 03:34] LABS: Absolute Lymphocyte Count 1.03 X10^3/uL (0.83-4.51); Absolute Neutrophil Count 14.6 X10^3/uL (2.0-7.7); Basophil# 0.06 X10^3/uL; Basophil% 0.4 % (0-1); Hematocrit 39.9 % (37-47); Lymphocyte # 1.03 X10^3/ul (0.83-4.51); Mean Corp Hgb Conc 32.6 g/dL (32-36); Mean Corpuscular Volume 95.2 fL (81-99); Mean Platelet Vol. 10.6 fl (6.2-12.0); Monocyte% 7.6 % (0-10); NRBC Flagged by Analyzer 0 % (0-5); Neutrophil # 14.61 X10^3/uL (2.7-7.7); Neutrophil % 85.6 % (47-70); Platelet Count 211 K/mm3 (150-450); RBC Distribution Width CV 14.1 % (11.6-14.6); RBC Distribution Width SD 49.1 fl (35.1-43.9); Red Blood Count 4.19 M/mm3 (4.2-5.4); White Blood Count 17.1 K/mm3 (4.4-11.0)
[2024-01-03] MEDS: 0.9% Normal Saline (1000mL) 1,000 ML 125 ML IV ×2 (03:36→15:03)
[2024-01-03 03:49] LABS: International Normalized Ratio 1.2
[2024-01-03 04:35] LABS: AST(SGOT) 19 U/L (15-37); Alanine Aminotransfer ALT/SGPT 17 U/L (13-56); Albumin, Serum 3.1 g/dL (3.2-5.0); Alkaline Phosphatase 93 U/L (45-117); Anion Gap 6 (5-15); BUN 19 mg/dL (7-18); BUN/Creat Ratio 29.1 RATIO (10-20); Calcium,Total 9.2 mg/dL (8.5-10.1); Chloride 116 mmol/L (98-107); Creatinine, Serum 0.65 mg/dL (0.55-1.02); EST Glomerular Filtration Rate 94 mL/min (>60); Est Glom Filt Rate - Afr Amer 114 mL/min (>60); Estimated Creatinine Clearance 60.97 ml/min; Globulin 3.2 g/dL (2.2-4.2); Glucose 121 mg/dL (74-106); Magnesium 1.8 mg/dL (1.6-2.6); Potassium 4.1 mmol/L (3.5-5.1); Protein, Total 6.3 g/dL (6.4-8.2); Sodium Level 142 mmol/L (136-145)
--- NOTE | 2024-01-03 08:25 | PN.HOSP_ITS ---
Reason for Visit Reason for Visit: Diagnoses Syncope and collapse (01/02/24) Subjective Subjective Feels ok. Objective Data Objective Data Vital Signs: Vital Signs Temp Pulse Resp BP Pulse Ox O2 Del Method 36.8 C 84 16 131/71 H 96 Room Air 01/03/24 03:30 01/03/24 03:30 01/03/24 03:30 01/03/24 03:30 01/03/24 03:30 01/03/24 05:15 Oxygen Delivery Method Room Air Weight: 73.4 kg Body Mass Index (BMI) 26.9 Intake & Output: Intake and Output for Last 24 Hours 01/01/24 01/02/24 01/03/24 23:59 23:59 23:59 Intake Total 822.92 / 822.92 Balance 822.92 / 822.92 Lab / Micro Data 01/03/24 08:35 01/03/24 02:45 Labs: Laboratory Results - last 24 hr 01/02/24 15:00: Lactic Acid 3.5 H* 01/02/24 15:01: WBC 9.4, RBC 4.90, Hgb 15.3 H, Hct 46.3, MCV 94.5, MCH 31.2, MCHC 33.0, RDW Std Deviation 48.0 H, RDW Coeff of Keith 13.9, Plt Count 252, MPV 11.0, Immature Gran % (Auto) 0.200, Neut % (Auto) 58.0, Lymph % (Auto) 34.3, [place] % (Auto) 5.7, Eos % (Auto) 1.0, Baso % (Auto) 0.8, Absolute Neuts (auto) 5.5, Absolute Lymphs (auto) 3.24, Nucleated RBC % 0, ESR 25, D-Dimer Quant (PE/DVT) > 20.00 H*, Sodium 141, Potassium 3.1 L, Chloride 108 H, Carbon Dioxide 21.0, Anion Gap 12, BUN 26 H, Creatinine 1.21 H, Estim Creat Clear Calc 41.32, E st GFR (MDRD) Af Amer 56 L, Est GFR (MDRD) Non-Af 46 L, BUN/Creatinine Ratio 21.5 H, Glucose 141 H, Calcium 10.2 H, Magnesium 2.2, Total Bilirubin 0.60, AST 28, ALT 22, Alkaline Phosphatase 107, Troponin I High Sens 5, Total Protein 7.9, Albumin 4.0, Globulin 3.9, Albumin/Globulin Ratio 1.0, Lipase 82 H 01/02/24 17:13: Total Creatine Kinase 52, Troponin I High Sens 5, C-React Prot Ext Range < 2.90, TSH 1.110 01/02/24 17:39: Urine Color Yellow, Urine Clarity Clear, Urine pH 5.0, Ur Specific [place] 1.010, Urine Protein 30 H, Urine Glucose (UA) Normal, Urine Ketones Negative, Urine Occult Blood 150 H, Urine Nitrite Negative, Urine Bilirubin Negative, Urine Urobilinogen Normal, Ur Leukocyte Esterase Negative, Urine RBC 5-10 SEEN, Urine WBC 0-5 SEEN, Ur Squamous Epith Cells 0 SEEN, Urine Bacteria RARE, Urine Mucus 0 SEEN, Urine Yeast RARE 01/02/24 19:25: Lactic Acid 1.0 01/02/24 21:12: Hgb 14.2 01/03/24 02:45: WBC 17.1 H, RBC 4.19 L, Hgb 13.0, Hct 39.9, MCV 95.2, MCH 31.0, MCHC 32.6, RDW Std Deviation 49.1 H, RDW Coeff of Keith 14.1, Plt Count 211, MPV 10.6, Immature Gran % (Auto) 0.400, Neut % (Auto) 85.6 H, Lymph % (Auto) 6.0 L, [place] % (Auto) 7.6, Eos % (Auto) 0.0, Baso % (Auto) 0.4, Absolute Neuts (auto) 14.6 H, Absolute Lymphs (auto) 1.03, Nucleated RBC % 0, PT 15.0 H, INR 1.2, Sodium 142, Potassium 4.1, Chloride 116 H, Carbon Dioxide 21.0, Anion Gap 6, BUN 19 H, Creatinine 0.65, Estim Creat Clear Calc 60.97, Est GFR (MDRD) Af Amer 114, Est GFR (MDRD) Non-Af 94, BUN/Creatinine Ratio 29.1 H, Glucose 121 H, Calcium 9.2, Magnesium 1.8, Total Bilirubin 0.60, AST 19, ALT 17, Alkaline Phosphatase 93, Total Protein 6.3 L, Albumin 3.1 L, Globulin 3.2, Albumin/Globulin Ratio 1.0 Micro: Microbiology 01/02/24 15:02 Stool Stool Lactoferrin - Final 01/02/24 15:02 Stool Enteric Bacteriology - Final 01/02/24 15:02 Stool Clostridioides difficile (PCR) - Final 01/02/24 21:15 Nasal Secretion SARS-CoV-2 Antigen (Rapid) - Final Radiography Diagnostic Testing: Radiology Impression Abdomen/Pelvis CT 01/02/24 14:50 IMPRESSION: Study limited by patient motion. Mild bowel wall thickening throughout the colon, consistent with mild colitis. No bowel obstruction. Normal appendix. Bilateral subcentimeter nonobstructing renal collecting system stones. No ureteral stones. No hydronephrosis. No free air, free fluid or fluid collection. Electronically Signed: Juan David Hartley MD at 16:16 EDT , Brain CT 01/02/24 14:50 IMPRESSION: No acute intracranial abnormality. No hydrocephalus Electronically Signed: Juan David Hartley MD at 15:56 EDT , Chest X-Ray 01/02/24 15:40 IMPRESSION: No acute thoracic pathology. Electronically Signed: Juan David Hartley MD at 16:03 EDT , Chest CTA 01/02/24 16:23 IMPRESSION: Technically inadequate exam for confirming or excluding pulmonary emboli as indicated above. Improper bolus and timing. There are findings consistent with COPD. There is no evidence of acute chest disease. Electronically Signed: Lex Royal MD at 17:31 EDT , Elbow X-Ray 01/02/24 17:34 IMPRESSION: Normal x-ray examination of the elbow. Electronically Signed: Lex Royal MD at 18:07 EDT , Wrist X-Ray 01/02/24 17:34 IMPRESSION: Normal x-ray examination of the wrist. Electronically Signed: Lex Royal MD at 18:08 EDT , Rhythm Strip Rhythm Strip: Sinus Rhythm Rate: 91 Ectopy: None Physical Exam Const alert and no apparent distress Resp normal respiratory effort, no retractions, no use of accessory muscles and clear to auscultation bilaterally Cardio regular rate, regular rhythm, S1 normal heart sound and S2 normal heart sound GI normal to inspection, nondistended, normoactive bowel sounds GI Narrative: some left sided abdominal pain. Assessment & Plan Assessment/Plan (1) Syncope: PLAN: Plan Syncope * suspect vasovagal * likely 2/2 colitis * echo * D-dimer elevated. CTA chest inadequate time to confirm or exclude PE. Will hold off rechecking as not hypoxic and colitis may explain the elevated D- dimer. Colitis * likely ischemic. * With leukocytosis, will initiate abx with cipro and metronidazole. * Colonoscopy 01/02 severe inflammation in the recto-sigmoid, sigmoid, descending colon. * Follow up with GI for biopsy result and eventual repeat colonoscopy. VTE prophylaxis: SCDs. Charges/Coding Visit Charges Inpatient E&M: 98701 Subs Hosp L2
[2024-01-03 09:33] LABS: Hemoglobin 13.1 g/dL (12.0-15.0)
[2024-01-03] MEDS: Ciprofloxacin 400 MG/200 ML BAG 200 MG IV ×2 (10:33→21:45)
[2024-01-03] MEDS: Lactated Ringers 1,000 ML 15 ML IV (11:26)
--- NOTE | 2024-01-03 11:33 | PRE.ANES_ITS ---
ASA Classification* ASA Classification ASA Classification: 3 Assessment & Plan Anesthesia* Anesthesia Assessment Anesthesia Assessment: Discussed sedation and/or anesthesia options, risks, benefits, and alternatives with patient/parents/legal guardian/POA. Questions invited. The patient/parents/legal guardian/POA seems to understand and agrees to proceed with anesthesia plan. Reviewed the physical assessment, medical history, allergy history and patient home medications list prior to surgery/procedure/anesthetic and documented any changes. Performed airway and anesthesia risk assessments. Anesthesia Type Anesthesia Type: MAC History Source History Obtained from:: Patient and Chart Anesthesia Focused Assessment* Temperature: 98.4 F Pulse Rate: 78 Blood Pressure: 137/84 Respiratory Rate: 18 Pulse Ox: 99 Oxygen Delivery Method: Room Air Airway Assessment Mouth opens: >3 cm Mallampati Score: III Teeth Condition: Caps/Crowns (Patient has several crowns. They are all tight.) Neck Range of motion (ROM): Limited ROM (Slight decrease in extension) Focused Labs Anesthesia Preop lab: CBC WBC 17.1 K/mm3 (4.4-11.0) H 01/03/24 02:45 RBC 4.19 M/mm3 (4.2-5.4) L 01/03/24 02:45 Hgb 13.1 g/dL (12.0-15.0) 01/03/24 08:35 Hct 39.9 % (37-47) 01/03/24 02:45 Plt Count 211 K/mm3 (150-450) 01/03/24 02:45 CHEMISTRY Potassium 4.1 mmol/L (3.5-5.1) 01/03/24 02:45 Sodium 142 mmol/L (136-145) 01/03/24 02:45 Magnesium 1.8 mg/dL (1.6-2.6) 01/03/24 02:45 BUN 19 mg/dL (7-18) H 01/03/24 02:45 Creatinine 0.65 mg/dL (0.55-1.02) 01/03/24 02:45 Glucose 121 mg/dL (74-106) H 01/03/24 02:45 TSH 1.110 uIU/mL (0.358-3.740) 01/02/24 17:13 COAG PT 15.0 SECONDS (11.7-14.9) H 01/03/24 02:45 Pre-Assessment Diagnosis/Proposed Procedure Planned Operative Procedure(s): Flexible sigmoidoscopy with biopsies Anesthesia History 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 When Was Last Pacemaker Check QUESTION #4 FULL TEXT: You/Your Family Experience fever (hyperthermia) with Anesthesia Last Oral Intake Last Oral intake: Last Oral Intake NPO since Meds taken in AM with sips of water? Meds patient instructed to take am of surgery Any additional information?: Yes NPO since: 00:00 Meds taken in AM with sips of water?: Yes PONV PONV - computer systems hardware analyst: PONV - computer systems hardware analyst Female HX of Motion Sickness HX of N/V After Surgery Non-Smoker Duration of Surgery greater than 60 minutes Number of Risk Factors PONV Score Height & Weight Height & Weight: Anesthesia: Height & Weight Height 5 ft 5 in 01/02/24 20:22 Weight: 73.4 kg 01/02/24 20:22 Body Mass Index (BMI) 26.9 01/02/24 20:22 Respiratory Assessment Respiratory Assessment - computer systems hardware analyst: Respiratory Tract Infection Hx - computer systems hardware analyst Hx Respiratory Tract Infection No 12/07/22 10:40 STOP Sleep Apnea STOP Sleep Apnea - computer systems hardware analyst: STOP Sleep Apnea - computer systems hardware analyst Hx Hypertension Yes 01/02/24 21:32 Hx Sleep Apnea No 01/02/24 21:32 CPAP No 12/12/22 07:44 BIPAP Do you snore loudly (louder No 01/02/24 21:32 than talking or can be heard Do you often feel tired/ Yes 01/02/24 21:32 fatigued/ sleepy during daytime? Has anyone observed you stop No 01/02/24 21:32 breathing during sleep? STOP Results Positive 09/26/24 21:32 QUESTION #5 FULL TEXT : Do you snore loudly (louder than talking or can be heard through closed doors)? 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 Specify any problems Hx of Preganancy in last 3 No 01/02/24 21:32 Months Nurse Filling Out Transfusion MGROVE 01/02/24 21:32 & Questions: Date: 01/02/24 01/02/24 21:32 Time: 21:01/02/24 21:32 Patient unable to answer at this time (ie. confused, unrespo /Reproduction History /Reproductive History - computer systems hardware analyst: /Reproductive Hx- computer systems hardware analyst Hx Now Gestational Age (in weeks): EDC: Hx Hx Para Hx Section SAB No 12/07/22 10:40 Active Medications Active Medications: Current Medications Generic Name Dose Route Start Last Admin Trade Name Freq PRN Reason Stop Dose Admin Acetaminophen 650 mg 01/02/24 20:46 Acetaminophen 325 Mg Tablet PO Q6H PRN PRN Pain 1-10 Or Fever >100.7 Albuterol Sulfate 2.5 mg 01/02/24 20:46 Albuterol 2.5 Mg/3 Ml Vial.Neb. INHALATION Q2H PRN PRN SOB &/OR WHEEZING Sodium Chloride 1,000 mls @ 125 mls/hr 01/02/24 16:30 01/03/24 03:36 IV 125 mls/hr .Q8H ANI Administration Sodium Chloride 250 mls @ 15 mls/hr 01/02/24 21:34 IV .[id number] PRN Additional IVPB Infusion Sodium Chloride 250 mls @ 15 mls/hr 01/02/24 21:34 IV .[id number] PRN Saline Flush Ciprofloxacin 400 mg in 200 mls @ 200 mls/hr 01/03/24 10:00 01/03/24 10:33 Cipro IV 200 mls/hr Q12 ANI Administration Metronidazole 500 mg in 100 mls @ 100 mls/hr 01/03/24 14:00 Flagyl IV Q8 ANI Lactated Ringer's 1,000 mls @ 15 mls/hr 01/03/24 11:30 01/03/24 11:26 IV 15 mls/hr .Q48H ANI Administration Melatonin 3 mg 01/02/24 20:46 Melatonin 3 Mg Tablet PO QHS PRN PRN INSOMNIA Ondansetron HCl 4 mg 01/02/24 20:46 Ondansetron 4 Mg/2 Ml Vial IV Q8H PRN PRN NAUSEA/VOMITING Oxycodone HCl 2.5 mg 01/02/24 20:46 01/03/24 03:28 Oxycodone 5 Mg Tablet PO 2.5 mg Q4H PRN PRN Administration Pain Score 4-10 Senna/Docusate Sodium 2 tablet 01/02/24 20:46 Senna/Docusate Sodium 1 Tablet PO BID PRN PRN Constipation Sodium Chloride 10 - 40 ml 01/02/24 21:34 0.9% Saline Lock 10 Ml Syringe IV UD PRN SALINE FLUSH PFSH Medical History History of Clostridium difficile infection History of steroid therapy Shortness of breath on exertion Headache History of echocardiogram Acute gastritis without hemorrhage Blood in stool IBS (irritable bowel syndrome) Wears glasses Low iron Anemia Non-smoker History of stress test Hypertension Hiatal hernia Anemia Arthritis Other chronic sinusitis GERD (gastroesophageal reflux disease) High cholesterol Hypertension Hypothyroid Diverticulosis Chronic pansinusitis Home Medications ?Medication ?Instructions ?Recorded ?Last Taken ?Type ferrous sulfate 325 mg (65 mg 325 mg PO DAILY@0800 supplement 11/10/15 12/06/22 History iron) tablet lisinopril 10 mg tablet 10 mg PO DAILY bp 04/22/18 12/12/22 History simvastatin 40 mg tablet 40 mg PO QHS cholesterol 04/22/18 12/11/22 History levothyroxine 88 mcg tablet 75 mcg PO DAILY thyroid 10/30/20 09/06/23 History acetaminophen 500 mg tablet 500 mg PO Q6H PRN pain 01/02/24 Unknown History (Tylenol Extra Strength) gabapentin 300 mg capsule 300 mg PO DAILY 01/02/24 Unknown History gabapentin 300 mg capsule 600 mg PO QHS 01/02/24 Unknown History mecobalamin (vitamin B12) 2,500 2,500 mcg PO DAILY 01/02/24 Unknown History mcg chewable tablet Allergy/AdvReac Type Severity Reaction Status Date / Time tamsulosin (From Flomax) Allergy Other Verified 12/07/22 10:38 epinephrine AdvReac Severe Panic Verified 12/12/22 06:40 Attack at Dentist Surgical History Hx of colonoscopy Hx of cystoscopy Hx of oral surgery Hx of right cataract extraction Hx of left cataract extraction History of repair of hiatal hernia History of extraction of renal calculus (~03/2020) History of esophagogastroduodenoscopy (EGD) (~2020) History of sinus surgery History of thyroidectomy History of back surgery History of foot surgery Social History Smoking Status: Never smoker alcohol intake: never substance use type: does not use Review of Systems (Anesthesia) ROS Narrative System reviewed and no additional complaints, except as documented.
--- NOTE | 2024-01-03 12:00 | COLBX_PTH ---
PATIENT: MOISÉS MCKEON LOC: [facility] U#:[id number] AGE/SX: 73/F ROOM: [facility] RE01/02/[address]: Dr. Yves Wren DO : 1950 BED: 1 DIS: 01/04/2024 SPEC #: [id number] RECD: 01/03/24 17:11 STATUS: LAURA REMignon #: [id number] ERICKA: 01/03/24 12:[address]: Chris Gomez DEPT: SURGICAL PATHOLOGY RECD BY: Kaitlin Antonio ENTERED: 01/06/24 10:55 SP TYPE: COLON BX OTHR DR: MD Dr. Yves Bautista DO Dr. Paige Pierce, MD Tissues: Transverse colon Procedures: Surgery Specimen Level IV Comments: @ Ordering doctor for SUIV edited from to @ by MARYANN at 01/06/24 1139 @ Submitting doctor edited from to @ by MARYANN at 01/06/24 1139 HEADER OPERATION: Flexible sigmoidoscopy PRE-OP DIAGNOSIS: Syncope, GI bleed TISSUE SUBMITTED: Transverse colon ischemic colitis biopsy MICROSCOPIC DIAGNOSIS Transverse colon, biopsy: Ischemic colitis with ulceration and associated fibrinopurulent material. 01/07/2024 MICROSCOPIC DESCRIPTION Slides are reviewed. GROSS DESCRIPTION Received in fixative is one container labeled with the patient's name and designated Transverse colon ischemic colitis biopsy. The specimen consists of two irregular fragments of light slater soft tissue that in aggregate measure 0.6 x 0.2 x 0.1 cm. The specimen is totally submitted in one cassette. 01/06/2024 TC:2 CPT:67586
--- NOTE | 2024-01-03 12:05 | EX.PCM.CON.G ---
HPI Consult Data Date of Consult: 01/03/24 HPI Narrative Reason for Consultation: GI bleed HPI Narrative: MIOSÉS MCKEON, is a 73-year-old female history of GERD, C. difficile, hypothyroidism, hypertension presented [facility] ED 01/02/2024 with multiple syncopal episodes. In the ED patient had multiple bowel movements that became maroon and CT showed mild colitis, patient also had initial lactic acid of 3.5. C. difficile negative, enteric pathogens pending. I was contacted in the ED and there was concern there could be some ischemic colitis and it was recommended against starting empiric antibiotics and to make patient n.p.o. at midnight. In ED patient was vitally stable, did have D-dimer greater than [address] of the chest obtained but given timing of bolus could only exclude PE in pulmonary trunk however it was felt that there her lightheadedness and syncope was due to volume loss with her present GI problems and patient was not hypoxic, hypotensive, or tachycardic. Hospitalist contacted for admission for lightheadedness/syncope and diarrhea with maroon stools. Patient endorses she has been feeling little bit weak recently and went to physical therapy earlier today and did okay overall aside from a little bit of weakness and some pain, when she went home she ate some seafood salad and a little bit of cantaloupe, sometime later she had some lower abdominal pain and got lightheaded, sweaty, and nauseous and she fell and woke up on the floor, she believes she had a loss of consciousness and thinks she had 2 more episodes and relatively short period of time. She denies any fevers or chills, no shortness of breath or cough, abdominal pain minimal at this time and has been having multiple episodes of diarrhea in the ED that have become more maroon in color but she thinks may be slowing down now. Denies any new or acute urinary complaints. Has been a little bit fatigued and has a torn left meniscus for which she is going to physical therapy but otherwise reports being in her usual health. Feels she eats and drinks adequately usually. Does not think that something like this has happened to her before. Has a history of C. difficile colitis but said her last episode was years ago. At present not feeling lightheaded, no chest pain or shortness of breath. [facility] Medical History History of Clostridium difficile infection History of steroid therapy Shortness of breath on exertion Headache History of echocardiogram Acute gastritis without hemorrhage Blood in stool IBS (irritable bowel syndrome) Wears glasses Low iron Anemia Non-smoker History of stress test Hypertension Hiatal hernia Anemia Arthritis Other chronic sinusitis GERD (gastroesophageal reflux disease) High cholesterol Hypertension Hypothyroid Diverticulosis Chronic pansinusitis Home Medications ?Medication ?Instructions ?Recorded ?Last Taken ?Type ferrous sulfate 325 mg (65 mg 325 mg PO DAILY@0800 supplement 11/10/15 12/06/22 History iron) tablet lisinopril 10 mg tablet 10 mg PO DAILY bp 04/22/18 12/12/22 History simvastatin 40 mg tablet 40 mg PO QHS cholesterol 04/22/18 12/11/22 History levothyroxine 88 mcg tablet 75 mcg PO DAILY thyroid 02/05/20 12/12/22 History acetaminophen 500 mg tablet 500 mg PO Q6H PRN pain 01/02/24 Unknown History (Tylenol Extra Strength) gabapentin 300 mg capsule 300 mg PO DAILY 01/02/24 Unknown History gabapentin 300 mg capsule 600 mg PO QHS 01/02/24 Unknown History mecobalamin (vitamin B12) 2,500 2,500 mcg PO DAILY 01/02/24 Unknown History mcg chewable tablet Allergy/AdvReac Type Severity Reaction Status Date / Time tamsulosin (From Flomax) Allergy Other Verified 12/07/22 10:38 epinephrine AdvReac Severe Panic Verified 12/12/22 06:40 Attack at Dentist Surgical History Hx of colonoscopy Hx of cystoscopy Hx of oral surgery Hx of right cataract extraction Hx of left cataract extraction History of repair of hiatal hernia History of extraction of renal calculus (~03/2020) History of esophagogastroduodenoscopy (EGD) (~2020) History of sinus surgery History of thyroidectomy History of back surgery History of foot surgery Social History Smoking Status: Never smoker alcohol intake: never substance use type: does not use ROS ROS Narrative General: Denies fever/chills, earlier during the episode felt sweaty and clammy HENT: Denies headache, denies stuffy nose, denies sore throat EYES: Denies changes in vision Resp: Denies cough, denies shortness of breath Cardiac: Denies chest pain GI: Had an episode of nausea when she felt lightheaded before her syncopal episode earlier but that has resolved, had lower abdominal pain which has improved significantly, has been having loose stool that is progressively become more maroon but she thinks this may be slowing down : Denies changes in urination Extremity: Denies swelling MSK: Has felt a little bit generally weak, does have some back pain and has a torn meniscus in left knee Neuro: No acute neurologic changes Heme: Has some bruising on left side of face due to fall when she had syncopal episode Skin: Denies rashes Psychiatric: No complaints voiced Physical Exam Narrative General: Alert, oriented, no apparent distress HEENT: Bruising on left cheek, normocephalic Eyes: Anicteric, normal conjunctiva, extraocular movements grossly intact Neck: Supple Respiratory: Clear to auscultation bilaterally, normal respiratory effort Cardiovascular: Regular rate and rhythm GI: Soft, nontender, nondistended, no rebound, guarding, rigidity Extremities: No edema Musculoskeletal: Moving all extremities Neuro: No overt focal neurological deficits Skin: No rashes appreciated but has some bruising with left wrist Psych: Cooperative Lab / Micro Data 01/03/24 08:35 01/03/24 02:45 Labs: Laboratory Results - last 24 hr 01/02/24 15:00: Lactic Acid 3.5 H* 01/02/24 15:01: WBC 9.4, RBC 4.90, Hgb 15.3 H, Hct 46.3, MCV 94.5, MCH 31.2, MCHC 33.0, RDW Std Deviation 48.0 H, RDW Coeff of Keith 13.9, Plt Count 252, MPV 11.0, Immature Gran % (Auto) 0.200, Neut % (Auto) 58.0, Lymph % (Auto) 34.3, Darke % (Auto) 5.7, Eos % (Auto) 1.0, Baso % (Auto) 0.8, Absolute Neuts (auto) 5.5, Absolute Lymphs (auto) 3.24, Nucleated RBC % 0, ESR 25, D-Dimer Quant (PE/DVT) > 20.00 H*, Sodium 141, Potassium 3.1 L, Chloride 108 H, Carbon Dioxide 21.0, Anion Gap 12, BUN 26 H, Creatinine 1.21 H, Estim Creat Clear Calc 41.32, Est GFR (MDRD) Af Amer 56 L, Est GFR (MDRD) Non-Af 46 L, BUN/Creatinine Ratio 21.5 H, Glucose 141 H, Calcium 10.2 H, Magnesium 2.2, Total Bilirubin 0.60, AST 28, ALT 22, Alkaline Phosphatase 107, Troponin I High Sens 5, Total Protein 7.9, Albumin 4.0, Globulin 3.9, Albumin/Globulin Ratio 1.0, Lipase 82 H 01/02/24 17:13: Total Creatine Kinase 52, Troponin I High Sens 5, C-React Prot Ext Range < 2.90, TSH 1.110 01/02/24 17:39: Urine Color Yellow, Urine Clarity Clear, Urine pH 5.0, Ur Specific [place] 1.010, Urine Protein 30 H, Urine Glucose (UA) Normal, Urine Ketones Negative, Urine Occult Blood 150 H, Urine Nitrite Negative, Urine Bilirubin Negative, Urine Urobilinogen Normal, Ur Leukocyte Esterase Negative, Urine RBC 5-10 SEEN, Urine WBC 0-5 SEEN, Ur Squamous Epith Cells 0 SEEN, Urine Bacteria RARE, Urine Mucus 0 SEEN, Urine Yeast RARE 01/02/24 19:25: Lactic Acid 1.0 01/02/24 21:12: Hgb 14.2 01/03/24 02:45: WBC 17.1 H, RBC 4.19 L, Hgb 13.0, Hct 39.9, MCV 95.2, MCH 31.0, MCHC 32.6, RDW Std Deviation 49.1 H, RDW Coeff of Keith 14.1, Plt Count 211, MPV 10.6, Immature Gran % (Auto) 0.400, Neut % (Auto) 85.6 H, Lymph % (Auto) 6.0 L, Darke % (Auto) 7.6, Eos % (Auto) 0.0, Baso % (Auto) 0.4, Absolute Neuts (auto) 14.6 H, Absolute Lymphs (auto) 1.03, Nucleated RBC % 0, PT 15.0 H, INR 1.2, Sodium 142, Potassium 4.1, Chloride 116 H, Carbon Dioxide 21.0, Anion Gap 6, BUN 19 H, Creatinine 0.65, Estim Creat Clear Calc 60.97, Est GFR (MDRD) Af Amer 114, Est GFR (MDRD) Non-Af 94, BUN/Creatinine Ratio 29.1 H, Glucose 121 H, Calcium 9.2, Magnesium 1.8, Total Bilirubin 0.60, AST 19, ALT 17, Alkaline Phosphatase 93, Total Protein 6.3 L, Albumin 3.1 L, Globulin 3.2, Albumin/Globulin Ratio 1.0 01/03/24 08:35: Hgb 13.1 Micro: Microbiology 01/02/24 15:02 Stool Stool Lactoferrin - Final 01/02/24 15:02 Stool Enteric Bacteriology - Final 01/02/24 15:02 Stool Clostridioides difficile (PCR) - Final 01/02/24 21:15 Nasal Secretion SARS-CoV-2 Antigen (Rapid) - Final Rhythm Strip Rhythm Strip: Sinus Rhythm Rate: 91 Ectopy: None Imaging Radiology Impression Abdomen/Pelvis CT 01/02/24 14:50 IMPRESSION: Study limited by patient motion. Mild bowel wall thickening throughout the colon, consistent with mild colitis. No bowel obstruction. Normal appendix. Bilateral subcentimeter nonobstructing renal collecting system stones. No ureteral stones. No hydronephrosis. No free air, free fluid or fluid collection. Electronically Signed: Juan David Hartley MD at 16:16 EDT , Brain CT 01/02/24 14:50 IMPRESSION: No acute intracranial abnormality. No hydrocephalus Electronically Signed: Juan Davdi Hartley MD at 15:56 EDT , Chest X-Ray 01/02/24 15:40 IMPRESSION: No acute thoracic pathology. Electronically Signed: Juan David Hartley MD at 16:03 EDT , Chest CTA 01/02/24 16:23 IMPRESSION: Technically inadequate exam for confirming or excluding pulmonary emboli as indicated above. Improper bolus and timing. There are findings consistent with COPD. There is no evidence of acute chest disease. Electronically Signed: Lex Royal MD at 17:31 EDT , Elbow X-Ray 01/02/24 17:34 IMPRESSION: Normal x-ray examination of the elbow. Electronically Signed: Lex Royal MD at 18:07 EDT , Wrist X-Ray 01/02/24 17:34 IMPRESSION: Normal x-ray examination of the wrist. Electronically Signed: Lex Royal MD at 18:08 EDT , Assessment & Plan Assessment/Plan (1) Syncope: PLAN: Plan 73-year-old with Lightheadedness and syncope possibly secondary to vasovagal episode developed Diarrhea/maroon stool/mild colitis -CT abdomen pelvis with mild bowel wall thickening through colon consistent with mild colitis -Patient not having the significant pain any further, has been having episodes of diarrhea in the ED that a become more maroon-colored over time but no longer feeling any lightheadedness -She will need flex sig tomorrow -C. difficile negative, enteric pathogen panel pending -Hemoglobin 15.3 on presentation, suspect slightly elevated due to hemoconcentration -Given she has had maroon stools and syncopal episode will trend H&H, if having further blood in stool or dropping significantly can type and cross but vitally stable at this time and she feels it is slowing down, abd pain improving and HGB elevated on admission, does not need emergently transfused Charges/Coding Visit Charges Inpatient E&M: 04994 Init Hosp L3
--- NOTE | 2024-01-03 12:18 | CASEMGMT ---
RN CM to pt room for initial assessment, pt is currently off of the floor. CM to follow.
--- NOTE | 2024-01-03 12:57 | PCM.POST.ANE ---
Anesthesia: Postop Eval I Current Vital Signs Temperature: 97.4 F Pulse Rate: 92 Blood Pressure: 113/66 Respiratory Rate: 16 Pulse Ox: 98 Oxygen Delivery Method: Room Air Assessment Airway patent: Yes Spontaneous unlabored respirations: Yes Mental status: Awake and Calm nausea: No Vomiting: No Anesthesia Complication: No Fluid Hydration Crystalloid volume administer (ml): 400 Total IV fluid infused: 400 Progress Note Anesthesia document: Postop Eval 1 completed: Yes
--- NOTE | 2024-01-03 13:01 | OP.CCLET_ITS ---
01/03/2024 Rohith López Re : Colonoscopy procedure for Linsey Bobo Yohanar Rene This procedure was performed on Wednesday, January 03, 2024. My impressions and recommendations are as follows: Impressions : - Diffuse severe inflammation was found in the recto-sigmoid colon, in the sigmoid colon, in the descending colon, at the splenic flexure, in the transverse colon, at the hepatic flexure and in the ascending colon secondary to ischemic colitis. Biopsied. Recommendations : - Return patient to hospital for ongoing care. - Full liquid diet. - Continue present medications. - Await pathology results. - Repeat colonoscopy is recommended to check healing. The colonoscopy date will be determined after pathology results from today's exam become available for review. My findings are described in the full procedure note, which is enclosed. If I can be of further assistance, please feel free to contact me at . Sincerely, Chris Gomez, 01/03/2024 1:00:45 PM This report has been signed electronically.
--- NOTE | 2024-01-03 13:01 | OP.COLON_ITS ---
Patient Name: Linsey Bobo Procedure Date: 01/03/2024 12:02 PM Date of : 1950 Age: 73 Procedure: Colonoscopy Indications: Hematochezia Providers: Chris Gomez DO Medicines: Monitored Anesthesia Care Patient Profile: This is a 73 year old female. Refer to note in patient chart for documentation of history and physical. Last Colonoscopy: date unknown. Unable to locate last colonoscopy report. Complications: No immediate complications. Procedure: Pre-Anesthesia Assessment: - Prior to the procedure, a History and Physical was performed, and patient medications and allergies were reviewed. The patient is competent. The risks and benefits of the procedure and the sedation options and risks were discussed with the patient. All questions were answered and informed consent was obtained. Patient identification and proposed procedure were verified by the physician in the pre-procedure area. Mental Status Examination: alert and oriented. Airway Examination: normal oropharyngeal airway and neck mobility. Respiratory Examination: clear to auscultation. CV Examination: normal. Prophylactic Antibiotics: The patient does not require prophylactic antibiotics. Prior Anticoagulants: The patient has taken Eliquis (apixaban), last dose was 1 day prior to procedure. ASA Grade Assessment: II - A patient with mild systemic disease. After reviewing the risks and benefits, the patient was deemed in satisfactory condition to undergo the procedure. The anesthesia plan was to use monitored anesthesia care (MAC). Immediately prior to administration of medications, the patient was re-assessed for adequacy to receive sedatives. The heart rate, respiratory rate, oxygen saturations, blood pressure, adequacy of pulmonary ventilation, and response to care were monitored throughout the procedure. The physical status of the patient was re-assessed after the procedure. After I obtained informed consent, the scope was passed under direct vision. Throughout the procedure, the patient's blood pressure, pulse, and oxygen saturations were monitored continuously. The Colonoscope was introduced through the anus and advanced to the cecum, identified by appendiceal orifice and ileocecal valve. After I obtained informed consent, the scope was passed under direct vision. Throughout the procedure, the patient's blood pressure, pulse, and oxygen saturations were monitored continuously.The colonoscopy was performed without difficulty. The patient tolerated the procedure well. The quality of the bowel preparation was adequate. The ileocecal valve was photographed. Scope In: 12:33:24 PM Scope Withdrawal Time 0 hours 5 minutes 32 seconds Scope Out: 12:47:35 PM Total Procedure Duration Time 0 hours 14 minutes 11 seconds Findings: The perianal and digital rectal examinations were normal. Pertinent negatives include normal sphincter tone. Diffuse severe inflammation characterized by erosions, erythema, linear erosions and mucus was found in the recto-sigmoid colon, in the sigmoid colon, in the descending colon, at the splenic flexure, in the transverse colon, at the hepatic flexure and in the ascending colon. Biopsies were taken with a cold forceps for histology. Verification of patient identification for the specimen was done. Estimated blood loss was minimal. Impression: - Diffuse severe inflammation was found in the recto-sigmoid colon, in the sigmoid colon, in the descending colon, at the splenic flexure, in the transverse colon, at the hepatic flexure and in the ascending colon secondary to ischemic colitis. Biopsied. Recommendation: - Return patient to hospital for ongoing care. - Full liquid diet. - Continue present medications. - Await pathology results. - Repeat colonoscopy is recommended to check healing. The colonoscopy date will be determined after pathology results from today's exam become available for review. Procedure Code(s): --- Professional --- 22037, Colonoscopy, flexible; with biopsy, single or multiple CPT copyright 2021 [employer]. All rights reserved. The codes documented in this report are preliminary and upon labor relations officer review may be revised to meet current compliance requirements. Chris Gomez DO 01/03/2024 1:00:45 PM This report has been signed electronically. Number of Addenda: 0 Note Initiated On: 01/03/2024 12:02 PM
--- NOTE | 2024-01-03 14:12 | PCM.POSTANE2 ---
Anesthesia Postop Eval I Sum Postop Eval Completion status Anesthesia document: Postop Eval 1 completed: Yes Anesthesia Postop Eval I Summary Anesthesia Postop Eval I Summary: Anesthesia Postop Eval I: Assessment Summary Airway patent Yes 01/03/24 12:57 [email or web address] Spontaneous unlabored Yes 01/03/24 12:57 [email or web address] respirations Mental status Awake,Calm 01/03/24 12:57 [email or web address] nausea No 01/03/24 12:57 [email or web address] Vomiting No 01/03/24 12:57 [email or web address] Anesthesia Postop Eval I: Fluid Summary Crystalloid volume administer 400 01/03/24 12:57 [email or web address] (ml) Colloids volume administered ( ml) Blood Product volume administered (ml) Total IV fluid infused 400 01/03/24 12:57 [email or web address] Anesthesia Postop Eval I: Summary Notes Anesthesia Complication No 01/03/24 12:57 [email or web address] Anesthesia Complication Comment: Post-operative progress note Anesthesia: Postop Eval II Evaluation Mental status: Awake Pain Level: 0 nausea: No Vomiting: No
--- NOTE | 2024-01-03 14:36 | CASEMGMT ---
RN CM Assessment Face to Face with patient for initial transition planning/care coordination assessment. RN CM introduced self and role at [facility], pt voices understanding. Pt is A&Ox4 and is resting comfortably in bed and is calm. Care providers, pharmacy, and demographics verified. Admitting dx: Blood per rectum, syncope LACE Strata: 1 PCP: Nick López Specialists: Friend (GI), Basilio (Uro), Colt (Pod), Nirali (Ortho) Preferred Pharmacy: [facility] Insurance: [facility] A/B, AARP Prescription Benefit: Yes LNOK: Lizett Johnson (Kate) Living Arrangements: Pt lives alone in a single story home with one step to enter ADLs/IADLs: Ind Transportation: Self, family. Denies concerns DME: [facility]. Kate garay HHC/SNF: Denies history or needs. Pt states that she just finished with OP therapy at [facility] Pt?s goal: Home Plan: Home. Pt denies the need for HHC. Pt states that she feels safe discharging home once medically ready. Pt states that she has plenty of support from family and neighbors. Pt states that she has an appt with Dr. Campoverde on Saturday and reports that she may need to have surgery or continued OP Tx that will be set up through [facility]. Pt denies further needs from this RN CM at this time. Report given to ORTHOTIST CM. Mamie Lyons RN, CM
[2024-01-03] MEDS: metroNIDAZOLE 500 MG/100 ML BAG 100 MG IV ×2 (15:04→21:45)
[2024-01-03] MEDS: Acetaminophen 325 MG Tablet 650 MG PO (15:40)
[2024-01-03] MEDS: 0.9% Saline Lock 10 ML Syringe IV (21:45)
[2024-01-04] MEDS: 0.9% Normal Saline (1000mL) 1,000 ML 125 ML IV ×2 (00:42→08:49)
[2024-01-04 03:30] VITALS: BP 117/55; PULSE 72; RESP 16; TEMP 36.2; O2SAT 95
[2024-01-04] MEDS: Acetaminophen 325 MG Tablet 650 MG PO (03:40)
[2024-01-04] MEDS: metroNIDAZOLE 500 MG/100 ML BAG 100 MG IV (06:04)
[2024-01-04 06:56] LABS: Absolute Lymphocyte Count 1.13 X10^3/uL (0.83-4.51); Absolute Neutrophil Count 10.7 X10^3/uL (2.0-7.7); Basophil# 0.06 X10^3/uL; Basophil% 0.5 % (0-1); Eosinophil# 0.06 X10^3/uL; Eosinophils% 0.5 % (0-5); Hematocrit 33.1 % (37-47); Hemoglobin 10.7 g/dL (12.0-15.0); Lymphocyte # 1.13 X10^3/ul (0.83-4.51); Lymphocyte % 8.7 % (19-41); Mean Corp Hgb Conc 32.3 g/dL (32-36); Mean Corpuscular Hgb 31.3 pg (27.0-32.0); Mean Corpuscular Volume 96.8 fL (81-99); Mean Platelet Vol. 10.6 fl (6.2-12.0); Monocyte% 7.7 % (0-10); NRBC Flagged by Analyzer 0 % (0-5); Neutrophil # 10.73 X10^3/uL (2.7-7.7); Neutrophil % 82.1 % (47-70); Platelet Count 136 K/mm3 (150-450); RBC Distribution Width CV 14.3 % (11.6-14.6); RBC Distribution Width SD 50.8 fl (35.1-43.9); Red Blood Count 3.42 M/mm3 (4.2-5.4)
[2024-01-04 07:24] LABS: Anion Gap 5 (5-15); BUN 11 mg/dL (7-18); BUN/Creat Ratio 20.3 RATIO (10-20); Calcium,Total 8.1 mg/dL (8.5-10.1); Chloride 112 mmol/L (98-107); Creatinine, Serum 0.54 mg/dL (0.55-1.02); EST Glomerular Filtration Rate 117 mL/min (>60); Est Glom Filt Rate - Afr Amer 141 mL/min (>60); Estimated Creatinine Clearance 60.97 ml/min; Glucose 90 mg/dL (74-106); Potassium 3.3 mmol/L (3.5-5.1); Sodium Level 140 mmol/L (136-145)
[2024-01-04 08:48] VITALS: BP 108/57; PULSE 71; RESP 18; TEMP 36.2; O2SAT 94
[2024-01-04] MEDS: Ciprofloxacin 400 MG/200 ML BAG 200 MG IV (08:49)
--- NOTE | 2024-01-04 09:09 | PN.HOSP_ITS ---
Reason for Visit Reason for Visit: Diagnoses Syncope and collapse (01/02/24) Subjective Subjective Feeling well. Decreased stool frequency. No further hematochezia. Objective Data Objective Data Vital Signs: Vital Signs Temp Pulse Resp BP Pulse Ox O2 Del Method 36.2 C L 71 18 108/57 L 94 Room Air 01/04/24 08:48 01/04/24 08:48 01/04/24 08:48 01/04/24 08:48 01/04/24 08:48 01/04/24 08:48 Oxygen Delivery Method Room Air Weight: 73.4 kg Body Mass Index (BMI) 26.9 Intake & Output: Intake and Output for Last 24 Hours 01/02/24 01/03/24 01/04/24 23:59 23:59 23:59 Intake Total 3125.00 / 3125.00 2097.92 / 2097.92 Balance 3125.00 / 3125.00 2097.92 / 2097.92 Lab / Micro Data 01/04/24 06:26 01/04/24 06:26 Labs: Laboratory Results - last 24 hr 01/03/24 08:35: Hgb 13.1 01/04/24 06:26: WBC 13.0 H, RBC 3.42 L, Hgb 10.7 L, Hct 33.1 L, MCV 96.8, MCH 31.3, MCHC 32.3, RDW Std Deviation 50.8 H, RDW Coeff of Keith 14.3, Plt Count 136 L, MPV 10.6, Immature Gran % (Auto) 0.500, Neut % (Auto) 82.1 H, Lymph % (Auto) 8.7 L, [place] % (Auto) 7.7, Eos % (Auto) 0.5, Baso % (Auto) 0.5, Absolute Neuts (auto) 10.7 H, Absolute Lymphs (auto) 1.13, Nucleated RBC % 0, Sodium 140, P otassium 3.3 L, Chloride 112 H, Carbon Dioxide 23.0, Anion Gap 5, BUN 11, C reatinine 0.54 L, Estim Creat Clear Calc 60.97, Est GFR (MDRD) Af Amer 141, Est GFR (MDRD) Non-Af 117, BUN/Creatinine Ratio 20.3 H, Glucose 90, Calcium 8.1 L Micro: Microbiology 01/02/24 15:02 Stool Stool Lactoferrin - Final 01/02/24 15:02 Stool Enteric Bacteriology - Final 01/02/24 15:02 Stool Clostridioides difficile (PCR) - Final 01/02/24 21:15 Nasal Secretion SARS-CoV-2 Antigen (Rapid) - Final Radiography Diagnostic Testing: Radiology Impression Echocardiogram 01/02/24 20:46 Interpretation Summary The estimated ejection fraction is 60 %. Stage 1 diastolic dysfunction. Mild (1+) tricuspid valve insufficiency. Mild focal aortic valve calcification. Ordering Physician: Charline Whittington Performed By: Merced Guthrie RDCS Venous Doppler Study 01/02/24 20:46 Interpretation Summary Deep veins of the lower extremities are bilaterally patent and compressible segmentally. There is no evidence of deep vein thrombosis on either side. Valvular competence appears intact within the proximal deep venous systems bilaterally. The great saphenous veins appear bilaterally patent and compressible segmentally. A non-vascular, hypoechoic structure is noted in the left popliteal space, measuring 2.04 cm x 0.93 cm. This probably represents a popliteal cyst. Clinical correlation is advised. Ordering Physician: Charline Whittington Referring Physician: Nick López Performed By: Rajni Alcala RDCS, RVT Rhythm Strip Rhythm Strip: Sinus Rhythm Rate: 91 Ectopy: None Physical Exam Const alert and no apparent distress HEENT head/scalp atraumatic and moist oral mucous membranes Resp normal respiratory effort, no retractions, no use of accessory muscles and clear to auscultation bilaterally Cardio regular rate, regular rhythm, S1 normal heart sound and S2 normal heart sound GI GI Narrative: Nondistended. Slight left upper quadrant tenderness without rebound. Assessment & Plan Assessment/Plan (1) Syncope: PLAN: Plan Syncope * suspect vasovagal * likely 2/2 colitis * echo * D-dimer elevated. CTA chest inadequate time to confirm or exclude PE. Will hold off rechecking as not hypoxic and colitis may explain the elevated duplex negative. Given the low pretest probability, I do not feel the patient requires a CTA of the chest again as likelihood of her having PE is low given the fact that she does have colitis. Colitis * likely ischemic. * With leukocytosis, will initiate abx with cipro and metronidazole. * Colonoscopy 01/02 severe inflammation in the recto-sigmoid, sigmoid, descending colon. * Follow up with GI for biopsy result and eventual repeat colonoscopy. * Patient feeling well enough to go home. Patient will be discharged with Cipro and metronidazole for the ischemic colitis. Advised patient, given her history of C. difficile, to take a probiotic. I did mention that probiotic may not be effective in helping prevent C. difficile but it would not hurt her to take it. VTE prophylaxis: SCDs.
--- NOTE | 2024-01-04 12:46 | DS.PCM_ITS ---
Providers Date of Admission: 01/02/24 Primary Care Physician: Dr. Rohith López MD Consultations 01/02/24 20:46 Consult: Gastroenterology Routine Consulting Provider: [facility] Reason for Consult: abd pain, maroon stools EMERGENT Consult: No MD Notified: Yes Date Notified: 01/02/24 Time Notified: 20:39 Method of Notification: ED Physician Initiated Reason For Visit: BLOOD PER RECTUM, SYNCOPE Diagnosis Discharge Diagnosis (1) Syncope: Status: Acute Code(s): R55 - Syncope and collapse Plan Syncope * suspect vasovagal * likely 2/2 colitis * echo * D-dimer elevated. CTA chest inadequate time to confirm or exclude PE. Will hold off rechecking as not hypoxic and colitis may explain the elevated duplex negative. Given the low pretest probability, I do not feel the patient requires a CTA of the chest again as likelihood of her having PE is low given the fact that she does have colitis. Colitis * likely ischemic. * With leukocytosis, will initiate abx with cipro and metronidazole. * Colonoscopy 01/02 severe inflammation in the recto-sigmoid, sigmoid, descending colon. * Follow up with GI for biopsy result and eventual repeat colonoscopy. * Patient feeling well enough to go home. Patient will be discharged with Cipro and metronidazole for the ischemic colitis. Advised patient, given her history of C. difficile, to take a probiotic. I did mention that probiotic may not be effective in helping prevent C. difficile but it would not hurt her to take it. VTE prophylaxis: SCDs. Medications at Discharge Home Medications ferrous sulfate 325 mg (65 mg iron) tablet 325 mg PO DAILY@0800 supplement 11/10/15 lisinopril 10 mg tablet 10 mg PO DAILY bp 04/22/18 simvastatin 40 mg tablet 40 mg PO QHS cholesterol 04/22/18 levothyroxine 88 mcg tablet 75 mcg PO DAILY thyroid 02/05/20 acetaminophen 500 mg tablet (Tylenol Extra Strength) 500 mg PO Q6H PRN pain 01/02/24 gabapentin 300 mg capsule 300 mg PO DAILY 01/02/24 gabapentin 300 mg capsule 600 mg PO QHS 01/02/24 mecobalamin (vitamin B12) 2,500 mcg chewable tablet 2,500 mcg PO DAILY 01/02/24 ciprofloxacin HCl 250 mg tablet 500 mg (2 x 250 mg) PO BID #12 tabs 01/04/24 metronidazole 500 mg tablet 500 mg PO Q8H #18 tabs 01/04/24 oxycodone 5 mg tablet 2.5 mg (1/2 x 5 mg) PO Q8H PRN Pain Score 4-10 3 days #9 tabs 01/04/24 Hospital Course Operations None Procedures Colonoscopy Summary of Care Provided Minutes Spent on Discharge: 35 Hospital Course: Patient presents with a syncopal episode. Workup was inconclusive for PE but seems less likely this is PE but likely due to vasovagal reaction with her colitis. Patient had colonoscopy that showed inflammation in her colon. Most likely ischemic colitis. Patient was started on empiric antibiotics as she did have increasing leukocytosis. Patient is feeling better. Will continue with the antibiotics with ciprofloxacin and metronidazole. Patient also advised to take probiotic as a means to hopefully help prevent her from developing C. difficile. Weight / BMI Weight Weight: 73.4 kg Body Mass Index (BMI) 26.9 ABG / Lab / Microbiology Data 01/04/24 06:26 01/04/24 06:26 Laboratory: Laboratory Results - last 24 hr 01/04/24 06:26: WBC 13.0 H, RBC 3.42 L, Hgb 10.7 L, Hct 33.1 L, MCV 96.8, MCH 31.3, MCHC 32.3, RDW Std Deviation 50.8 H, RDW Coeff of Keith 14.3, Plt Count 136 L, MPV 10.6, Immature Gran % (Auto) 0.500, Neut % (Auto) 82.1 H, Lymph % (Auto) 8.7 L, [place] % (Auto) 7.7, Eos % (Auto) 0.5, Baso % (Auto) 0.5, Absolute Neuts (auto) 10.7 H, Absolute Lymphs (auto) 1.13, Nucleated RBC % 0, Sodium 140, P otassium 3.3 L, Chloride 112 H, Carbon Dioxide 23.0, Anion Gap 5, BUN 11, C reatinine 0.54 L, Estim Creat Clear Calc 60.97, Est GFR (MDRD) Af Amer 141, Est GFR (MDRD) Non-Af 117, BUN/Creatinine Ratio 20.3 H, Glucose 90, Calcium 8.1 L Microbiology: Microbiology 01/02/24 15:02 Stool Stool Lactoferrin - Final 01/02/24 15:02 Stool Enteric Bacteriology - Final 01/02/24 15:02 Stool Clostridioides difficile (PCR) - Final 01/02/24 21:15 Nasal Secretion SARS-CoV-2 Antigen (Rapid) - Final Radiography Diagnostic Testing: Radiology Impression Echocardiogram 01/02/24 20:46 Interpretation Summary The estimated ejection fraction is 60 %. Stage 1 diastolic dysfunction. Mild (1+) tricuspid valve insufficiency. Mild focal aortic valve calcification. Ordering Physician: Charline Whittington Performed By: Merced Guthrie RDCS Venous Doppler Study 01/02/24 20:46 Interpretation Summary Deep veins of the lower extremities are bilaterally patent and compressible segmentally. There is no evidence of deep vein thrombosis on either side. Valvular competence appears intact within the proximal deep venous systems bilaterally. The great saphenous veins appear bilaterally patent and compressible segmentally. A non-vascular, hypoechoic structure is noted in the left popliteal space, measuring 2.04 cm x 0.93 cm. This probably represents a popliteal cyst. Clinical correlation is advised. Ordering Physician: Charline Whittington Referring Physician: Nick López Performed By: Rajni Alcala RDCS, RVT D/C Instructions Discharge Diet: - ([place] diet, advance as tolerated. Avoid salads for the next week.) Meaningful Use Info Meaningful Use Meaningful Use Diagnoses (Choose all that apply): None applicable Ischemic Stroke Statin Dosing Therapy Reference: STATIN DOSE THERAPY REFERENCE: * Patients > 75 years receive moderate or high dose statin therapy. * Patients 75 years or YOUNGER should receive HIGH intensity statin dose unless contraindicated. You will be required to document reason for non-treatment if statin daily dose does not meet guidelines. HIGH DOSE STATIN THERAPY DAILY Atorvastatin > than or = to 40 mg Rosuvastatin > than or = to 20 mg Amlodipine + Atorvastatin > than or = to 2.5/40 mg Ezetimibe + Simvastatin 10/80 mg Simvastatin 80mg Discharge Plan Admission Admit Date/Time: 01/02/24 19:45 Primary Reason for Your Visit: Colitis Attending Provider: Yves Wren Primary Care Provider: Rohith López Consulting Providers: Charline Whittington Instructions Additional Instructions / Restrictions: You have colitis which is likely ischemic. I have you on antibiotics to prevent an infection. Also take a probiotic to help prevent C. difficile. Please follow-up with gastroenterology for repeat colonoscopy to see about resolution of this colitis. If you do have worsening symptoms, worsening abdominal pain, increased blood in stool, notify your physician or return to the emergency room. Discharge Orders/Prescriptions Prescriptions: New oxycodone 5 mg Tablet 2.5 mg PO Q8H PRN (Reason: Pain Score 4-10) 3 Days Qty: 9 0RF ciprofloxacin HCl 250 mg tablet 500 mg PO BID Qty: 12 0RF metronidazole 500 mg tablet 500 mg PO Q8H Qty: 18 0RF Continued ferrous sulfate 325 MG tablet 325 mg PO DAILY@0800 Patient Comments: on hold for procedure simvastatin 40 MG tablet 40 mg PO QHS lisinopril 10 MG tablet 10 mg PO DAILY levothyroxine 88 mcg tablet 75 mcg PO DAILY gabapentin 300 mg capsule 300 mg PO DAILY gabapentin 300 mg capsule 600 mg PO QHS acetaminophen [Tylenol Extra Strength] 500 mg tablet 500 mg PO Q6H PRN (Reason: pain) mecobalamin (vitamin B12) 2,500 mcg tablet,chewable 2,500 mcg PO DAILY Referrals / Follow Up: [facility] [Provider Group] - Within 3 Months Rohith López MD [Primary Care Provider] - Within 2 Weeks Disposition Disposition (needs filled in before D/C Order can be placed): Home, Self Care Charges/Coding Visit Charges Inpatient E&M: 76203 Disch Hosp >30min
[2024-01-07 11:09] LABS: ACCA 17 units (0-90); ALCA 11 units (0-60); AMCA 24 units (0-100); gASCA 28 units (0-50)
== END 2024-01-04 14:09 | disposition home or self-care (01) | DRG 394 ==
LOC: ED 17:34 → PCU 19:49
PROVIDERS: Internal Medicine Gastroenterology; Admitting Provider Internal Medicine; Emergency Provider Emergency Medicine; PCP Family Medicine
PROC: 0DJD8ZZ Inspection of Lower Intestinal Tract, Via Natural or Artificial Opening Endoscopic (ICD-10-PCS; CPT 45330; principal; 2024-01-03 11:55)
DX: K55.039 Acute (reversible) ischemia of large intestine, extent unspecified (principal); E87.20 Acidosis, unspecified; D64.9 Anemia, unspecified; S00.83XA Contusion of other part of head, initial encounter; E78.00 Pure hypercholesterolemia, unspecified; E86.9 Volume depletion, unspecified; E89.0 Postprocedural hypothyroidism; I10 Essential (primary) hypertension; K21.9 Gastro-esophageal reflux disease without esophagitis; R26.2 Difficulty in walking, not elsewhere classified; M25.522 Pain in left elbow; W19.XXXA Unspecified fall, initial encounter; S60.212A Contusion of left wrist, initial encounter; R79.89 Other specified abnormal findings of blood chemistry; R55 Syncope and collapse; Z11.52 Encounter for screening for COVID-19; Z79.890 Hormone replacement therapy; Z86.19 Personal history of other infectious and parasitic diseases
CPT/HCPCS: 36415; 70450; 71045; 71275; 73080; 73110; 74177; 80048; 80053; 81001; 82550; 83516; 83605; 83630; 83690; 83735; 84443; 84484; 85018; 85025; 85379; 85610; 85652; 86036; 86140; 86671; 87177; 87209; 87493; 87506; 87811; 88305; 93005; 93306; 93970; 99285; J7030; J7120; Q9967; A4216; J0744; J2405

== ENCOUNTER → 2024-10-26 | Outpatient (CLI) | payer MEDICARE, OTHER, SELFPAY ==
--- NOTE | 2024-10-26 12:44 | RAD_ITS ---
EXAM: XR Abdomen, 1 View CLINICAL INDICATION: CALCULUS OF KIDNEY TECHNIQUE: Frontal supine view of the abdomen/pelvis. COMPARISON: No relevant prior studies available. FINDINGS: GASTROINTESTINAL TRACT: Fecal retention in the colon consistent with constipation. No dilation. ORGANS: Left nephrolithiasis. BONES/JOINTS: Unremarkable. No acute fracture. RAD/Abdomen Single View IMPRESSION: 1. Left nephrolithiasis. 2. Fecal retention in the colon consistent with constipation. Reading Location: [id number]
== END | disposition home or self-care (01) ==
LOC: RAD 12:41
PROVIDERS: PCP Family Medicine; Referring Provider Urology; Visit Provider Urology
DX: N20.0 Calculus of kidney (principal)
CPT/HCPCS: 74018